=== PATIENT | male | born 1975 | race African-American/Black ===

== ENCOUNTER 2018-05-02 08:57 | Inpatient (IN) | END 2018-05-04 17:30 | disposition home or self-care (01) | DRG 393 ==

== ENCOUNTER 2018-05-08 04:53 | Inpatient (IN) | END 2018-06-05 01:09 | disposition short-term general hospital (02) | DRG 439 ==

== ENCOUNTER 2018-06-18 17:36 | Inpatient (IN) | END 2018-06-26 15:06 | disposition home or self-care (01) | DRG 439 ==

== ENCOUNTER 2018-07-15 17:26 | Inpatient (IN) | payer OTHER ==
[~2018-07-15] VITALS: Ht 185.4 cm; Wt 144.3 kg
[~2018-07-15 17:26] MED LIST: ACET325T45 PO; AMLO5TAB4 PO; CLON-379 PO; DOCU-144 PO; HYDR4TAB51 PO; LISI-471 PO; METO-319 PO; NICO-544 TD; POLY17PO6 PO
[2018-07-15] MEDS ORDERED: SOD CHLORIDE 0.9% 1,000 ML IV STA (22:31)
[2018-07-15] MEDS ORDERED: HYDROmorphONE 0.5 MG/0.5 ML SYG IV STA (22:31)
[2018-07-15] MEDS ORDERED: ONDANSETRON 4 MG INJ IV STA (22:31)
--- NOTE | 2018-07-16 00:43 | ERD ---
ER Documentation Chief Complaint Chief Complaint Complains of abdominal painHx of pancreatitis HPI 43-year-old male complains of abdominal pain in the epigastric region. Pain is mild to moderate intensity has been going on for the past 12 hours with associated nausea but no vomiting. Patient has history of recurrent pancreatitis. He states this feels like previous pancreatic flare. ROS All systems reviewed and are negative except as per history of present illness. Medications Home Meds Active Scripts Hydromorphone Hcl* (Dilaudid*) 4 Mg Tablet, 4 MG PO Q4H PRN for PAIN, #30 TAB Prov:DODIE FRANCES 06/26/18 Reported Medications Polyethylene Glycol* (Miralax*) 17 Gm Powd.pack, 17 GM PO DAILY, #30 PACKET 06/18/18 Nicotine* (Nicotine* Patch) Unknown Strength Patch, 14 MG TD DAILY, PATCH 06/18/18 Acetaminophen* (Acetaminophen*) 325 Mg Tablet, 325 MG PO NEEDED PRN for PAIN AND OR ELEVATED TEMP, #30 TAB 06/18/18 Metoprolol Succinate* (Toprol XL*) 50 Mg Tab.er.24h, 50 MG PO DAILY, #30 TAB 06/18/18 Amlodipine Besylate* (Norvasc*) 5 Mg Tablet, 5 MG PO DAILY, TAB 06/18/18 Docusate Sodium* (Colace*) 100 Mg Capsule, 100 MG PO Q24H PRN for CONSTIPATION, #30 CAP 06/18/18 Lisinopril* (Lisinopril*) 20 Mg Tablet, 20 MG PO DAILY, #30 TAB 06/18/18 Clonidine Hcl* (Clonidine Hcl*) 0.1 Mg Tab, 0.1 MG PO DAILY PRN for ELEVATED BLOOD PRESSURE, TAB 05/02/18 Allergies Allergies: Coded Allergies: acetaminophen (Verified Allergy, Intermediate, vomiting, rash, 07/15/18) aspirin (Verified Allergy, Intermediate, 06/18/18) blurry vision oxycodone (Verified Allergy, Intermediate, vomiting, rash, 07/15/18) morphine (Verified Adverse Reaction, Mild, abd pain,n/v, 06/18/18) PMhx/Soc History of Surgery: No Anesthesia Reaction: No Hx Neurological Disorder: No Hx Respiratory Disorders: No Hx Cardiac Disorders: Yes (HTN) Hx Psychiatric Problems: Yes (DEPRESSION) Hx Miscellaneous Medical Probl: Yes (ANEMIA, OBESITY) Hx Alcohol Use: No Hx Substance Use: No Hx Tobacco Use: Yes Smoking Status: Current every day smoker Physical Exam Vitals Vital Signs Date Temp Pulse Resp B/P (MAP) Pulse Ox O2 O2 Flow FiO2 Time Delivery Rate 07/15/18 97.7 105 20 138/87 97 17:34 (104) Physical Exam Const: No acute distress Head: Atraumatic Eyes: Normal Conjunctiva ENT: Normal External Ears, Nose and Mouth. Neck: Full range of motion. No meningismus. Resp: Clear to auscultation bilaterally Cardio: Regular rate and rhythm, no murmurs Abd: Soft, non tender, non distended. Normal bowel sounds Skin: No petechiae or rashes Back: No midline or flank tenderness Ext: No cyanosis, or edema Neur: Awake and alert Psych: Normal Mood and Affect Result Diagram: 07/15/18223807/15/182238 Results 24 hrs Laboratory Tests Test 07/15/18 22:39 White Blood Count 9.3 10^3/ul Red Blood Count 4.95 10^6/ul Hemoglobin 12.0 g/dl Hematocrit 40.1 % Mean Corpuscular Volume 81.0 fl Mean Corpuscular Hemoglobin 24.2 pg Mean Corpuscular Hemoglobin Concent 29.9 g/dl Red Cell Distribution Width 18.6 % Platelet Count 284 10^3/UL Mean Platelet Volume 9.5 fl Immature Granulocytes % 0.400 % Neutrophils % 70.6 % Lymphocytes % 21.4 % Monocytes % 5.7 % Eosinophils % 1.4 % Basophils % 0.5 % Nucleated Red Blood Cells % 0.0 /100WBC Immature Granulocytes # 0.040 10^3/ul Neutrophils # 6.5 10^3/ul Lymphocytes # 2.0 10^3/ul Monocytes # 0.5 10^3/ul Eosinophils # 0.1 10^3/ul Basophils # 0.1 10^3/ul Nucleated Red Blood Cells # 0.0 10^3/ul Sodium Level 138 mmol/L Potassium Level 3.8 mmol/L Chloride Level 101 mmol/L Carbon Dioxide Level 29 mmol/L Anion Gap 8 Blood Urea Nitrogen 13 mg/dl Creatinine 1.07 mg/dl Est Glomerular Filtrat Rate mL/min > 60 mL/min Glucose Level 138 mg/dl Calcium Level 9.9 mg/dl Total Bilirubin 0.2 mg/dl Direct Bilirubin 0.00 mg/dl Indirect Bilirubin 0.2 mg/dl Aspartate Amino Transf (AST/SGOT) 38 IU/L Alanine Aminotransferase (ALT/SGPT) 42 IU/L Alkaline Phosphatase 134 IU/L Troponin I 0.014 ng/ml Total Protein 8.0 g/dl Albumin 4.1 g/dl Globulin 3.90 g/dl Albumin/Globulin Ratio 1.05 Lipase 964 U/L Current Medications Medications Dose Sig/Jaclyn Start Time Status Last (Trade) Ordered Route PRN Stop Time Admin Dose Reason Admin Sodium 1,000 ml @ Q1H STAT 07/15/18 DC 07/15/18 Chloride 1,000 mls/hr IV 22:31 07/15/18 22:49 23:30 1 mg ONCE STAT 07/15/18 DC 07/15/18 Hydromorphone IV 22:31 07/15/18 22:50 HCl 22:32 (Dilaudid) Ondansetron 4 mg ONCE STAT 07/15/18 DC 07/15/18 HCl (Zofran IV 22:31 07/15/18 22:49 Inj) 22:32 Procedures/MDM Medical decision makin-year-old male with evidence of acute on chronic pancreatitis. Patient has been hydrating and pain medications. He will be admitted further evaluation and management to Dr. Rodriguez who is currently 7 the patient to service. Departure Diagnosis: Primary Impression: Abdominal pain Abdominal location: unspecified location Qualified Codes: R10.9 - Unspecified abdominal pain Additional Impression: Pancreatitis Chronicity: acute Pancreatitis type: unspecified pancreatitis type Acute pancreatitis complication: unspecified Qualified Codes: K85.90 - Acute pancreatitis without necrosis or infection, unspecified Condition: Serious GUILLERMO MONTOYA Jul 16, 2018 00:43
[2018-07-16] MEDS ORDERED: ACETAMINOPHEN 325 MG TAB PO PRN (01:00)
[2018-07-16] MEDS ORDERED: NACL 0.9% 3 ML SYG IV SCH (01:00)
[2018-07-16] MEDS ORDERED: SENN-36 PO (01:01)
[2018-07-16] MEDS ORDERED: SOD CHLORIDE 0.9% 100 ML ONE (01:05)
[2018-07-16] MEDS ORDERED: IOHEXOL 300MG/ML 150 ML BTL ONE (01:05)
[2018-07-16] MEDS: DOCUSATE SODIUM 100 MG CAP PO SCH ×2 (01:42→12:12)
[2018-07-16] MEDS: SOD CHLORIDE 0.9% 1,000 ML IV SCH ×5 (01:42→22:19)
[2018-07-16] MEDS: HYDROmorphONE 0.5 MG/0.5 ML SYG IV PRN ×2 (01:43→06:30)
[2018-07-16 02:38] VITALS: Ht 185.4 cm; Wt 144.3 kg
[2018-07-16] MEDS ORDERED: ONDANSETRON 4 MG INJ ONE (03:08)
[2018-07-16] MEDS: ONDANSETRON 4 MG INJ IV PRN (03:12)
[2018-07-16 03:24] VITALS: BP 157/88; PULSE 78; RESP 18
--- NOTE | 2018-07-16 06:52 | HP ---
Date/Time of Note Date/Time of Note DATE: 07/16/18 TIME: 06:42 Assessment/Plan VTE Prophylaxis Risk score (from Ns)>0 risk: 2 SCD applied (from Ns): Yes Pharmacological prophylaxis: NA/contraindicated Pharm contraindication: low risk/ambulating Lines/Catheters [facility]from [facility]): Peripheral IV Assessment/Plan Hospital Course This is a 43-year-old male being admitted to the [facility] floor for: #1 recurrent pancreatitis with pseudocyst: CT of the abdomen pelvis shows: Rede monstration of peripancreatic inflammatory change compatible with the patient's history of acute pancreatitis. Overall degree of inflammatory change is improved since the prior examination. Interval decrease in size of the largest pancreatic pseudocyst adjacent to the greater curvature of the stomach. Previous identified collection within the pancreatic body and tail is more well defined but slightly decreased in size. Findings are compatible with an additional pancreatic pseudocyst versus area of walled off necrosis. 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 - At the current time we will keep the patient n.p.o., aggressive IV hydration with normal saline. Will consult GI for further recommendations. Patient is currently afebrile and has a normal white blood cell count. Pain control with Dilaudid. Zofran for nausea. #2 paroxysmal atrial fibrillation: Patient currently appears to be in sinus, I will obtain an EKG for confirmation. Continue home medications. Currently not on any anticoagulation. #3 diabetes type II: Last hemoglobin A1c from June 2018 was 6.0. Insulin sliding scale #4 active smoker: Nicotine patch #5 DVT GI prophylaxis: SCDs, no GI prophylaxis indicated Further treatment strategy will be implemented as per the clinical course. Result Diagram: 07/15/18223807/15/182238 Results 24hrs Laboratory Tests Test 07/15/18 22:39 White Blood Count 9.3 # Red Blood Count 4.95 # Hemoglobin 12.0 #L Hematocrit 40.1 #L Mean Corpuscular Volume 81.0 L Mean Corpuscular Hemoglobin 24.2 L Mean Corpuscular Hemoglobin Concent 29.9 L Red Cell Distribution Width 18.6 H Platelet Count 284 Mean Platelet Volume 9.5 Immature Granulocytes % 0.400 Neutrophils % 70.6 Lymphocytes % 21.4 Monocytes % 5.7 Eosinophils % 1.4 Basophils % 0.5 Nucleated Red Blood Cells % 0.0 Immature Granulocytes # 0.040 H Neutrophils # 6.5 Lymphocytes # 2.0 Monocytes # 0.5 Eosinophils # 0.1 Basophils # 0.1 Nucleated Red Blood Cells # 0.0 Sodium Level 138 Potassium Level 3.8 Chloride Level 101 Carbon Dioxide Level 29 Anion Gap 8 Blood Urea Nitrogen 13 Creatinine 1.07 Est Glomerular Filtrat Rate mL/min > 60 Glucose Level 138 Calcium Level 9.9 Total Bilirubin 0.2 Direct Bilirubin 0.00 Indirect Bilirubin 0.2 Aspartate Amino Transf (AST/SGOT) 38 Alanine Aminotransferase (ALT/SGPT) 42 Alkaline Phosphatase 134 H Troponin I 0.014 Total Protein 8.0 Albumin 4.1 Globulin 3.90 H Albumin/Globulin Ratio 1.05 Lipase 964 H HPI/ROS Admit Date/Time Admit Date/Time Jul 16, 2018 at 00:39 Hx of Present Illness Chief complaint: Abdominal pain times 2 days, nausea vomiting This is a 43-year-old male with a past medical history of pancreatitis complicated by necrotizing pancreatitis and pseudocyst who returns to [facility] today complaining of abdominal pain. Patient reports that his abdominal pain started approximately 2 days ago. He states that he ate spicy gumbo and he thinks that this may have triggered it. He denies any fevers. Patient has previous hospitalizations at [facility] for necrotizing pancreatitis with pseudocyst. He was transferred to [facility] for hepatobiliary consultation however at that time aside from an upper endoscopy he did not have any procedures performed for the pseudocyst as he was told they were too small to be drained. Allergies: Acetaminophen, aspirin, morphine, oxycodone Medications: See SEP ROS Const: As per HPI Eyes : No pain discharge or redness or change in visual acuity ENT: No pain, sore throat, congestion, congestion, dysphagia or discharge Respiratory: No shortness of breath, cough, sputum, wheezing, or pleuritic pain Cardiovascular: No chest pain, palpitation, PND, or edema GI : As per HPI Genitourinary: No dysuria, hematuria, flank pain , discharge or CVA tenderness Musculoskeletal: No joint pain, back pain, neck pain, restricted range of motion in neck or joints Skin: No rash, bruising or hives Neuro: No headache, dizziness, syncope, seizure, focal weakness Endocrine: No polyuria, polydipsia, temperature intolerance Psych: No hallucination, depression, anxiety or suicidal ideation PMH/Family/Social Past Medical History Paroxysmal A fib Necrotizing pancreatitis with pseudocyst Medications Current Medications Sodium Chloride 1,000 ml @ 200 mls/hr Q5H IV Last administered on 07/16/18at 06:29; Admin Dose 200 MLS/HR; Start 07/16/18 at 00:40 IV Flush (NS 3 ml) 3 ml PER PROTOCOL IV ; Start 07/16/18 at 01:00 Ondansetron HCl (Zofran Inj) 4 mg Q6H PRN IV NAUSEA AND/OR VOMITING Last administered on 07/16/18at 03:12; Admin Dose 4 MG; Start 07/16/18 at 01:00 Acetaminophen (Tylenol Tab) 650 mg Q6H PRN PO PAIN LEVEL 1-3 OR FEVER; Start 07/16/18 at 01:00 Hydromorphone HCl (Dilaudid) 0.5 mg Q4H PRN IV SEVERE PAIN LEVEL 7-10 Last administered on 07/16/18at 06:30; Admin Dose 0.5 MG; Start 07/16/18 at 01:00 Docusate Sodium (Colace) 100 mg Q12H PO Last administered on 07/16/18at 01:42; Admin Dose 100 MG; Start 07/16/18 at 01:00 Bisacodyl (Dulcolax) 5 mg DAILY PO ; Start 07/16/18 at 09:00 Nicotine (Nicoderm 14 Mg/ 24hr) 1 patch DAILY TRANSDERM ; Start 07/16/18 at 09:00 Coded Allergies: acetaminophen (Unverified Allergy, Intermediate, vomiting, rash, 07/16/18) aspirin (Unverified Allergy, Intermediate, 07/16/18) blurry vision oxycodone (Unverified Allergy, Intermediate, vomiting, rash, 07/16/18) morphine (Unverified Adverse Reaction, Mild, abd pain,n/v, 07/16/18) Past Surgical History Past Surgical Hx: no surgical history Family History Significant Family History: no pertinent family hx Social History Alcohol Use: none Smoking Status: Current every day smoker Drug Use: none Exam/Review of Systems Vital Signs Vitals Vital Signs Date Temp Pulse Resp B/P (MAP) Pulse Ox O2 O2 Flow FiO2 Time Delivery Rate 07/16/18 98.6 78 18 157/88 96 03:24 (111) 07/16/18 Room Air 01:57 Exam Exam General: Patient is a pleasant male currently lying in bed does not appear to be in any acute distress HEENT: Atraumatic, normocephalic. The pupils are equal, round and reactive. Extraocular motor are intact Neck: Supple with full range of motion. No rigidity or meningismus Chest: Nontender Lungs: Clear to auscultation bilaterally no crackles rales or wheezing Heart: Appears to be normal sinus rhythm, Abdomen: Soft, tenderness palpation over the epigastric area and mid abdomen, normal bowel sounds, morbidly obese Extremities: Normal to inspection, no edema no cyanosis Neurologic: Normal mental status, speech normal, cranial nerves II through XII are intact, motor and sensory are intact, Additional Comments PROCEDURE: CT Abdomen and Pelvis with contrast. CLINICAL INDICATION: History of pancreatitis, necrotic pancreas, pseudocyst. TECHNIQUE: CT scan of the abdomen and pelvis with contrast was performed on a multi-detector high-resolution CT scanner. The patient was scanned following the uncomplicated intravenous administration of 100 cc of Omnipaque-300. Coronal and sagittal reformatted images were obtained from the axial source images. The total exam CTDI equals 24 mGy and the total exam DLP equals 1827 mGy-cm. DICOM images are available. One or more of the following dose reduction techniques were utilized: 1.) Automated exposure control 2.) Adjustment of the mA +/- kV according to patient's size 3.) Use of iterative reconstruction technique. COMPARISON: CT 06/18/2018 FINDINGS: Imaged portions of the chest demonstrate bibasilar dependent atelectasis. There is fatty infiltration of the liver. The gallbladder is unremarkable. Spleen is within normal limits. No adrenal gland lesions are seen. The kidneys enhance symmetrically bilaterally and there is no hydronephrosis. There is a right-sided renal cyst. There is peripancreatic inflammatory change compatible with the patient's history of acute pancreatitis. In the interval since the prior examination there has been decrease in size of the pancreatic pseudocyst adjacent to the greater curvature of the stomach. This measures 5.2 x 4.5 x 6.4 cm and previously measured maximally up to 7.5 cm. There is a low attenuation collection within the body and tail of the pancreas measuring 5.3 x 2.5 cm, overall slightly decreased in size and more well defined since the prior examination and compatible with an area of walled off necrosis versus pancreatic pseudocyst. There is also an additional collection within the pancreatic head measuring 1.3 x 1.7 cm which is decreased in size, previously measuring 2.4 x 2.9 cm. There is probable underlying dilatation of the pancreatic duct. The splenic vein is poorly visualized and likely chronically thrombosed. The pelvic organs are unremarkable. There is no evidence for bowel obstruction. The appendix is normal in caliber. There is reactive thickening of the stomach. There is no intra-abdominal free air. There is no mesenteric, retroperitoneal or pelvic sidewall lymphadenopathy. The abdominal aorta is normal in caliber. Visualized osseous structures are intact. IMPRESSION: Redemonstration of peripancreatic inflammatory change compatible with the patient's history of acute pancreatitis. Overall degree of inflammatory change is improved since the prior examination. Interval decrease in size of the largest pancreatic pseudocyst adjacent to the greater curvature of the stomach. Previous identified collection within the pancreatic body and tail is more well defined but slightly decreased in size. Findings are compatible with an additional pancreatic pseudocyst versus area of walled off necrosis. Interval decrease in size of an additional pancreatic pseudocyst versus walled off necrosis within the pancreatic head. 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 RPTAT: HAP Admitnoemi Santos Physician Date Time Electronically viewed and signed by Tonya Santos Physician on 07/16/2018 04:51 AP/ CC: FRANCO FAJARDO [id number] FRANCO FAJARDO Jul 16, 2018 06:52
[2018-07-16 08:05] VITALS: BP 156/95; PULSE 65; RESP 16
[2018-07-16] MEDS ORDERED: BISACODYL (EC) 5 MG TAB PO SCH (09:00)
[2018-07-16] MEDS: NICOTINE (14 MG/24 HR) PATCH TRANSDERM SCH (09:20)
[2018-07-16] MEDS: HYDROmorphONE 1 MG/ML SYG IV PRN ×3 (12:08→20:46)
[2018-07-16] MEDS ORDERED: HYDROmorphONE 1 MG/ML SYG IV PRN (13:00)
[2018-07-16 15:36] VITALS: BP 169/94; PULSE 64; RESP 18
--- NOTE | 2018-07-16 16:19 | PN ---
Date/Time of Note Date/Time of Note DATE: 07/16/18 TIME: 16:12 Assessment/Plan VTE Prophylaxis Risk score (from Ns)>0 risk: 3 SCD applied (from Ns): Yes Pharmacological prophylaxis: NA/contraindicated Pharm contraindication: low risk/ambulating Lines/Catheters IV Catheter Type (from Nrsg): Peripheral IV Assessment/Plan Assessment/Plan This is a 43-year-old male being admitted to the [facility] floor for: # Chronic pancreatitis with acute flare - CT of the abdomen shows overall improvement in inflammation and walling off of pseudocysts. - Continue NPO, advance diet as tolerated - IV fluids, analgesia, and antiemetics. - After discharge, continue dilaudid 4mg PO daily as needed. - Patient needs to see PMD. Has not seen him since last hospital discharge a month ago. - GI consulted. # paroxysmal atrial fibrillation: - Currently not on any anticoagulation. # diabetes type II: Last hemoglobin A1c from June 2018 was 6.0. Insulin sliding scale # active smoker: Nicotine patch # DVT GI prophylaxis: SCDs, no GI prophylaxis indicated Result Diagram: 07/15/18223807/15/182238 Subjective 24 Hr Interval Summary Free Text/Dictation No acute overnight events. The patient attributes this episode of pancreatitis to cayenne pepper in chicken gumbo. Denies any alcohol or fatty food since last hospital discharge. Pain adequately controlled on current regimen. Also, patient ran out of PO dilaudid prior to admission. Exam/Review of Systems Vital Signs Vitals Vital Signs Date Temp Pulse Resp B/P (MAP) Pulse Ox O2 O2 Flow FiO2 Time Delivery Rate 07/16/18 97.6 64 18 169/94 97 15:36 (119) 07/16/18 Room Air 01:57 Intake and Output 07/15/18 07/15/18 07/16/18 1414:59 22:59 06:59 IntakeIntake Total 1000 ml BalanceBalance 1000 ml Exam Gen: Morbidly obese man in no acute distress. HEENT: Clear oropharynx, no ulcers, moist mucous membranes. Card: Regular rate and rhythm no murmurs Pulm: Clear to auscultation bilaterally. Abd: Morbidly obese. Soft. Tenderness to palpation throughout. Ext: No cyanosis/clubbing/edema. Skin: warm dry well perfused. Lots of skin tags on neck and upper chest and ba ck. Medications Medications Current Medications Sodium Chloride 1,000 ml @ 200 mls/hr Q5H IV Last administered on 07/16/18 14:09; Admin Dose 200 MLS/HR; Start 07/16/18 at 00:40 IV Flush (NS 3 ml) 3 ml PER PROTOCOL IV ; Start 07/16/18 at 01:00 Ondansetron HCl (Zofran Inj) 4 mg Q6H PRN IV NAUSEA AND/OR VOMITING Last administered on 07/16/18 03:12; Admin Dose 4 MG; Start 07/16/18 at 01:00 Acetaminophen (Tylenol Tab) 650 mg Q6H PRN PO PAIN LEVEL 1-3 OR FEVER; Start 07/16/18 at 01:00 Docusate Sodium (Colace) 100 mg Q12H PO Last administered on 07/16/18 12:12; Admin Dose 100 MG; Start 07/16/18 at 01:00 Nicotine (Nicoderm 14 Mg/ 24hr) 1 patch DAILY TRANSDERM Last administered on 07/16/18 09:20; Admin Dose 1 PATCH; Start 07/16/18 at 09:00 Hydromorphone HCl (Dilaudid) 1 mg Q4H PRN IV SEVERE PAIN LEVEL 7-10 Last administered on 07/16/18 12:08; Admin Dose 1 MG; Start 07/16/18 at 12:00 Bisacodyl (Dulcolax) 5 mg DAILY PRN PO constipation; Start 07/16/18 at 16:30; Status UNV Lactulose (Enulose) 20 gm DAILY PO ; Start 07/16/18 at 16:30; Status UNV KATIE AVILA MD Jul 16, 2018 16:19
--- NOTE | 2018-07-16 16:21 | CONS ---
Date/Time of Note Date/Time of Note DATE: 07/16/18 TIME: 16:01 Assessment/Plan Assessment/Plan Hospital Course Summary Assessment and Plan: Assessment: Chronic pancreatitis pseudocyst - interval decrease in size of an additional pancreatic pseudocyst versus walled off necrosis within the pancreatic head, on imaging Chronic narcotic use Narcotic induced constipation Paroxysmal atrial fibrillation DM, type 2 Current smoker Obesity Plan: NPO, IVF- if sx improve consider clear liquid diet in am Recommend HBS consult- on pervious admission attempted to obtain HBS but was unable 2/2 to ins Instructed patient on last visit to f/u at [facility] [place], has not done so as of yet. Pt states he has an appt with general practitioner next week. Again instructed patient on importance of f/u at [facility] for evaluation of chronic pancreatitis with pseudocysts Pain management Monitor labs Patient seen in collaboration with Dr. Alanis Result Diagram: 07/15/18223807/15/182238 Results 24hrs Laboratory Tests Test 07/15/18 22:39 White Blood Count 9.3 # Red Blood Count 4.95 # Hemoglobin 12.0 #L Hematocrit 40.1 #L Mean Corpuscular Volume 81.0 L Mean Corpuscular Hemoglobin 24.2 L Mean Corpuscular Hemoglobin Concent 29.9 L Red Cell Distribution Width 18.6 H Platelet Count 284 Mean Platelet Volume 9.5 Immature Granulocytes % 0.400 Neutrophils % 70.6 Lymphocytes % 21.4 Monocytes % 5.7 Eosinophils % 1.4 Basophils % 0.5 Nucleated Red Blood Cells % 0.0 Immature Granulocytes # 0.040 H Neutrophils # 6.5 Lymphocytes # 2.0 Monocytes # 0.5 Eosinophils # 0.1 Basophils # 0.1 Nucleated Red Blood Cells # 0.0 Sodium Level 138 Potassium Level 3.8 Chloride Level 101 Carbon Dioxide Level 29 Anion Gap 8 Blood Urea Nitrogen 13 Creatinine 1.07 Est Glomerular Filtrat Rate mL/min > 60 Glucose Level 138 Calcium Level 9.9 Total Bilirubin 0.2 Direct Bilirubin 0.00 Indirect Bilirubin 0.2 Aspartate Amino Transf (AST/SGOT) 38 Alanine Aminotransferase (ALT/SGPT) 42 Alkaline Phosphatase 134 H Troponin I 0.014 Total Protein 8.0 Albumin 4.1 Globulin 3.90 H Albumin/Globulin Ratio 1.05 Lipase 964 H CC: MEDINA ALANIS ; Consultation Date/Type/Reason Admit Date/Time Jul 16, 2018 at 00:39 Date of Consultation: Jul 16, 2018 Type of Consult GI Reason for Consultation Chronic pancreatitis with pseudocyst Hx of Present Illness This is a 43 year old male with who represented to the hospital with profuse nausea and vomiting with severe upper abdominal pain patient states secondary to pancreatitis. This patient is well know to the GI team has been dx with p ancreatitis with pseudocyst was evaluated at [facility] underwent possible cystostomy unsuccessful as well as possible drainage of pseudocyst again unsuccessful. Patient was discharged and shortly later re-presented to [facility] in the beginning of June he was treated here and discharge 06/26/18 with plans to follow-up at a tertiary center. Since then patient has not done so states he was feeling better on Dilaudid medication. However patient states he fell and dropped the remaining pills of his Dilaudid down the sink and had to use Percocet instead which he feels has caused more pain and worsening of constipation. Of note patient states his last bowel mo vement was 06/26/18A CT of abdomen/pelvis with contrast was completed earlier this morning showing fatty liver, no evidence for bowel obstruction, the appendix is normal caliber there is reactive thickening of the stomach no intra- abdominal free air, there is no mesenteric or or pelvic lymphadenopathy no mention of constipation. Additionally, imaging shows remonstration of peripancreatic inflammatory change compatible with the patient's history of acute pancreatitis. Overall degree of inflammatory change is improved since the prior examination. Interval decrease in size of the largest pancreatic pseudocyst adjacent to the greater curvature of the stomach. Previous identified collection within the pancreatic body and tail is more well defined but slightly decreased in size. Findings are compatible with an additional pancreatic pseudocyst versus area of walled off necrosis. Interval decrease in size of an additional pancreatic pseudocyst versus walled off necrosis within the pancreatic head. A time evaluation patient complains of severe upper abdominal pain. Nausea and vomiting have resolved. Patient denies diarrhea, melena, hematochezia. Again patient complains of constipation. Lipase on admission 900s patient is currently n.p.o. with IV fluids continue pain management. 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 Review of Systems: A 12 system, review was conducted and is negative except as noted in the HPI or here. Past Medical History Medications Current Medications Sodium Chloride 1,000 ml @ 200 mls/hr Q5H IV Last administered on 07/16/18 14:09; Admin Dose 200 MLS/HR; Start 07/16/18 at 00:40 IV Flush (NS 3 ml) 3 ml PER PROTOCOL IV ; Start 07/16/18 at 01:00 Ondansetron HCl (Zofran Inj) 4 mg Q6H PRN IV NAUSEA AND/OR VOMITING Last admi nistered on 07/16/18 03:12; Admin Dose 4 MG; Start 07/16/18 at 01:00 Acetaminophen (Tylenol Tab) 650 mg Q6H PRN PO PAIN LEVEL 1-3 OR FEVER; Start 07/16/18 at 01:00 Docusate Sodium (Colace) 100 mg Q12H PO Last administered on 07/16/18 12:12; Admin Dose 100 MG; Start 07/16/18 at 01:00 Bisacodyl (Dulcolax) 5 mg DAILY PO Last administered on 07/16/18 09:20; Admin Dose 5 MG; Start 07/16/18 at 09:00 Nicotine (Nicoderm 14 Mg/ 24hr) 1 patch DAILY TRANSDERM Last administered on 07/16/18 09:20; Admin Dose 1 PATCH; Start 07/16/18 at 09:00 Hydromorphone HCl (Dilaudid) 1 mg Q4H PRN IV SEVERE PAIN LEVEL 7-10 Last administered on 07/16/18 12:08; Admin Dose 1 MG; Start 07/16/18 at 12:00 Allergies: Coded Allergies: acetaminophen (Unverified Allergy, Intermediate, vomiting, rash, 07/16/18) aspirin (Unverified Allergy, Intermediate, 07/16/18) blurry vision oxycodone (Unverified Allergy, Intermediate, vomiting, rash, 07/16/18) morphine (Unverified Adverse Reaction, Mild, abd pain,n/v, 07/16/18) Past Surgical History Past Surgical Hx: no surgical history Social History Alcohol Use: none Smoking Status: Current every day smoker Drug Use: none Exam/Review of Systems Vital Signs Vitals Vital Signs Date Temp Pulse Resp B/P (MAP) Pulse Ox O2 O2 Flow FiO2 Time Delivery Rate 07/16/18 97.6 64 18 169/94 97 15:36 (119) 07/16/18 Room Air 01:57 Intake and Output 07/15/18 07/15/18 07/16/18 1515:00 23:00 07:00 IntakeIntake Total 1000 ml BalanceBalance 1000 ml Exam PHYSICAL EXAMINATION: GENERAL: Obese, alert & oriented x 3, in no acute distress SKIN: No lesions HEAD: Normocephalic, atraumatic, no tenderness. EYES: Pupils equal reactive to light, no discharge. EARS/NOSE AND THROAT: Ears normal, nose normal NECK: Supple, no masses CHEST: Inspection within normal limits. CARDIOVASCULAR: Heart: Regular rate and rhythm RESPIRATORY: Lungs clear to auscultation GASTROINTESTINAL AND LIVER: Abdomen: Soft, upper abd pain non-distended, no hernias,, normoactive bowel sounds. Rectal: Deferred. GENITOURINARY: Male genitalia within normal limits. EXTREMITIES: No cyanosis, clubbing or edema. Medications Medications Current Medications Sodium Chloride 1,000 ml @ 200 mls/hr Q5H IV Last administered on 07/16/18at 14:09; Admin Dose 200 MLS/HR; Start 07/16/18 at 00:40 IV Flush (NS 3 ml) 3 ml PER PROTOCOL IV ; Start 07/16/18 at 01:00 Ondansetron HCl (Zofran Inj) 4 mg Q6H PRN IV NAUSEA AND/OR VOMITING Last administered on 07/16/18at 03:12; Admin Dose 4 MG; Start 07/16/18 at 01:00 Acetaminophen (Tylenol Tab) 650 mg Q6H PRN PO PAIN LEVEL 1-3 OR FEVER; Start 07/16/18 at 01:00 Docusate Sodium (Colace) 100 mg Q12H PO Last administered on 07/16/18at 12:12; Admin Dose 100 MG; Start 07/16/18 at 01:00 Bisacodyl (Dulcolax) 5 mg DAILY PO Last administered on 07/16/18 09:20; Admin Dose 5 MG; Start 07/16/18 at 09:00 Nicotine (Nicoderm 14 Mg/ 24hr) 1 patch DAILY TRANSDERM Last administered on 07/16/18 09:20; Admin Dose 1 PATCH; Start 07/16/18 at 09:00 Hydromorphone HCl (Dilaudid) 1 mg Q4H PRN IV SEVERE PAIN LEVEL 7-10 Last administered on 07/16/18at 12:08; Admin Dose 1 MG; Start 07/16/18 at 12:00 KATARINA DAY Jul 16, 2018 16:12
[2018-07-16] MEDS ORDERED: BISACODYL (EC) 5 MG TAB PO PRN (16:30)
[2018-07-16] MEDS: LACTULOSE 30ML CUP PO SCH (18:34)
[2018-07-16 20:08] VITALS: BP 159/98; PULSE 64; RESP 18
[2018-07-17] MEDS: DOCUSATE SODIUM 100 MG CAP PO SCH ×2 (00:56→13:46)
[2018-07-17] MEDS: HYDROmorphONE 1 MG/ML SYG IV PRN ×4 (00:56→13:46)
[2018-07-17] MEDS: SOD CHLORIDE 0.9% 1,000 ML IV SCH ×5 (02:40→16:00)
[2018-07-17 03:13] VITALS: BP 164/98; PULSE 65; RESP 18
[2018-07-17] MEDS: ONDANSETRON 4 MG INJ IV PRN (05:38)
[2018-07-17 08:09] VITALS: BP 120/56; PULSE 99; RESP 19
[2018-07-17] MEDS: LACTULOSE 30ML CUP PO SCH ×2 (09:00→09:46)
[2018-07-17] MEDS: NICOTINE (14 MG/24 HR) PATCH TRANSDERM SCH (09:46)
--- NOTE | 2018-07-17 12:02 | RADRPT ---
Vent Rate: 67 bpm RR Interval: 0 msec [place] Interval: 152 msec QRS Duration: 102 msec QT Interval: 430 msec QTC Interval: 454 msec P-R-T [place]: 31 - 40 - 0 degrees Normal sinus rhythm T wave abnormality, consider inferolateral ischemia Abnormal ECG Electronically Signed By: Nelson Cabral [id number]
--- NOTE | 2018-07-17 14:18 | PN ---
Date/Time of Note Date/Time of Note DATE: 07/17/18 TIME: 14:13 Assessment/Plan VTE Prophylaxis Risk score (from Nsg)>0 risk: 3 SCD applied (from Nsg): Yes Pharmacological prophylaxis: other (scds) Lines/Catheters IV Catheter Type (from Nrsg): Peripheral IV Assessment/Plan Hospital Course Summary Assessment and Plan: Assessment: Chronic pancreatitis pseudocyst - interval decrease in size of an additional pancreatic pseudocyst versus walled off necrosis within the pancreatic head, on imaging Chronic narcotic use Narcotic induced constipation Paroxysmal atrial fibrillation DM, type 2 Current smoker Obesity Plan: Clear liquid diet today- advance as tolerated Pt to f/u at tertiary center for follow-up for pancreatitis with pseudocyst Pain management Monitor labs D/c planning her hospitalist Patient seen in collaboration with Dr. Guillory/Willie Subjective: Pt feels slightly better, He states had a large BM today. Will change lactulose to PRN. Pain controlled with current regimen PHYSICAL EXAMINATION: GENERAL: Obese, alert & oriented x 3, in no acute distress SKIN: No lesions HEAD: Normocephalic, atraumatic, no tenderness. EYES: Pupils equal reactive to light, no discharge. EARS/NOSE AND THROAT: Ears normal, nose normal NECK: Supple, no masses CHEST: Inspection within normal limits. CARDIOVASCULAR: Heart: Regular rate and rhythm RESPIRATORY: Lungs clear to auscultation GASTROINTESTINAL AND LIVER: Abdomen: Soft, upper abd pain,non-distended, no hernias,, normoactive bowel sounds. Rectal: Deferred. GENITOURINARY: Male genitalia within normal limits. EXTREMITIES: No cyanosis, clubbing or edema. Result Diagram: 07/17/18 0535 07/17/18 0535 Results 24hrs Laboratory Tests Test 07/16/18 20:00 07/17/18 05:35 Urine Color YELLOW Urine Clarity CLEAR Urine pH 6.0 Urine Specific [place] > 1.060 H Urine Ketones NEGATIVE Urine Nitrite NEGATIVE Urine Bilirubin NEGATIVE Urine Urobilinogen 1+ H Urine Leukocyte Esterase NEGATIVE Urine Microscopic RBC 1 Urine Microscopic WBC 1 Urine Mucus FEW A Urine Hemoglobin NEGATIVE Urine Glucose NEGATIVE Urine Total Protein 1+ H White Blood Count 6.3 # Red Blood Count 4.29 L Hemoglobin 10.4 L Hematocrit 35.6 L Mean Corpuscular Volume 83.0 Mean Corpuscular Hemoglobin 24.2 L Mean Corpuscular Hemoglobin Concent 29.2 L Red Cell Distribution Width 18.3 H Platelet Count 236 Mean Platelet Volume 10.5 H Immature Granulocytes % 0.300 Neutrophils % 59.0 Lymphocytes % 22.9 Monocytes % 6.5 Eosinophils % 10.5 H Basophils % 0.8 Nucleated Red Blood Cells % 0.0 Immature Granulocytes # 0.020 Neutrophils # 3.7 Lymphocytes # 1.4 Monocytes # 0.4 Eosinophils # 0.7 H Basophils # 0.1 Nucleated Red Blood Cells # 0.0 Sodium Level 144 Potassium Level 3.9 Chloride Level 107 Carbon Dioxide Level 28 Anion Gap 9 Blood Urea Nitrogen 9 Creatinine 0.73 Est Glomerular Filtrat Rate mL/min > 60 Glucose Level 88 # Calcium Level 9.1 Magnesium Level 1.9 Total Bilirubin 0.3 Direct Bilirubin 0.00 Indirect Bilirubin 0.3 Aspartate Amino Transf (AST/SGOT) 25 Alanine Aminotransferase (ALT/SGPT) 34 Alkaline Phosphatase 104 Total Protein 6.6 # Albumin 3.3 Globulin 3.30 H Albumin/Globulin Ratio 1.00 Triglycerides Level 142 Cholesterol Level 166 LDL Cholesterol, Calculated 109 HDL Cholesterol 29 Cholesterol/HDL Ratio 5.7 Thyroid Stimulating Hormone (TSH) 2.790 Exam/Review of Systems Vital Signs Vitals Vital Signs Date Temp Pulse Resp B/P (MAP) Pulse Ox O2 O2 Flow FiO2 Time Delivery Rate 07/17/18 97.9 65 18 164/98 97 03:13 (120) 07/16/18 Room Air 01:57 Intake and Output 07/16/18 07/16/18 07/17/18 1515:00 23:00 07:00 IntakeIntake Total 1000 ml 1000 ml 1000 ml OutputOutput Total 300 ml 200 ml BalanceBalance 700 ml 800 ml 1000 ml Medications Medications Current Medications Sodium Chloride 1,000 ml @ 150 mls/hr Q6H40M IV Last administered on 07/17/18at 13:46; Admin Dose 150 MLS/HR; Start 07/16/18 at 00:40 IV Flush (NS 3 ml) 3 ml PER PROTOCOL IV ; Start 07/16/18 at 01:00 Ondansetron HCl (Zofran Inj) 4 mg Q6H PRN IV NAUSEA AND/OR VOMITING Last administered on 07/17/18at 05:38; Admin Dose 4 MG; Start 07/16/18 at 01:00 Acetaminophen (Tylenol Tab) 650 mg Q6H PRN PO PAIN LEVEL 1-3 OR FEVER; Start 07/16/18 at 01:00 Docusate Sodium (Colace) 100 mg Q12H PO Last administered on 07/17/18at 13:46; Admin Dose 100 MG; Start 07/16/18 at 01:00 Nicotine (Nicoderm 14 Mg/ 24hr) 1 patch DAILY TRANSDERM Last administered on 07/17/18 09:46; Admin Dose 1 PATCH; Start 07/16/18 at 09:00 Hydromorphone HCl (Dilaudid) 1 mg Q4H PRN IV SEVERE PAIN LEVEL 7-10 Last administered on 07/17/18at 13:46; Admin Dose 1 MG; Start 07/16/18 at 12:00 Bisacodyl (Dulcolax) 5 mg DAILY PRN PO constipation; Start 07/16/18 at 16:30 Lactulose (Enulose) 20 gm DAILY PO Last administered on 07/16/18at 18:34; Admin Dose 20 GM; Start 07/16/18 at 16:30 Senna (Senokot) 2 tab BID PO ; Start 07/17/18 at 21:00 KATARINA DAY Jul 17, 2018 14:18
[2018-07-17] MEDS ORDERED: LACTULOSE 30ML CUP PO PRN (14:30)
[2018-07-17 15:10] VITALS: BP 173/95; PULSE 73; RESP 19
[2018-07-17 16:28] VITALS: BP 157/61
--- NOTE | 2018-07-17 17:20 | PN ---
Date/Time of Note Date/Time of Note DATE: 07/17/18 TIME: 17:18 Assessment/Plan VTE Prophylaxis Risk score (from Ns)>0 risk: 3 SCD applied (from Ns): Yes Pharmacological prophylaxis: NA/contraindicated Pharm contraindication: low risk/ambulating Lines/Catheters [facility]): Peripheral IV Assessment/Plan Assessment/Plan This is a 43-year-old male being admitted to the [facility] floor for: # Chronic pancreatitis with acute flare - CT of the abdomen shows overall improvement in inflammation and walling off of pseudocysts. - Clear liquids today, advance diet as tolerated - After discharge, continue dilaudid 4mg PO daily as needed. - Patient needs to see PMD. Has not seen him since last hospital discharge a month ago. - Outpatient hepatobiliary consult. - GI consulted. # paroxysmal atrial fibrillation: - Currently not on any anticoagulation. # diabetes type II: Last hemoglobin A1c from June 2018 was 6.0. Insulin sliding scale # active smoker: Nicotine patch # DVT GI prophylaxis: SCDs, no GI prophylaxis indicated Result Diagram: 07/17/18 0535 07/17/18 0535 Subjective 24 Hr Interval Summary Free Text/Dictation Patient overall feeling better. Tolerating clear liquids. Complaining about plastic taste in mouth from IV fluids, requested they be discontinued. Exam/Review of Systems Vital Signs Vitals Vital Signs Date Temp Pulse Resp B/P (MAP) Pulse Ox O2 O2 Flow FiO2 Time Delivery Rate 07/17/18 157/61 16:28 (93) 07/17/18 98.0 73 19 98 15:10 07/16/18 Room Air 01:57 Intake and Output 07/16/18 07/16/18 07/17/18 1515:00 23:00 07:00 IntakeIntake Total 1000 ml 1000 ml 1000 ml OutputOutput Total 300 ml 200 ml BalanceBalance 700 ml 800 ml 1000 ml Exam Gen: Morbidly obese man in no acute distress. HEENT: Clear oropharynx, no ulcers, moist mucous membranes. Card: Regular rate and rhythm no murmurs Pulm: Clear to auscultation bilaterally. Abd: Morbidly obese. Soft. Tenderness to palpation throughout. Ext: No cyanosis/clubbing/edema. Skin: warm dry well perfused. Lots of skin tags on neck and upper chest and back. Medications Medications Current Medications Sodium Chloride 1,000 ml @ 150 mls/hr Q6H40M IV Last administered on 07/17/18 13:46; Admin Dose 150 MLS/HR; Start 07/16/18 at 00:40 IV Flush (NS 3 ml) 3 ml PER PROTOCOL IV ; Start 07/16/18 at 01:00 Ondansetron HCl (Zofran Inj) 4 mg Q6H PRN IV NAUSEA AND/OR VOMITING Last administered on 07/17/18 05:38; Admin Dose 4 MG; Start 07/16/18 at 01:00 Acetaminophen (Tylenol Tab) 650 mg Q6H PRN PO PAIN LEVEL 1-3 OR FEVER; Start 07/16/18 at 01:00 Docusate Sodium (Colace) 100 mg Q12H PO Last administered on 07/17/18 13:46; Admin Dose 100 MG; Start 07/16/18 at 01:00 Nicotine (Nicoderm 14 Mg/ 24hr) 1 patch DAILY TRANSDERM Last administered on 07/17/18 09:46; Admin Dose 1 PATCH; Start 07/16/18 at 09:00 Hydromorphone HCl (Dilaudid) 1 mg Q4H PRN IV SEVERE PAIN LEVEL 7-10 Last administered on 07/17/18 13:46; Admin Dose 1 MG; Start 07/16/18 at 12:00 Bisacodyl (Dulcolax) 5 mg DAILY PRN PO constipation; Start 07/16/18 at 16:30 Senna (Senokot) 2 tab BID PO ; Start 07/17/18 at 21:00 Lactulose (Enulose) 20 gm DAILY PRN PO constipation; Start 07/17/18 at 14:30 KATIE AVILA MD Jul 17, 2018 17:20
[2018-07-17] MEDS: HYDROmorphONE 2 MG TAB PO PRN ×2 (18:02→21:55)
[2018-07-17 19:38] VITALS: BP 174/112; PULSE 80; RESP 18
[2018-07-17] MEDS: SENNA TAB PO SCH (21:55)
[2018-07-18] MEDS: DOCUSATE SODIUM 100 MG CAP PO SCH ×2 (00:09→13:00)
[2018-07-18 01:40] VITALS: BP 195/108; PULSE 62; RESP 18
[2018-07-18] MEDS: HYDROmorphONE 2 MG TAB PO PRN ×2 (01:55→07:09)
[2018-07-18] MEDS: ONDANSETRON 4 MG INJ IV PRN ×2 (01:58→09:50)
[2018-07-18 02:26] VITALS: BP 168/78; PULSE 69; RESP 18
[2018-07-18 07:35] VITALS: BP 189/102; PULSE 67; RESP 20
[2018-07-18] MEDS: SENNA TAB PO SCH ×2 (09:00→19:56)
[2018-07-18] MEDS: NICOTINE (14 MG/24 HR) PATCH TRANSDERM SCH (09:50)
[2018-07-18] MEDS: HYDROmorphONE 1 MG/ML SYG IV PRN ×3 (11:16→19:56)
--- NOTE | 2018-07-18 14:03 | PN ---
Date/Time of Note Date/Time of Note DATE: 07/18/18 TIME: 14:01 Assessment/Plan VTE Prophylaxis Risk score (from Nsg)>0 risk: 3 SCD applied (from Nsg): No SCD contraindicated: low risk/ambulating Pharmacological prophylaxis: LMWH Lines/Catheters IV Catheter Type (from Nrsg): Peripheral IV Assessment/Plan Assessment/Plan This is a 43-year-old male being admitted to the [facility] floor for: # Chronic pancreatitis with acute flare - CT of the abdomen shows overall improvement in inflammation and walling off of pseudocysts. - Clear liquids today, advance diet as tolerated - Still requiring IV dilaudid. - After discharge, continue dilaudid 4mg PO daily as needed. - Patient needs to see PMD. Has not seen him since last hospital discharge a month ago. - Outpatient hepatobiliary consult. # paroxysmal atrial fibrillation: - Currently not on any anticoagulation. # diabetes type II: Last hemoglobin A1c from June 2018 was 6.0. Insulin sliding scale # active smoker: Nicotine patch # DVT GI prophylaxis: SCDs, no GI prophylaxis indicated Result Diagram: 07/17/18 0535 07/17/18 0535 Subjective 24 Hr Interval Summary Free Text/Dictation No acute overnight events. Pain is significantly better. He's able to lie flat now. Had several episodes of vomiting this morning. Exam/Review of Systems Vital Signs Vitals Vital Signs Date Temp Pulse Resp B/P (MAP) Pulse Ox O2 O2 Flow FiO2 Time Delivery Rate 07/18/18 98.3 67 20 189/102 96 Room Air 07:35 (131) Intake and Output 07/17/18 07/17/18 07/18/18 1515:00 23:00 07:00 IntakeIntake Total 1480 ml 1380 ml OutputOutput Total 300 ml BalanceBalance 1180 ml 1380 ml Exam Gen: Morbidly obese man in no acute distress. HEENT: Clear oropharynx, no ulcers, moist mucous membranes. Card: Regular rate and rhythm no murmurs Pulm: Clear to auscultation bilaterally. Abd: Morbidly obese. Soft. Epigastric and LUQ tenderness to palpation, otherwise nontender. Ext: No cyanosis/clubbing/edema. Skin: warm dry well perfused. Lots of skin tags on neck and upper chest and back. Medications Medications Current Medications IV Flush (NS 3 ml) 3 ml PER PROTOCOL IV ; Start 07/16/18 at 01:00 Acetaminophen (Tylenol Tab) 650 mg Q6H PRN PO PAIN LEVEL 1-3 OR FEVER; Start 07/16/18 at 01:00 Docusate Sodium (Colace) 100 mg Q12H PO Last administered on 07/17/18at 13:46; Admin Dose 100 MG; Start 07/16/18 at 01:00 Nicotine (Nicoderm 14 Mg/ 24hr) 1 patch DAILY TRANSDERM Last administered on 07/18/18at 09:50; Admin Dose 1 PATCH; Start 07/16/18 at 09:00 Bisacodyl (Dulcolax) 5 mg DAILY PRN PO constipation; Start 07/16/18 at 16:30 Senna (Senokot) 2 tab BID PO Last administered on 07/17/18at 21:55; Admin Dose 2 TAB; Start 07/17/18 at 21:00 Lactulose (Enulose) 20 gm DAILY PRN PO constipation; Start 07/17/18 at 14:30 Hydromorphone HCl (Dilaudid) 2 mg Q4H PRN PO SEVERE PAIN LEVEL 7-10 Last administered on 07/18/18at 07:09; Admin Dose 2 MG; Start 07/17/18 at 17:30 Ondansetron HCl (Zofran Inj) 4 mg Q4H PRN IV NAUSEA AND/OR VOMITING Last administered on 07/18/18at 09:50; Admin Dose 4 MG; Start 07/18/18 at 09:00 Hydromorphone HCl (Dilaudid) 1 mg Q4H PRN IV SEVERE PAIN LEVEL 7-10 Last administered on 07/18/18at 11:16; Admin Dose 1 MG; Start 07/18/18 at 11:00 KATIE AVILA MD Jul 18, 2018 14:03
[2018-07-18 14:30] VITALS: BP 188/109; PULSE 70; RESP 20
--- NOTE | 2018-07-18 15:29 | PN ---
Date/Time of Note Date/Time of Note DATE: 07/18/18 TIME: 15:20 Assessment/Plan VTE Prophylaxis Risk score (from Nsg)>0 risk: 3 SCD applied (from Ns): No SCD contraindicated: other (scds) Pharmacological prophylaxis: other (scds) Pharm contraindication: other (scds) Lines/Catheters [facility] [place] Urinary Cath still in place: No Assessment/Plan Hospital Course Summary Assessment and Plan: Assessment: Chronic pancreatitis pseudocyst - interval decrease in size of an additional pancreatic pseudocyst versus walled off necrosis within the pancreatic head, on imaging Chronic narcotic use Narcotic induced constipation Paroxysmal atrial fibrillation DM, type 2 Current smoker Obesity Plan: Clear liquid diet- if sx improve consider increasing diet Pt to f/u at tertiary center for follow-up for pancreatitis with pseudocyst Pain management Monitor labs D/c planning her hospitalist Consider pain management consult Patient seen in collaboration with Dr. Guillory/Willie Subjective: Pt c/o increase n/v - Zofran frequency has been increased. Discussed starting PPI- pt feels he does not have enough acid in his stomach. Reviewed previous EGD- gastric erosions Pt currently tamez not want PPI. Overall stable. increae diet with improvement of symptoms. PHYSICAL EXAMINATION: GENERAL: Obese, alert & oriented x 3, in no acute distress SKIN: No lesions HEAD: Normocephalic, atraumatic, no tenderness. EYES: Pupils equal reactive to light, no discharge. EARS/NOSE AND THROAT: Ears normal, nose normal NECK: Supple, no masses CHEST: Inspection within normal limits. CARDIOVASCULAR: Heart: Regular rate and rhythm RESPIRATORY: Lungs clear to auscultation GASTROINTESTINAL AND LIVER: Abdomen: Soft, upper abd pain,non-distended, no hernias,normoactive bowel sounds. Rectal: Deferred. GENITOURINARY: Male genitalia within normal limits. EXTREMITIES: No cyanosis, clubbing or edema. Result Diagram: 07/17/18 0535 07/17/18 0535 Exam/Review of Systems Vital Signs Vitals Vital Signs Date Temp Pulse Resp B/P (MAP) Pulse Ox O2 O2 Flow FiO2 Time Delivery Rate 07/18/18 98.3 67 20 189/102 96 Room Air 07:35 (131) Intake and Output 07/17/18 07/17/18 07/18/18 1414:59 22:59 06:59 IntakeIntake Total 1480 ml 1380 ml OutputOutput Total 300 ml BalanceBalance 1180 ml 1380 ml Medications Medications Current Medications IV Flush (NS 3 ml) 3 ml PER PROTOCOL IV ; Start 07/16/18 at 01:00 Acetaminophen (Tylenol Tab) 650 mg Q6H PRN PO PAIN LEVEL 1-3 OR FEVER; Start 07/16/18 at 01:00 Docusate Sodium (Colace) 100 mg Q12H PO Last administered on 07/17/18at 13:46; Admin Dose 100 MG; Start 07/16/18 at 01:00 Nicotine (Nicoderm 14 Mg/ 24hr) 1 patch DAILY TRANSDERM Last administered on 07/18/18at 09:50; Admin Dose 1 PATCH; Start 07/16/18 at 09:00 Bisacodyl (Dulcolax) 5 mg DAILY PRN PO constipation; Start 07/16/18 at 16:30 Senna (Senokot) 2 tab BID PO Last administered on 07/17/18at 21:55; Admin Dose 2 TAB; Start 07/17/18 at 21:00 Lactulose (Enulose) 20 gm DAILY PRN PO constipation; Start 07/17/18 at 14:30 Hydromorphone HCl (Dilaudid) 2 mg Q4H PRN PO SEVERE PAIN LEVEL 7-10 Last administered on 07/18/18 07:09; Admin Dose 2 MG; Start 07/17/18 at 17:30 Ondansetron HCl (Zofran Inj) 4 mg Q4H PRN IV NAUSEA AND/OR VOMITING Last administered on 07/18/18at 09:50; Admin Dose 4 MG; Start 07/18/18 at 09:00 Hydromorphone HCl (Dilaudid) 1 mg Q4H PRN IV SEVERE PAIN LEVEL 7-10 Last administered on 07/18/18 11:16; Admin Dose 1 MG; Start 07/18/18 at 11:00 Enoxaparin Sodium (Lovenox) 40 mg DAILY SC ; Start 07/19/18 at 09:00 KATARINA DAY Jul 18, 2018 15:29
[2018-07-18 20:07] VITALS: BP 180/105; PULSE 65; RESP 18
[2018-07-18] MEDS: LISINOPRIL 20 MG TAB PO SCH (21:38)
[2018-07-19] MEDS: HYDROmorphONE 1 MG/ML SYG IV PRN ×6 (00:35→21:55)
[2018-07-19] MEDS: DOCUSATE SODIUM 100 MG CAP PO SCH ×2 (01:00→12:01)
[2018-07-19 02:25] VITALS: BP 150/91; PULSE 64; RESP 20
[2018-07-19] MEDS: ONDANSETRON 4 MG INJ IV PRN ×3 (05:18→17:28)
[2018-07-19 07:57] VITALS: BP 160/102; PULSE 58; RESP 20
[2018-07-19] MEDS: POTASSIUM CHLORIDE 20 MEQ POWDER FOR ORAL SOLN PO ONE ×2 (09:00→09:04)
[2018-07-19] MEDS: ENOXAPARIN 40 MG/0.4 ML SYG SC SCH (09:00)
[2018-07-19] MEDS: SENNA TAB PO SCH ×3 (09:00→21:00)
[2018-07-19] MEDS: LISINOPRIL 20 MG TAB PO SCH (09:07)
[2018-07-19] MEDS: NICOTINE (14 MG/24 HR) PATCH TRANSDERM SCH (09:07)
[2018-07-19] MEDS ORDERED: MAGNESIUM SULFATE 2 GM/50 ML 50 ML IVPB ONE (10:00)
--- NOTE | 2018-07-19 14:58 | PN ---
Date/Time of Note Date/Time of Note DATE: 07/19/18 TIME: 14:49 Assessment/Plan VTE Prophylaxis Risk score (from Nsg)>0 risk: 2 SCD applied (from Nsg): No SCD contraindicated: low risk/ambulating Pharmacological prophylaxis: heparin Lines/Catheters IV Catheter Type (from Nrsg): Saline Lock Urinary Cath still in place: No Assessment/Plan Assessment/Plan Assessment: Chronic pancreatitis pseudocyst - interval decrease in size of an additional pancreatic pseudocyst versus walled off necrosis within the pancreatic head, on imaging Chronic narcotic use H/o gastric erosions Narcotic induced constipation Paroxysmal atrial fibrillation DM, type 2 Current smoker Obesity Plan: Clear liquid diet Pt to f/u at tertiary center for follow-up for pancreatitis with pseudocyst Pain management Monitor labs Consider pain management consult Patient seen in collaboration with Dr. Guillory/Willie Subjective: Patient denies any nausea or vomiting. Abdominal pain is 7 out of 10 -relieved with Dilaudid. Patient is on clear liquid diet. Continue present regimen until the abdominal pain has improved. PHYSICAL EXAMINATION: GENERAL: Obese, alert & oriented x 3, in no acute distress SKIN: No lesions HEAD: Normocephalic, atraumatic, no tenderness. EYES: Pupils equal reactive to light, no discharge. EARS/NOSE AND THROAT: Ears normal, nose normal NECK: Supple, no masses CHEST: Inspection within normal limits. CARDIOVASCULAR: Heart: Regular rate and rhythm RESPIRATORY: Lungs clear to auscultation GASTROINTESTINAL AND LIVER: Abdomen: Soft, upper abd pain,non-distended, no hernias,normoactive bowel sounds. Rectal: Deferred. GENITOURINARY: Male genitalia within normal limits. EXTREMITIES: No cyanosis, clubbing or edema. Result Diagram: 07/19/18 0510 07/19/18 0510 Results 24hrs Laboratory Tests Test 07/19/18 05:10 White Blood Count 4.5 #L Red Blood Count 4.27 L Hemoglobin 10.4 L Hematocrit 34.3 L Mean Corpuscular Volume 80.3 L Mean Corpuscular Hemoglobin 24.4 L Mean Corpuscular Hemoglobin Concent 30.3 L Red Cell Distribution Width 18.0 H Platelet Count 232 Mean Platelet Volume 10.4 Immature Granulocytes % 0.200 Neutrophils % 35.2 L Lymphocytes % 47.8 Monocytes % 7.8 Eosinophils % 8.3 H Basophils % 0.7 Nucleated Red Blood Cells % 0.0 Immature Granulocytes # 0.010 Neutrophils # 1.6 Lymphocytes # 2.1 Monocytes # 0.4 Eosinophils # 0.4 Basophils # 0.0 Nucleated Red Blood Cells # 0.0 Sodium Level 140 Potassium Level 3.2 L Chloride Level 104 Carbon Dioxide Level 26 Anion Gap 10 Blood Urea Nitrogen 2 L Creatinine 0.71 Est Glomerular Filtrat Rate mL/min > 60 Glucose Level 84 Calcium Level 8.7 Phosphorus Level 4.7 Magnesium Level 1.8 CC: MARGO HERNANDEZ MD ; Exam/Review of Systems Vital Signs Vitals Vital Signs Date Temp Pulse Resp B/P (MAP) Pulse Ox O2 O2 Flow FiO2 Time Delivery Rate 07/19/18 98.4 58 20 160/102 99 07:57 (121) 07/18/18 Room Air 14:30 Intake and Output 07/18/18 07/18/18 07/19/18 1414:59 22:59 06:59 IntakeIntake Total 720 ml 340 ml OutputOutput Total 450 ml 400 ml BalanceBalance -450 ml 720 ml -60 ml Medications Medications Current Medications IV Flush (NS 3 ml) 3 ml PER PROTOCOL IV ; Start 07/16/18 at 01:00 Acetaminophen (Tylenol Tab) 650 mg Q6H PRN PO PAIN LEVEL 1-3 OR FEVER; Start 07/16/18 at 01:00 Docusate Sodium (Colace) 100 mg Q12H PO Last administered on 07/17/18at 13:46; Admin Dose 100 MG; Start 07/16/18 at 01:00 Nicotine (Nicoderm 14 Mg/ 24hr) 1 patch DAILY TRANSDERM Last administered on 07/19/18at 09:07; Admin Dose 1 PATCH; Start 07/16/18 at 09:00 Bisacodyl (Dulcolax) 5 mg DAILY PRN PO constipation; Start 07/16/18 at 16:30 Senna (Senokot) 2 tab BID PO Last administered on 07/19/18at 09:07; Admin Dose 2 TAB; Start 07/17/18 at 21:00 Lactulose (Enulose) 20 gm DAILY PRN PO constipation; Start 07/17/18 at 14:30 Hydromorphone HCl (Dilaudid) 2 mg Q4H PRN PO SEVERE PAIN LEVEL 7-10 Last administered on 07/18/18 07:09; Admin Dose 2 MG; Start 07/17/18 at 17:30 Ondansetron HCl (Zofran Inj) 4 mg Q4H PRN IV NAUSEA AND/OR VOMITING Last administered on 07/19/18 09:04; Admin Dose 4 MG; Start 07/18/18 at 09:00 Hydromorphone HCl (Dilaudid) 1 mg Q4H PRN IV SEVERE PAIN LEVEL 7-10 Last administered on 07/19/18at 13:34; Admin Dose 1 MG; Start 07/18/18 at 11:00 Enoxaparin Sodium (Lovenox) 40 mg DAILY SC ; Start 07/19/18 at 09:00 Lisinopril (Zestril) 20 mg DAILY PO Last administered on 07/19/18 09:07; Admin Dose 20 MG; Start 07/18/18 at 21:00 Clonidine (Catapres) 0.1 mg DAILY PO Last administered on 07/19/18at 10:07; Admin Dose 0.1 MG; Start 07/19/18 at 09:30 JUAN DIEGO VENTURA NP Jul 19, 2018 14:58
[2018-07-19 15:10] VITALS: BP 148/91; PULSE 62; RESP 17
[2018-07-19] MEDS ORDERED: POTASSIUM CHLORIDE (SR) 20 MEQ TAB PO STA (15:29)
--- NOTE | 2018-07-19 15:30 | PN ---
Date/Time of Note Date/Time of Note DATE: 07/19/18 TIME: 15:29 Assessment/Plan VTE Prophylaxis Risk score (from Ns)>0 risk: 2 SCD applied (from Ns): No SCD contraindicated: other (no) Pharmacological prophylaxis: LMWH Lines/Catheters IV Catheter Type (from [facility] Saline Lock Urinary Cath still in place: No Assessment/Plan Assessment/Plan This is a 43-year-old male being admitted to the [facility] floor for: # Chronic pancreatitis with acute flare - CT of the abdomen shows overall improvement in inflammation and walling off of pseudocysts. - Full liquids today, advancing diet. - Still requiring IV dilaudid. - After discharge, continue dilaudid 4mg PO daily as needed. - Patient needs to see PMD. Has not seen him since last hospital discharge a month ago. - Outpatient hepatobiliary consult. # paroxysmal atrial fibrillation: - Currently not on any anticoagulation. # diabetes type II: Last hemoglobin A1c from June 2018 was 6.0. Insulin sliding scale # active smoker: Nicotine patch # DVT GI prophylaxis: SCDs, no GI prophylaxis indicated Result Diagram: 07/19/18 0510 07/19/18 0510 Results 24hrs Laboratory Tests Test 07/19/18 05:10 White Blood Count 4.5 #L Red Blood Count 4.27 L Hemoglobin 10.4 L Hematocrit 34.3 L Mean Corpuscular Volume 80.3 L Mean Corpuscular Hemoglobin 24.4 L Mean Corpuscular Hemoglobin Concent 30.3 L Red Cell Distribution Width 18.0 H Platelet Count 232 Mean Platelet Volume 10.4 Immature Granulocytes % 0.200 Neutrophils % 35.2 L Lymphocytes % 47.8 Monocytes % 7.8 Eosinophils % 8.3 H Basophils % 0.7 Nucleated Red Blood Cells % 0.0 Immature Granulocytes # 0.010 Neutrophils # 1.6 Lymphocytes # 2.1 Monocytes # 0.4 Eosinophils # 0.4 Basophils # 0.0 Nucleated Red Blood Cells # 0.0 Sodium Level 140 Potassium Level 3.2 L Chloride Level 104 Carbon Dioxide Level 26 Anion Gap 10 Blood Urea Nitrogen 2 L Creatinine 0.71 Est Glomerular Filtrat Rate mL/min > 60 Glucose Level 84 Calcium Level 8.7 Phosphorus Level 4.7 Magnesium Level 1.8 Subjective 24 Hr Interval Summary Free Text/Dictation No acute overnight events. Patient still nauseated but hasn't vomiting since last night. Pain adequately controlled. Exam/Review of Systems Vital Signs Vitals Vital Signs Date Temp Pulse Resp B/P (MAP) Pulse Ox O2 O2 Flow FiO2 Time Delivery Rate 07/19/18 98.6 62 17 148/91 96 Room Air 15:10 (110) Intake and Output 07/18/18 07/18/18 07/19/18 1515:00 23:00 07:00 IntakeIntake Total 720 ml 340 ml OutputOutput Total 450 ml 400 ml BalanceBalance -450 ml 720 ml -60 ml Exam Gen: Morbidly obese man in no acute distress. HEENT: Clear oropharynx, no ulcers, moist mucous membranes. Card: Regular rate and rhythm no murmurs Pulm: Clear to auscultation bilaterally. Abd: Morbidly obese. Soft. Epigastric and LUQ tenderness to palpation, otherwise nontender. Ext: No cyanosis/clubbing/edema. Skin: warm dry well perfused. Lots of skin tags on neck and upper chest and back. Medications Medications Current Medications IV Flush (NS 3 ml) 3 ml PER PROTOCOL IV ; Start 07/16/18 at 01:00 Acetaminophen (Tylenol Tab) 650 mg Q6H PRN PO PAIN LEVEL 1-3 OR FEVER; Start 07/16/18 at 01:00 Docusate Sodium (Colace) 100 mg Q12H PO Last administered on 07/17/18at 13:46; Admin Dose 100 MG; Start 07/16/18 at 01:00 Nicotine (Nicoderm 14 Mg/ 24hr) 1 patch DAILY TRANSDERM Last administered on 07/19/18at 09:07; Admin Dose 1 PATCH; Start 07/16/18 at 09:00 Bisacodyl (Dulcolax) 5 mg DAILY PRN PO constipation; Start 07/16/18 at 16:30 Senna (Senokot) 2 tab BID PO Last administered on 07/19/18at 09:07; Admin Dose 2 TAB; Start 07/17/18 at 21:00 Lactulose (Enulose) 20 gm DAILY PRN PO constipation; Start 07/17/18 at 14:30 Hydromorphone HCl (Dilaudid) 2 mg Q4H PRN PO SEVERE PAIN LEVEL 7-10 Last administered on 07/18/18at 07:09; Admin Dose 2 MG; Start 07/17/18 at 17:30 Ondansetron HCl (Zofran Inj) 4 mg Q4H PRN IV NAUSEA AND/OR VOMITING Last administered on 07/19/18at 09:04; Admin Dose 4 MG; Start 07/18/18 at 09:00 Hydromorphone HCl (Dilaudid) 1 mg Q4H PRN IV SEVERE PAIN LEVEL 7-10 Last administered on 07/19/18at 13:34; Admin Dose 1 MG; Start 07/18/18 at 11:00 Enoxaparin Sodium (Lovenox) 40 mg DAILY SC ; Start 07/19/18 at 09:00 Lisinopril (Zestril) 20 mg DAILY PO Last administered on 07/19/18at 09:07; Admin Dose 20 MG; Start 07/18/18 at 21:00 Clonidine (Catapres) 0.1 mg DAILY PO Last administered on 07/19/18at 10:07; Admin Dose 0.1 MG; Start 07/19/18 at 09:30 KATIE AVLIA MD Jul 19, 2018 15:30
[2018-07-19 19:21] VITALS: BP 157/98; PULSE 65; RESP 18
[2018-07-20] MEDS: DOCUSATE SODIUM 100 MG CAP PO SCH ×2 (01:00→13:00)
[2018-07-20 01:44] VITALS: BP 171/96; PULSE 64; RESP 18
[2018-07-20 02:10] VITALS: BP 158/96; PULSE 62
[2018-07-20] MEDS: HYDROmorphONE 1 MG/ML SYG IV PRN ×3 (02:19→13:33)
[2018-07-20] MEDS: ONDANSETRON 4 MG INJ IV PRN ×2 (02:19→09:15)
[2018-07-20] MEDS: ENOXAPARIN 40 MG/0.4 ML SYG SC SCH (09:00)
[2018-07-20] MEDS: SENNA TAB PO SCH (09:00)
[2018-07-20] MEDS: LISINOPRIL 20 MG TAB PO SCH (10:05)
[2018-07-20] MEDS: NICOTINE (14 MG/24 HR) PATCH TRANSDERM SCH (10:06)
--- NOTE | 2018-07-20 11:12 | PDOCDIS ---
Discharge Instructions DIAGNOSIS Discharge Diagnosis Chronic pancreatitis CONDITION [id number] Patient Condition: Mekfa0s Fair HOME CARE INSTRUCTIONS: [id number] Special Diet: [id number] Full liquid, low residual. Advance slowly as tolerated. ACTIVITY: [id number] Activity Restrictions: [id number] No Restrictions FOLLOW UP/APPOINTMENTS Follow-up Plan 1. Take all medications as prescribed. 2. Don't drive or operate machinery after taking Dilaudid, and don't take it with alcohol or other sedating drugs. 3. See your primary care doctor as scheduled. You may need to see a hepatobiliary specialist. 4. Return to the emergency room for worsening pain not responsive to dilaudid or intractable vomiting not response to zofran and inability to keep liquids down. KATIE AVILA MD Jul 20, 2018 11:12
--- NOTE | 2018-07-20 11:33 | PN ---
Date/Time of Note Date/Time of Note DATE: 07/20/18 TIME: 11:27 Assessment/Plan VTE Prophylaxis Risk score (from Nsg)>0 risk: 2 SCD applied (from Nsg): No SCD contraindicated: low risk/ambulating Pharmacological prophylaxis: heparin Lines/Catheters IV Catheter Type (from Nrsg): Saline Lock Urinary Cath still in place: No Assessment/Plan Assessment/Plan Assessment: Chronic pancreatitis pseudocyst - interval decrease in size of an additional pancreatic pseudocyst versus walled off necrosis within the pancreatic head, on imaging Chronic narcotic use H/o gastric erosions Narcotic induced constipation Paroxysmal atrial fibrillation DM, type 2 Current smoker Obesity Plan: Dc home today Pt to f/u at tertiary center for follow-up for pancreatitis with pseudocyst Pain management Monitor labs Consider pain management consult Patient seen in collaboration with Dr. Guillory/Willie Subjective: Patient states pain is better 3/10 but nausea is worse today. Received one dose of Zofran. Plan to dc home today. will f/u with tertiary center. PHYSICAL EXAMINATION: GENERAL: Obese, alert & oriented x 3, in no acute distress SKIN: No lesions HEAD: Normocephalic, atraumatic, no tenderness. EYES: Pupils equal reactive to light, no discharge. EARS/NOSE AND THROAT: Ears normal, nose normal NECK: Supple, no masses CHEST: Inspection within normal limits. CARDIOVASCULAR: Heart: Regular rate and rhythm RESPIRATORY: Lungs clear to auscultation GASTROINTESTINAL AND LIVER: Abdomen: Soft, upper abd pain,non-distended, no hernias,normoactive bowel sounds. Rectal: Deferred. GENITOURINARY: Male genitalia within normal limits. EXTREMITIES: No cyanosis, clubbing or edema. Result Diagram: 07/20/18 0907/20/18 09 Results 24hrs Laboratory Tests Test 07/20/18 09:06 White Blood Count 4.9 Red Blood Count 4.58 L Hemoglobin 11.0 L Hematocrit 37.0 L Mean Corpuscular Volume 80.8 L Mean Corpuscular Hemoglobin 24.0 L Mean Corpuscular Hemoglobin Concent 29.7 L Red Cell Distribution Width 18.3 H Platelet Count 230 Mean Platelet Volume 10.2 Immature Granulocytes % 0.200 Neutrophils % 43.5 Lymphocytes % 37.5 Monocytes % 7.9 Eosinophils % 10.3 H Basophils % 0.6 Nucleated Red Blood Cells % 0.0 Immature Granulocytes # 0.010 Neutrophils # 2.1 Lymphocytes # 1.9 Monocytes # 0.4 Eosinophils # 0.5 Basophils # 0.0 Nucleated Red Blood Cells # 0.0 Sodium Level 140 Potassium Level 3.7 Chloride Level 106 Carbon Dioxide Level 27 Anion Gap 7 Blood Urea Nitrogen 2 L Creatinine 0.87 Est Glomerular Filtrat Rate mL/min > 60 Glucose Level 88 Calcium Level 9.1 Phosphorus Level 4.5 Magnesium Level 2.1 Total Bilirubin 0.1 L Direct Bilirubin 0.00 Indirect Bilirubin 0.1 Aspartate Amino Transf (AST/SGOT) 31 Alanine Aminotransferase (ALT/SGPT) 26 Alkaline Phosphatase 111 Total Protein 6.1 Albumin 3.2 L Globulin 2.90 Albumin/Globulin Ratio 1.10 CC: MARGO HERNANDEZ MD ; Exam/Review of Systems Vital Signs Vitals Vital Signs Date Temp Pulse Resp B/P (MAP) Pulse Ox O2 O2 Flow FiO2 Time Delivery Rate 07/20/18 62 158/96 02:10 (116) 07/20/18 98.8 18 96 01:44 07/19/18 Room Air 15:10 Intake and Output 07/19/18 07/19/18 07/20/18 1515:00 23:00 07:00 IntakeIntake Total 530 ml 400 ml 50 ml OutputOutput Total 900 ml 300 ml 400 ml BalanceBalance -370 ml 100 ml -350 ml Medications Medications Current Medications IV Flush (NS 3 ml) 3 ml PER PROTOCOL IV ; Start 07/16/18 at 01:00 Acetaminophen (Tylenol Tab) 650 mg Q6H PRN PO PAIN LEVEL 1-3 OR FEVER; Start 07/16/18 at 01:00 Docusate Sodium (Colace) 100 mg Q12H PO Last administered on 07/17/18at 13:46; Ad min Dose 100 MG; Start 07/16/18 at 01:00 Nicotine (Nicoderm 14 Mg/ 24hr) 1 patch DAILY TRANSDERM Last administered on 07/20/18at 10:06; Admin Dose 1 PATCH; Start 07/16/18 at 09:00 Bisacodyl (Dulcolax) 5 mg DAILY PRN PO constipation; Start 07/16/18 at 16:30 Senna (Senokot) 2 tab BID PO Last administered on 07/18/18at 19:56; Admin Dose 1 TAB; Start 07/17/18 at 21:00 Lactulose (Enulose) 20 gm DAILY PRN PO constipation; Start 07/17/18 at 14:30 Hydromorphone HCl (Dilaudid) 2 mg Q4H PRN PO SEVERE PAIN LEVEL 7-10 Last administered on 07/18/18at 07:09; Admin Dose 2 MG; Start 07/17/18 at 17:30 Ondansetron HCl (Zofran Inj) 4 mg Q4H PRN IV NAUSEA AND/OR VOMITING Last administered on 07/20/18at 09:15; Admin Dose 4 MG; Start 07/18/18 at 09:00 Hydromorphone HCl (Dilaudid) 1 mg Q4H PRN IV SEVERE PAIN LEVEL 7-10 Last administered on 07/20/18at 09:15; Admin Dose 1 MG; Start 07/18/18 at 11:00 Enoxaparin Sodium (Lovenox) 40 mg DAILY SC ; Start 07/19/18 at 09:00 Lisinopril (Zestril) 20 mg DAILY PO Last administered on 07/20/18at 10:05; Admin Dose 20 MG; Start 07/18/18 at 21:00 Clonidine (Catapres) 0.1 mg DAILY PO Last administered on 07/20/18at 10:05; Admin Dose 0.1 MG; Start 07/19/18 at 09:30 JUAN DIEGO VENTURA NP Jul 20, 2018 11:33
--- NOTE | 2018-07-20 18:16 | DS ---
Date/Time of Note Date/Time of Note DATE: 07/20/18 TIME: 18:14 Discharge Summary Admission/Discharge Info Admit Date/Time Jul 16, 2018 at 00:39 Discharge Date/Time Jul 20, 2018 at 14:30 Discharge Diagnosis Chronic pancreatitis Patient Condition: Good Consults Gastroenterology Procedures None Hx of Present Illness Chief complaint: Abdominal pain times 2 days, nausea vomiting This is a 43-year-old male with a past medical history of pancreatitis complicated by necrotizing pancreatitis and pseudocyst who returns to [facility] today complaining of abdominal pain. Patient reports that his abdominal pain started approximately 2 days ago. He states that he ate spicy gumbo and he thinks that this may have triggered it. He denies any fevers. Patient has previous hospitalizations at [facility] for necrotizing pancreatitis with pseudocyst. He was transferred to [facility] for hepatobiliary consultation however at that time aside from an upper endoscopy he did not have any procedures performed for the pseudocyst as he was told they were too small to be drained. Of note, the patient was prescribed dilaudid 4mg PO which helps greatly with the pain; but he ran out of this prior to admission. Allergies: Acetaminophen, aspirin, morphine, oxycodone Medications: See MAR Hospital Course The patient was made NPO, started on IV fluids and IV dilaudid. Over the next few days nausea and abdominal pain gradually resolved, he was weaned off IV fluids and restarted on full liquid diet. CT abdomen showed that pancreatic fat stranding was actually significantly improved from before and pseudocysts are more walled off. He will be discharged on PO dilaudid 4mg #30. He has an appointment to see his primary care doctor. Home Meds Active Scripts Hydromorphone Hcl* (Dilaudid*) 4 Mg Tablet, 4 MG PO Q4H PRN for PAIN, #30 TAB Prov:DODIE FRANCES 06/26/18 Reported Medications Sennosides* (Senokot*) 8.6 Mg Tablet, 1 TAB PO DAILY, TAB 07/16/18 Nicotine* (Nicotine* Patch) 7 mg/day Patch, 7 MG TD DAILY, PATCH 06/18/18 Lisinopril* (Lisinopril*) 20 Mg Tablet, 20 MG PO DAILY, #30 TAB 06/18/18 Clonidine Hcl* (Clonidine Hcl*) 0.1 Mg Tab, 0.1 MG PO DAILY PRN for ELEVATED BLOOD PRESSURE, TAB 05/02/18 Discontinued Reported Medications Polyethylene Glycol* (Miralax*) 17 Gm Powd.pack, 17 GM PO DAILY, #30 PACKET 06/18/18 Acetaminophen* (Acetaminophen*) 325 Mg Tablet, 325 MG PO NEEDED PRN for PAIN AND OR ELEVATED TEMP, #30 TAB 06/18/18 Metoprolol Succinate* (Toprol XL*) 50 Mg Tab.er.24h, 50 MG PO DAILY, #30 TAB 06/18/18 Amlodipine Besylate* (Norvasc*) 5 Mg Tablet, 5 MG PO DAILY, TAB 06/18/18 Docusate Sodium* (Colace*) 100 Mg Capsule, 100 MG PO Q24H PRN for CONSTIPATION, #30 CAP 06/18/18 Follow-up Plan 1. Take all medications as prescribed. 2. Don't drive or operate machinery after taking Dilaudid, and don't take it with alcohol or other sedating drugs. 3. See your primary care doctor as scheduled. You may need to see a hepatobiliary specialist. 4. Return to the emergency room for worsening pain not responsive to dilaudid or intractable vomiting not response to zofran and inability to keep liquids down. Primary Care Provider Care Physician No Primary Time spent on discharge: > 30 minutes Pending Labs Laboratory Tests Test 07/20/18 09:06 White Blood Count 4.9 10^3/ul (4.8-10.8) Red Blood Count 4.58 10^6/ul (4.70-6.10) Hemoglobin 11.0 g/dl (14.0-18.0) Hematocrit 37.0 % (42.0-52.0) Mean Corpuscular Volume 80.8 fl (82.0-101.0) Mean Corpuscular Hemoglobin 24.0 pg (29.0-33.0) Mean Corpuscular Hemoglobin Concent 29.7 g/dl (32.0-37.0) Red Cell Distribution Width 18.3 % (11.5-14.5) Platelet Count 230 10^3/UL (140-415) Mean Platelet Volume 10.2 fl (7.4-10.4) Immature Granulocytes % 0.200 % (0.001-0.429) Neutrophils % 43.5 % (39.0-77.0) Lymphocytes % 37.5 % (15.0-51.0) Monocytes % 7.9 % (0.0-11.0) Eosinophils % 10.3 % (0.0-7.0) Basophils % 0.6 % (0.0-2.0) Nucleated Red Blood Cells % 0.0 /100WBC (0.0-0.0) Immature Granulocytes # 0.010 10^3/ul (0.0-0.031) Neutrophils # 2.1 10^3/ul (1.6-7.5) Lymphocytes # 1.9 10^3/ul (0.8-2.9) Monocytes # 0.4 10^3/ul (0.3-0.9) Eosinophils # 0.5 10^3/ul (0.0-0.5) Basophils # 0.0 10^3/ul (0.0-0.1) Nucleated Red Blood Cells # 0.0 10^3/ul (0.0-0.0) Sodium Level 140 mmol/L (135-144) Potassium Level 3.7 mmol/L (3.5-5.1) Chloride Level 106 mmol/L (97-110) Carbon Dioxide Level 27 mmol/L (21-31) Anion Gap 7 (5-13) Blood Urea Nitrogen 2 mg/dl (7-20) Creatinine 0.87 mg/dl (0.61-1.24) Est Glomerular Filtrat Rate mL/min > 60 mL/min (>60) Glucose Level 88 mg/dl (70-220) Calcium Level 9.1 mg/dl (8.4-10.2) Phosphorus Level 4.5 mg/dl (2.5-4.9) Magnesium Level 2.1 mg/dl (1.7-2.5) Total Bilirubin 0.1 mg/dl (0.2-1.3) Direct Bilirubin 0.00 mg/dl (0.00-0.20) Indirect Bilirubin 0.1 mg/dl (0-1.1) Aspartate Amino Transf (AST/SGOT) 31 IU/L (15-46) Alanine Aminotransferase (ALT/SGPT) 26 IU/L (13-69) Alkaline Phosphatase 111 IU/L (42-121) Total Protein 6.1 g/dl (6.1-8.1) Albumin 3.2 g/dl (3.3-4.9) Globulin 2.90 g/dl (1.3-3.2) Albumin/Globulin Ratio 1.10 KATIE AVILA MD Jul 20, 2018 18:16
[2018-08-03] MEDS ORDERED: DOCU-144 PO (15:07)
[2018-08-08] MEDS ORDERED: METO-335 PO (10:10)
[2018-08-08] MEDS ORDERED: LIPA1CAP4 PO (10:10)
[2018-08-19] MEDS ORDERED: ONDA4TAB14 PO (11:27)
[2018-08-19] MEDS ORDERED: TRAM50TA2 PO (11:27)
[2018-08-19] MEDS ORDERED: NALO4SPR NS (11:28)
== END 2018-07-20 14:30 | disposition home or self-care (01) | DRG 439 ==
LOC: E/R 17:26 → 2NE 07-16 00:39
PROVIDERS: ADMIT Family Medicine; ATTEND Internal Medicine
DX: K85.90 Acute pancreatitis without necrosis or infection, unspecified (principal); K86.3 Pseudocyst of pancreas; E66.2 Morbid (severe) obesity with alveolar hypoventilation; Z68.41 Body mass index [BMI] 40.0-44.9, adult; K86.1 Other chronic pancreatitis; I48.0 Paroxysmal atrial fibrillation; E11.9 Type 2 diabetes mellitus without complications; K59.03 Drug induced constipation; T40.2X5A Adverse effect of other opioids, initial encounter; F17.200 Nicotine dependence, unspecified, uncomplicated; Z79.891 Long term (current) use of opiate analgesic
CPT/HCPCS: 74177; 80048; 80053; 80061; 81001; 83690; 83735; 84100; 84443; 84484; 85025; 87081; 93005; 96374; 96375; J1170; J1650; J2405; J3475; J7030; Q9967

== ENCOUNTER 2018-08-01 11:01 | Emergency (ER) | payer OTHER ==
[~2018-08-01] VITALS: Ht 185.4 cm; Wt 136.4 kg
[~2018-08-01 11:01] MED LIST changes: -ACET325T45 PO; -AMLO5TAB4 PO; -DOCU-144 PO; -METO-319 PO; -POLY17PO6 PO; +SENN-36 PO
[2018-08-01 11:05] VITALS: Ht 185.4 cm; Wt 136.4 kg
[2018-08-01] MEDS ORDERED: ONDANSETRON 4 MG INJ IV STA (11:45)
[2018-08-01] MEDS ORDERED: HYDROmorphONE 2 MG/ML SYG IV STA (11:45)
[2018-08-01] MEDS ORDERED: HYDR2TAB36 PO (13:02)
[2018-08-01] MEDS ORDERED: NAR2I NS (13:03)
[2018-08-01] MEDS ORDERED: NALO4SPR NS (13:03)
[2018-08-01] MEDS ORDERED: ONDA4TAB14 PO (13:31)
[2018-08-01 13:46] VITALS: BP 169/104; PULSE 78; RESP 20
--- NOTE | 2018-08-01 14:00 | ERD ---
ER Documentation Chief Complaint Chief Complaint abd pain with nausea/vomiting x 3 days HPI Patient is a 43-year-old male with hypertension and pancreatitis who presents saying "I have pancreatitis". He has upper abdominal pain. He ran out of Dilaudid yesterday. He said that his pain started 2 days ago. He went to his primary doctor yesterday but was not given any prescriptions for Dilaudid. He does not have a pain management doctor. He denies fevers but said that he had chills and vomiting. He has no diarrhea. Upon review of old medical records this is the patient's fifth visit to the ER for similar and he was admitted on the previous 4 visits. He does not remember the name of his primary doctor. ROS All systems reviewed and are negative except as per history of present illness. Medications Home Meds Active Scripts Ondansetron (Ondansetron Odt) 4 Mg Tab.rapdis, 4 MG PO Q6H PRN for NAUSEA AND/OR VOMITING, #30 TAB Prov:RODOLFO CASTLE MD 08/01/18 Naloxone HCl nasal spray (Narcan 4 mg/0.1 mL nasal) 4 Mg [place], 4 MG NS .Q2MIN PRN for OPIOID OVERDOSE, #2 SPRAY [place] entire contents in one nostril, may repeat in alternate nostril in 2-3 minutes if no or minimal response Prov:RODOLFO CASTLE MD 08/01/18 Naloxone Hcl 1mg/1mL 2mL syr (Narcan 1mg/1mL 2mL syr) 1 Mg/Ml Soln, 1 MG NS .Q2MIN for OPIOID OVERDOSE, #2 SYR Inhale 1 mL in each nostril using mucosal atomizer device. May repeat in 2-3 minutes if no or minimal response. Prov:RODOLFO CASTLE MD 08/01/18 Hydromorphone Hcl* (Dilaudid*) 2 Mg Tablet, 1 MG PO Q6H PRN for PAIN, #6 TAB Prov:RODOLFO CASTLE MD 08/01/18 Hydromorphone Hcl* (Dilaudid*) 4 Mg Tablet, 4 MG PO Q4H PRN for PAIN, #30 TAB Prov:DODIE FRANCES 06/26/18 Reported Medications Sennosides* (Senokot*) 8.6 Mg Tablet, 1 TAB PO DAILY, TAB 07/16/18 Nicotine* (Nicotine* Patch) 7 mg/day Patch, 7 MG TD DAILY, PATCH 06/18/18 Lisinopril* (Lisinopril*) 20 Mg Tablet, 20 MG PO DAILY, #30 TAB 06/18/18 Clonidine Hcl* (Clonidine Hcl*) 0.1 Mg Tab, 0.1 MG PO DAILY PRN for ELEVATED BLOOD PRESSURE, TAB 05/02/18 Allergies Allergies: Coded Allergies: acetaminophen (Unverified Allergy, Intermediate, vomiting, rash, 08/01/18) aspirin (Unverified Allergy, Intermediate, 08/01/18) blurry vision oxycodone (Unverified Allergy, Intermediate, vomiting, rash, 08/01/18) morphine (Unverified Adverse Reaction, Mild, abd pain,n/v, 08/01/18) PMhx/Soc History of Surgery: No Anesthesia Reaction: No Hx Neurological Disorder: No Hx Respiratory Disorders: No Hx Cardiac Disorders: Yes (HTN) Hx Psychiatric Problems: Yes (DEPRESSION) Hx Miscellaneous Medical Probl: Yes (pancreatitis) Hx Alcohol Use: No Hx Substance Use: No Hx Tobacco Use: Yes Smoking Status: Current every day smoker FmHx Family History: diabetes Physical Exam Vitals Vital Signs Date Temp Pulse Resp B/P (MAP) Pulse Ox O2 O2 Flow FiO2 Time Delivery Rate 08/01/18 78 20 169/104 98 Room Air 13:46 (125) 08/01/18 97.7 90 18 163/102 99 11:05 (122) Physical Exam Const: No acute distress Head: Atraumatic Eyes: Normal Conjunctiva ENT: Normal External Ears, Nose and Mouth. Neck: Full range of motion. No meningismus. Resp: Clear to auscultation bilaterally Cardio: Regular rate and rhythm, no murmurs Abd: Soft, epigastric tenderness to palpation without rebound or guarding Skin: No petechiae or rashes Back: No midline or flank tenderness Ext: No cyanosis, or edema Neur: Awake and alert Psych: Normal Mood and Affect Result Diagram: 08/01/18 1140 08/01/18 1140 Results 24 hrs Laboratory Tests Test 08/01/18 11:40 White Blood Count 7.7 10^3/ul Red Blood Count 4.82 10^6/ul Hemoglobin 11.6 g/dl Hematocrit 38.7 % Mean Corpuscular Volume 80.3 fl Mean Corpuscular Hemoglobin 24.1 pg Mean Corpuscular Hemoglobin Concent 30.0 g/dl Red Cell Distribution Width 18.2 % Platelet Count 261 10^3/UL Mean Platelet Volume 9.9 fl Immature Granulocytes % 0.400 % Neutrophils % 65.8 % Lymphocytes % 22.0 % Monocytes % 7.4 % Eosinophils % 3.5 % Basophils % 0.9 % Nucleated Red Blood Cells % 0.0 /100WBC Immature Granulocytes # 0.030 10^3/ul Neutrophils # 5.1 10^3/ul Lymphocytes # 1.7 10^3/ul Monocytes # 0.6 10^3/ul Eosinophils # 0.3 10^3/ul Basophils # 0.1 10^3/ul Nucleated Red Blood Cells # 0.0 10^3/ul Sodium Level 142 mmol/L Potassium Level 3.9 mmol/L Chloride Level 106 mmol/L Carbon Dioxide Level 26 mmol/L Anion Gap 10 Blood Urea Nitrogen 10 mg/dl Creatinine 0.78 mg/dl Est Glomerular Filtrat Rate mL/min > 60 mL/min Glucose Level 117 mg/dl Calcium Level 9.5 mg/dl Total Bilirubin 0.2 mg/dl Direct Bilirubin 0.00 mg/dl Indirect Bilirubin 0.2 mg/dl Aspartate Amino Transf (AST/SGOT) 25 IU/L Alanine Aminotransferase (ALT/SGPT) 23 IU/L Alkaline Phosphatase 117 IU/L Total Protein 6.2 g/dl Albumin 3.3 g/dl Globulin 2.90 g/dl Albumin/Globulin Ratio 1.13 Lipase 930 U/L Current Medications Medications Dose Sig/Jaclyn Start Time Status Last (Trade) Ordered Route PRN Stop Time Admin Dose Reason Admin 1 mg ONCE STAT 08/01/18 DC 08/01/18 Hydromorphone IV 11:45 11:52 HCl 08/01/18 11:46 (Dilaudid) Ondansetron 4 mg ONCE STAT 08/01/18 DC 08/01/18 HCl (Zofran IV 11:45 11:51 Inj) 08/01/18 11:46 Procedures/MDM Smoking Cessation Therapy: Pt. was lectured for greater than 3 minutes on the health risks of continued smoking and the benefits of cessation. Patient is a 43-year-old male presents with chronic pancreatitis. I believe this may be his baseline lipase at this time as his lipase is 930 and was almost exactly the same when he was admitted a couple weeks ago. He has a normal white blood cell count. I believe the patient stable for outpatient management at this time. I will give him a short course of Dilaudid but told him that he would likely benefit from a pain management doctor. He will need to follow-up closely within 24-48 hours. He can return for any worsening symptoms. I doubt appendicitis, cholecystitis, or bowel obstruction. Departure Diagnosis: Primary Impression: Abdominal pain Abdominal location: epigastric Qualified Codes: R10.13 - Epigastric pain Condition: Fair Patient Instructions: Abdominal Pain Referrals: LB PABLO MD Additional Instructions: SPECIALIST: YOU HAVE A MEDICAL CONDITION WHICH REQUIRES YOU TO SEE A SPECIALIST WITHIN THE NEXT 1-2 DAYS. PLEASE FOLLOW UP WITH YOUR PRIMARY PHYS ICIAN FOR REFFERAL.IF YOU DO NOT HAVE A PRIMARY CARE PHYSICIAN AND/OR YOU CAN NOT AFFORD TO SEE A PHYSICIAN THE FOLLOWING RESOURCES HAVE BEEN SUPPLIED TO YOU. IT IS YOUR RESPONSIBILITY TO BE SEEN BY THE SPECIALIST RODOLFO CASTLE MD Aug 01, 2018 14:00
[2018-08-03] MEDS ORDERED: DOCU-144 PO (15:07)
[2018-08-08] MEDS ORDERED: LIPA1CAP4 PO (10:10)
[2018-08-08] MEDS ORDERED: METO-335 PO (10:10)
[2018-08-19] MEDS ORDERED: TRAM50TA2 PO (11:27)
[2018-08-19] MEDS ORDERED: ONDA4TAB14 PO (11:27)
[2018-08-19] MEDS ORDERED: NALO4SPR NS (11:28)
== END 2018-08-01 13:47 | disposition home or self-care (01) ==
LOC: E/R 11:01
DX: R10.13 Epigastric pain (principal); I10 Essential (primary) hypertension; F17.210 Nicotine dependence, cigarettes, uncomplicated
CPT/HCPCS: 36415; 80053; 83690; 85025; 96374; 96375; J1170; J2405; Z7502

== ENCOUNTER 2018-08-24 11:29 | Inpatient (IN) | payer OTHER ==
[~2018-08-24] VITALS: Ht 185.4 cm; Wt 126.4 kg
[~2018-08-24 11:29] MED LIST changes: -HYDR4TAB51 PO; +NALO4SPR NS; +ONDA4TAB14 PO; -SENN-36 PO; +TRAM50TA2 PO
[2018-08-24] MEDS ORDERED: SOD CHLORIDE 0.9% 1,000 ML IV STA (16:18)
[2018-08-24] MEDS ORDERED: KETOROLAC 15 MG INJ IV STA (16:18)
[2018-08-24] MEDS ORDERED: METOCLOPRAMIDE 10 MG INJ IV STA (16:18)
--- NOTE | 2018-08-24 16:20 | ERD ---
ER Documentation Chief Complaint Chief Complaint abd pain , vomiting x 5 days h/o pancreatitis HPI 43-year-old male, well-known to this ED with a history of hypertension, chronic abdominal pain secondary to idiopathic pancreatitis and opioid dependence presents to the ED complaining of a 5-day history of increasing, severe, sharp, non-radiating epigastric abdominal pain with nausea and vomiting. No hematemesis or hematochezia. No relieving or exacerbating factors. Denies alcohol use. Denies chest pain, palpitations or shortness of breath. No leg pain or swelling. No skin rash. No fevers or chills. Patient has a pending appointment with pain management. ROS All systems reviewed and are negative except as per history of present illness. Medications Home Meds Active Scripts Naloxone HCl nasal spray (Narcan 4 mg/0.1 mL nasal) 4 Mg [place], 4 MG NS .Q2-3MIN for OPIOID OVERDOSE, #2 SPRAY 0 Refills [place] 0.1 mL into one nostril. Repeat with second device into other nostril after 2-3 minutes if no or minimal response Prov:NERI SANTOS MD 08/19/18 Tramadol HCl (Tramadol HCl) 50 Mg Tablet, 50 MG PO Q6 PRN for PAIN, #10 TAB Prov:NERI SANTOS MD 08/19/18 Ondansetron (Ondansetron Odt) 4 Mg Tab.rapdis, 4 MG PO Q6H PRN for NAUSEA AND/OR VOMITING, #20 TAB Prov:NERI SANTOS MD 08/19/18 Reported Medications Nicotine* (Nicotine* Patch) 7 mg/day Patch, 7 MG TD DAILY, PATCH 06/18/18 Lisinopril* (Lisinopril*) 20 Mg Tablet, 20 MG PO DAILY, #30 TAB 06/18/18 Clonidine Hcl* (Clonidine Hcl*) 0.1 Mg Tab, 0.1 MG PO DAILY PRN for ELEVATED B LOOD PRESSURE, TAB 05/02/18 Discontinued Reported Medications Docusate Sodium* (Colace*) 100 Mg Capsule, 100 MG PO DAILY, #30 CAP 08/03/18 Discontinued Scripts Tvjyaj-Czsrixeo-Zeehjil* (Raya DR* 12,000) 12,000 L-38,000-60,000 Unit Capsule.dr, 1 CAP PO WITH MEALS, #60 TAB Prov:VEGA,AMMY V. MEAT CUTTING TEACHER 08/08/18 Metoprolol Succinate* (Toprol XL*) 25 Mg Tab.sr.24h, 25 MG PO BID, #60 TAB Prov:VEGA,AMMY V. MEAT CUTTING TEACHER 08/08/18 Ondansetron (Ondansetron Odt) 4 Mg Tab.rapdis, 4 MG PO Q6H PRN for NAUSEA AND/OR VOMITING, #30 TAB Prov:RODOLFO CASTLE MD 08/01/18 Allergies Allergies: Coded Allergies: acetaminophen (Unverified Allergy, Intermediate, vomiting, rash, 08/24/18) aspirin (Unverified Allergy, Intermediate, 08/24/18) blurry vision oxycodone (Unverified Allergy, Intermediate, vomiting, rash, 08/24/18) morphine (Unverified Adverse Reaction, Mild, abd pain,n/v, 08/24/18) PMhx/Soc Reviewed in chart. As per HPI. History of Surgery: No Anesthesia Reaction: Yes ([facility] 2018- woke up in the middle of procedure and vomited) Hx Neurological Disorder: No Hx Respiratory Disorders: No Hx Cardiac Disorders: Yes (HTN) Hx Psychiatric Problems: Yes (depression) Hx Miscellaneous Medical Probl: Yes (pancreatitis, pancreatic pseudocyst) Hx Alcohol Use: No Hx Substance Use: No Hx Tobacco Use: Yes (1 pack/3-4 days) Smoking Status: Current every day smoker FmHx No stroke, cancer or family history relevant to presenting complaint. Physical Exam Vitals Vital Signs Date Temp Pulse Resp B/P (MAP) Pulse Ox O2 O2 Flow FiO2 Time Delivery Rate 08/24/18 89 18 196/128 Room Air 20:47 (150) 08/24/18 98.0 79 22 188/114 98 Room Air 19:26 (138) 08/24/18 98.2 97 18 182/104 100 Room Air 15:35 (130) 08/24/18 97.7 108 18 173/107 99 11:37 (129) Physical Exam Const: Moderate distress due to pain Head: Atraumatic Eyes: Normal Conjunctiva ENT: Normal External Ears, Nose and Mouth. Neck: Full range of motion. No meningismus. Resp: Clear to auscultation bilaterally Cardio: Regular rate and rhythm, no murmurs Abd: Soft, obese, moderate, epigastric tenderness. Non distended. Normal bowel sounds. No rebound or guarding. Negative Manuel's or Amaya Art sign Skin: No petechiae or rashes Back: No midline or flank tenderness Ext: No cyanosis, or edema Neur: Awake and alert Psych: Cooperative. Anxious but not depressed. Result Diagram: 08/26/18 0620 08/26/18 0620 Results 24 hrs Laboratory Tests Test 08/24/18 16:19 White Blood Count 9.3 10^3/ul Red Blood Count 5.23 10^6/ul Hemoglobin 12.2 g/dl Hematocrit 41.1 % Mean Corpuscular Volume 78.6 fl Mean Corpuscular Hemoglobin 23.3 pg Mean Corpuscular Hemoglobin Concent 29.7 g/dl Red Cell Distribution Width 18.8 % Platelet Count 268 10^3/UL Mean Platelet Volume 10.2 fl Immature Granulocytes % 0.200 % Neutrophils % 71.2 % Lymphocytes % 21.0 % Monocytes % 6.3 % Eosinophils % 0.9 % Basophils % 0.4 % Nucleated Red Blood Cells % 0.0 /100WBC Immature Granulocytes # 0.020 10^3/ul Neutrophils # 6.6 10^3/ul Lymphocytes # 1.9 10^3/ul Monocytes # 0.6 10^3/ul Eosinophils # 0.1 10^3/ul Basophils # 0.0 10^3/ul Nucleated Red Blood Cells # 0.0 10^3/ul Sodium Level 144 mmol/L Potassium Level 3.2 mmol/L Chloride Level 97 mmol/L Carbon Dioxide Level 30 mmol/L Anion Gap 17 Blood Urea Nitrogen 10 mg/dl Creatinine 1.04 mg/dl Est Glomerular Filtrat Rate mL/min > 60 mL/min Glucose Level 138 mg/dl Calcium Level 9.7 mg/dl Total Bilirubin 0.3 mg/dl Direct Bilirubin 0.00 mg/dl Indirect Bilirubin 0.3 mg/dl Aspartate Amino Transf (AST/SGOT) 26 IU/L Alanine Aminotransferase (ALT/SGPT) 19 IU/L Alkaline Phosphatase 115 IU/L Total Protein 7.9 g/dl Albumin 4.0 g/dl Globulin 3.90 g/dl Albumin/Globulin Ratio 1.02 Lipase 1803 U/L Free Thyroxine 1.60 ng/dl Current Medications Medications Dose Sig/Jaclyn Start Time Status Last (Trade) Ordered Route PRN Stop Time Admin Dose Reason Admin Sodium 1,000 ml @ Q1H STAT 08/24/18 DC 08/24/18 Chloride 1,000 mls/hr IV 16:18 16:27 08/24/18 17:17 10 mg ONCE STAT 08/24/18 DC 08/24/18 Metoclopramid IV 16:18 16:27 e HCl 08/24/18 16:20 (Reglan) Ketorolac 15 mg ONCE STAT 08/24/18 DC 08/24/18 Tromethamine IV 16:18 16:27 (Toradol) 08/24/18 16:20 25 mg ONCE ONCE 08/24/18 DC Diphenhydrami IV 16:30 ne HCl 08/24/18 16:31 (Benadryl) Tramadol 50 mg ONCE ONCE 08/24/18 DC 08/24/18 HCl PO 17:30 19:19 (Ultram) 08/24/18 17:31 Ondansetron 4 mg ONCE STAT 08/24/18 DC 08/24/18 HCl (Zofran IV 18:09 18:32 Inj) 08/24/18 18:15 IV Flush 10 ml STK-MED 08/24/18 DC 08/24/18 (NS 10 ml) ONCE .ROUTE 18:32 18:58 08/24/18 18:33 Sodium 100 ml @ ud STK-MED 08/24/18 DC 08/24/18 Chloride ONCE .ROUTE 18:32 18:58 08/24/18 18:33 Iodixanol 100 ml STK-MED 08/24/18 DC 08/24/18 (Visipaque ONCE .ROUTE 18:32 18:58 Locm) 08/24/18 18:33 IV Flush 3 ml PER 08/24/18 (NS 3 ml) PROTOCOL IV 19:30 Ondansetron 4 mg Q6H PRN 08/24/18 08/26/18 HCl (Zofran IV 19:30 08:19 Inj) NAUSEA/VOMITI NG 650 mg Q6H PRN 08/24/18 DC Acetaminophen PO .PAIN 1-3 19:30 (Tylenol OR TEMP 08/24/18 19:58 Tab) 1 tab Q6H PRN 08/24/18 DC Acetaminophen PO .MOD PAIN 19:30 / 4-6 08/24/18 19:47 Hydrocodone Bitart ([place] (5/325)) Morphine 2 mg Q4H PRN 08/24/18 DC Sulfate IV .SEVERE 19:30 (morphine) PAIN 7-10 08/24/18 19:47 Docusate 100 mg Q12H PRN 08/24/18 Sodium PO 19:30 (Colace) .CONSTIPATION Magnesium 30 ml DAILY PRN 08/24/18 Hydroxide PO 19:30 (Milk Of Mag) .CONSTIPATION Lorazepam 0.5 mg Q6H PRN 08/24/18 (Ativan) IV ANXIETY 19:30 Sodium 1,000 ml @ Q6H40M IV 08/24/18 DC 08/25/18 Chloride 150 mls/hr 19:20 06:24 08/25/18 09:36 Albuterol/ 3 ml Q4H RESP 08/24/18 Ipratropium THERAPY PRN 19:30 (Duoneb) HHN SHORTNESS OF BREATH Hydralazine 10 mg Q6H PRN 08/24/18 DC HCl IV ELEVATED 19:30 (Apresoline) BLOOD 08/24/18 19:49 PRESSURE 1 tab Q5M PRN 08/24/18 Nitroglycerin SL ANGINA 19:30 (Nitroglyceri n (Sl Tab) 0.4 Mg) Tramadol 50 mg Q6 PRN PO 08/24/18 DC HCl PAIN 19:30 (Ultram) 08/24/18 19:47 Ondansetron 4 mg BRIDGE ORDER 08/24/18 DC HCl (Zofran PRN IV 20:00 Inj) NAUSEA/VOMITI 08/25/18 19:59 NG Hydralazine 10 mg Q4H PRN 08/24/18 08/26/18 HCl IV sbp >160 20:00 06:34 (Apresoline) 1 mg Q3H PRN 08/24/18 08/26/18 Hydromorphone IV SEVERE 20:00 08:15 HCl PAIN LEVEL (Dilaudid) 7-10 Potassium 100 ml @ Q2H IVPB 08/24/18 DC 08/25/18 Chloride 50 mls/hr 20:00 05:20 08/25/18 01:59 Piperacillin 100 ml @ Q6 IVPB 08/24/18 08/26/18 Sod/ 200 mls/hr 20:30 05:31 Tazobactam Sod Procedures/MDM DOCUMENTS REVIEWED: ED nurse, prior ED, prior records and imaging studies IMAGING: PROCEDURE: CT Abdomen and pelvis with contrast. CLINICAL INDICATION: 43 year-old male Epigastric Pain/Pancreatitis TECHNIQUE: Routine abdominopelvic CT following the administration of intravenous contrast. Coronal and sagittal reformats were provided. DICOM images are available. Contrast dose: 100 cc of Visipaque 320. Oral contrast was not administered. Radiation dose: CTDI (mGy): 23.17 mGy and DLP(mGy-cm): 1627.35 mGy.cm One or more of the following dose reduction techniques were used: - Automated exposure control. - Adjustment of the mA and/or kV according to patient size. - Use of iterative reconstruction technique. COMPARISON: CT 08/03/2018. FINDINGS: Lower Thorax: There is interval resolution of right pleural effusion and adjacent atelectasis. Liver: Severe diffuse low attenuation of the liver with sparing adjacent to the gallbladder is again identified. No focal mass lesion identified, allowing for absence of multiphase imaging. Biliary/gallbladder: Gallbladder is distended, similar to the prior CT, otherwise unremarkable. No evidence of intra or extrahepatic biliary duct dilatation. Pancreas: There is interval appearance of intrapancreatic collection within the pancreatic head measuring up to 23 mm. The main pancreatic duct remains dilated. The pancreatic tail demonstrates high density collection measuring up to 43 x 18 mm. There is increase in justin pancreatic fluid and stranding compared to 08/03/2018. Stomach/Duodenum: The previous identified pseudocyst adjacent to the greater curvature of the stomach measures approximate 58 x 39 mm in coronal plane, similar to slightly smaller in size compared to 08/03/2018. The smaller pseudocyst along the greater curvature has resolved. There is increased fluid and stranding along the gastrocolic ligament. Mesentery/Peritoneum: There is resolution of ascites along the paracolic gutter. There is decreased fluid in the left subphrenic space with residual higher density, likely representing saponification of the pancreatic fluid. Spleen: Normal in size and morphology without focal lesion. There is mild perisplenic fluid. Adrenals: No adrenal masses identified. Kidneys: Overall symmetric shape, size, and attenuation. There are cortically based rounded renal cyst in the right mid kidney. No evidence of obstructing urolithiasis or hydroureteronephrosis. Retroperitoneum: No evidence of aortic aneurysm. No evidence of retroperitoneal hemorrhage. Hollow viscera:Allowing for variable degrees of distension, the CT appearance of the bowel loops are unremarkable. Normal appendix. There is formed stool within the colonic loops. Pelvis/Reproductive organs: No pelvic masses or sidewall adenopathy identified. No free fluid identified in the pelvis. Musculoskeletal: No osseous destructive lesions identified. IMPRESSION: Interval appearance of intrapancreatic collections involving the pancreatic head and pancreatic tail. Rounded intrapancreatic head collection measures up to 23 mm. Higher density collection in the pancreatic tail adjacent to the dilated main pancreatic duct measuring up to 43 x 18 mm likely represents a combination of hemorrhage, pancreatic tissue debris, and saponification. Mild interval worsening of peripancreatic fluid. Increased fluid and stranding in the gastrocolic ligament. Correlation with serum amylase and lipase is recommended. Mild decrease in pseudocyst along the greater curvature of the stomach. Resolution of smaller pseudocyst in close vicinity. Decreased fluid in the left subphrenic space with residual higher density, consistent with saponification. Resolution of ascites in the right pericolic gutter. Interval resolution of right pleural effusion. Severe hepatosteatosis. RPTAT: EE Physician Kia August Date Time Electronically viewed and signed by Noam Ramirez Physician Grain Origination Specialist on 08/24/2018 19:19 [employer]ICAL DECISION MAKIN-year-old male, well-known to this ED with a history of hypertension, chronic abdominal pain secondary to idiopathic pancreatitis and opioid dependence presents to the ED complaining of a 5-day history of increasing, severe epigastric abdominal pain with nausea and vomiting. CBC reveals borderline anemia but no leukocytosis or thrombocytopenia. Chemistry significant for mild hypokalemia but no other electrolyte abnormalities or renal insufficiency. LFTs are unremarkable for hyperbilirubinemia or transaminitis. Lipase is significantly elevated to 1803 U/L. CT of the abdomen and pelvis with intravenous contrast reveals multiple fluid collections and findings as described above consistent with acute on chronic pancreatitis. No fever, leukocytosis or criteria for systemic inflammatory response syndrome. Admit to Med/Surg for pain management, surgical consultation, bowel rest further evaluation and management. PATIENT CARE TRANSITIONED: Time: 19:10, Dr. Sina Yuen. Counseled patient regarding diagnosis, diagnostic results and plan for admission. Departure Diagnosis: Primary Impression: Abdominal pain, acute, epigastric Additional Impression: Acute on chronic pancreatitis Condition: Serious BHANU ASH MD Aug 24, 2018 16:20
[2018-08-24] MEDS ORDERED: DIPHENHYDRAMINE 50 MG INJ IV ONE (16:30)
[2018-08-24] MEDS ORDERED: traMADol 50 MG TAB PO ONE (17:30)
[2018-08-24] MEDS ORDERED: ONDANSETRON 4 MG INJ IV STA (18:09)
[2018-08-24] MEDS ORDERED: IODIXANOL LOCM 100 ML BTL ONE (18:32)
[2018-08-24] MEDS ORDERED: SOD CHLORIDE 0.9% 100 ML ONE (18:32)
[2018-08-24] MEDS: SOD CHLORIDE 0.9% 1,000 ML IV SCH ×3 (19:20→22:45)
[2018-08-24] MEDS ORDERED: ACETAMINOPHEN 325 MG TAB PO PRN (19:30)
[2018-08-24] MEDS ORDERED: HYDROCODONE/APAP (5/325) TAB PO PRN (19:30)
[2018-08-24] MEDS ORDERED: MAGNESIUM HYDROXIDE 30ML CUP PO PRN (19:30)
[2018-08-24] MEDS ORDERED: DOCUSATE SODIUM 100 MG CAP PO PRN (19:30)
[2018-08-24] MEDS ORDERED: hydrALAzine 20 MG INJ IV PRN (19:30)
[2018-08-24] MEDS ORDERED: NITROGLYCERIN (SL) 0.4 MG TAB SL PRN (19:30)
[2018-08-24] MEDS ORDERED: NACL 0.9% 3 ML SYG IV SCH (19:30)
[2018-08-24] MEDS ORDERED: ALBUTEROL/IPRATROPIUM (NEB) 3 ML AMP HHN PRN (19:30)
[2018-08-24] MEDS ORDERED: morphine 2 MG INJ IV PRN (19:30)
[2018-08-24] MEDS ORDERED: traMADol 50 MG TAB PO PRN (19:30)
[2018-08-24] MEDS ORDERED: LORAZEPAM 2 MG INJ IV PRN (19:30)
[2018-08-24] MEDS ORDERED: ONDANSETRON 4 MG INJ IV PRN (20:00)
[2018-08-24] MEDS: hydrALAzine 20 MG INJ IV PRN (20:01)
[2018-08-24] MEDS: HYDROmorphONE 1 MG/ML SYG IV PRN ×2 (20:03→23:03)
--- NOTE | 2018-08-24 20:20 | HP ---
Date/Time of Note Date/Time of Note DATE: 08/24/18 TIME: 20:20 Assessment/Plan VTE Prophylaxis Pharmacological prophylaxis: other Lines/Catheters IV Catheter Type (from Nrsg): Peripheral IV Assessment/Plan Hospital Course Objective Physical exam General: Patient is laying in bed and answers questions appropriately Mentation: Patient is alert and oriented 4, Head: Normocephalic atraumatic Eyes: EOMI, pupils reactive to light Neck: Supple, nontender, midline Respiratory: Clear to auscultation bilaterally Cardiovascular: regular rate, no obvious murmurs Gastrointestinal: Tender to palpation, bowel sounds heard. Neurological: Moves all extremities spontaneously Skin: No new skin lesions Assessment and plan Acute on chronic pancreatitis -N.p.o. -IV fluid -CT done shows possibly worsening necrosis, Dr. Bell, general surgeon has been consulted depending on how patient does may need to transfer to higher level of care if pancreatitis worsens, currently no white count, will monitor. -Antibiotic for now, reassess in the a.m. need of antibiotic nausea/vomiting -2/2 to above pancreatitis -treat as needed Hypertension -Controlled with as needed medication Opiate seeking behavior -We will need to limit patient's Dilaudid, however since there is CT evidence of worsening pancreatitis will permit current dose of Dilaudid. Anemia -Mild, monitor Electrolyte derangement -Replete as needed Disposition -Treat for acute pancreatitis, n.p.o., IV fluid, general surgeon on board. Result Diagram: 08/24/18 1619 08/24/18 1619 Results 24hrs Laboratory Tests Test 08/24/18 16:19 White Blood Count 9.3 Red Blood Count 5.23 Hemoglobin 12.2 L Hematocrit 41.1 L Mean Corpuscular Volume 78.6 L Mean Corpuscular Hemoglobin 23.3 L Mean Corpuscular Hemoglobin Concent 29.7 L Red Cell Distribution Width 18.8 H Platelet Count 268 Mean Platelet Volume 10.2 Immature Granulocytes % 0.200 Neutrophils % 71.2 Lymphocytes % 21.0 Monocytes % 6.3 Eosinophils % 0.9 Basophils % 0.4 Nucleated Red Blood Cells % 0.0 Immature Granulocytes # 0.020 Neutrophils # 6.6 Lymphocytes # 1.9 Monocytes # 0.6 Eosinophils # 0.1 Basophils # 0.0 Nucleated Red Blood Cells # 0.0 Sodium Level 144 Potassium Level 3.2 L Chloride Level 97 Carbon Dioxide Level 30 Anion Gap 17 H Blood Urea Nitrogen 10 Creatinine 1.04 Est Glomerular Filtrat Rate mL/min > 60 Glucose Level 138 Calcium Level 9.7 Total Bilirubin 0.3 Direct Bilirubin 0.00 Indirect Bilirubin 0.3 Aspartate Amino Transf (AST/SGOT) 26 Alanine Aminotransferase (ALT/SGPT) 19 Alkaline Phosphatase 115 Total Protein 7.9 Albumin 4.0 Globulin 3.90 H Albumin/Globulin Ratio 1.02 Lipase 1803 H Free Thyroxine 1.60 HPI/ROS Admit Date/Time Admit Date/Time Hx of Present Illness Patient is a -[place] male with a past medical history significant for hypertension and chronic pancreatitis who presents to [facility] for abdominal pain. Patient states that he always has abdominal pain however he feels like the pancreatitis is getting worse and for the past 5 days has been getting increased pain as well as a feeling of warmth in the stomach region. Patient states he also has some nausea and nonbloody emesis. Patient denies chest pain, shortness of breath, headache, leg pain, chest pain, fever, chills PMH/Family/Social Past Medical History Medications Current Medications IV Flush (NS 3 ml) 3 ml PER PROTOCOL IV ; Start 08/24/18 at 19:30; Status UNV Ondansetron HCl (Zofran Inj) 4 mg Q6H PRN IV NAUSEA/VOMITING; Start 08/24/18 at 19:30; Status UNV Acetaminophen (Tylenol Tab) 650 mg Q6H PRN PO .PAIN 1-3 OR TEMP; Start 08/24/18 at 19:30; Status UNV Acetaminophen/ Hydrocodone Bitart ([place] (5/325)) 1 tab Q6H PRN PO .MOD PAIN 4- 6; Start 08/24/18 at 19:30; Status UNV Morphine Sulfate (morphine) 2 mg Q4H PRN IV .SEVERE PAIN 7-10; Start 08/24/18 at 19:30; Status UNV Docusate Sodium (Colace) 100 mg Q12H PRN PO .CONSTIPATION; Start 08/24/18 at 19:30; Status UNV Magnesium Hydroxide (Milk Of Mag) 30 ml DAILY PRN PO .CONSTIPATION; Start 08/24/18 at 19:30; Status UNV Pantoprazole (Protonix Iv) 40 mg DAILY@06 IV ; Start 08/25/18 at 06:00; Status UNV Lorazepam (Ativan) 0.5 mg Q6H PRN IV ANXIETY; Start 08/24/18 at 19:30; Status UNV Sodium Chloride 1,000 ml @ 100 mls/hr Q10H IV ; Start 08/24/18 at 19:20; Status UNV Albuterol/ Ipratropium (Duoneb) 3 ml Q4H RESP THERAPY PRN HHN SHORTNESS OF BREATH; Start 08/24/18 at 19:30; Status UNV Hydralazine HCl (Apresoline) 10 mg Q6H PRN IV ELEVATED BLOOD PRESSURE; Start 08/24/18 at 19:30; Status UNV Nitroglycerin (Nitroglycerin (Sl Tab) 0.4 Mg) 1 tab Q5M PRN SL ANGINA; Start 08/24/18 at 19:30; Status UNV Lisinopril (Zestril) 20 mg DAILY PO ; Start 08/25/18 at 09:00; Status UNV Tramadol HCl (Ultram) 50 mg Q6 PRN PO PAIN; Start 08/24/18 at 19:30; Status UNV Ondansetron HCl (Zofran Inj) 4 mg BRIDGE ORDER PRN IV NAUSEA/VOMITING; Start 08/24/18 at 20:00; Stop 08/25/18 at 19:59 Coded Allergies: acetaminophen (Unverified Allergy, Intermediate, vomiting, rash, 08/24/18) aspirin (Unverified Allergy, Intermediate, 08/24/18) blurry vision oxycodone (Unverified Allergy, Intermediate, vomiting, rash, 08/24/18) morphine (Unverified Adverse Reaction, Mild, abd pain,n/v, 08/24/18) Past Surgical History Past Surgical Hx: no surgical history Family History Significant Family History: no pertinent family hx Social History Smoking Status: Current every day smoker Exam/Review of Systems Vital Signs Vitals Vital Signs Date Temp Pulse Resp B/P (MAP) Pulse Ox O2 O2 Flow FiO2 Time Delivery Rate 08/24/18 98.0 79 22 188/114 98 Room Air 19:26 (138) ROBBIN LAM Aug 24, 2018 20:20
[2018-08-24] MEDS: LABETALOL HCL 20MG INJ IV PRN (21:28)
[2018-08-24] MEDS: PIPER-TAZO 3.375 GM IV (PMX) 100 ML IVPB SCH (21:28)
[2018-08-24 21:59] VITALS: BP 175/105; PULSE 79; RESP 18
[2018-08-24 22:03] VITALS: PULSE 73
[2018-08-24] MEDS ORDERED: hydrALAzine 20 MG INJ IV ONE (22:30)
[2018-08-24 22:31] VITALS: Ht 185.4 cm; Wt 126.4 kg
[2018-08-24 23:50] VITALS: BP 158/84; PULSE 81; RESP 18
[2018-08-25] VITALS (16 sets, daily range): BP systolic 134–175; BP diastolic 79–104; PULSE 72–172; RESP 16–18
[2018-08-25] MEDS: PIPER-TAZO 3.375 GM IV (PMX) 100 ML IVPB SCH ×5 (00:08→23:13)
[2018-08-25] MEDS: ONDANSETRON 4 MG INJ IV PRN ×3 (00:44→20:12)
[2018-08-25] MEDS: POTASSIUM CHLORIDE 100 ML IVPB SCH ×3 (00:50→05:20)
[2018-08-25] MEDS: HYDROmorphONE 1 MG/ML SYG IV PRN ×7 (02:22→23:13)
[2018-08-25] MEDS: hydrALAzine 20 MG INJ IV PRN ×3 (02:31→19:37)
[2018-08-25] MEDS: PANTOPRAZOLE 40 MG INJ IV SCH (05:20)
[2018-08-25] MEDS: SOD CHLORIDE 0.9% 1,000 ML IV SCH (06:24)
[2018-08-25] MEDS: LISINOPRIL 20 MG TAB PO SCH (08:17)
--- NOTE | 2018-08-25 11:03 | CONS ---
Assessment/Plan Assessment/Plan Assessment/Plan (Daily) Progressive idiopathic pancreatitis He will ultimately need surgery in terms of either debridement, pancreatic necrectomy, or possibly total pancreatectomy. For this he will need referral to a tertiary center. In the meantime he needs to be kept on strict n.p.o. Recommend PICC line and TPN. Consultation Date/Type/Reason Admit Date/Time Date of Consultation: Aug 25, 2018 Type of Consult General surgery Reason for Consultation Chronic, progressive idiopathic pancreatitis Date/Time of Note DATE: 08/25/18 TIME: 10:55 Hx of Present Illness The patient is a 43-year-old gentleman who was first diagnosed and treated for idiopathic pancreatitis here at [facility] in April. He has had several readmissions for progressive pancreatitis, and has been transferred at least once to a tertiary center. According to the patient, nothing was done. He is readmitted with similar symptoms only this time more severe and associated with fever. The patient states that for the last several months, every morning he vomits. This has not changed. What has changed, is that he feels heat coming from his abdomen and has had fevers. He also has had progression of findings on CT scan. Constitutional: febrile Eyes: no complaints ENT: no complaints Respiratory: no complaints Cardiovascular: no complaints Gastrointestinal: pain, vomiting Genitourinary: no complaints Musculoskeletal: no complaints Skin: no complaints Neurologic: no complaints Past Medical History Medical History: other (Pancreatitis) Home Meds Active Scripts Naloxone HCl nasal spray (Narcan 4 mg/0.1 mL nasal) 4 Mg [place], 4 MG NS .Q2-3MIN for OPIOID OVERDOSE, #2 SPRAY 0 Refills [place] 0.1 mL into one nostril. Repeat with second device into other nostril after 2-3 minutes if no or minimal response Prov:NERI SANTOS MD 08/19/18 Tramadol HCl (Tramadol HCl) 50 Mg Tablet, 50 MG PO Q6 PRN for PAIN, #10 TAB Prov:NERI SANTOS MD 08/19/18 Ondansetron (Ondansetron Odt) 4 Mg Tab.rapdis, 4 MG PO Q6H PRN for NAUSEA AND/OR VOMITING, #20 TAB Prov:NERI SANTOS MD 08/19/18 Reported Medications Nicotine* (Nicotine* Patch) 7 mg/day Patch, 7 MG TD DAILY, PATCH 06/18/18 Lisinopril* (Lisinopril*) 20 Mg Tablet, 20 MG PO DAILY, #30 TAB 06/18/18 Clonidine Hcl* (Clonidine Hcl*) 0.1 Mg Tab, 0.1 MG PO DAILY PRN for ELEVATED BLOOD PRESSURE, TAB 05/02/18 Discontinued Reported Medications Docusate Sodium* (Colace*) 100 Mg Capsule, 100 MG PO DAILY, #30 CAP 08/03/18 Discontinued Scripts Adzejx-Hkectbev-Wtqmwft* (Raya DR* 12,000) 12,000 L-38,000-60,000 Unit Capsule.dr, 1 CAP PO WITH MEALS, #60 TAB Prov:VEGA,AMMY V. PLANT CLERK 08/08/18 Metoprolol Succinate* (Toprol XL*) 25 Mg Tab.sr.24h, 25 MG PO BID, #60 TAB Prov:VEGAAMMY V. PLANT CLERK 08/08/18 Ondansetron (Ondansetron Odt) 4 Mg Tab.rapdis, 4 MG PO Q6H PRN for NAUSEA AND/OR VOMITING, #30 TAB Prov:RODOLFO CASTLE MD 08/01/18 Medications Current Medications IV Flush (NS 3 ml) 3 ml PER PROTOCOL IV ; Start 08/24/18 at 19:30 Ondansetron HCl (Zofran Inj) 4 mg Q6H PRN IV NAUSEA/VOMITING Last administered on 08/25/18at 08:17; Admin Dose 4 MG; Start 08/24/18 at 19:30 Docusate Sodium (Colace) 100 mg Q12H PRN PO .CONSTIPATION; Start 08/24/18 at 19:30 Magnesium Hydroxide (Milk Of Mag) 30 ml DAILY PRN PO .CONSTIPATION; Start 08/24/18 at 19:30 Pantoprazole (Protonix Iv) 40 mg DAILY@06 IV ; Start 08/25/18 at 06:00 Lorazepam (Ativan) 0.5 mg Q6H PRN IV ANXIETY; Start 08/24/18 at 19:30 Albuterol/ Ipratropium (Duoneb) 3 ml Q4H RESP THERAPY PRN HHN SHORTNESS OF BREATH; Start 08/24/18 at 19:30 Nitroglycerin (Nitroglycerin (Sl Tab) 0.4 Mg) 1 tab Q5M PRN SL ANGINA; Start 08/24/18 at 19:30 Lisinopril (Zestril) 20 mg DAILY PO Last administered on 08/25/18at 08:17; Admin Dose 20 MG; Start 08/25/18 at 09:00 Ondansetron HCl (Zofran Inj) 4 mg BRIDGE ORDER PRN IV NAUSEA/VOMITING; Start 08/24/18 at 20:00; Stop 08/25/18 at 19:59 Hydralazine HCl (Apresoline) 10 mg Q4H PRN IV sbp >160 Last administered on 08/25/18at 02:31; Admin Dose 10 MG; Start 08/24/18 at 20:00 Hydromorphone HCl (Dilaudid) 1 mg Q3H PRN IV SEVERE PAIN LEVEL 7-10 Last administered on 08/25/18at 08:17; Admin Dose 1 MG; Start 08/24/18 at 20:00 Piperacillin Sod/ Tazobactam Sod 100 ml @ 200 mls/hr Q6 IVPB Last administered on 08/25/18at 05:20; Admin Dose 200 MLS/HR; Start 08/24/18 at 20:30 Labetalol HCl (Labetalol) 10 mg Q4H PRN IV sbp>160 Last administered on 08/24/18at 21:28; Admin Dose 10 MG; Start 08/24/18 at 21:00 Potassium Chloride 40 meq/ Sodium Chloride 1,000 ml @ 125 mls/hr Q8H IV ; Start 08/25/18 at 11:00 Allergies: Coded Allergies: acetaminophen (Unverified Allergy, Intermediate, vomiting, rash, 08/24/18) aspirin (Unverified Allergy, Intermediate, 08/24/18) blurry vision oxycodone (Unverified Allergy, Intermediate, vomiting, rash, 08/24/18) morphine (Unverified Adverse Reaction, Mild, abd pain,n/v, 08/24/18) Past Surgical History Past Surgical Hx: no surgical history Family History Significant Family History: no pertinent family hx Social History Alcohol Use: none Smoking Status: Current every day smoker Exam/Review of Systems Exam Vitals Vital Signs Date Temp Pulse Resp B/P (MAP) Pulse Ox O2 O2 Flow FiO2 Time Delivery Rate 08/25/18 73 08:00 08/25/18 97.6 16 149/96 97 07:24 (113) 08/25/18 21 03:01 08/24/18 Room Air 21:59 Intake and Output 08/24/18 08/24/18 08/25/18 1414:59 22:59 06:59 IntakeIntake Total 100 ml 1300 ml OutputOutput Total 425 ml BalanceBalance 100 ml 875 ml Constitutional: alert, oriented Psych: no complaints Head: normocephalic Eyes: nl conjunctiva, nl sclera Neck: supple Respiratory: clear to auscultation Cardiovascular: regular rate and rhythm Gastrointestinal: tender (Throughout upper abdomen without guarding or rebound) Musculoskeletal: nl extremities to inspection Extremities: normal pulses Neurological: ELDERLY COMPANION II-XII intact Results Result Diagram: 08/25/1858 08/25/18 0558 Results 24hrs Laboratory Tests Test 08/24/18 16:19 08/25/18 05:58 White Blood Count 9.3 6.7 # Red Blood Count 5.23 4.48 L Hemoglobin 12.2 L 10.3 L Hematocrit 41.1 L 34.8 L Mean Corpuscular Volume 78.6 L 77.7 L Mean Corpuscular Hemoglobin 23.3 L 23.0 L Mean Corpuscular Hemoglobin Concent 29.7 L 29.6 L Red Cell Distribution Width 18.8 H 18.4 H Platelet Count 268 231 Mean Platelet Volume 10.2 11.4 H Immature Granulocytes % 0.200 0.300 Neutrophils % 71.2 64.4 Lymphocytes % 21.0 22.3 Monocytes % 6.3 7.6 Eosinophils % 0.9 4.8 Basophils % 0.4 0.6 Nucleated Red Blood Cells % 0.0 0.0 Immature Granulocytes # 0.020 0.020 Neutrophils # 6.6 4.3 Lymphocytes # 1.9 1.5 Monocytes # 0.6 0.5 Eosinophils # 0.1 0.3 Basophils # 0.0 0.0 Nucleated Red Blood Cells # 0.0 0.0 Sodium Level 144 144 Potassium Level 3.2 L 3.2 L Chloride Level 97 103 Carbon Dioxide Level 30 29 Anion Gap 17 H 12 Blood Urea Nitrogen 10 10 Creatinine 1.04 0.80 Est Glomerular Filtrat Rate mL/min > 60 > 60 Glucose Level 138 91 # Calcium Level 9.7 8.9 Total Bilirubin 0.3 Direct Bilirubin 0.00 Indirect Bilirubin 0.3 Aspartate Amino Transf (AST/SGOT) 26 Alanine Aminotransferase (ALT/SGPT) 19 Alkaline Phosphatase 115 Total Protein 7.9 Albumin 4.0 Globulin 3.90 H Albumin/Globulin Ratio 1.02 Lipase 1803 H 818 H Free Thyroxine 1.60 Prothrombin Time 13.5 Prothrombin Time Ratio 1.1 INR International Normalized Ratio 1.02 Activated Partial Thromboplast Time 25.5 Thrombin Time 17.7 Hemoglobin A1c 5.4 Phosphorus Level 4.4 Magnesium Level 1.8 Triglycerides Level 97 Cholesterol Level 136 LDL Cholesterol, Calculated 95 HDL Cholesterol 22 L Cholesterol/HDL Ratio 6.1 Thyroid Stimulating Hormone (TSH) 0.542 Medications Medication Current Medications IV Flush (NS 3 ml) 3 ml PER PROTOCOL IV ; Start 08/24/18 at 19:30 Ondansetron HCl (Zofran Inj) 4 mg Q6H PRN IV NAUSEA/VOMITING Last administered on 08/25/18at 08:17; Admin Dose 4 MG; Start 08/24/18 at 19:30 Docusate Sodium (Colace) 100 mg Q12H PRN PO .CONSTIPATION; Start 08/24/18 at 19:30 Magnesium Hydroxide (Milk Of Mag) 30 ml DAILY PRN PO .CONSTIPATION; Start 08/24/18 at 19:30 Pantoprazole (Protonix Iv) 40 mg DAILY@06 IV ; Start 08/25/18 at 06:00 Lorazepam (Ativan) 0.5 mg Q6H PRN IV ANXIETY; Start 08/24/18 at 19:30 Albuterol/ Ipratropium (Duoneb) 3 ml Q4H RESP THERAPY PRN HHN SHORTNESS OF BREATH; Start 08/24/18 at 19:30 Nitroglycerin (Nitroglycerin (Sl Tab) 0.4 Mg) 1 tab Q5M PRN SL ANGINA; Start 08/24/18 at 19:30 Lisinopril (Zestril) 20 mg DAILY PO Last administered on 08/25/18at 08:17; Admin Dose 20 MG; Start 08/25/18 at 09:00 Ondansetron HCl (Zofran Inj) 4 mg BRIDGE ORDER PRN IV NAUSEA/VOMITING; Start 08/24/18 at 20:00; Stop 08/25/18 at 19:59 Hydralazine HCl (Apresoline) 10 mg Q4H PRN IV sbp >160 Last administered on 08/25/18at 02:31; Admin Dose 10 MG; Start 08/24/18 at 20:00 Hydromorphone HCl (Dilaudid) 1 mg Q3H PRN IV SEVERE PAIN LEVEL 7-10 Last administered on 08/25/18at 08:17; Admin Dose 1 MG; Start 08/24/18 at 20:00 Piperacillin Sod/ Tazobactam Sod 100 ml @ 200 mls/hr Q6 IVPB Last administered on 08/25/18at 05:20; Admin Dose 200 MLS/HR; Start 08/24/18 at 20:30 Labetalol HCl (Labetalol) 10 mg Q4H PRN IV sbp>160 Last administered on 08/24/18at 21:28; Admin Dose 10 MG; Start 08/24/18 at 21:00 Potassium Chloride 40 meq/ Sodium Chloride 1,000 ml @ 125 mls/hr Q8H IV ; Start 08/25/18 at 11:00 AUDREY CEJA MD Aug 25, 2018 11:03
[2018-08-25] MEDS: POTASSIUM CHLORIDE 40 MEQ in SOD CHLORIDE 0.9% 1,000 ML IV SCH ×2 (11:26→18:29)
--- NOTE | 2018-08-25 16:52 | PN ---
Date/Time of Note Date/Time of Note DATE: 08/25/18 TIME: 16:47 Assessment/Plan VTE Prophylaxis Risk score (from Ns)>0 risk: 0 [place]CD applied (from [facility] [place] Yes Pharmacological prophylaxis: NA/contraindicated Pharm contraindication: surgical contra Lines/Catheters IV Catheter Type (from [facility]): Peripheral IV Urinary Cath still in place: No Assessment/Plan Hospital Course Acute on chronic pancreatitis -N.p.o. -IV fluid -CT done shows possibly worsening necrosis -Consultation with Dr. Bell of general surgery is appreciated, recommendation is for transfer to higher level of care -Patient currently prefers not to be transferred -Continue IV antibiotics nausea/vomiting -2/2 to above pancreatitis -treat as needed Hypertension -Controlled with as needed medication Opiate seeking behavior -We will need to limit patient's Dilaudid, however since there is CT evidence of worsening pancreatitis will permit current dose of Dilaudid. Anemia -Mild, monitor Electrolyte derangement -Replete as needed Prophylaxis: SCDs Result Diagram: 08/25/18 0558 08/25/18 0558 Results 24hrs Laboratory Tests Test 08/25/18 05:58 White Blood Count 6.7 # Red Blood Count 4.48 L Hemoglobin 10.3 L Hematocrit 34.8 L Mean Corpuscular Volume 77.7 L Mean Corpuscular Hemoglobin 23.0 L Mean Corpuscular Hemoglobin Concent 29.6 L Red Cell Distribution Width 18.4 H Platelet Count 231 Mean Platelet Volume 11.4 H Immature Granulocytes % 0.300 Neutrophils % 64.4 Lymphocytes % 22.3 Monocytes % 7.6 Eosinophils % 4.8 Basophils % 0.6 Nucleated Red Blood Cells % 0.0 Immature Granulocytes # 0.020 Neutrophils # 4.3 Lymphocytes # 1.5 Monocytes # 0.5 Eosinophils # 0.3 Basophils # 0.0 Nucleated Red Blood Cells # 0.0 Prothrombin Time 13.5 Prothrombin Time Ratio 1.1 INR International Normalized Ratio 1.02 Activated Partial Thromboplast Time 25.5 Thrombin Time 17.7 Sodium Level 144 Potassium Level 3.2 L Chloride Level 103 Carbon Dioxide Level 29 Anion Gap 12 Blood Urea Nitrogen 10 Creatinine 0.80 Est Glomerular Filtrat Rate mL/min > 60 Glucose Level 91 # Hemoglobin A1c 5.4 Calcium Level 8.9 Phosphorus Level 4.4 Magnesium Level 1.8 Triglycerides Level 97 Cholesterol Level 136 LDL Cholesterol, Calculated 95 HDL Cholesterol 22 L Cholesterol/HDL Ratio 6.1 Lipase 818 H Thyroid Stimulating Hormone (TSH) 0.542 Subjective 24 Hr Interval Summary Gastrointestinal: pain, nausea, vomiting Exam/Review of Systems Exam Vitals Vital Signs Date Temp Pulse Resp B/P (MAP) Pulse Ox O2 O2 Flow FiO2 Time Delivery Rate 08/25/18 72 16:00 08/25/18 98.9 16 170/98 96 15:35 (122) 08/25/18 21 03:01 08/24/18 Room Air 21:59 Intake and Output 08/24/18 08/24/18 08/25/18 1515:00 23:00 07:00 IntakeIntake Total 100 ml 1300 ml OutputOutput Total 425 ml BalanceBalance 100 ml 875 ml Constitutional: alert, oriented Respiratory: clear to auscultation Cardiovascular: regular rate and rhythm Gastrointestinal: soft; No distended Musculoskeletal: nl extremities to inspection Results Results 24hrs Laboratory Tests Test 08/25/18 05:58 White Blood Count 6.7 # Red Blood Count 4.48 L Hemoglobin 10.3 L Hematocrit 34.8 L Mean Corpuscular Volume 77.7 L Mean Corpuscular Hemoglobin 23.0 L Mean Corpuscular Hemoglobin Concent 29.6 L Red Cell Distribution Width 18.4 H Platelet Count 231 Mean Platelet Volume 11.4 H Immature Granulocytes % 0.300 Neutrophils % 64.4 Lymphocytes % 22.3 Monocytes % 7.6 Eosinophils % 4.8 Basophils % 0.6 Nucleated Red Blood Cells % 0.0 Immature Granulocytes # 0.020 Neutrophils # 4.3 Lymphocytes # 1.5 Monocytes # 0.5 Eosinophils # 0.3 Basophils # 0.0 Nucleated Red Blood Cells # 0.0 Prothrombin Time 13.5 Prothrombin Time Ratio 1.1 INR International Normalized Ratio 1.02 Activated Partial Thromboplast Time 25.5 Thrombin Time 17.7 Sodium Level 144 Potassium Level 3.2 L Chloride Level 103 Carbon Dioxide Level 29 Anion Gap 12 Blood Urea Nitrogen 10 Creatinine 0.80 Est Glomerular Filtrat Rate mL/min > 60 Glucose Level 91 # Hemoglobin A1c 5.4 Calcium Level 8.9 Phosphorus Level 4.4 Magnesium Level 1.8 Triglycerides Level 97 Cholesterol Level 136 LDL Cholesterol, Calculated 95 HDL Cholesterol 22 L Cholesterol/HDL Ratio 6.1 Lipase 818 H Thyroid Stimulating Hormone (TSH) 0.542 Medications Medication Current Medications IV Flush (NS 3 ml) 3 ml PER PROTOCOL IV ; Start 08/24/18 at 19:30 Ondansetron HCl (Zofran Inj) 4 mg Q6H PRN IV NAUSEA/VOMITING Last administered on 08/25/18at 08:17; Admin Dose 4 MG; Start 08/24/18 at 19:30 Docusate Sodium (Colace) 100 mg Q12H PRN PO .CONSTIPATION; Start 08/24/18 at 19:30 Magnesium Hydroxide (Milk Of Mag) 30 ml DAILY PRN PO .CONSTIPATION; Start 08/24/18 at 19:30 Pantoprazole (Protonix Iv) 40 mg DAILY@06 IV ; Start 08/25/18 at 06:00 Lorazepam (Ativan) 0.5 mg Q6H PRN IV ANXIETY; Start 08/24/18 at 19:30 Albuterol/ Ipratropium (Duoneb) 3 ml Q4H RESP THERAPY PRN HHN SHORTNESS OF BREATH; Start 08/24/18 at 19:30 Nitroglycerin (Nitroglycerin (Sl Tab) 0.4 Mg) 1 tab Q5M PRN SL ANGINA; Start 08/24/18 at 19:30 Lisinopril (Zestril) 20 mg DAILY PO Last administered on 08/25/18at 08:17; Admin Dose 20 MG; Start 08/25/18 at 09:00 Ondansetron HCl (Zofran Inj) 4 mg BRIDGE ORDER PRN IV NAUSEA/VOMITING; Start 08/24/18 at 20:00; Stop 08/25/18 at 19:59 Hydralazine HCl (Apresoline) 10 mg Q4H PRN IV sbp >160 Last administered on 08/25/18at 11:26; Admin Dose 10 MG; Start 08/24/18 at 20:00 Hydromorphone HCl (Dilaudid) 1 mg Q3H PRN IV SEVERE PAIN LEVEL 7-10 Last administered on 08/25/18 11:26; Admin Dose 1 MG; Start 08/24/18 at 20:00 Piperacillin Sod/ Tazobactam Sod 100 ml @ 200 mls/hr Q6 IVPB Last administered on 08/25/18 11:26; Admin Dose 200 MLS/HR; Start 08/24/18 at 20:30 Labetalol HCl (Labetalol) 10 mg Q4H PRN IV sbp>160 Last administered on 08/24/18at 21:28; Admin Dose 10 MG; Start 08/24/18 at 21:00 Potassium Chloride 40 meq/ Sodium Chloride 1,000 ml @ 125 mls/hr Q8H IV Last administered on 08/25/18at 11:26; Admin Dose 125 MLS/HR; Start 08/25/18 at 11:00 DODIE FRANCES Aug 25, 2018 16:52
[2018-08-25] MEDS: LABETALOL HCL 20MG INJ IV PRN (21:34)
[2018-08-26] VITALS (13 sets, daily range): BP systolic 160–186; BP diastolic 90–110; PULSE 73–162; RESP 16–19
[2018-08-26] MEDS: NICOTINE (7 MG/24 HR) PATCH TRANSDERM SCH ×2 (00:10→09:00)
[2018-08-26] MEDS: POTASSIUM CHLORIDE 40 MEQ in SOD CHLORIDE 0.9% 1,000 ML IV SCH ×3 (00:52→19:00)
[2018-08-26] MEDS: HYDROmorphONE 1 MG/ML SYG IV PRN ×7 (02:14→22:26)
[2018-08-26] MEDS: PANTOPRAZOLE 40 MG INJ IV SCH (05:23)
[2018-08-26] MEDS: PIPER-TAZO 3.375 GM IV (PMX) 100 ML IVPB SCH ×3 (05:31→17:49)
[2018-08-26] MEDS: ONDANSETRON 4 MG INJ IV PRN ×2 (05:32→08:19)
[2018-08-26] MEDS: hydrALAzine 20 MG INJ IV PRN ×3 (06:34→19:30)
[2018-08-26] MEDS: LISINOPRIL 20 MG TAB PO SCH (08:16)
[2018-08-26] MEDS ORDERED: NICOTINE (7 MG/24 HR) PATCH TRANSDERM SCH (09:00)
--- NOTE | 2018-08-26 11:05 | QN ---
Documentation Comment Patient is clinically stable Does not want to be transferred at this point He wants to keep his scheduled appointment with plastic boat patcher this AUDREY CEJA MD Aug 26, 2018 11:05
--- NOTE | 2018-08-26 12:21 | PN ---
Date/Time of Note Date/Time of Note DATE: 08/26/18 TIME: 12:18 Assessment/Plan VTE Prophylaxis Risk score (from Ns)>0 risk: 3 SCD applied (from [facility]): Yes Pharmacological prophylaxis: NA/contraindicated Pharm contraindication: surgical contra Lines/Catheters IV Catheter Type (from [facility]): Peripheral IV Urinary Cath still in place: No Assessment/Plan Hospital Course Acute on chronic pancreatitis-improved -N.p.o. -IV fluid -CT done shows possibly worsening necrosis -Consultation with Dr. Bell of general surgery is appreciated, recommendation is for transfer to higher level of care -Patient currently does not want to be transferred to higher level of care, of note patient was once transferred during previous hospitalization to [facility] and reportedly nothing was done -Continue IV antibiotics -Lipase is trending down, consider initiation of clears tomorrow -Patient does have an outpatient appointment with GI in the coming weeks nausea/vomiting -2/2 to above pancreatitis -treat as needed Hypertension -Controlled with as needed medication Anemia -Mild, monitor Electrolyte derangement -Replete as needed Prophylaxis: SCDs DC planning: Patient does not want to be transferred, consider initiation of clears tomorrow, patient has outpatient follow-up with GI in the coming weeks Result Diagram: 08/26/18 0620 08/26/18 0620 Results 24hrs Laboratory Tests Test 08/26/18 06:20 White Blood Count 6.2 Red Blood Count 4.23 L Hemoglobin 9.9 L Hematocrit 33.2 L Mean Corpuscular Volume 78.5 L Mean Corpuscular Hemoglobin 23.4 L Mean Corpuscular Hemoglobin Concent 29.8 L Red Cell Distribution Width 18.7 H Platelet Count 222 Mean Platelet Volume 10.6 H Immature Granulocytes % 0.200 Neutrophils % 57.7 Lymphocytes % 28.5 Monocytes % 6.8 Eosinophils % 6.0 Basophils % 0.8 Nucleated Red Blood Cells % 0.0 Immature Granulocytes # 0.010 Neutrophils # 3.6 Lymphocytes # 1.8 Monocytes # 0.4 Eosinophils # 0.4 Basophils # 0.1 Nucleated Red Blood Cells # 0.0 Sodium Level 145 H Potassium Level 3.5 Chloride Level 110 Carbon Dioxide Level 29 Anion Gap 6 Blood Urea Nitrogen 9 Creatinine 0.75 Est Glomerular Filtrat Rate mL/min > 60 Glucose Level 83 Calcium Level 9.0 Lipase 339 H Subjective 24 Hr Interval Summary Gastrointestinal: pain, nausea Exam/Review of Systems Exam Vitals Vital Signs Date Temp Pulse Resp B/P (MAP) Pulse Ox O2 O2 Flow FiO2 Time Delivery Rate 08/26/18 98.4 81 19 185/105 97 11:34 (131) 08/25/18 21 03:01 08/24/18 Room Air 21:59 Intake and Output 08/25/18 08/25/18 08/26/18 1515:00 23:00 07:00 IntakeIntake Total 100 ml 120 ml 1200 ml OutputOutput Total 800 ml 100 ml BalanceBalance 100 ml -680 ml 1100 ml Constitutional: alert, oriented Respiratory: clear to auscultation Cardiovascular: regular rate and rhythm Gastrointestinal: soft, tender; No distended Musculoskeletal: nl extremities to inspection Results Results 24hrs Laboratory Tests Test 08/26/18 06:20 White Blood Count 6.2 Red Blood Count 4.23 L Hemoglobin 9.9 L Hematocrit 33.2 L Mean Corpuscular Volume 78.5 L Mean Corpuscular Hemoglobin 23.4 L Mean Corpuscular Hemoglobin Concent 29.8 L Red Cell Distribution Width 18.7 H Platelet Count 222 Mean Platelet Volume 10.6 H Immature Granulocytes % 0.200 Neutrophils % 57.7 Lymphocytes % 28.5 Monocytes % 6.8 Eosinophils % 6.0 Basophils % 0.8 Nucleated Red Blood Cells % 0.0 Immature Granulocytes # 0.010 Neutrophils # 3.6 Lymphocytes # 1.8 Monocytes # 0.4 Eosinophils # 0.4 Basophils # 0.1 Nucleated Red Blood Cells # 0.0 Sodium Level 145 H Potassium Level 3.5 Chloride Level 110 Carbon Dioxide Level 29 Anion Gap 6 Blood Urea Nitrogen 9 Creatinine 0.75 Est Glomerular Filtrat Rate mL/min > 60 Glucose Level 83 Calcium Level 9.0 Lipase 339 H Medications Medication Current Medications IV Flush (NS 3 ml) 3 ml PER PROTOCOL IV ; Start 08/24/18 at 19:30 Ondansetron HCl (Zofran Inj) 4 mg Q6H PRN IV NAUSEA/VOMITING Last administered on 08/26/18at 08:19; Admin Dose 4 MG; Start 08/24/18 at 19:30 Docusate Sodium (Colace) 100 mg Q12H PRN PO .CONSTIPATION; Start 08/24/18 at 19:30 Magnesium Hydroxide (Milk Of Mag) 30 ml DAILY PRN PO .CONSTIPATION; Start 08/24/18 at 19:30 Pantoprazole (Protonix Iv) 40 mg DAILY@06 IV ; Start 08/25/18 at 06:00 Lorazepam (Ativan) 0.5 mg Q6H PRN IV ANXIETY; Start 08/24/18 at 19:30 Albuterol/ Ipratropium (Duoneb) 3 ml Q4H RESP THERAPY PRN HHN SHORTNESS OF BREATH; Start 08/24/18 at 19:30 Nitroglycerin (Nitroglycerin (Sl Tab) 0.4 Mg) 1 tab Q5M PRN SL ANGINA; Start 08/24/18 at 19:30 Lisinopril (Zestril) 20 mg DAILY PO Last administered on 08/26/18 08:16; Admin Dose 20 MG; Start 08/25/18 at 09:00 Hydralazine HCl (Apresoline) 10 mg Q4H PRN IV sbp >160 Last administered on 08/26/18 06:34; Admin Dose 10 MG; Start 08/24/18 at 20:00 Hydromorphone HCl (Dilaudid) 1 mg Q3H PRN IV SEVERE PAIN LEVEL 7-10 Last administered on 08/26/18 11:50; Admin Dose 1 MG; Start 08/24/18 at 20:00 Piperacillin Sod/ Tazobactam Sod 100 ml @ 200 mls/hr Q6 IVPB Last administered on 08/26/18 05:31; Admin Dose 200 MLS/HR; Start 08/24/18 at 20:30 Labetalol HCl (Labetalol) 10 mg Q4H PRN IV sbp>160 Last administered on 08/25/18 21:34; Admin Dose 10 MG; Start 08/24/18 at 21:00 Potassium Chloride 40 meq/ Sodium Chloride 1,000 ml @ 125 mls/hr Q8H IV Last administered on 08/26/18 00:52; Admin Dose 125 MLS/HR; Start 08/25/18 at 11:00 Nicotine (Nicoderm 7 Mg/ 24 Hr) 1 patch DAILY TRANSDERM Last administered on 08/26/18 00:10; Admin Dose 1 PATCH; Start 08/25/18 at 23:21 DODIE FRANCES Aug 26, 2018 12:21
[2018-08-26] MEDS: SENNA TAB GTB SCH (21:00)
[2018-08-26] MEDS: DOCUSATE SODIUM 10 MG/ML (10ML CUP) GTB SCH (21:00)
[2018-08-27] VITALS (15 sets, daily range): BP systolic 164–192; BP diastolic 85–115; PULSE 71–91; RESP 18
[2018-08-27] MEDS: PIPER-TAZO 3.375 GM IV (PMX) 100 ML IVPB SCH ×5 (00:18→23:00)
[2018-08-27] MEDS: hydrALAzine 20 MG INJ IV PRN ×4 (00:23→21:57)
[2018-08-27] MEDS: HYDROmorphONE 1 MG/ML SYG IV PRN ×7 (02:25→21:17)
[2018-08-27] MEDS: POTASSIUM CHLORIDE 40 MEQ in SOD CHLORIDE 0.9% 1,000 ML IV SCH ×3 (03:00→18:16)
[2018-08-27] MEDS: PANTOPRAZOLE 40 MG INJ IV SCH (05:26)
[2018-08-27] MEDS: ONDANSETRON 4 MG INJ IV PRN ×3 (05:43→21:14)
[2018-08-27] MEDS: SENNA TAB GTB SCH ×2 (09:00→20:01)
[2018-08-27] MEDS: DOCUSATE SODIUM 10 MG/ML (10ML CUP) GTB SCH ×2 (09:00→20:01)
--- NOTE | 2018-08-27 10:13 | PN ---
Date/Time of Note Date/Time of Note DATE: 08/27/18 TIME: 10:10 Assessment/Plan VTE Prophylaxis Risk score (from Nsg)>0 risk: 2 SCD applied (from Ns): Yes Pharmacological prophylaxis: other Lines/Catheters IV Catheter Type (from Nrsg): Peripheral IV Urinary Cath still in place: No Assessment/Plan Hospital Course A/P: 43 M p/w: Acute on chronic pancreatitis-improved. Lipase was slightly elevated.-CT done shows possibly worsening necrosis -For now continue n.p.o. -IV fluid -Consultation with Dr. Bell of general surgery is appreciated, recommendation is for transfer to higher level of care -Patient currently does not want to be transferred to higher level of care, of note patient was once transferred during previous hospitalization to [facility] and reportedly nothing was done -Continue IV antibiotics, if lipase improved marker consider initiation of clear liquid diet at that time -Patient does have an outpatient appointment with GI in the coming weeks nausea/vomiting-2/2 to above pancreatitis, resolving -Monitor, treat as needed Hypertension-Controlled with as needed medication -Monitor Anemia -Mild, monitor Electrolyte derangement -Replete as needed Prophylaxis: SCDs DC planning: Patient does not want to be transferred, consider initiation of clears tomorrow, patient has outpatient follow-up with GI in the coming weeks Result Diagram: 08/27/18 0647 08/27/18 0647 Results 24hrs Laboratory Tests Test 08/27/18 06:47 White Blood Count 5.7 Red Blood Count 4.34 L Hemoglobin 10.2 L Hematocrit 34.0 L Mean Corpuscular Volume 78.3 L Mean Corpuscular Hemoglobin 23.5 L Mean Corpuscular Hemoglobin Concent 30.0 L Red Cell Distribution Width 18.6 H Platelet Count 241 Mean Platelet Volume 10.6 H Immature Granulocytes % 0.300 Neutrophils % 70.0 Lymphocytes % 18.2 Monocytes % 5.9 Eosinophils % 4.7 Basophils % 0.9 Nucleated Red Blood Cells % 0.0 Immature Granulocytes # 0.020 Neutrophils # 4.0 Lymphocytes # 1.0 Monocytes # 0.3 Eosinophils # 0.3 Basophils # 0.1 Nucleated Red Blood Cells # 0.0 Sodium Level 142 Potassium Level 3.5 Chloride Level 109 Carbon Dioxide Level 26 Anion Gap 7 Blood Urea Nitrogen 6 L Creatinine 0.67 Est Glomerular Filtrat Rate mL/min > 60 Glucose Level 81 Calcium Level 9.1 Magnesium Level 1.7 Lipase 312 H Subjective 24 Hr Interval Summary Free Text/Dictation Seen by speech therapy team earlier, still n.p.o. Personally playing video games no acute events overnight. Exam/Review of Systems Exam Vitals Vital Signs Date Temp Pulse Resp B/P (MAP) Pulse Ox O2 O2 Flow FiO2 Time Delivery Rate 08/27/18 71 08:55 08/27/18 98.2 18 165/97 96 Room Air 07:19 (119) 08/25/18 21 03:01 Intake and Output 08/26/18 08/26/18 08/27/18 1515:00 23:00 07:00 IntakeIntake Total 100 ml 200 ml OutputOutput Total 200 ml 900 ml BalanceBalance -100 ml -700 ml Exam Constitutional: alert, oriented Respiratory: clear to auscultation Cardiovascular: regular rate and rhythm Gastrointestinal: soft, tender; No distended Musculoskeletal: nl extremities to inspection Results Results 24hrs Laboratory Tests Test 08/27/18 06:47 White Blood Count 5.7 Red Blood Count 4.34 L Hemoglobin 10.2 L Hematocrit 34.0 L Mean Corpuscular Volume 78.3 L Mean Corpuscular Hemoglobin 23.5 L Mean Corpuscular Hemoglobin Concent 30.0 L Red Cell Distribution Width 18.6 H Platelet Count 241 Mean Platelet Volume 10.6 H Immature Granulocytes % 0.300 Neutrophils % 70.0 Lymphocytes % 18.2 Monocytes % 5.9 Eosinophils % 4.7 Basophils % 0.9 Nucleated Red Blood Cells % 0.0 Immature Granulocytes # 0.020 Neutrophils # 4.0 Lymphocytes # 1.0 Monocytes # 0.3 Eosinophils # 0.3 Basophils # 0.1 Nucleated Red Blood Cells # 0.0 Sodium Level 142 Potassium Level 3.5 Chloride Level 109 Carbon Dioxide Level 26 Anion Gap 7 Blood Urea Nitrogen 6 L Creatinine 0.67 Est Glomerular Filtrat Rate mL/min > 60 Glucose Level 81 Calcium Level 9.1 Magnesium Level 1.7 Lipase 312 H Medications Medication Current Medications IV Flush (NS 3 ml) 3 ml PER PROTOCOL IV ; Start 08/24/18 at 19:30 Ondansetron HCl (Zofran Inj) 4 mg Q6H PRN IV NAUSEA/VOMITING Last administered on 08/27/18at 05:43; Admin Dose 4 MG; Start 08/24/18 at 19:30 Docusate Sodium (Colace) 100 mg Q12H PRN PO .CONSTIPATION; Start 08/24/18 at 19:30 Magnesium Hydroxide (Milk Of Mag) 30 ml DAILY PRN PO .CONSTIPATION; Start 08/24/18 at 19:30 Pantoprazole (Protonix Iv) 40 mg DAILY@06 IV ; Start 08/25/18 at 06:00 Lorazepam (Ativan) 0.5 mg Q6H PRN IV ANXIETY; Start 08/24/18 at 19:30 Albuterol/ Ipratropium (Duoneb) 3 ml Q4H RESP THERAPY PRN HHN SHORTNESS OF BREATH; Start 08/24/18 at 19:30 Nitroglycerin (Nitroglycerin (Sl Tab) 0.4 Mg) 1 tab Q5M PRN SL ANGINA; Start 08/24/18 at 19:30 Lisinopril (Zestril) 20 mg DAILY PO Last administered on 08/26/18at 08:16; Admin Dose 20 MG; Start 08/25/18 at 09:00 Hydralazine HCl (Apresoline) 10 mg Q4H PRN IV sbp >160 Last administered on 08/27/18at 00:23; Admin Dose 10 MG; Start 08/24/18 at 20:00 Hydromorphone HCl (Dilaudid) 1 mg Q3H PRN IV SEVERE PAIN LEVEL 7-10 Last administered on 08/27/18at 08:37; Admin Dose 1 MG; Start 08/24/18 at 20:00 Piperacillin Sod/ Tazobactam Sod 100 ml @ 200 mls/hr Q6 IVPB Last administered on 08/27/18at 05:36; Admin Dose 200 MLS/HR; Start 08/24/18 at 20:30 Labetalol HCl (Labetalol) 10 mg Q4H PRN IV sbp>160 Last administered on 08/25/18at 21:34; Admin Dose 10 MG; Start 08/24/18 at 21:00 Potassium Chloride 40 meq/ Sodium Chloride 1,000 ml @ 125 mls/hr Q8H IV Last administered on 08/26/18at 13:01; Admin Dose 125 MLS/HR; Start 08/25/18 at 11:00 Docusate Sodium (Colace Liquid Cup) 100 mg BID GTB ; Start 08/26/18 at 21:00 Senna (Senokot) 1 tab BID GTB ; Start 08/26/18 at 21:00 Nicotine (Nicoderm 21 Mg/ 24hr) 1 patch DAILY TRANSDERM ; Start 08/27/18 at 10:30 YISEL HANNAH Aug 27, 2018 10:13
[2018-08-27] MEDS: LISINOPRIL 20 MG TAB PO SCH (10:14)
[2018-08-27] MEDS: NICOTINE (21 MG/24 HR) PATCH TRANSDERM SCH (11:59)
[2018-08-27] MEDS: LABETALOL HCL 20MG INJ IV PRN ×2 (15:27→20:07)
[2018-08-28] VITALS (13 sets, daily range): BP systolic 152–189; BP diastolic 83–109; PULSE 66–79; RESP 18–20
[2018-08-28] MEDS: HYDROmorphONE 1 MG/ML SYG IV PRN ×8 (00:24→23:13)
[2018-08-28] MEDS: POTASSIUM CHLORIDE 40 MEQ in SOD CHLORIDE 0.9% 1,000 ML IV SCH ×3 (02:17→19:00)
[2018-08-28] MEDS: PANTOPRAZOLE 40 MG INJ IV SCH (05:28)
[2018-08-28] MEDS: LABETALOL HCL 20MG INJ IV PRN ×2 (06:18→17:22)
[2018-08-28] MEDS: ONDANSETRON 4 MG INJ IV PRN ×2 (06:18→20:10)
[2018-08-28] MEDS: PIPER-TAZO 3.375 GM IV (PMX) 100 ML IVPB SCH ×4 (06:18→23:19)
[2018-08-28] MEDS: SENNA TAB GTB SCH ×2 (09:00→20:10)
[2018-08-28] MEDS: DOCUSATE SODIUM 10 MG/ML (10ML CUP) GTB SCH ×2 (09:00→20:10)
[2018-08-28] MEDS: LISINOPRIL 20 MG TAB PO SCH (10:08)
[2018-08-28] MEDS: NICOTINE (21 MG/24 HR) PATCH TRANSDERM SCH (10:08)
--- NOTE | 2018-08-28 16:36 | PN ---
Date/Time of Note Date/Time of Note DATE: 08/28/18 TIME: 16:31 Assessment/Plan VTE Prophylaxis Risk score (from Ns)>0 risk: 3 SCD applied (from Ns): Yes Pharmacological prophylaxis: NA/contraindicated Pharm contraindication: low risk/ambulating Lines/Catheters IV [facility] Type (from [facility]): Peripheral IV Urinary Cath still in place: No Assessment/Plan Assessment/Plan 1. Acute on chronic pancreatitis- improved - Lipase normalizing - CT scan abd showing worsening necrosis. Surgery on board and recommending higher level of care but patient is refusing transfer. Has outpatient follow up with GI on 09/10 - Will plan to continue on liquids and if tolerating without issues, will d/c home. patient afraid to try anything solid until he sees outpatient GI - IVF on board - IV antibiotics on board 2. Nausea/vomiting-2/2 to above pancreatitis, resolving - Monitor 3. Hypertension - stable 4. anemia - Mild, monitor - no need for transfusion at this time 5. Disposition - continue on clears and if tolerating, will d/c in 1-2 days Result Diagram: 08/28/18 0601 08/28/18 0601 Results 24hrs Laboratory Tests Test 08/28/18 06:01 White Blood Count 5.2 Red Blood Count 4.16 L Hemoglobin 9.7 L Hematocrit 32.4 L Mean Corpuscular Volume 77.9 L Mean Corpuscular Hemoglobin 23.3 L Mean Corpuscular Hemoglobin Concent 29.9 L Red Cell Distribution Width 18.7 H Platelet Count 245 Mean Platelet Volume 11.3 H Immature Granulocytes % 0.400 Neutrophils % 50.1 Lymphocytes % 33.1 Monocytes % 8.2 Eosinophils % 7.1 H Basophils % 1.1 Nucleated Red Blood Cells % 0.0 Immature Granulocytes # 0.020 Neutrophils # 2.6 Lymphocytes # 1.7 Monocytes # 0.4 Eosinophils # 0.4 Basophils # 0.1 Nucleated Red Blood Cells # 0.0 Sodium Level 143 Potassium Level 3.4 L Chloride Level 103 Carbon Dioxide Level 27 Anion Gap 13 Blood Urea Nitrogen 7 Creatinine 0.73 Est Glomerular Filtrat Rate mL/min > 60 Glucose Level 74 Calcium Level 8.9 Lipase 297 Subjective 24 Hr Interval Summary Free Text/Dictation Patient states he's doing okay on clears but afraid to try anything more solid. Has outpatient appt scheduled for September 10. Exam/Review of Systems Exam Vitals Vital Signs Date Temp Pulse Resp B/P (MAP) Pulse Ox O2 O2 Flow FiO2 Time Delivery Rate 08/28/18 99.0 79 19 189/109 96 16:19 (135) 08/28/18 Room Air 03:21 08/25/18 21 03:01 Intake and Output 08/27/18 08/27/18 08/28/18 1515:00 23:00 07:00 IntakeIntake Total 100 ml 200 ml BalanceBalance 100 ml 200 ml Exam General: Patient is a pleasant male, currently lying in bed Neck: Supple Chest: Nontender Lungs: Clear to auscultation bilaterally no crackles rales or wheezing Heart: Normal S1-S2, Regular rate and rhythm, no murmurs Abdomen: Soft , Obese, mildly tender LUQ, nondistended , bowel sounds are present. Extremities: Normal to inspection, no edema no cyanosis Results Results 24hrs Laboratory Tests Test 08/28/18 06:01 White Blood Count 5.2 Red Blood Count 4.16 L Hemoglobin 9.7 L Hematocrit 32.4 L Mean Corpuscular Volume 77.9 L Mean Corpuscular Hemoglobin 23.3 L Mean Corpuscular Hemoglobin Concent 29.9 L Red Cell Distribution Width 18.7 H Platelet Count 245 Mean Platelet Volume 11.3 H Immature Granulocytes % 0.400 Neutrophils % 50.1 Lymphocytes % 33.1 Monocytes % 8.2 Eosinophils % 7.1 H Basophils % 1.1 Nucleated Red Blood Cells % 0.0 Immature Granulocytes # 0.020 Neutrophils # 2.6 Lymphocytes # 1.7 Monocytes # 0.4 Eosinophils # 0.4 Basophils # 0.1 Nucleated Red Blood Cells # 0.0 Sodium Level 143 Potassium Level 3.4 L Chloride Level 103 Carbon Dioxide Level 27 Anion Gap 13 Blood Urea Nitrogen 7 Creatinine 0.73 Est Glomerular Filtrat Rate mL/min > 60 Glucose Level 74 Calcium Level 8.9 Lipase 297 Medications Medication Current Medications IV Flush (NS 3 ml) 3 ml PER PROTOCOL IV ; Start 08/24/18 at 19:30 Ondansetron HCl (Zofran Inj) 4 mg Q6H PRN IV NAUSEA/VOMITING Last administered on 08/28/18at 06:18; Admin Dose 4 MG; Start 08/24/18 at 19:30 Docusate Sodium (Colace) 100 mg Q12H PRN PO .CONSTIPATION; Start 08/24/18 at 19:30 Magnesium Hydroxide (Milk Of Mag) 30 ml DAILY PRN PO .CONSTIPATION; Start 08/24/18 at 19:30 Pantoprazole (Protonix Iv) 40 mg DAILY@06 IV ; Start 08/25/18 at 06:00 Lorazepam (Ativan) 0.5 mg Q6H PRN IV ANXIETY; Start 08/24/18 at 19:30 Albuterol/ Ipratropium (Duoneb) 3 ml Q4H RESP THERAPY PRN HHN SHORTNESS OF BREATH; Start 08/24/18 at 19:30 Nitroglycerin (Nitroglycerin (Sl Tab) 0.4 Mg) 1 tab Q5M PRN SL ANGINA; Start 08/24/18 at 19:30 Lisinopril (Zestril) 20 mg DAILY PO Last administered on 08/28/18at 10:08; Admin Dose 20 MG; Start 08/25/18 at 09:00 Hydralazine HCl (Apresoline) 10 mg Q4H PRN IV sbp >160 Last administered on 08/27/18at 21:57; Admin Dose 10 MG; Start 08/24/18 at 20:00 Hydromorphone HCl (Dilaudid) 1 mg Q3H PRN IV SEVERE PAIN LEVEL 7-10 Last administered on 08/28/18at 13:48; Admin Dose 1 MG; Start 08/24/18 at 20:00 Piperacillin Sod/ Tazobactam Sod 100 ml @ 200 mls/hr Q6 IVPB Last administered on 08/28/18at 12:49; Admin Dose 200 MLS/HR; Start 08/24/18 at 20:30 Labetalol HCl (Labetalol) 10 mg Q4H PRN IV sbp>160 Last administered on 08/28/18 06:18; Admin Dose 10 MG; Start 08/24/18 at 21:00 Potassium Chloride 40 meq/ Sodium Chloride 1,000 ml @ 125 mls/hr Q8H IV Last administered on 08/26/18at 13:01; Admin Dose 125 MLS/HR; Start 08/25/18 at 11:00 Docusate Sodium (Colace Liquid Cup) 100 mg BID GTB ; Start 08/26/18 at 21:00 Senna (Senokot) 1 tab BID GTB ; Start 08/26/18 at 21:00 Nicotine (Nicoderm 21 Mg/ 24hr) 1 patch DAILY TRANSDERM Last administered on 08/28/18at 10:08; Admin Dose 1 PATCH; Start 08/27/18 at 10:30 KIMBERLY HARDWICK MD Aug 28, 2018 16:36
[2018-08-28] MEDS: hydrALAzine 20 MG INJ IV PRN (23:13)
[2018-08-29] VITALS (13 sets, daily range): BP systolic 142–189; BP diastolic 86–104; PULSE 63–87; RESP 18–20
[2018-08-29] MEDS: HYDROmorphONE 1 MG/ML SYG IV PRN ×7 (02:27→22:07)
[2018-08-29] MEDS: LABETALOL HCL 20MG INJ IV PRN (02:38)
[2018-08-29] MEDS: POTASSIUM CHLORIDE 40 MEQ in SOD CHLORIDE 0.9% 1,000 ML IV SCH (03:00)
[2018-08-29] MEDS: PANTOPRAZOLE 40 MG INJ IV SCH (05:25)
[2018-08-29] MEDS: ONDANSETRON 4 MG INJ IV PRN ×2 (05:40→12:06)
[2018-08-29] MEDS: PIPER-TAZO 3.375 GM IV (PMX) 100 ML IVPB SCH ×4 (05:40→23:54)
[2018-08-29] MEDS ORDERED: CREON (12k-38k-60k) 1 CAP PO SCH (07:55)
[2018-08-29] MEDS: SENNA TAB GTB SCH ×2 (09:00→21:00)
[2018-08-29] MEDS: DOCUSATE SODIUM 10 MG/ML (10ML CUP) GTB SCH ×2 (09:00→21:00)
[2018-08-29] MEDS: LISINOPRIL 10 MG TAB PO SCH (09:03)
[2018-08-29] MEDS: NICOTINE (21 MG/24 HR) PATCH TRANSDERM SCH (09:04)
[2018-08-29] MEDS ORDERED: NS + KCL 20 MEQ 1,000 ML IV SCH (10:30)
[2018-08-29] MEDS: hydrALAzine 20 MG INJ IV PRN ×3 (13:47→23:54)
--- NOTE | 2018-08-29 16:09 | PN ---
Date/Time of Note Date/Time of Note DATE: 08/29/18 TIME: 16:07 Assessment/Plan VTE Prophylaxis Risk score (from Ns)>0 risk: 4 SCD applied (from Ns): Yes Pharmacological prophylaxis: LMWH Lines/Catheters IV Catheter Type (from Nrs): Peripheral IV Urinary Cath still in place: No Assessment/Plan Assessment/Plan 1. Acute on chronic pancreatitis- improving - Still only tolerating clear liquids and nauseated when sees/smells/thinks about food - CT scan abd showing worsening necrosis. Surgery on board and recommending higher level of care but patient is refusing transfer. Has outpatient follow up with GI on 09/10 - Will plan to continue on liquids and if tolerating without issues, will d/c home - IVF on board - IV antibiotics on board 2. Nausea/vomiting-2/2 to above pancreatitis - Monitor 3. Hypertension - stable 4. anemia - Mild, monitor - no need for transfusion at this time 5. Disposition - Once able to tolerate PO intake without N/V will d/c home Result Diagram: 08/29/18 0622 08/29/18 0948 Results 24hrs Laboratory Tests Test 08/29/18 06:22 08/29/18 09:47 08/29/18 09:48 White Blood Count 4.3 L Red Blood Count 4.33 L Hemoglobin 10.3 L Hematocrit 34.1 L Mean Corpuscular Volume 78.8 L Mean Corpuscular Hemoglobin 23.8 L Mean Corpuscular Hemoglobin Concent 30.2 L Red Cell Distribution Width 19.0 H Platelet Count 277 Mean Platelet Volume 11.8 H Immature Granulocytes % 0.200 Neutrophils % 49.0 Lymphocytes % 36.5 Monocytes % 7.4 Eosinophils % 6.2 Basophils % 0.7 Nucleated Red Blood Cells % 0.0 Immature Granulocytes # 0.010 Neutrophils # 2.1 Lymphocytes # 1.6 Monocytes # 0.3 Eosinophils # 0.3 Basophils # 0.0 Nucleated Red Blood Cells # 0.0 Lipase 250 Sodium Level 139 Potassium Level 3.7 Chloride Level 105 Carbon Dioxide Level 31 Anion Gap 3 #L Blood Urea Nitrogen 6 L Creatinine 0.74 Est Glomerular Filtrat Rate mL/min > 60 Glucose Level 80 Calcium Level 9.0 Subjective 24 Hr Interval Summary Free Text/Dictation Patient still complaining of nausea when smells or thinks about food. Tolerating juices but no other intake. Exam/Review of Systems Exam Vitals Vital Signs Date Temp Pulse Resp B/P (MAP) Pulse Ox O2 O2 Flow FiO2 Time Delivery Rate 08/29/18 98.0 63 20 172/98 96 Nasal 15:27 (122) Cannula Intake and Output 08/28/18 08/28/18 08/29/18 1515:00 23:00 07:00 IntakeIntake Total 100 ml 100 ml 600 ml BalanceBalance 100 ml 100 ml 600 ml Exam General: Patient is a pleasant male, currently lying in bed Neck: Supple Chest: Nontender Lungs: Clear to auscultation bilaterally no crackles rales or wheezing Heart: Normal S1-S2, Regular rate and rhythm, no murmurs Abdomen: Soft , Obese, mildly tender upper quadrants, nondistended , bowel sounds are present. Extremities: Normal to inspection, no edema no cyanosis Results Results 24hrs Laboratory Tests Test 08/29/18 06:22 08/29/18 09:47 08/29/18 09:48 White Blood Count 4.3 L Red Blood Count 4.33 L Hemoglobin 10.3 L Hematocrit 34.1 L Mean Corpuscular Volume 78.8 L Mean Corpuscular Hemoglobin 23.8 L Mean Corpuscular Hemoglobin Concent 30.2 L Red Cell Distribution Width 19.0 H Platelet Count 277 Mean Platelet Volume 11.8 H Immature Granulocytes % 0.200 Neutrophils % 49.0 Lymphocytes % 36.5 Monocytes % 7.4 Eosinophils % 6.2 Basophils % 0.7 Nucleated Red Blood Cells % 0.0 Immature Granulocytes # 0.010 Neutrophils # 2.1 Lymphocytes # 1.6 Monocytes # 0.3 Eosinophils # 0.3 Basophils # 0.0 Nucleated Red Blood Cells # 0.0 Lipase 250 Sodium Level 139 Potassium Level 3.7 Chloride Level 105 Carbon Dioxide Level 31 Anion Gap 3 #L Blood Urea Nitrogen 6 L Creatinine 0.74 Est Glomerular Filtrat Rate mL/min > 60 Glucose Level 80 Calcium Level 9.0 Medications Medication Current Medications IV Flush (NS 3 ml) 3 ml PER PROTOCOL IV ; Start 08/24/18 at 19:30 Ondansetron HCl (Zofran Inj) 4 mg Q6H PRN IV NAUSEA/VOMITING Last administered on 08/29/18at 12:06; Admin Dose 4 MG; Start 08/24/18 at 19:30 Docusate Sodium (Colace) 100 mg Q12H PRN PO .CONSTIPATION; Start 08/24/18 at 19:30 Magnesium Hydroxide (Milk Of Mag) 30 ml DAILY PRN PO .CONSTIPATION; Start 08/24/18 at 19:30 Pantoprazole (Protonix Iv) 40 mg DAILY@06 IV ; Start 08/25/18 at 06:00 Lorazepam (Ativan) 0.5 mg Q6H PRN IV ANXIETY; Start 08/24/18 at 19:30 Albuterol/ Ipratropium (Duoneb) 3 ml Q4H RESP THERAPY PRN HHN SHORTNESS OF BREATH; Start 08/24/18 at 19:30 Nitroglycerin (Nitroglycerin (Sl Tab) 0.4 Mg) 1 tab Q5M PRN SL ANGINA; Start 08/24/18 at 19:30 Hydralazine HCl (Apresoline) 10 mg Q4H PRN IV sbp >160 Last administered on 08/29/18at 13:47; Admin Dose 10 MG; Start 08/24/18 at 20:00 Hydromorphone HCl (Dilaudid) 1 mg Q3H PRN IV SEVERE PAIN LEVEL 7-10 Last a dministered on 08/29/18at 15:05; Admin Dose 1 MG; Start 08/24/18 at 20:00 Piperacillin Sod/ Tazobactam Sod 100 ml @ 200 mls/hr Q6 IVPB Last administered on 08/29/18at 12:07; Admin Dose 200 MLS/HR; Start 08/24/18 at 20:30 Labetalol HCl (Labetalol) 10 mg Q4H PRN IV sbp>160 Last administered on 9at 02:38; Admin Dose 10 MG; Start 08/24/18 at 21:00 Docusate Sodium (Colace Liquid Cup) 100 mg BID GTB ; Start 08/26/18 at 21:00 Senna (Senokot) 1 tab BID GTB ; Start 08/26/18 at 21:00 Nicotine (Nicoderm 21 Mg/ 24hr) 1 patch DAILY TRANSDERM Last administered on 08/29/18at 09:04; Admin Dose 1 PATCH; Start 08/27/18 at 10:30 Lisinopril (Zestril) 30 mg DAILY PO Last administered on 08/29/18at 09:03; Admin Dose 30 MG; Start 08/29/18 at 09:00 Potassium Chloride/Sodium Chloride 1,000 ml @ 75 mls/hr [id number] IV ; Start 08/29/18 at 10:30 KIMBERLY HARDWICK MD Aug 29, 2018 16:09
[2018-08-29] MEDS ORDERED: HYDROmorphONE 0.5 MG/0.5 ML SYG IV PRN (20:30)
[2018-08-30] VITALS (11 sets, daily range): BP systolic 171–188; BP diastolic 97–112; PULSE 69–90; RESP 18–20
[2018-08-30] MEDS: ONDANSETRON 4 MG INJ IV PRN ×2 (01:12→08:10)
[2018-08-30] MEDS: HYDROmorphONE 1 MG/ML SYG IV PRN ×5 (01:12→23:22)
[2018-08-30] MEDS: LABETALOL HCL 20MG INJ IV PRN ×2 (03:00→21:41)
[2018-08-30] MEDS: hydrALAzine 20 MG INJ IV PRN ×2 (05:48→16:20)
[2018-08-30] MEDS: PIPER-TAZO 3.375 GM IV (PMX) 100 ML IVPB SCH ×4 (05:55→23:21)
[2018-08-30] MEDS: PANTOPRAZOLE 40 MG INJ IV SCH (05:56)
[2018-08-30] MEDS: SENNA TAB GTB SCH ×2 (08:01→21:00)
[2018-08-30] MEDS: LISINOPRIL 10 MG TAB PO SCH (08:01)
[2018-08-30] MEDS: NICOTINE (21 MG/24 HR) PATCH TRANSDERM SCH (08:02)
[2018-08-30] MEDS ORDERED: POTASSIUM CHLORIDE 100 ML IVPB SCH (08:30)
[2018-08-30] MEDS ORDERED: LISINOPRIL 10 MG TAB PO ONE (08:30)
[2018-08-30] MEDS: DOCUSATE SODIUM 10 MG/ML (10ML CUP) GTB SCH ×2 (09:00→21:00)
[2018-08-30] MEDS ORDERED: METOCLOPRAMIDE 10 MG INJ IV PRN (10:30)
[2018-08-30] MEDS ORDERED: ONDANSETRON 4 MG INJ IV PRN (11:30)
[2018-08-30] MEDS: SOD CHLORIDE 0.9% 1,000 ML IV SCH ×2 (13:20)
--- NOTE | 2018-08-30 16:12 | PN ---
Date/Time of Note Date/Time of Note DATE: 08/30/18 TIME: 16:06 Assessment/Plan VTE Prophylaxis Risk score (from Ns)>0 risk: 3 SCD applied (from Ns): Yes Pharmacological prophylaxis: LMWH Lines/Catheters IV Catheter Type (from Nrsg): Saline Lock Urinary Cath still in place: No Assessment/Plan Assessment/Plan 1. Acute on chronic pancreatitis- improving - Still only tolerating clear liquids and states he experiences nausea with vomiting and then pain. Still refusing high level of care - CT scan abd showing worsening necrosis. Surgery on board and recommending higher level of care but patient is refusing transfer. Has outpatient follow up with GI on 09/10 - Will plan to continue on liquids and if tolerating without issues, will d/c home - IVF on board - IV antibiotics on board 2. Nausea/vomiting-2/2 to above pancreatitis - Monitor 3. Hypertension - stable 4. anemia - Mild, monitor - no need for transfusion at this time 5. Disposition - Once able to tolerate PO intake without N/V will d/c home Result Diagram: 08/30/18 0632 08/30/18 0633 Results 24hrs Laboratory Tests Test 08/30/18 06:32 08/30/18 06:33 White Blood Count 4.9 Red Blood Count 4.45 L Hemoglobin 10.5 L Hematocrit 34.1 L Mean Corpuscular Volume 76.6 L Mean Corpuscular Hemoglobin 23.6 L Mean Corpuscular Hemoglobin Concent 30.8 L Red Cell Distribution Width 18.8 H Platelet Count 255 Mean Platelet Volume 10.2 Immature Granulocytes % 0.400 Neutrophils % 57.5 Lymphocytes % 28.6 Monocytes % 7.8 Eosinophils % 5.1 Basophils % 0.6 Nucleated Red Blood Cells % 0.0 Immature Granulocytes # 0.020 Neutrophils # 2.8 Lymphocytes # 1.4 Monocytes # 0.4 Eosinophils # 0.3 Basophils # 0.0 Nucleated Red Blood Cells # 0.0 Sodium Level 141 Potassium Level 3.1 L Chloride Level 107 Carbon Dioxide Level 27 Anion Gap 7 Blood Urea Nitrogen 5 L Creatinine 0.69 Est Glomerular Filtrat Rate mL/min > 60 Glucose Level 78 Calcium Level 8.9 Subjective 24 Hr Interval Summary Free Text/Dictation Patient still with nausea and vomiting especially when talking about food. Vomited 3 times in my presence. Refusing Lisinopril since unable to tolerate multiple tablets. Also continues to refuse potassium supplements since states is allergic and develops hives and itching in back of throat with PO and IV. Exam/Review of Systems Exam Vitals Vital Signs Date Temp Pulse Resp B/P (MAP) Pulse Ox O2 O2 Flow FiO2 Time Delivery Rate 08/30/18 99.0 90 20 188/112 97 Room Air 16:03 (137) Intake and Output 08/29/18 08/29/18 08/30/18 1515:00 23:00 07:00 IntakeIntake Total 100 ml 900 ml 900 ml BalanceBalance 100 ml 900 ml 900 ml Exam General: Patient is a pleasant male, currently lying in bed. distress secondary to nausea and vomiting Neck: Supple Chest: Nontender Lungs: Clear to auscultation bilaterally no crackles rales or wheezing Heart: Normal S1-S2, Regular rate and rhythm, no murmurs Abdomen: Soft , Obese, mildly tender upper quadrants, nondistended , bowel sounds are present. Extremities: Normal to inspection, no edema no cyanosis Results Results 24hrs Laboratory Tests Test 08/30/18 06:32 08/30/18 06:33 White Blood Count 4.9 Red Blood Count 4.45 L Hemoglobin 10.5 L Hematocrit 34.1 L Mean Corpuscular Volume 76.6 L Mean Corpuscular Hemoglobin 23.6 L Mean Corpuscular Hemoglobin Concent 30.8 L Red Cell Distribution Width 18.8 H Platelet Count 255 Mean Platelet Volume 10.2 Immature Granulocytes % 0.400 Neutrophils % 57.5 Lymphocytes % 28.6 Monocytes % 7.8 Eosinophils % 5.1 Basophils % 0.6 Nucleated Red Blood Cells % 0.0 Immature Granulocytes # 0.020 Neutrophils # 2.8 Lymphocytes # 1.4 Monocytes # 0.4 Eosinophils # 0.3 Basophils # 0.0 Nucleated Red Blood Cells # 0.0 Sodium Level 141 Potassium Level 3.1 L Chloride Level 107 Carbon Dioxide Level 27 Anion Gap 7 Blood Urea Nitrogen 5 L Creatinine 0.69 Est Glomerular Filtrat Rate mL/min > 60 Glucose Level 78 Calcium Level 8.9 Medications Medication Current Medications IV Flush (NS 3 ml) 3 ml PER PROTOCOL IV ; Start 08/24/18 at 19:30 Docusate Sodium (Colace) 100 mg Q12H PRN PO .CONSTIPATION; Start 08/24/18 at 19:30 Magnesium Hydroxide (Milk Of Mag) 30 ml DAILY PRN PO .CONSTIPATION; Start 08/24/18 at 19:30 Pantoprazole (Protonix Iv) 40 mg DAILY@06 IV ; Start 08/25/18 at 06:00 Lorazepam (Ativan) 0.5 mg Q6H PRN IV ANXIETY; Start 08/24/18 at 19:30 Albuterol/ Ipratropium (Duoneb) 3 ml Q4H RESP THERAPY PRN HHN SHORTNESS OF BREATH; Start 08/24/18 at 19:30 Nitroglycerin (Nitroglycerin (Sl Tab) 0.4 Mg) 1 tab Q5M PRN SL ANGINA; Start 08/24/18 at 19:30 Hydralazine HCl (Apresoline) 10 mg Q4H PRN IV sbp >160 Last administered on 08/30/18at 05:48; Admin Dose 10 MG; Start 08/24/18 at 20:00 Hydromorphone HCl (Dilaudid) 1 mg Q3H PRN IV SEVERE PAIN LEVEL 7-10 Last administered on 08/30/18at 08:10; Admin Dose 1 MG; Start 08/24/18 at 20:00 Piperacillin Sod/ Tazobactam Sod 100 ml @ 200 mls/hr Q6 IVPB Last administered on 08/30/18at 12:13; Admin Dose 200 MLS/HR; Start 08/24/18 at 20:30 Labetalol HCl (Labetalol) 10 mg Q4H PRN IV sbp>160 Last administered on at 03:00; Admin Dose 10 MG; Start 08/24/18 at 21:00 Docusate Sodium (Colace Liquid Cup) 100 mg BID GTB ; Start 08/26/18 at 21:00 Senna (Senokot) 1 tab BID GTB Last administered on 08/30/18at 08:01; Admin Dose 1 TAB; Start 08/26/18 at 21:00 Nicotine (Nicoderm 21 Mg/ 24hr) 1 patch DAILY TRANSDERM Last administered on 08/30/18at 08:02; Admin Dose 1 PATCH; Start 08/27/18 at 10:30 Sodium Chloride 1,000 ml @ 75 mls/hr [id number] IV ; Start 08/30/18 at 00:00 Lisinopril (Zestril) 40 mg DAILY PO ; Start 08/31/18 at 09:00 Metoclopramide HCl (Reglan) 10 mg Q4H PRN IV nausea Last administered on 08/30at 10:48; Admin Dose 10 MG; Start 08/30/18 at 10:30 Ondansetron HCl 8 mg/Sodium Chloride 54 ml @ 216 mls/hr Q4H PRN IV NAUSEA AND/OR VOMITING; Start 08/30/18 at 10:30 KIMBERLY HARDWICK MD Aug 30, 2018 16:12
[2018-08-30] MEDS: ONDANSETRON INJ 8 MG in SOD CHLORIDE 0.9% 50 ML IV PRN (16:26)
[2018-08-31] VITALS (12 sets, daily range): BP systolic 162–189; BP diastolic 100–123; PULSE 65–85; RESP 18–20
[2018-08-31] MEDS: SOD CHLORIDE 0.9% 1,000 ML IV SCH ×2 (01:50→16:00)
[2018-08-31] MEDS: HYDROmorphONE 1 MG/ML SYG IV PRN ×7 (02:16→21:02)
[2018-08-31] MEDS: PANTOPRAZOLE 40 MG INJ IV SCH (06:00)
[2018-08-31] MEDS: hydrALAzine 20 MG INJ IV PRN ×2 (06:10→12:00)
[2018-08-31] MEDS: PIPER-TAZO 3.375 GM IV (PMX) 100 ML IVPB SCH ×3 (06:12→18:08)
[2018-08-31] MEDS: SENNA TAB GTB SCH ×2 (09:00→21:00)
[2018-08-31] MEDS: DOCUSATE SODIUM 10 MG/ML (10ML CUP) GTB SCH ×2 (09:00→21:00)
[2018-08-31] MEDS: LISINOPRIL 20 MG TAB PO SCH (09:03)
--- NOTE | 2018-08-31 09:50 | PN ---
Date/Time of Note Date/Time of Note DATE: 08/31/18 TIME: 09:50 Assessment/Plan VTE Prophylaxis Risk score (from Ns)>0 risk: 3 SCD applied (from Ns): Yes Pharmacological prophylaxis: LMWH Lines/Catheters IV Catheter Type (from Nrsg): Saline Lock Urinary Cath still in place: No Assessment/Plan Assessment/Plan 1. Acute on chronic pancreatitis- improving - Still only tolerating clear liquids and states he experiences nausea with vomiting and then pain. Still refusing high level of care - CT scan abd showing worsening necrosis. Surgery on board and recommending higher level of care but patient is refusing transfer. Has outpatient follow up with GI on 09/10 - IVF on board - IV antibiotics on board for empiric tx 2. Nausea/vomiting-2/2 to above pancreatitis - Monitor 3. Hypertension - stable 4. anemia - Mild, monitor - no need for transfusion at this time 5. Disposition - Patient requesting d/c home Sunday to be able to make his pain management appt. Result Diagram: 08/31/18 0552 08/31/18 0552 Results 24hrs Laboratory Tests Test 08/31/18 05:52 White Blood Count 5.3 Red Blood Count 4.45 L Hemoglobin 10.6 L Hematocrit 33.9 L Mean Corpuscular Volume 76.2 L Mean Corpuscular Hemoglobin 23.8 L Mean Corpuscular Hemoglobin Concent 31.3 L Red Cell Distribution Width 18.8 H Platelet Count 242 Mean Platelet Volume 10.2 Immature Granulocytes % 0.400 Neutrophils % 47.2 Lymphocytes % 40.0 Monocytes % 8.3 Eosinophils % 3.0 Basophils % 1.1 Nucleated Red Blood Cells % 0.0 Immature Granulocytes # 0.020 Neutrophils # 2.5 Lymphocytes # 2.1 Monocytes # 0.4 Eosinophils # 0.2 Basophils # 0.1 Nucleated Red Blood Cells # 0.0 Sodium Level 143 Potassium Level 3.0 L Chloride Level 107 Carbon Dioxide Level 26 Anion Gap 10 Blood Urea Nitrogen 4 L Creatinine 0.70 Est Glomerular Filtrat Rate mL/min > 60 Glucose Level 80 Calcium Level 9.1 Subjective 24 Hr Interval Summary Free Text/Dictation Patient still with abdominal pain and nausea/vomiting. Tolerating some fluid intake. Exam/Review of Systems Exam Vitals Vital Signs Date Temp Pulse Resp B/P (MAP) Pulse Ox O2 O2 Flow FiO2 Time Delivery Rate 08/31/18 67 08:04 08/31/18 98.0 20 162/100 99 Room Air 07:24 (120) Intake and Output 08/30/18 08/30/18 08/31/18 1515:00 23:00 07:00 IntakeIntake Total 250 ml 340 ml BalanceBalance 250 ml 340 ml Exam General: Patient is a pleasant male, currently lying in bed. Neck: Supple Chest: Nontender Lungs: Clear to auscultation bilaterally no crackles rales or wheezing Heart: Normal S1-S2, Regular rate and rhythm, no murmurs Abdomen: Soft , Obese, mildly tender upper quadrants, nondistended , bowel sounds are present. Extremities: Normal to inspection, no edema no cyanosis Results Results 24hrs Laboratory Tests Test 08/31/18 05:52 White Blood Count 5.3 Red Blood Count 4.45 L Hemoglobin 10.6 L Hematocrit 33.9 L Mean Corpuscular Volume 76.2 L Mean Corpuscular Hemoglobin 23.8 L Mean Corpuscular Hemoglobin Concent 31.3 L Red Cell Distribution Width 18.8 H Platelet Count 242 Mean Platelet Volume 10.2 Immature Granulocytes % 0.400 Neutrophils % 47.2 Lymphocytes % 40.0 Monocytes % 8.3 Eosinophils % 3.0 Basophils % 1.1 Nucleated Red Blood Cells % 0.0 Immature Granulocytes # 0.020 Neutrophils # 2.5 Lymphocytes # 2.1 Monocytes # 0.4 Eosinophils # 0.2 Basophils # 0.1 Nucleated Red Blood Cells # 0.0 Sodium Level 143 Potassium Level 3.0 L Chloride Level 107 Carbon Dioxide Level 26 Anion Gap 10 Blood Urea Nitrogen 4 L Creatinine 0.70 Est Glomerular Filtrat Rate mL/min > 60 Glucose Level 80 Calcium Level 9.1 Medications Medication Current Medications IV Flush (NS 3 ml) 3 ml PER PROTOCOL IV ; Start 08/24/18 at 19:30 Docusate Sodium (Colace) 100 mg Q12H PRN PO .CONSTIPATION; Start 08/24/18 at 19:30 Magnesium Hydroxide (Milk Of Mag) 30 ml DAILY PRN PO .CONSTIPATION; Start 08/24/18 at 19:30 Pantoprazole (Protonix Iv) 40 mg DAILY@06 IV ; Start 08/25/18 at 06:00 Lorazepam (Ativan) 0.5 mg Q6H PRN IV ANXIETY; Start 08/24/18 at 19:30 Albuterol/ Ipratropium (Duoneb) 3 ml Q4H RESP THERAPY PRN HHN SHORTNESS OF BREATH; Start 08/24/18 at 19:30 Nitroglycerin (Nitroglycerin (Sl Tab) 0.4 Mg) 1 tab Q5M PRN SL ANGINA; Start 08/24/18 at 19:30 Hydralazine HCl (Apresoline) 10 mg Q4H PRN IV sbp >160 Last administered on 08/31/18at 06:10; Admin Dose 10 MG; Start 08/24/18 at 20:00 Hydromorphone HCl (Dilaudid) 1 mg Q3H PRN IV SEVERE PAIN LEVEL 7-10 Last administered on 08/31/18 09:02; Admin Dose 1 MG; Start 08/24/18 at 20:00 Piperacillin Sod/ Tazobactam Sod 100 ml @ 200 mls/hr Q6 IVPB Last administered on 08/31/18 06:12; Admin Dose 200 MLS/HR; Start 08/24/18 at 20:30 Labetalol HCl (Labetalol) 10 mg Q4H PRN IV sbp>160 Last administered on 08/30/18 21:41; Admin Dose 10 MG; Start 08/24/18 at 21:00 Docusate Sodium (Colace Liquid Cup) 100 mg BID GTB ; Start 08/26/18 at 21:00 Senna (Senokot) 1 tab BID GTB Last administered on 08/30/18 08:01; Admin Dose 1 TAB; Start 08/26/18 at 21:00 Nicotine (Nicoderm 21 Mg/ 24hr) 1 patch DAILY TRANSDERM Last administered on 08/30/18 08:02; Admin Dose 1 PATCH; Start 08/27/18 at 10:30 Sodium Chloride 1,000 ml @ 75 mls/hr [id number] IV ; Start 08/30/18 at 00:00 Lisinopril (Zestril) 40 mg DAILY PO Last administered on 08/31/18 09:03; Admin Dose 40 MG; Start 08/31/18 at 09:00 Metoclopramide HCl (Reglan) 10 mg Q4H PRN IV nausea Last administered on 08/30/18at 10:48; Admin Dose 10 MG; Start 08/30/18 at 10:30 Ondansetron HCl 8 mg/Sodium Chloride 54 ml @ 216 mls/hr Q4H PRN IV NAUSEA AND/OR VOMITING Last administered on 08/30/18at 16:26; Admin Dose 216 MLS/HR; Start 08/30/18 at 10:30 KIMBERLY HARDWICK MD Aug 31, 2018 09:50
[2018-08-31] MEDS: ONDANSETRON INJ 8 MG in SOD CHLORIDE 0.9% 50 ML IV PRN (10:16)
[2018-08-31] MEDS: NICOTINE (21 MG/24 HR) PATCH TRANSDERM SCH (10:16)
[2018-09-01] VITALS (12 sets, daily range): BP systolic 171–185; BP diastolic 98–113; PULSE 67–80; RESP 17–19
[2018-09-01] MEDS: PIPER-TAZO 3.375 GM IV (PMX) 100 ML IVPB SCH ×4 (00:08→17:56)
[2018-09-01] MEDS: HYDROmorphONE 1 MG/ML SYG IV PRN ×8 (00:09→21:09)
[2018-09-01] MEDS: SOD CHLORIDE 0.9% 1,000 ML IV SCH ×2 (04:39→18:40)
[2018-09-01] MEDS: PANTOPRAZOLE 40 MG INJ IV SCH (05:03)
[2018-09-01] MEDS: hydrALAzine 20 MG INJ IV PRN ×2 (05:05→21:09)
[2018-09-01] MEDS: LABETALOL HCL 20MG INJ IV PRN (06:08)
--- NOTE | 2018-09-01 08:52 | PN ---
Date/Time of Note Date/Time of Note DATE: 09/01/18 TIME: 08:52 Assessment/Plan VTE Prophylaxis Risk score (from Ns)>0 risk: 3 SCD applied (from Ns): Yes Pharmacological prophylaxis: LMWH Lines/Catheters IV Catheter Type (from Nrsg): Saline Lock Urinary Cath still in place: No Assessment/Plan Assessment/Plan 1. Acute on chronic pancreatitis - Still only tolerating clear liquids and states he experiences nausea with vomiting and then pain. Still refusing high level of care - CT scan abd showing worsening necrosis. Surgery on board and recommending higher level of care. Has outpatient follow up with GI on 09/10 - continue full liquids as tolerated - IVF on board - IV antibiotics on board for empiric tx 2. Nausea/vomiting-2/2 to above pancreatitis - Monitor 3. Hypertension - stable 4. anemia - Mild, monitor - no need for transfusion at this time 5. hypokalemia - states allergic to all replacement but willing to try orange juice and bananas 6. Disposition - Still with N/V but continues to refuse high level of care. States has a pain management appt on 09/03 he would like to get to if possible Result Diagram: 08/31/18 0552 08/31/18 0552 Subjective 24 Hr Interval Summary Free Text/Dictation Patient still with persistent nausea and vomiting. States his right shoulder is starting to bother him since always leaning on that side. Unable to lay on back due to N/V and states he has N/V when tries to turn to his left. Exam/Review of Systems Exam Vitals Vital Signs Date Temp Pulse Resp B/P (MAP) Pulse Ox O2 O2 Flow FiO2 Time Delivery Rate 09/01/18 73 08:09 09/01/18 97.8 17 177/98 97 07:36 (124) 08/31/18 Room Air 15:47 Intake and Output 08/31/18 08/31/18 09/01/18 1515:00 23:00 07:00 IntakeIntake Total 154 ml 900 ml OutputOutput Total 400 ml BalanceBalance 154 ml 500 ml Exam General: Patient is a pleasant male, currently lying in bed. distress due to nausea Neck: Supple Chest: Nontender Lungs: Clear to auscultation bilaterally no crackles rales or wheezing Heart: Normal S1-S2, Regular rate and rhythm, no murmurs Abdomen: Soft , Obese, tender upper quadrants to light touch, nondistended , bowel sounds are present. Extremities: Normal to inspection, no edema no cyanosis Medications Medication Current Medications IV Flush (NS 3 ml) 3 ml PER PROTOCOL IV ; Start 08/24/18 at 19:30 Docusate Sodium (Colace) 100 mg Q12H PRN PO .CONSTIPATION; Start 08/24/18 at 19:30 Magnesium Hydroxide (Milk Of Mag) 30 ml DAILY PRN PO .CONSTIPATION; Start 08/24/18 at 19:30 Pantoprazole (Protonix Iv) 40 mg DAILY@06 IV Last administered on 09/01/18at 05:03; Admin Dose 40 MG; Start 08/25/18 at 06:00 Lorazepam (Ativan) 0.5 mg Q6H PRN IV ANXIETY; Start 08/24/18 at 19:30 Albuterol/ Ipratropium (Duoneb) 3 ml Q4H RESP THERAPY PRN HHN SHORTNESS OF BREATH; Start 08/24/18 at 19:30 Nitroglycerin (Nitroglycerin (Sl Tab) 0.4 Mg) 1 tab Q5M PRN SL ANGINA; Start 08/24/18 at 19:30 Hydralazine HCl (Apresoline) 10 mg Q4H PRN IV sbp >160 Last administered on 09/01/18at 05:05; Admin Dose 10 MG; Start 08/24/18 at 20:00 Hydromorphone HCl (Dilaudid) 1 mg Q3H PRN IV SEVERE PAIN LEVEL 7-10 Last a dministered on 09/01/18at 06:14; Admin Dose 1 MG; Start 08/24/18 at 20:00 Piperacillin Sod/ Tazobactam Sod 100 ml @ 200 mls/hr Q6 IVPB Last administered on 09/01/18at 05:07; Admin Dose 200 MLS/HR; Start 08/24/18 at 20:30 Labetalol HCl (Labetalol) 10 mg Q4H PRN IV sbp>160 Last administered on 9at 06:08; Admin Dose 10 MG; Start 08/24/18 at 21:00 Docusate Sodium (Colace Liquid Cup) 100 mg BID GTB ; Start 08/26/18 at 21:00 Senna (Senokot) 1 tab BID GTB Last administered on 08/30/18 08:01; Admin Dose 1 TAB; Start 08/26/18 at 21:00 Nicotine (Nicoderm 21 Mg/ 24hr) 1 patch DAILY TRANSDERM Last administered on 08/31/18 10:16; Admin Dose 1 PATCH; Start 08/27/18 at 10:30 Sodium Chloride 1,000 ml @ 75 mls/hr [id number] IV ; Start 08/30/18 at 00:00 Lisinopril (Zestril) 40 mg DAILY PO Last administered on 08/31/18 09:03; Admin Dose 40 MG; Start 08/31/18 at 09:00 Metoclopramide HCl (Reglan) 10 mg Q4H PRN IV nausea Last administered on 08/30/18 10:48; Admin Dose 10 MG; Start 08/30/18 at 10:30 Ondansetron HCl 8 mg/Sodium Chloride 54 ml @ 216 mls/hr Q4H PRN IV NAUSEA AND/OR VOMITING Last administered on 08/31/18 10:16; Admin Dose 216 MLS/HR; Start 08/30/18 at 10:30 KIMBERLY HARDWICK MD Sep 01, 2018 08:52
[2018-09-01] MEDS: NICOTINE (21 MG/24 HR) PATCH TRANSDERM SCH (08:58)
[2018-09-01] MEDS: LISINOPRIL 20 MG TAB PO SCH (08:59)
[2018-09-01] MEDS: DOCUSATE SODIUM 10 MG/ML (10ML CUP) GTB SCH ×2 (09:00→21:00)
[2018-09-01] MEDS: SENNA TAB GTB SCH ×2 (09:00→21:00)
[2018-09-01] MEDS: ONDANSETRON INJ 8 MG in SOD CHLORIDE 0.9% 50 ML IV PRN (11:58)
[2018-09-02] VITALS (12 sets, daily range): BP systolic 179–197; BP diastolic 104–113; PULSE 70–83; RESP 16–18
[2018-09-02] MEDS: HYDROmorphONE 1 MG/ML SYG IV PRN ×9 (00:18→23:38)
[2018-09-02] MEDS: PIPER-TAZO 3.375 GM IV (PMX) 100 ML IVPB SCH ×5 (00:18→23:39)
[2018-09-02] MEDS: PANTOPRAZOLE 40 MG INJ IV SCH (05:01)
[2018-09-02] MEDS: SOD CHLORIDE 0.9% 1,000 ML IV SCH ×2 (08:00→21:20)
[2018-09-02] MEDS: NICOTINE (21 MG/24 HR) PATCH TRANSDERM SCH (08:41)
[2018-09-02] MEDS: DOCUSATE SODIUM 10 MG/ML (10ML CUP) GTB SCH ×2 (08:42→20:53)
[2018-09-02] MEDS: SENNA TAB GTB SCH ×2 (08:42→20:53)
[2018-09-02] MEDS: LISINOPRIL 20 MG TAB PO SCH (08:42)
--- NOTE | 2018-09-02 17:40 | PN ---
Date/Time of Note Date/Time of Note DATE: 09/02/18 TIME: 17:37 Assessment/Plan VTE Prophylaxis Risk score (from Nsg)>0 risk: 4 Pharmacological prophylaxis: NA/contraindicated Pharm contraindication: surgical contra Lines/Catheters IV Catheter Type (from Nrsg): Saline Lock Urinary Cath still in place: No Assessment/Plan Hospital Course 1. 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 Still refusing high level of care - CT scan abd showing worsening necrosis. Surgery on board and recommending higher level of care. Has outpatient follow up with GI on 09/10 - continue full liquids as tolerated - IVF on board - IV antibiotics on board for empiric tx 2. Nausea/vomiting-2 to above - Monitor 3. Hypertension - stable 4. anemia - Mild, monitor - no need for transfusion at this time 5. hypokalemia - states allergic to all replacement but willing to try orange juice and bananas 6. Disposition -Possible DC to home tomorrow Result Diagram: 08/31/18 0552 08/31/18 0552 Subjective 24 Hr Interval Summary Gastrointestinal: nausea Exam/Review of Systems Exam Vitals Vital Signs Date Temp Pulse Resp B/P (MAP) Pulse Ox O2 O2 Flow FiO2 Time Delivery Rate 09/02/18 75 16:01 09/02/18 98.7 16 197/111 94 15:36 (139) 08/31/18 Room Air 15:47 Intake and Output 09/01/18 09/01/18 09/02/18 1515:00 23:00 07:00 IntakeIntake Total 360 ml 840 ml 650 ml BalanceBalance 360 ml 840 ml 650 ml Constitutional: alert, oriented Respiratory: clear to auscultation Cardiovascular: regular rate and rhythm Gastrointestinal: soft; No distended Musculoskeletal: nl extremities to inspection Medications Medication Current Medications IV Flush (NS 3 ml) 3 ml PER PROTOCOL IV ; Start 08/24/18 at 19:30 Docusate Sodium (Colace) 100 mg Q12H PRN PO .CONSTIPATION; Start 08/24/18 at 19:30 Magnesium Hydroxide (Milk Of Mag) 30 ml DAILY PRN PO .CONSTIPATION; Start 08/24/18 at 19:30 Pantoprazole (Protonix Iv) 40 mg DAILY@06 IV Last administered on 09/01/18 05:03; Admin Dose 40 MG; Start 08/25/18 at 06:00 Lorazepam (Ativan) 0.5 mg Q6H PRN IV ANXIETY; Start 08/24/18 at 19:30 Albuterol/ Ipratropium (Duoneb) 3 ml Q4H RESP THERAPY PRN HHN SHORTNESS OF BREATH; Start 08/24/18 at 19:30 Nitroglycerin (Nitroglycerin (Sl Tab) 0.4 Mg) 1 tab Q5M PRN SL ANGINA; Start 08/24/18 at 19:30 Hydralazine HCl (Apresoline) 10 mg Q4H PRN IV sbp >160 Last administered on 09/01/18at 21:09; Admin Dose 10 MG; Start 08/24/18 at 20:00 Hydromorphone HCl (Dilaudid) 1 mg Q3H PRN IV SEVERE PAIN LEVEL 7-10 Last admin istered on 09/02/18at 15:02; Admin Dose 1 MG; Start 08/24/18 at 20:00 Piperacillin Sod/ Tazobactam Sod 100 ml @ 200 mls/hr Q6 IVPB Last administered on 09/02/18 12:17; Admin Dose 200 MLS/HR; Start 08/24/18 at 20:30 Labetalol HCl (Labetalol) 10 mg Q4H PRN IV sbp>160 Last administered on 09/01/18 06:08; Admin Dose 10 MG; Start 08/24/18 at 21:00 Docusate Sodium (Colace Liquid Cup) 100 mg BID GTB ; Start 08/26/18 at 21:00 Senna (Senokot) 1 tab BID GTB Last administered on 08/30/18 08:01; Admin Dose 1 TAB; Start 08/26/18 at 21:00 Nicotine (Nicoderm 21 Mg/ 24hr) 1 patch DAILY TRANSDERM Last administered on 09/02/18 08:41; Admin Dose 1 PATCH; Start 08/27/18 at 10:30 Sodium Chloride 1,000 ml @ 75 mls/hr [id number] IV ; Start 08/30/18 at 00:00 Lisinopril (Zestril) 40 mg DAILY PO Last administered on 09/02/18at 08:42; Admin Dose 40 MG; Start 08/31/18 at 09:00 Ondansetron HCl 8 mg/Sodium Chloride 54 ml @ 216 mls/hr Q4H PRN IV NAUSEA AND/OR VOMITING Last administered on 09/01/18at 11:58; Admin Dose 216 MLS/HR; Start 08/30/18 at 10:30 DODIE FRANCES Sep 02, 2018 17:40
[2018-09-03] VITALS (11 sets, daily range): BP systolic 157–180; BP diastolic 92–104; PULSE 68–95; RESP 16–18
[2018-09-03] MEDS: hydrALAzine 20 MG INJ IV PRN ×2 (01:29→05:54)
[2018-09-03] MEDS: HYDROmorphONE 1 MG/ML SYG IV PRN ×6 (02:58→21:47)
[2018-09-03] MEDS: PIPER-TAZO 3.375 GM IV (PMX) 100 ML IVPB SCH ×3 (05:53→18:42)
[2018-09-03] MEDS: PANTOPRAZOLE 40 MG INJ IV SCH (05:53)
[2018-09-03] MEDS: SENNA TAB GTB SCH ×2 (08:39→20:04)
[2018-09-03] MEDS: DOCUSATE SODIUM 10 MG/ML (10ML CUP) GTB SCH ×2 (08:39→20:04)
[2018-09-03] MEDS: LISINOPRIL 20 MG TAB PO SCH (08:39)
[2018-09-03] MEDS: NICOTINE (21 MG/24 HR) PATCH TRANSDERM SCH (08:39)
[2018-09-03] MEDS: SOD CHLORIDE 0.9% 1,000 ML IV SCH (10:40)
[2018-09-03] MEDS: LABETALOL HCL 20MG INJ IV PRN ×2 (14:09→20:04)
--- NOTE | 2018-09-03 16:09 | PN ---
Date/Time of Note Date/Time of Note DATE: 09/03/18 TIME: 16:08 Assessment/Plan VTE Prophylaxis Risk score (from Nsg)>0 risk: 1 Pharmacological prophylaxis: NA/contraindicated Pharm contraindication: surgical contra Lines/Catheters IV Catheter Type (from Nrsg): Saline Lock Urinary Cath still in place: No Assessment/Plan Hospital Course 1. 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 Surgery on board and recommending higher level of care. Has outpatient follow up with GI on 09/10 - continue full liquids as tolerated - IVF on board - IV antibiotics on board for empiric tx 2. Nausea/vomiting-2/2 to above - Monitor 3. Hypertension - stable 4. anemia - Mild, monitor - no need for transfusion at this time 5. hypokalemia - states allergic to all replacement but willing to try orange juice and bananas DC planning: Patient now open for transfer to higher level of care, porter sample case aware Result Diagram: 08/31/18 0552 08/31/18 0552 Subjective 24 Hr Interval Summary Gastrointestinal: nausea, vomiting Exam/Review of Systems Exam Vitals Vital Signs Date Temp Pulse Resp B/P (MAP) Pulse Ox O2 O2 Flow FiO2 Time Delivery Rate 09/03/18 98.4 71 16 157/92 96 15:29 (113) 08/31/18 Room Air 15:47 Intake and Output 09/02/18 09/02/18 09/03/18 1515:00 23:00 07:00 IntakeIntake Total 360 ml 440 ml 680 ml BalanceBalance 360 ml 440 ml 680 ml Constitutional: alert, oriented Respiratory: clear to auscultation Cardiovascular: regular rate and rhythm Gastrointestinal: soft; No distended Musculoskeletal: nl extremities to inspection Medications Medication Current Medications IV Flush (NS 3 ml) 3 ml PER PROTOCOL IV ; Start 08/24/18 at 19:30 Docusate Sodium (Colace) 100 mg Q12H PRN PO .CONSTIPATION; Start 08/24/18 at 19:30 Magnesium Hydroxide (Milk Of Mag) 30 ml DAILY PRN PO .CONSTIPATION; Start 08/24/18 at 19:30 Pantoprazole (Protonix Iv) 40 mg DAILY@06 IV Last administered on 09/01/18 05:03; Admin Dose 40 MG; Start 08/25/18 at 06:00 Lorazepam (Ativan) 0.5 mg Q6H PRN IV ANXIETY; Start 08/24/18 at 19:30 Albuterol/ Ipratropium (Duoneb) 3 ml Q4H RESP THERAPY PRN HHN SHORTNESS OF BREATH; Start 08/24/18 at 19:30 Nitroglycerin (Nitroglycerin (Sl Tab) 0.4 Mg) 1 tab Q5M PRN SL ANGINA; Start 08/24/18 at 19:30 Hydralazine HCl (Apresoline) 10 mg Q4H PRN IV sbp >160 Last administered on 09/03/18 05:54; Admin Dose 10 MG; Start 08/24/18 at 20:00 Hydromorphone HCl (Dilaudid) 1 mg Q3H PRN IV SEVERE PAIN LEVEL 7-10 Last administered on 09/03/18at 15:51; Admin Dose 1 MG; Start 08/24/18 at 20:00 Piperacillin Sod/ Tazobactam Sod 100 ml @ 200 mls/hr Q6 IVPB Last administered on 09/03/18 12:29; Admin Dose 200 MLS/HR; Start 08/24/18 at 20:30 Labetalol HCl (Labetalol) 10 mg Q4H PRN IV sbp>160 Last administered on 09/03/18 14:09; Admin Dose 10 MG; Start 08/24/18 at 21:00 Docusate Sodium (Colace Liquid Cup) 100 mg BID GTB ; Start 08/26/18 at 21:00 Senna (Senokot) 1 tab BID GTB Last administered on 08/30/18 08:01; Admin Dose 1 TAB; Start 08/26/18 at 21:00 Nicotine (Nicoderm 21 Mg/ 24hr) 1 patch DAILY TRANSDERM Last administered on 09/03/18 08:39; Admin Dose 1 PATCH; Start 08/27/18 at 10:30 Sodium Chloride 1,000 ml @ 75 mls/hr [id number] IV ; Start 08/30/18 at 00:00 Lisinopril (Zestril) 40 mg DAILY PO Last administered on 2/26/19at 08:39; Admin Dose 40 MG; Start 08/31/18 at 09:00 Ondansetron HCl 8 mg/Sodium Chloride 54 ml @ 216 mls/hr Q4H PRN IV NAUSEA AND/OR VOMITING Last administered on 09/01/18at 11:58; Admin Dose 216 MLS/HR; Start 08/30/18 at 10:30 DODIE FRANCES Sep 03, 2018 16:09
[2018-09-03] MEDS: ONDANSETRON INJ 8 MG in SOD CHLORIDE 0.9% 50 ML IV PRN (20:04)
[2018-09-04] VITALS (13 sets, daily range): BP systolic 97–198; BP diastolic 52–110; PULSE 57–90; RESP 16–20
[2018-09-04] MEDS: HYDROmorphONE 1 MG/ML SYG IV PRN ×8 (01:07→23:27)
[2018-09-04] MEDS: PIPER-TAZO 3.375 GM IV (PMX) 100 ML IVPB SCH ×4 (01:11→17:21)
[2018-09-04] MEDS: hydrALAzine 20 MG INJ IV PRN ×3 (04:30→21:24)
[2018-09-04] MEDS: PANTOPRAZOLE 40 MG INJ IV SCH (05:43)
[2018-09-04] MEDS: DOCUSATE SODIUM 10 MG/ML (10ML CUP) GTB SCH ×2 (09:00→20:15)
[2018-09-04] MEDS: SENNA TAB GTB SCH ×2 (09:00→20:15)
[2018-09-04] MEDS: LISINOPRIL 20 MG TAB PO SCH (10:52)
[2018-09-04] MEDS: NICOTINE (21 MG/24 HR) PATCH TRANSDERM SCH (10:53)
[2018-09-04] MEDS: SOD CHLORIDE 0.9% 1,000 ML IV SCH ×2 (13:20)
--- NOTE | 2018-09-04 14:53 | PN ---
Date/Time of Note Date/Time of Note DATE: 09/04/18 TIME: 14:52 Assessment/Plan VTE Prophylaxis Risk score (from Ns)>0 risk: 2 SCD applied (from Ns): Yes Pharmacological prophylaxis: NA/contraindicated Pharm contraindication: surgical contra Lines/Catheters IV [facility]from [facility] Saline [facility] Urinary Cath still in place: No Assessment/Plan Hospital Course 1. 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 Surgery on board and recommending higher level of care. Has outpatient follow up with GI on 09/10 - continue full liquids as tolerated - IVF on board - IV antibiotics on board for empiric tx 2. Nausea/vomiting-2/2 to above - Monitor 3. Hypertension - stable 4. anemia - Mild, monitor - no need for transfusion at this time 5. hypokalemia - states that he has a reaction to products with potassium but willing to try orange juice and bananas DC planning: Anticipate DC home in 1-2 days once outpatient follow-up has been arranged Result Diagram: 08/31/18 0552 09/04/18 0614 Results 24hrs Laboratory Tests Test 09/04/18 06:14 Sodium Level 141 Potassium Level 2.8 *L Chloride Level 103 Carbon Dioxide Level 29 Anion Gap 9 Blood Urea Nitrogen 5 L Creatinine 0.69 Est Glomerular Filtrat Rate mL/min > 60 Glucose Level 83 Calcium Level 9.2 Phosphorus Level 3.9 Magnesium Level 1.9 Subjective 24 Hr Interval Summary Gastrointestinal: nausea Exam/Review of Systems Exam Vitals Vital Signs Date Temp Pulse Resp B/P (MAP) Pulse Ox O2 O2 Flow FiO2 Time Delivery Rate 09/04/18 82 12:07 09/04/18 97.9 16 157/96 97 11:39 (116) 08/31/18 Room Air 15:47 Intake and Output 09/03/18 09/03/18 09/04/18 1515:00 23:00 07:00 IntakeIntake Total 100 ml 700 ml 500 ml OutputOutput Total 1100 ml 900 ml BalanceBalance 100 ml -400 ml -400 ml Constitutional: alert, oriented Respiratory: clear to auscultation Cardiovascular: regular rate and rhythm Gastrointestinal: soft; No distended Musculoskeletal: nl extremities to inspection Results Results 24hrs Laboratory Tests Test 09/04/18 06:14 Sodium Level 141 Potassium Level 2.8 *L Chloride Level 103 Carbon Dioxide Level 29 Anion Gap 9 Blood Urea Nitrogen 5 L Creatinine 0.69 Est Glomerular Filtrat Rate mL/min > 60 Glucose Level 83 Calcium Level 9.2 Phosphorus Level 3.9 Magnesium Level 1.9 Medications Medication Current Medications IV Flush (NS 3 ml) 3 ml PER PROTOCOL IV ; Start 08/24/18 at 19:30 Docusate Sodium (Colace) 100 mg Q12H PRN PO .CONSTIPATION; Start 08/24/18 at 19:30 Magnesium Hydroxide (Milk Of Mag) 30 ml DAILY PRN PO .CONSTIPATION; Start 08/24/18 at 19:30 Pantoprazole (Protonix Iv) 40 mg DAILY@06 IV Last administered on 09/04/18at 05:43; Admin Dose 40 MG; Start 08/25/18 at 06:00 Lorazepam (Ativan) 0.5 mg Q6H PRN IV ANXIETY; Start 08/24/18 at 19:30 Albuterol/ Ipratropium (Duoneb) 3 ml Q4H RESP THERAPY PRN HHN SHORTNESS OF BREATH; Start 08/24/18 at 19:30 Nitroglycerin (Nitroglycerin (Sl Tab) 0.4 Mg) 1 tab Q5M PRN SL ANGINA; Start 08/24/18 at 19:30 Hydralazine HCl (Apresoline) 10 mg Q4H PRN IV sbp >160 Last administered on 09/04/18at 04:30; Admin Dose 10 MG; Start 08/24/18 at 20:00 Hydromorphone HCl (Dilaudid) 1 mg Q3H PRN IV SEVERE PAIN LEVEL 7-10 Last administered on 09/04/18at 13:56; Admin Dose 1 MG; Start 08/24/18 at 20:00 Piperacillin Sod/ Tazobactam Sod 100 ml @ 200 mls/hr Q6 IVPB Last administered on 09/04/18at 11:52; Admin Dose 200 MLS/HR; Start 08/24/18 at 20:30 Labetalol HCl (Labetalol) 10 mg Q4H PRN IV sbp>160 Last administered on 09/03/18 20:04; Admin Dose 10 MG; Start 08/24/18 at 21:00 Docusate Sodium (Colace Liquid Cup) 100 mg BID GTB ; Start 08/26/18 at 21:00 Senna (Senokot) 1 tab BID GTB Last administered on 08/30/18 08:01; Admin Dose 1 TAB; Start 08/26/18 at 21:00 Nicotine (Nicoderm 21 Mg/ 24hr) 1 patch DAILY TRANSDERM Last administered on 09/04/18 10:53; Admin Dose 1 PATCH; Start 08/27/18 at 10:30 Sodium Chloride 1,000 ml @ 75 mls/hr [id number] IV ; Start 08/30/18 at 00:00 Lisinopril (Zestril) 40 mg DAILY PO Last administered on 09/04/18 10:52; Admin Dose 40 MG; Start 08/31/18 at 09:00 Ondansetron HCl 8 mg/Sodium Chloride 54 ml @ 216 mls/hr Q4H PRN IV NAUSEA AND/OR VOMITING Last administered on 09/03/18at 20:04; Admin Dose 216 MLS/HR; Start 08/30/18 at 10:30 DODIE RFANCES Sep 04, 2018 14:53
[2018-09-04] MEDS: LABETALOL HCL 20MG INJ IV PRN (20:12)
[2018-09-05] VITALS (13 sets, daily range): BP systolic 154–191; BP diastolic 85–106; PULSE 68–78; RESP 20
[2018-09-05] MEDS: PIPER-TAZO 3.375 GM IV (PMX) 100 ML IVPB SCH ×4 (00:52→17:31)
[2018-09-05] MEDS: hydrALAzine 20 MG INJ IV PRN ×4 (01:45→21:10)
[2018-09-05] MEDS: SOD CHLORIDE 0.9% 1,000 ML IV SCH ×2 (01:52→15:18)
[2018-09-05] MEDS: HYDROmorphONE 1 MG/ML SYG IV PRN ×7 (02:11→21:02)
[2018-09-05] MEDS: PANTOPRAZOLE 40 MG INJ IV SCH (05:32)
[2018-09-05] MEDS: LISINOPRIL 20 MG TAB PO SCH (08:46)
[2018-09-05] MEDS: DOCUSATE SODIUM 10 MG/ML (10ML CUP) GTB SCH ×2 (08:47→21:00)
[2018-09-05] MEDS: NICOTINE (21 MG/24 HR) PATCH TRANSDERM SCH (08:47)
[2018-09-05] MEDS: SENNA TAB GTB SCH ×2 (08:47→21:00)
--- NOTE | 2018-09-05 16:49 | PN ---
Date/Time of Note Date/Time of Note DATE: 09/05/18 TIME: 16:49 Assessment/Plan VTE Prophylaxis Risk score (from Ns)>0 risk: 2 SCD applied (from Ns): Yes Pharmacological prophylaxis: NA/contraindicated Pharm contraindication: surgical contra Lines/Catheters [facility] Saline Lock Urinary Cath still in place: No Assessment/Plan Hospital Course 1. Acute on chronic pancreatitis -Patient continues to have pain and nausea, etiology likely secondary to gastric compression from the pancreatic pseudocyst, -Patient will need pancreatic resection and is now agreeable for transfer to higher level of care, test case developer has spoken to patient's insurance and they can only arrange for outpatient follow-up with hepatobiliary surgery - CT scan abd showing worsening necrosis. Surgery on board and recommending higher level of care. Has outpatient follow up with GI on 09/10 - continue full liquids as tolerated - IVF on board - IV antibiotics on board for empiric tx 2. Nausea/vomiting-2/2 to above - Monitor 3. Hypertension - stable 4. anemia - Mild, monitor - no need for transfusion at this time 5. hypokalemia - states that he has a reaction to products with potassium but willing to try orange juice and bananas DC planning: Anticipate DC home in 1-2 days once outpatient follow-up has been arranged Result Diagram: 09/05/18 0637 Results 24hrs Laboratory Tests Test 09/05/18 06:37 Sodium Level 140 Potassium Level 2.8 *L Chloride Level 103 Carbon Dioxide Level 27 Anion Gap 10 Blood Urea Nitrogen 4 L Creatinine 0.69 Est Glomerular Filtrat Rate mL/min > 60 Glucose Level 82 Calcium Level 8.9 Lipase 271 Subjective 24 Hr Interval Summary Gastrointestinal: pain, nausea, vomiting Exam/Review of Systems Exam Vitals Vital Signs Date Temp Pulse Resp B/P (MAP) Pulse Ox O2 O2 Flow FiO2 Time Delivery Rate 09/05/18 72 16:03 09/05/18 99.1 20 169/100 96 Room Air 15:29 (123) Intake and Output 09/04/18 09/04/18 09/05/18 1515:00 23:00 07:00 IntakeIntake Total 200 ml 100 ml 600 ml OutputOutput Total 600 ml BalanceBalance 200 ml 100 ml 0 ml Constitutional: alert, oriented Respiratory: clear to auscultation Cardiovascular: regular rate and rhythm Gastrointestinal: soft; No distended Musculoskeletal: nl extremities to inspection Results Results 24hrs Laboratory Tests Test 09/05/18 06:37 Sodium Level 140 Potassium Level 2.8 *L Chloride Level 103 Carbon Dioxide Level 27 Anion Gap 10 Blood Urea Nitrogen 4 L Creatinine 0.69 Est Glomerular Filtrat Rate mL/min > 60 Glucose Level 82 Calcium Level 8.9 Lipase 271 Medications Medication Current Medications IV Flush (NS 3 ml) 3 ml PER PROTOCOL IV ; Start 08/24/18 at 19:30 Docusate Sodium (Colace) 100 mg Q12H PRN PO .CONSTIPATION; Start 08/24/18 at 1 9:30 Magnesium Hydroxide (Milk Of Mag) 30 ml DAILY PRN PO .CONSTIPATION; Start 08/24/18 at 19:30 Lorazepam (Ativan) 0.5 mg Q6H PRN IV ANXIETY; Start 08/24/18 at 19:30 Albuterol/ Ipratropium (Duoneb) 3 ml Q4H RESP THERAPY PRN HHN SHORTNESS OF BREATH; Start 08/24/18 at 19:30 Nitroglycerin (Nitroglycerin (Sl Tab) 0.4 Mg) 1 tab Q5M PRN SL ANGINA; Start 08/24/18 at 19:30 Hydralazine HCl (Apresoline) 10 mg Q4H PRN IV sbp >160 Last administered on 09/05/18at 15:35; Admin Dose 10 MG; Start 08/24/18 at 20:00 Hydromorphone HCl (Dilaudid) 1 mg Q3H PRN IV SEVERE PAIN LEVEL 7-10 Last administered on 09/05/18at 15:18; Admin Dose 1 MG; Start 08/24/18 at 20:00 Piperacillin Sod/ Tazobactam Sod 100 ml @ 200 mls/hr Q6 IVPB Last administered on 09/05/18at 11:42; Admin Dose 200 MLS/HR; Start 08/24/18 at 20:30 Labetalol HCl (Labetalol) 10 mg Q4H PRN IV sbp>160 Last administered on 09/04/18at 20:12; Admin Dose 10 MG; Start 08/24/18 at 21:00 Docusate Sodium (Colace Liquid Cup) 100 mg BID GTB ; Start 08/26/18 at 21:00 Senna (Senokot) 1 tab BID GTB Last administered on 08/30/18 08:01; Admin Dose 1 TAB; Start 08/26/18 at 21:00 Nicotine (Nicoderm 21 Mg/ 24hr) 1 patch DAILY TRANSDERM Last administered on 09/05/18at 08:47; Admin Dose 1 PATCH; Start 08/27/18 at 10:30 Sodium Chloride 1,000 ml @ 75 mls/hr [id number] IV ; Start 08/30/18 at 00:00 Lisinopril (Zestril) 40 mg DAILY PO Last administered on 09/05/18at 08:46; Admin Dose 40 MG; Start 08/31/18 at 09:00 Ondansetron HCl 8 mg/Sodium Chloride 54 ml @ 216 mls/hr Q4H PRN IV NAUSEA AND/OR VOMITING Last administered on 09/03/18at 20:04; Admin Dose 216 MLS/HR; Start 08/30/18 at 10:30 Pantoprazole (Protonix Tab) 40 mg DAILY@06 PO ; Start 09/06/18 at 06:00 DODIE FRANCES Sep 05, 2018 16:49
[2018-09-06] VITALS (12 sets, daily range): BP systolic 169–188; BP diastolic 96–116; PULSE 66–92; RESP 18–20
[2018-09-06] MEDS: HYDROmorphONE 1 MG/ML SYG IV PRN ×8 (00:01→21:46)
[2018-09-06] MEDS: PIPER-TAZO 3.375 GM IV (PMX) 100 ML IVPB SCH ×4 (01:03→20:36)
[2018-09-06] MEDS: SOD CHLORIDE 0.9% 1,000 ML IV SCH ×2 (05:20→17:42)
[2018-09-06] MEDS: PANTOPRAZOLE (EC) 40 MG TAB PO SCH (06:00)
[2018-09-06] MEDS: SENNA TAB GTB SCH ×2 (08:08→20:36)
[2018-09-06] MEDS: DOCUSATE SODIUM 10 MG/ML (10ML CUP) GTB SCH ×2 (08:09→20:36)
[2018-09-06] MEDS: LISINOPRIL 20 MG TAB PO SCH ×2 (08:40→08:46)
[2018-09-06] MEDS: NICOTINE (21 MG/24 HR) PATCH TRANSDERM SCH (08:40)
[2018-09-06] MEDS: LABETALOL HCL 20MG INJ IV PRN (08:41)
[2018-09-06] MEDS: hydrALAzine 20 MG INJ IV PRN ×3 (10:29→20:37)
--- NOTE | 2018-09-06 15:28 | PN ---
Date/Time of Note Date/Time of Note DATE: 09/06/18 TIME: 15:25 Assessment/Plan VTE Prophylaxis Risk score (from Nsg)>0 risk: 1 Pharmacological prophylaxis: NA/contraindicated Pharm contraindication: surgical contra Lines/Catheters IV Catheter Type (from Nrsg): Saline Lock Urinary Cath still in place: No Assessment/Plan Hospital Course 1. Acute on chronic pancreatitis -Patient continues to have pain and nausea, etiology likely secondary to gastric compression from the pancreatic pseudocyst, -Patient will need pancreatic resection and is now agreeable for transfer to higher level of care, home health care case manager has spoken to patient's insurance and they can only arrange for outpatient follow-up with hepatobiliary surgery - CT scan abd showing worsening necrosis. Surgery on board and recommending higher level of care. Has outpatient follow up with GI on 09/10 - continue full liquids as tolerated - IVF on board - IV antibiotics on board for empiric tx 2. Nausea/vomiting-2/2 to above - Monitor 3. Hypertension - stable 4. anemia - Mild, monitor - no need for transfusion at this time 5. hypokalemia - states that he has a reaction to products with potassium but willing to try orange juice and bananas DC planning: Currently working on transfer to [place] Result Diagram: 09/06/18 0555 Results 24hrs Laboratory Tests Test 09/06/18 05:55 Sodium Level 142 Potassium Level 3.8 Chloride Level 106 Carbon Dioxide Level 28 Anion Gap 8 Blood Urea Nitrogen 4 L Creatinine 0.66 Est Glomerular Filtrat Rate mL/min > 60 Glucose Level 79 Calcium Level 9.3 Subjective 24 Hr Interval Summary Gastrointestinal: nausea, vomiting Exam/Review of Systems Exam Vitals Vital Signs Date Temp Pulse Resp B/P (MAP) Pulse Ox O2 O2 Flow FiO2 Time Delivery Rate 09/06/18 68 179/104 14:51 (129) 09/06/18 98.3 20 98 Room Air 11:38 Intake and Output 09/05/18 09/05/18 09/06/18 1515:00 23:00 07:00 IntakeIntake Total 100 ml 1000 ml 500 ml OutputOutput Total 800 ml BalanceBalance 100 ml 200 ml 500 ml Constitutional: alert, oriented Respiratory: clear to auscultation Cardiovascular: regular rate and rhythm Gastrointestinal: soft; No distended Musculoskeletal: nl extremities to inspection Results Results 24hrs Laboratory Tests Test 09/06/18 05:55 Sodium Level 142 Potassium Level 3.8 Chloride Level 106 Carbon Dioxide Level 28 Anion Gap 8 Blood Urea Nitrogen 4 L Creatinine 0.66 Est Glomerular Filtrat Rate mL/min > 60 Glucose Level 79 Calcium Level 9.3 Medications Medication Current Medications IV Flush (NS 3 ml) 3 ml PER PROTOCOL IV ; Start 08/24/18 at 19:30 Docusate Sodium (Colace) 100 mg Q12H PRN PO .CONSTIPATION; Start 08/24/18 at 19:30 Magnesium Hydroxide (Milk Of Mag) 30 ml DAILY PRN PO .CONSTIPATION; Start 08/24/18 at 19:30 Lorazepam (Ativan) 0.5 mg Q6H PRN IV ANXIETY; Start 08/24/18 at 19:30 Albuterol/ Ipratropium (Duoneb) 3 ml Q4H RESP THERAPY PRN HHN SHORTNESS OF BREATH; Start 08/24/18 at 19:30 Nitroglycerin (Nitroglycerin (Sl Tab) 0.4 Mg) 1 tab Q5M PRN SL ANGINA; Start 08/24/18 at 19:30 Hydralazine HCl (Apresoline) 10 mg Q4H PRN IV sbp >160 Last administered on 09/06/18at 14:53; Admin Dose 10 MG; Start 08/24/18 at 20:00 Hydromorphone HCl (Dilaudid) 1 mg Q3H PRN IV SEVERE PAIN LEVEL 7-10 Last administered on 09/06/18at 12:20; Admin Dose 1 MG; Start 08/24/18 at 20:00 Labetalol HCl (Labetalol) 10 mg Q4H PRN IV sbp>160 Last administered on 09/06/18at 08:41; Admin Dose 10 MG; Start 08/24/18 at 21:00 Docusate Sodium (Colace Liquid Cup) 100 mg BID GTB ; Start 08/26/18 at 21:00 Senna (Senokot) 1 tab BID GTB Last administered on 08/30/18at 08:01; Admin Dose 1 TAB; Start 08/26/18 at 21:00 Nicotine (Nicoderm 21 Mg/ 24hr) 1 patch DAILY TRANSDERM Last administered on 09/06/18at 08:40; Admin Dose 1 PATCH; Start 08/27/18 at 10:30 Sodium Chloride 1,000 ml @ 75 mls/hr [id number] IV ; Start 08/30/18 at 00:00 Lisinopril (Zestril) 40 mg DAILY PO Last administered on 09/05/18at 08:46; Admin Dose 40 MG; Start 08/31/18 at 09:00 Ondansetron HCl 8 mg/Sodium Chloride 54 ml @ 216 mls/hr Q4H PRN IV NAUSEA AND/OR VOMITING Last administered on 09/03/18at 20:04; Admin Dose 216 MLS/HR; Start 08/30/18 at 10:30 Pantoprazole (Protonix Tab) 40 mg DAILY@06 PO ; Start 09/06/18 at 06:00 Piperacillin Sod/ Tazobactam Sod 100 ml @ 200 mls/hr Q6H IVPB ; Start 09/06/18 at 20:00 DODIE FRANCES Sep 06, 2018 15:28
[2018-09-06] MEDS: AMLODIPINE 10 MG TAB PO SCH (20:38)
[2018-09-07] VITALS (7 sets, daily range): BP systolic 138–185; BP diastolic 97–111; PULSE 74–91; RESP 18–22
[2018-09-07] MEDS: HYDROmorphONE 1 MG/ML SYG IV PRN ×7 (00:57→22:03)
[2018-09-07] MEDS: PIPER-TAZO 3.375 GM IV (PMX) 100 ML IVPB SCH ×4 (02:15→19:56)
[2018-09-07] MEDS: PANTOPRAZOLE (EC) 40 MG TAB PO SCH (06:00)
[2018-09-07] MEDS: SOD CHLORIDE 0.9% 1,000 ML IV SCH ×3 (08:00→21:20)
[2018-09-07] MEDS: NICOTINE (21 MG/24 HR) PATCH TRANSDERM SCH (08:05)
[2018-09-07] MEDS: SENNA TAB GTB SCH ×2 (08:06→20:55)
[2018-09-07] MEDS: hydrALAzine 20 MG INJ IV PRN ×3 (08:11→19:55)
[2018-09-07] MEDS: AMLODIPINE 10 MG TAB PO SCH (08:32)
[2018-09-07] MEDS: DOCUSATE SODIUM 10 MG/ML (10ML CUP) GTB SCH ×2 (08:32→20:55)
[2018-09-07] MEDS: LISINOPRIL 20 MG TAB PO SCH ×2 (08:32→10:24)
--- NOTE | 2018-09-07 10:56 | PN ---
Date/Time of Note Date/Time of Note DATE: 09/07/18 TIME: 10:56 Assessment/Plan VTE Prophylaxis Risk score (from Nsg)>0 risk: 1 Pharmacological prophylaxis: NA/contraindicated Pharm contraindication: surgical contra Lines/Catheters IV Catheter Type (from Nrsg): Saline Lock Urinary Cath still in place: No Assessment/Plan Hospital Course 1. Acute on chronic pancreatitis -Patient continues to have pain and nausea, etiology likely secondary to gastric compression from the pancreatic pseudocyst, -Patient will need pancreatic resection and is now agreeable for transfer to higher level of care, catalytic case operator has spoken to patient's insurance and they can only arrange for outpatient follow-up with hepatobiliary surgery - CT scan abd showing worsening necrosis. Surgery on board and recommending higher level of care. Has outpatient follow up with GI on 09/10 - continue full liquids as tolerated - IVF on board - IV antibiotics on board for empiric tx 2. Nausea/vomiting-2/2 to above - Monitor 3. Hypertension - stable 4. anemia - Mild, monitor - no need for transfusion at this time 5. hypokalemia - states that he has a reaction to products with potassium but willing to try orange juice and bananas DC planning: Currently working on transfer to [place] Result Diagram: 09/06/18 0555 Subjective 24 Hr Interval Summary Gastrointestinal: pain, nausea Exam/Review of Systems Exam Vitals Vital Signs Date Temp Pulse Resp B/P (MAP) Pulse Ox O2 O2 Flow FiO2 Time Delivery Rate 09/07/18 76 168/97 10:15 (120) 09/07/18 98.8 19 96 08:03 09/06/18 Room Air 15:30 Intake and Output 09/06/18 09/06/18 09/07/18 1515:00 23:00 07:00 IntakeIntake Total 200 ml 800 ml 100 ml BalanceBalance 200 ml 800 ml 100 ml Constitutional: alert, oriented Respiratory: clear to auscultation Cardiovascular: regular rate and rhythm Gastrointestinal: soft; No distended Musculoskeletal: nl extremities to inspection Medications Medication Current Medications IV Flush (NS 3 ml) 3 ml PER PROTOCOL IV ; Start 08/24/18 at 19:30 Docusate Sodium (Colace) 100 mg Q12H PRN PO .CONSTIPATION; Start 08/24/18 at 19:30 Magnesium Hydroxide (Milk Of Mag) 30 ml DAILY PRN PO .CONSTIPATION; Start 08/24/18 at 19:30 Lorazepam (Ativan) 0.5 mg Q6H PRN IV ANXIETY; Start 08/24/18 at 19:30 Albuterol/ Ipratropium (Duoneb) 3 ml Q4H RESP THERAPY PRN HHN SHORTNESS OF BREATH; Start 08/24/18 at 19:30 Nitroglycerin (Nitroglycerin (Sl Tab) 0.4 Mg) 1 tab Q5M PRN SL ANGINA; Start 08/24/18 at 19:30 Hydralazine HCl (Apresoline) 10 mg Q4H PRN IV sbp >160 Last administered on 09/07/18 08:11; Admin Dose 10 MG; Start 08/24/18 at 20:00 Hydromorphone HCl (Dilaudid) 1 mg Q3H PRN IV SEVERE PAIN LEVEL 7-10 Last administered on 09/07/18 07:58; Admin Dose 1 MG; Start 08/24/18 at 20:00 Labetalol HCl (Labetalol) 10 mg Q4H PRN IV sbp>160 Last administered on 09/06/18 08:41; Admin Dose 10 MG; Start 08/24/18 at 21:00 Docusate Sodium (Colace Liquid Cup) 100 mg BID GTB Last administered on 09/06/18 20:36; Admin Dose 100 MG; Start 08/26/18 at 21:00 Senna (Senokot) 1 tab BID GTB Last administered on 09/07/18 08:06; Admin Dose 1 TAB; Start 08/26/18 at 21:00 Nicotine (Nicoderm 21 Mg/ 24hr) 1 patch DAILY TRANSDERM Last administered on 09/07/18 08:05; Admin Dose 1 PATCH; Start 08/27/18 at 10:30 Sodium Chloride 1,000 ml @ 75 mls/hr [id number] IV ; Start 08/30/18 at 00:00 Lisinopril (Zestril) 40 mg DAILY PO Last administered on 09/07/18 10:24; Admin Dose 40 MG; Start 08/31/18 at 09:00 Ondansetron HCl 8 mg/Sodium Chloride 54 ml @ 216 mls/hr Q4H PRN IV NAUSEA AND/OR VOMITING Last administered on 2/26/19at 20:04; Admin Dose 216 MLS/HR; Start 08/30/18 at 10:30 Pantoprazole (Protonix Tab) 40 mg DAILY@06 PO ; Start 09/06/18 at 06:00 Piperacillin Sod/ Tazobactam Sod 100 ml @ 200 mls/hr Q6H IVPB Last administered on 09/07/18at 08:03; Admin Dose 200 MLS/HR; Start 09/06/18 at 20:00 Amlodipine Besylate (Norvasc) 10 mg DAILY PO Last administered on 09/06/18at 20:38; Admin Dose 10 MG; Start 09/06/18 at 20:00 DODIE FRANCES Sep 07, 2018 10:56
[2018-09-08] MEDS: HYDROmorphONE 1 MG/ML SYG IV PRN ×8 (01:03→22:29)
[2018-09-08] MEDS: PIPER-TAZO 3.375 GM IV (PMX) 100 ML IVPB SCH ×3 (01:58→14:00)
[2018-09-08] MEDS: PANTOPRAZOLE (EC) 40 MG TAB PO SCH (06:00)
[2018-09-08 07:56] VITALS: BP 161/93; PULSE 74; RESP 19
[2018-09-08] MEDS: AMLODIPINE 10 MG TAB PO SCH (09:00)
[2018-09-08] MEDS: DOCUSATE SODIUM 10 MG/ML (10ML CUP) GTB SCH ×2 (09:00→21:00)
[2018-09-08] MEDS: SENNA TAB GTB SCH ×2 (09:00→21:00)
[2018-09-08] MEDS: LISINOPRIL 20 MG TAB PO SCH (09:27)
[2018-09-08] MEDS: NICOTINE (21 MG/24 HR) PATCH TRANSDERM SCH (09:27)
[2018-09-08] MEDS: SOD CHLORIDE 0.9% 1,000 ML IV SCH (10:12)
[2018-09-08 15:24] VITALS: BP 174/104; PULSE 73; RESP 18
[2018-09-08] MEDS: hydrALAzine 20 MG INJ IV PRN ×2 (16:45→22:27)
--- NOTE | 2018-09-08 17:05 | PN ---
Date/Time of Note Date/Time of Note DATE: 09/08/18 TIME: 17:00 Assessment/Plan VTE Prophylaxis Risk score (from Ns)>0 risk: 2 SCD applied (from Ns): Yes Pharmacological prophylaxis: NA/contraindicated Pharm contraindication: surgical contra Lines/Catheters IV [facility] Saline Lock Urinary Cath still in place: No Assessment/Plan Hospital Course 1. Acute on chronic pancreatitis -Patient continues to have pain and nausea, etiology likely secondary to gastric compression from the pancreatic pseudocyst, -Patient will likely need pancreatic resection and is now agreeable for transfer to higher level of care, human services case manager is arranging for transfer to [place] to be seen by Dr. Malagon of hepatobiliary surgery, he is expecting the patient at [place], plan is for EUS to be done at [place] for evaluation of need for surgery - CT scan abd showing worsening necrosis. Surgery on board and recommending higher level of care. - continue full liquids as tolerated - IVF on board -Patient has been on antibiotics for 2 weeks now, will now DC 2. Nausea/vomiting-2/2 to above - Monitor -Patient is unable to eat at this time 3. Hypertension -Patient would like to DC Norvasc as he states that he has an adverse reaction to this medication, continue lisinopril and have added hydralazine 4. anemia - Mild, monitor - no need for transfusion at this time 5. hypokalemia-stable - states that he has a reaction to products with potassium but willing to try orange juice and bananas Prophylaxis: SCDs DC planning: Currently working on transfer to [place] Result Diagram: 09/06/18 0555 Subjective 24 Hr Interval Summary Gastrointestinal: nausea, vomiting Exam/Review of Systems Exam Vitals Vital Signs Date Temp Pulse Resp B/P (MAP) Pulse Ox O2 O2 Flow FiO2 Time Delivery Rate 09/08/18 98.6 73 18 174/104 97 15:24 (127) 09/07/18 Room Air 16:09 Intake and Output 09/07/18 09/07/18 09/08/18 1515:00 23:00 07:00 IntakeIntake Total 1060 ml 620 ml 100 ml OutputOutput Total 600 ml 500 ml 200 ml BalanceBalance 460 ml 120 ml -100 ml Constitutional: alert, oriented Respiratory: clear to auscultation Cardiovascular: regular rate and rhythm Gastrointestinal: soft; No distended Musculoskeletal: nl extremities to inspection Medications Medication Current Medications IV Flush (NS 3 ml) 3 ml PER PROTOCOL IV ; Start 08/24/18 at 19:30 Docusate Sodium (Colace) 100 mg Q12H PRN PO .CONSTIPATION; Start 08/24/18 at 19:30 Magnesium Hydroxide (Milk Of Mag) 30 ml DAILY PRN PO .CONSTIPATION; Start 08/24 at 19:30 Lorazepam (Ativan) 0.5 mg Q6H PRN IV ANXIETY; Start 08/24/18 at 19:30 Albuterol/ Ipratropium (Duoneb) 3 ml Q4H RESP THERAPY PRN HHN SHORTNESS OF BREATH; Start 08/24/18 at 19:30 Nitroglycerin (Nitroglycerin (Sl Tab) 0.4 Mg) 1 tab Q5M PRN SL ANGINA; Start 08/24/18 at 19:30 Hydralazine HCl (Apresoline) 10 mg Q4H PRN IV sbp >160 Last administered on 09/08/18 16:45; Admin Dose 10 MG; Start 08/24/18 at 20:00 Hydromorphone HCl (Dilaudid) 1 mg Q3H PRN IV SEVERE PAIN LEVEL 7-10 Last adm inistered on 09/08/18 16:34; Admin Dose 1 MG; Start 08/24/18 at 20:00 Labetalol HCl (Labetalol) 10 mg Q4H PRN IV sbp>160 Last administered on 09/06/18 08:41; Admin Dose 10 MG; Start 08/24/18 at 21:00 Docusate Sodium (Colace Liquid Cup) 100 mg BID GTB Last administered on 09/06/18 20:36; Admin Dose 100 MG; Start 08/26/18 at 21:00 Senna (Senokot) 1 tab BID GTB Last administered on 09/07/18 08:06; Admin Dose 1 TAB; Start 08/26/18 at 21:00 Nicotine (Nicoderm 21 Mg/ 24hr) 1 patch DAILY TRANSDERM Last administered on 09/08/18 09:27; Admin Dose 1 PATCH; Start 08/27/18 at 10:30 Sodium Chloride 1,000 ml @ 75 mls/hr [id number] IV ; Start 08/30/18 at 00:00 Lisinopril (Zestril) 40 mg DAILY PO Last administered on 09/08/18at 09:27; Admin Dose 40 MG; Start 08/31/18 at 09:00 Ondansetron HCl 8 mg/Sodium Chloride 54 ml @ 216 mls/hr Q4H PRN IV NAUSEA AND/OR VOMITING Last administered on 09/03/18at 20:04; Admin Dose 216 MLS/HR; Start 08/30/18 at 10:30 Pantoprazole (Protonix Tab) 40 mg DAILY@06 PO ; Start 09/06/18 at 06:00 Piperacillin Sod/ Tazobactam Sod 100 ml @ 200 mls/hr Q6H IVPB Last administere d on 09/08/18at 09:28; Admin Dose 200 MLS/HR; Start 09/06/18 at 20:00 Amlodipine Besylate (Norvasc) 10 mg DAILY PO Last administered on 09/06/18at 20:38; Admin Dose 10 MG; Start 09/06/18 at 20:00 DODIE FRANCES Sep 08, 2018 17:05
[2018-09-08 17:30] VITALS: BP 158/97; PULSE 84
[2018-09-08 20:00] VITALS: BP 159/107; PULSE 82; RESP 19
[2018-09-09] MEDS: HYDROmorphONE 1 MG/ML SYG IV PRN ×6 (01:28→22:24)
[2018-09-09] MEDS: PANTOPRAZOLE (EC) 40 MG TAB PO SCH (05:33)
[2018-09-09 07:44] VITALS: BP 181/106; PULSE 87; RESP 20
[2018-09-09] MEDS: DOCUSATE SODIUM 10 MG/ML (10ML CUP) GTB SCH ×2 (08:10→21:00)
[2018-09-09] MEDS: SENNA TAB GTB SCH ×2 (08:10→21:00)
[2018-09-09] MEDS: NICOTINE (21 MG/24 HR) PATCH TRANSDERM SCH (08:11)
[2018-09-09] MEDS: hydrALAzine 20 MG INJ IV PRN ×3 (08:12→22:31)
[2018-09-09] MEDS: LISINOPRIL 20 MG TAB PO SCH (09:00)
[2018-09-09] MEDS: POTASSIUM CHLORIDE 100 ML IVPB SCH ×3 (10:00→13:09)
[2018-09-09] MEDS: SOD CHLORIDE 0.9% 1,000 ML IV SCH ×2 (13:20)
--- NOTE | 2018-09-09 13:48 | PN ---
Date/Time of Note Date/Time of Note DATE: 09/09/18 TIME: 13:47 Assessment/Plan VTE Prophylaxis Risk score (from Ns)>0 risk: 2 SCD applied (from [facility]): Yes Pharmacological prophylaxis: heparin Lines/Catheters IV Catheter Type (from [facility]): Saline Lock Urinary Cath still in place: No Assessment/Plan Hospital Course 43 yo male with h/o gall stone pancreatis, complicated by chronic pancreatitis wtih pseudocyst and necrosis. Admitted for nausea, pain, PO intolerance 1. Acute on chronic pancreatitis -Patient continues to have pain and nausea, etiology likely secondary to gastric compression from the pancreatic pseudocyst, -Patient will likely need pancreatic resection and is now agreeable for transfer to higher level of care, medical case worker is arranging for transfer to [place] to be seen by Dr. Malagon of hepatobiliary surgery, he is expecting the patient at [place], plan is for EUS to be done at [place] for evaluation of need for surgery - CT scan abd showing worsening necrosis. Surgery on board and recommending higher level of care. - continue full liquids as tolerated - IVF on board -Patient has been on antibiotics for 2 weeks now, will now DC 2. Nausea/vomiting-2/2 to above - Monitor -Patient is unable to eat at this time 3. Hypertension -Patient would like to DC Norvasc as he states that he has an adverse reaction to this medication, continue lisinopril and have added hydralazine 4. anemia - Mild, monitor - no need for transfusion at this time 5. hypokalemia-stable - states that he has a reaction to products with potassium but willing to try orange juice and bananas Prophylaxis: SCDs DC planning: Currently working on transfer to [place] Result Diagram: 09/09/18 0604 09/09/18 0604 Results 24hrs Laboratory Tests Test 09/09/18 06:04 White Blood Count 6.5 # Red Blood Count 5.01 Hemoglobin 11.7 L Hematocrit 38.6 L Mean Corpuscular Volume 77.0 L Mean Corpuscular Hemoglobin 23.4 L Mean Corpuscular Hemoglobin Concent 30.3 L Red Cell Distribution Width 19.6 H Platelet Count 270 Mean Platelet Volume 10.3 Immature Granulocytes % 0.300 Neutrophils % 56.4 Lymphocytes % 28.4 Monocytes % 9.4 Eosinophils % 4.9 Basophils % 0.6 Nucleated Red Blood Cells % 0.0 Immature Granulocytes # 0.020 Neutrophils # 3.7 Lymphocytes # 1.9 Monocytes # 0.6 Eosinophils # 0.3 Basophils # 0.0 Nucleated Red Blood Cells # 0.0 Sodium Level 141 Potassium Level 2.9 *L Chloride Level 104 Carbon Dioxide Level 24 Anion Gap 13 Blood Urea Nitrogen 5 L Creatinine 0.58 L Est Glomerular Filtrat Rate mL/min > 60 Glucose Level 77 Calcium Level 9.3 Phosphorus Level 3.9 Magnesium Level 1.8 Subjective 24 Hr Interval Summary Free Text/Dictation Still with nausea, poor PO tolerance Exam/Review of Systems Exam Vitals Vital Signs Date Temp Pulse Resp B/P (MAP) Pulse Ox O2 O2 Flow FiO2 Time Delivery Rate 09/09/18 98.5 87 20 181/106 Room Air 07:44 (131) 09/08/18 98 20:00 Intake and Output 09/08/18 09/08/18 09/09/18 1515:00 23:00 07:00 IntakeIntake Total 640 ml 480 ml OutputOutput Total 525 ml BalanceBalance 640 ml -45 ml Constitutional: alert, oriented, well developed Psych: no complaints, nl mood/affect Head: normocephalic, atraumatic Eyes: nl conjunctiva, EOMI, nl lids, nl sclera, PERRL ENMT: nl external ears & nose, nl lips & teeth, nl nasal mucosa & septum Neck: supple, non-tender Respiratory: clear to auscultation, normal air movement Cardiovascular: regular rate and rhythm, nl pulses Gastrointestinal: soft, nl liver, spleen, non-tender Musculoskeletal: nl extremities to inspection, nl gait and stance Extremities: normal pulses Neurological: CUSTOMER ENGAGEMENT ANALYST II-XII intact, nl mental status, nl speech, nl strength Skin: nl turgor; No rash or lesions Lymph: nl lymph nodes Results Results 24hrs Laboratory Tests Test 09/09/18 06:04 White Blood Count 6.5 # Red Blood Count 5.01 Hemoglobin 11.7 L Hematocrit 38.6 L Mean Corpuscular Volume 77.0 L Mean Corpuscular Hemoglobin 23.4 L Mean Corpuscular Hemoglobin Concent 30.3 L Red Cell Distribution Width 19.6 H Platelet Count 270 Mean Platelet Volume 10.3 Immature Granulocytes % 0.300 Neutrophils % 56.4 Lymphocytes % 28.4 Monocytes % 9.4 Eosinophils % 4.9 Basophils % 0.6 Nucleated Red Blood Cells % 0.0 Immature Granulocytes # 0.020 Neutrophils # 3.7 Lymphocytes # 1.9 Monocytes # 0.6 Eosinophils # 0.3 Basophils # 0.0 Nucleated Red Blood Cells # 0.0 Sodium Level 141 Potassium Level 2.9 *L Chloride Level 104 Carbon Dioxide Level 24 Anion Gap 13 Blood Urea Nitrogen 5 L Creatinine 0.58 L Est Glomerular Filtrat Rate mL/min > 60 Glucose Level 77 Calcium Level 9.3 Phosphorus Level 3.9 Magnesium Level 1.8 Medications Medication Current Medications IV Flush (NS 3 ml) 3 ml PER PROTOCOL IV ; Start 08/24/18 at 19:30 Docusate Sodium (Colace) 100 mg Q12H PRN PO .CONSTIPATION; Start 08/24/18 at 19:30 Magnesium Hydroxide (Milk Of Mag) 30 ml DAILY PRN PO .CONSTIPATION; Start 08/24/18 at 19:30 Lorazepam (Ativan) 0.5 mg Q6H PRN IV ANXIETY; Start 08/24/18 at 19:30 Albuterol/ Ipratropium (Duoneb) 3 ml Q4H RESP THERAPY PRN HHN SHORTNESS OF BREATH; Start 08/24/18 at 19:30 Nitroglycerin (Nitroglycerin (Sl Tab) 0.4 Mg) 1 tab Q5M PRN SL ANGINA; Start 08/24/18 at 19:30 Hydralazine HCl (Apresoline) 10 mg Q4H PRN IV sbp >160 Last administered on 09/09/18 08:12; Admin Dose 10 MG; Start 08/24/18 at 20:00 Hydromorphone HCl (Dilaudid) 1 mg Q3H PRN IV SEVERE PAIN LEVEL 7-10 Last administered on 09/09/18 10:42; Admin Dose 1 MG; Start 08/24/18 at 20:00 Labetalol HCl (Labetalol) 10 mg Q4H PRN IV sbp>160 Last administered on 09/06/18at 08:41; Admin Dose 10 MG; Start 08/24/18 at 21:00 Docusate Sodium (Colace Liquid Cup) 100 mg BID GTB Last administered on 09/06/18at 20:36; Admin Dose 100 MG; Start 08/26/18 at 21:00 Senna (Senokot) 1 tab BID GTB Last administered on 09/07/18 08:06; Admin Dose 1 TAB; Start 08/26/18 at 21:00 Nicotine (Nicoderm 21 Mg/ 24hr) 1 patch DAILY TRANSDERM Last administered on 09/09/18at 08:11; Admin Dose 1 PATCH; Start 08/27/18 at 10:30 Sodium Chloride 1,000 ml @ 75 mls/hr [id number] IV ; Start 08/30/18 at 00:00 Lisinopril (Zestril) 40 mg DAILY PO Last administered on 09/08/18 09:27; Admin Dose 40 MG; Start 08/31/18 at 09:00 Ondansetron HCl 8 mg/Sodium Chloride 54 ml @ 216 mls/hr Q4H PRN IV NAUSEA AND/OR VOMITING Last administered on 09/03/18at 20:04; Admin Dose 216 MLS/HR; Start 08/30/18 at 10:30 Pantoprazole (Protonix Tab) 40 mg DAILY@06 PO ; Start 09/06/18 at 06:00 Hydralazine HCl (Apresoline) 25 mg TID PO ; Start 09/08/18 at 21:00 Potassium Chloride 100 ml @ 50 mls/hr Q2H IVPB ; Start 09/09/18 at 10:00; Stop 09/09/18 at 15:59 SUZY ROMANO MD Sep 09, 2018 13:48
[2018-09-09 14:22] VITALS: BP 173/106; PULSE 105; RESP 18
[2018-09-09] MEDS: ONDANSETRON 4 MG INJ IV PRN (17:51)
[2018-09-09] MEDS ORDERED: HYDROmorphONE 1 MG/ML SYG IV ONE (18:00)
[2018-09-09 19:35] VITALS: BP 169/93; PULSE 87; RESP 18
[2018-09-09] MEDS ORDERED: HYDROmorphONE 1 MG/ML SYG IV PRN (20:00)
[2018-09-10 01:17] VITALS: BP 171/97; PULSE 97; RESP 18
[2018-09-10 01:55] VITALS: BP 136/96; PULSE 84
[2018-09-10] MEDS: HYDROmorphONE 1 MG/ML SYG IV PRN ×5 (02:34→22:25)
[2018-09-10] MEDS: SOD CHLORIDE 0.9% 1,000 ML IV SCH ×2 (02:34→14:50)
[2018-09-10] MEDS: PANTOPRAZOLE (EC) 40 MG TAB PO SCH (06:00)
[2018-09-10] MEDS ORDERED: HYDROmorphONE 1 MG/ML SYG IV PRN (06:30)
[2018-09-10 07:29] VITALS: BP 148/86; PULSE 86; RESP 18
[2018-09-10] MEDS: SENNA TAB GTB SCH ×2 (09:00→21:00)
[2018-09-10] MEDS: DOCUSATE SODIUM 10 MG/ML (10ML CUP) GTB SCH ×2 (09:00→21:00)
[2018-09-10] MEDS: LISINOPRIL 20 MG TAB PO SCH (09:00)
[2018-09-10] MEDS: NICOTINE (21 MG/24 HR) PATCH TRANSDERM SCH (09:55)
[2018-09-10] MEDS ORDERED: morphine (ER) 15 MG TAB PO SCH (14:00)
[2018-09-10 14:12] VITALS: BP 163/101; PULSE 79; RESP 16
--- NOTE | 2018-09-10 14:27 | PN ---
Date/Time of Note Date/Time of Note DATE: 09/10/18 TIME: 14:26 Assessment/Plan VTE Prophylaxis Risk score (from Nsg)>0 risk: 2 SCD applied (from Ns): Yes Pharmacological prophylaxis: heparin Lines/Catheters IV Catheter Type (from Nrsg): Saline Lock Urinary Cath still in place: No Assessment/Plan Hospital Course 43 yo male with h/o gall stone pancreatis, complicated by chronic pancreatitis wtih pseudocyst and necrosis. Admitted for nausea, pain, PO intolerance 1. Acute on chronic pancreatitis - Continue pain control -Patient will likely need pancreatic resection and is now agreeable for transfer to higher level of care, casework supervisor is arranging for transfer to [place] to be seen by Dr. Malagon of hepatobiliary surgery, he is expecting the patient at [place], plan is for EUS to be done at [place] for evaluation of need for surgery - CT scan abd showing worsening necrosis. Surgery on board and recommending higher level of care. - continue full liquids as tolerated - IVF on board -Patient has been on antibiotics for 2 weeks now, will now DC 2. Nausea/vomiting-2/2 to above - Monitor -Patient is unable to eat at this time 3. Hypertension -Patient would like to DC Norvasc as he states that he has an adverse reaction to this medication, continue lisinopril and have added hydralazine 4. anemia - Mild, monitor - no need for transfusion at this time 5. hypokalemia-stable - states that he has a reaction to products with potassium but willing to try orange juice and bananas Prophylaxis: SCDs DC planning: Currently working on transfer to [place] Result Diagram: 09/09/18 0604 09/10/18 0922 Results 24hrs Laboratory Tests Test 09/10/18 09:22 Sodium Level 142 Potassium Level 3.1 L Chloride Level 102 Carbon Dioxide Level 30 Anion Gap 10 Blood Urea Nitrogen 7 Creatinine 0.65 Est Glomerular Filtrat Rate mL/min > 60 Glucose Level 102 Calcium Level 9.6 Subjective 24 Hr Interval Summary Free Text/Dictation Very unhappy with his pain control. Wants IV dilaudid only. Fentanyl patch ineffective he says. Claims allergy to Morphine Exam/Review of Systems Exam Vitals Vital Signs Date Temp Pulse Resp B/P (MAP) Pulse Ox O2 O2 Flow FiO2 Time Delivery Rate 09/10/18 98.6 79 16 163/101 97 14:12 (121) 09/09/18 Room Air 07:44 Intake and Output 09/09/18 09/09/18 09/10/18 1515:00 23:00 07:00 IntakeIntake Total 360 ml 320 ml OutputOutput Total 100 ml BalanceBalance 260 ml 320 ml Constitutional: alert, oriented, well developed Psych: no complaints, nl mood/affect Head: normocephalic, atraumatic Eyes: nl conjunctiva, EOMI, nl lids, nl sclera, PERRL ENMT: nl external ears & nose, nl lips & teeth, nl nasal mucosa & septum Neck: supple, non-tender Respiratory: clear to auscultation, normal air movement Cardiovascular: regular rate and rhythm, nl pulses Gastrointestinal: soft, nl liver, spleen, non-tender Musculoskeletal: nl extremities to inspection, nl gait and stance Extremities: normal pulses Neurological: OFFSET LITHOGRAPHIC PRESS OPERATOR II-XII intact, nl mental status, nl speech, nl strength Skin: nl turgor; No rash or lesions Lymph: nl lymph nodes Results Results 24hrs Laboratory Tests Test 09/10/18 09:22 Sodium Level 142 Potassium Level 3.1 L Chloride Level 102 Carbon Dioxide Level 30 Anion Gap 10 Blood Urea Nitrogen 7 Creatinine 0.65 Est Glomerular Filtrat Rate mL/min > 60 Glucose Level 102 Calcium Level 9.6 Medications Medication Current Medications IV Flush (NS 3 ml) 3 ml PER PROTOCOL IV ; Start 08/24/18 at 19:30 Docusate Sodium (Colace) 100 mg Q12H PRN PO .CONSTIPATION; Start 08/24/18 at 19:30 Magnesium Hydroxide (Milk Of Mag) 30 ml DAILY PRN PO .CONSTIPATION; Start 08/24/18 at 19:30 Lorazepam (Ativan) 0.5 mg Q6H PRN IV ANXIETY; Start 08/24/18 at 19:30 Albuterol/ Ipratropium (Duoneb) 3 ml Q4H RESP THERAPY PRN HHN SHORTNESS OF BREATH; Start 08/24/18 at 19:30 Nitroglycerin (Nitroglycerin (Sl Tab) 0.4 Mg) 1 tab Q5M PRN SL ANGINA; Start at 19:30 Hydralazine HCl (Apresoline) 10 mg Q4H PRN IV sbp >160 Last administered on 09/09/18 22:31; Admin Dose 10 MG; Start 08/24/18 at 20:00 Labetalol HCl (Labetalol) 10 mg Q4H PRN IV sbp>160 Last administered on 09/06/18 08:41; Admin Dose 10 MG; Start 08/24/18 at 21:00 Docusate Sodium (Colace Liquid Cup) 100 mg BID GTB Last administered on 09/06/18 20:36; Admin Dose 100 MG; Start 08/26/18 at 21:00 Senna (Senokot) 1 tab BID GTB Last administered on 09/07/18 08:06; Admin Dose 1 TAB; Start 08/26/18 at 21:00 Nicotine (Nicoderm 21 Mg/ 24hr) 1 patch DAILY TRANSDERM Last administered on 09/10/18 09:55; Admin Dose 1 PATCH; Start 08/27/18 at 10:30 Sodium Chloride 1,000 ml @ 75 mls/hr [id number] IV ; Start 08/30/18 at 00:00 Lisinopril (Zestril) 40 mg DAILY PO Last administered on 09/08/18 09:27; Admin Dose 40 MG; Start 08/31/18 at 09:00 Ondansetron HCl 8 mg/Sodium Chloride 54 ml @ 216 mls/hr Q4H PRN IV NAUSEA AND/OR VOMITING Last administered on 09/03/18 20:04; Admin Dose 216 MLS/HR; Start 08/30/18 at 10:30 Pantoprazole (Protonix Tab) 40 mg DAILY@06 PO ; Start 09/06/18 at 06:00 Hydralazine HCl (Apresoline) 25 mg TID PO ; Start 09/08/18 at 21:00 Ondansetron HCl (Zofran Inj) 4 mg Q4H PRN IV NAUSEA AND/OR VOMITING Last administered on 09/09/18 17:51; Admin Dose 4 MG; Start 09/09/18 at 15:30 Hydromorphone HCl (Dilaudid) 1 mg Q4H PRN IV SEVERE PAIN LEVEL 7-10; Start 09/10/18 at 14:30 Oxycodone HCl (Oxycontin) 15 mg BID PO ; Start 09/10/18 at 14:30; Status UNV MILGROM,SUZY K MD Sep 10, 2018 14:27
[2018-09-10] MEDS: oxyCODONE (CR) 15 MG TAB [oxyCONTIN] PO SCH ×2 (14:30→21:00)
[2018-09-10] MEDS: hydrALAzine 20 MG INJ IV PRN (14:38)
[2018-09-10 17:12] VITALS: BP 160/94; PULSE 82
[2018-09-10 19:26] VITALS: BP 146/103; PULSE 86; RESP 18
[2018-09-11 01:42] VITALS: BP 172/110; PULSE 75; RESP 18
[2018-09-11] MEDS: hydrALAzine 20 MG INJ IV PRN ×3 (02:35→20:04)
[2018-09-11] MEDS: HYDROmorphONE 1 MG/ML SYG IV PRN ×6 (02:35→23:58)
[2018-09-11] MEDS: SOD CHLORIDE 0.9% 1,000 ML IV SCH ×2 (05:20→18:32)
[2018-09-11] MEDS: PANTOPRAZOLE (EC) 40 MG TAB PO SCH (05:31)
[2018-09-11 07:26] VITALS: BP 179/115; PULSE 91; RESP 18
[2018-09-11] MEDS: NICOTINE (21 MG/24 HR) PATCH TRANSDERM SCH (07:29)
[2018-09-11] MEDS: LISINOPRIL 20 MG TAB PO SCH (09:00)
[2018-09-11] MEDS: DOCUSATE SODIUM 10 MG/ML (10ML CUP) GTB SCH ×2 (09:00→21:00)
[2018-09-11] MEDS: oxyCODONE (CR) 15 MG TAB [oxyCONTIN] PO SCH ×2 (09:00→21:00)
[2018-09-11] MEDS: SENNA TAB GTB SCH ×2 (09:00→21:00)
[2018-09-11 13:18] VITALS: BP 166/111; PULSE 117; RESP 18
--- NOTE | 2018-09-11 13:21 | PN ---
Date/Time of Note Date/Time of Note DATE: 09/11/18 TIME: 13:20 Assessment/Plan VTE Prophylaxis Risk score (from Nsg)>0 risk: 2 SCD applied (from Nsg): Yes Pharmacological prophylaxis: heparin Lines/Catheters IV Catheter Type (from Nrsg): Peripheral IV Urinary Cath still in place: No Assessment/Plan Hospital Course 43 yo male with h/o gall stone pancreatis, complicated by chronic pancreatitis wtih pseudocyst and necrosis. Admitted for nausea, pain, PO intolerance 1. Acute on chronic pancreatitis - Continue pain control -Patient will likely need pancreatic resection and is now agreeable for transfer to higher level of care, therapeutic case manager is arranging for transfer to [place] to be seen by Dr. Malagon of hepatobiliary surgery, he is expecting the patient at [place], plan is for EUS to be done at [place] for evaluation of need for surgery - CT scan abd showing worsening necrosis. Surgery on board and recommending higher level of care. - continue full liquids as tolerated - IVF on board -Patient has been on antibiotics for 2 weeks now, will now DC 2. Nausea/vomiting-2/2 to above - Monitor -Patient is unable to eat at this time 3. Hypertension -Patient would like to DC Norvasc as he states that he has an adverse reaction to this medication, continue lisinopril and have added hydralazine 4. anemia - Mild, monitor - no need for transfusion at this time 5. hypokalemia-stable - states that he has a reaction to products with potassium but willing to try orange juice and bananas Prophylaxis: SCDs DC planning: Currently working on transfer to [place] Result Diagram: 09/09/18 0604 09/10/18 0922 Subjective 24 Hr Interval Summary Free Text/Dictation Continues to have pain and nausea Very frustrated Exam/Review of Systems Exam Vitals Vital Signs Date Temp Pulse Resp B/P (MAP) Pulse Ox O2 O2 Flow FiO2 Time Delivery Rate 09/11/18 98.2 117 18 166/111 96 13:18 (129) 09/09/18 Room Air 07:44 Intake and Output 09/10/18 09/10/18 09/11/18 1515:00 23:00 07:00 IntakeIntake Total 560 ml 240 ml OutputOutput Total 200 ml BalanceBalance 560 ml 240 ml -200 ml Constitutional: alert, oriented, well developed Psych: no complaints, nl mood/affect Head: normocephalic, atraumatic Eyes: nl conjunctiva, EOMI, nl lids, nl sclera, PERRL ENMT: nl external ears & nose, nl lips & teeth, nl nasal mucosa & septum Neck: supple, non-tender Respiratory: clear to auscultation, normal air movement Cardiovascular: regular rate and rhythm, nl pulses Gastrointestinal: soft, nl liver, spleen, non-tender Musculoskeletal: nl extremities to inspection, nl gait and stance Extremities: normal pulses Neurological: INFANT ROOM TEACHER II-XII intact, nl mental status, nl speech, nl strength Skin: nl turgor; No rash or lesions Lymph: nl lymph nodes Medications Medication Current Medications IV Flush (NS 3 ml) 3 ml PER PROTOCOL IV ; Start 08/24/18 at 19:30 Docusate Sodium (Colace) 100 mg Q12H PRN PO .CONSTIPATION; Start 08/24/18 at 19:30 Magnesium Hydroxide (Milk Of Mag) 30 ml DAILY PRN PO .CONSTIPATION; Start 08/24/18 at 19:30 Lorazepam (Ativan) 0.5 mg Q6H PRN IV ANXIETY; Start 08/24/18 at 19:30 Albuterol/ Ipratropium (Duoneb) 3 ml Q4H RESP THERAPY PRN HHN SHORTNESS OF BREATH; Start 08/24/18 at 19:30 Nitroglycerin (Nitroglycerin (Sl Tab) 0.4 Mg) 1 tab Q5M PRN SL ANGINA; Start 08/24/18 at 19:30 Hydralazine HCl (Apresoline) 10 mg Q4H PRN IV sbp >160 Last administered on 09/11/18at 07:36; Admin Dose 10 MG; Start 08/24/18 at 20:00 Labetalol HCl (Labetalol) 10 mg Q4H PRN IV sbp>160 Last administered on 09/06/18at 08:41; Admin Dose 10 MG; Start 08/24/18 at 21:00 Docusate Sodium (Colace Liquid Cup) 100 mg BID GTB Last administered on 09/06/18at 20:36; Admin Dose 100 MG; Start 08/26/18 at 21:00 Senna (Senokot) 1 tab BID GTB Last administered on 09/07/18 08:06; Admin Dose 1 TAB; Start 08/26/18 at 21:00 Nicotine (Nicoderm 21 Mg/ 24hr) 1 patch DAILY TRANSDERM Last administered on 09/11/18 07:29; Admin Dose 1 PATCH; Start 08/27/18 at 10:30 Sodium Chloride 1,000 ml @ 75 mls/hr [id number] IV ; Start 08/30/18 at 00:00 Lisinopril (Zestril) 40 mg DAILY PO Last administered on 09/08/18 09:27; Admin Dose 40 MG; Start 08/31/18 at 09:00 Ondansetron HCl 8 mg/Sodium Chloride 54 ml @ 216 mls/hr Q4H PRN IV NAUSEA AND/OR VOMITING Last administered on 09/03/18 20:04; Admin Dose 216 MLS/HR; Start 08/30/18 at 10:30 Pantoprazole (Protonix Tab) 40 mg DAILY@06 PO ; Start 09/06/18 at 06:00 Hydralazine HCl (Apresoline) 25 mg TID PO ; Start 09/08/18 at 21:00 Ondansetron HCl (Zofran Inj) 4 mg Q4H PRN IV NAUSEA AND/OR VOMITING Last administered on 09/09/18 17:51; Admin Dose 4 MG; Start 09/09/18 at 15:30 Hydromorphone HCl (Dilaudid) 1 mg Q4H PRN IV SEVERE PAIN LEVEL 7-10 Last administered on 09/11/18 11:50; Admin Dose 1 MG; Start 09/10/18 at 14:30 Oxycodone HCl (Oxycontin) 15 mg BID PO ; Start 09/10/18 at 14:30 SUZY ROMANO MD Sep 11, 2018 13:21
[2018-09-11 13:40] VITALS: PULSE 106
[2018-09-11 14:02] VITALS: PULSE 98
[2018-09-11 19:29] VITALS: BP 183/112; PULSE 87; RESP 18
[2018-09-12] MEDS: hydrALAzine 20 MG INJ IV PRN ×3 (01:52→21:36)
[2018-09-12 01:58] VITALS: BP 176/100; PULSE 83; RESP 20
[2018-09-12] MEDS: HYDROmorphONE 1 MG/ML SYG IV PRN ×6 (03:58→23:53)
[2018-09-12] MEDS: PANTOPRAZOLE (EC) 40 MG TAB PO SCH (06:00)
[2018-09-12] MEDS: SOD CHLORIDE 0.9% 1,000 ML IV SCH (08:00)
[2018-09-12] MEDS: NICOTINE (21 MG/24 HR) PATCH TRANSDERM SCH (08:02)
[2018-09-12 08:10] VITALS: BP 182/112; PULSE 106; RESP 18
[2018-09-12] MEDS: LISINOPRIL 20 MG TAB PO SCH (08:12)
[2018-09-12] MEDS: oxyCODONE (CR) 15 MG TAB [oxyCONTIN] PO SCH (08:12)
[2018-09-12] MEDS: SENNA TAB GTB SCH (08:12)
[2018-09-12] MEDS: DOCUSATE SODIUM 10 MG/ML (10ML CUP) GTB SCH ×2 (08:12→20:31)
[2018-09-12 13:05] VITALS: BP 178/129; PULSE 89; RESP 18
--- NOTE | 2018-09-12 14:46 | PN ---
Date/Time of Note Date/Time of Note DATE: 09/12/18 TIME: 14:45 Assessment/Plan VTE Prophylaxis Risk score (from Nsg)>0 risk: 2 SCD applied (from Ns): Yes Pharmacological prophylaxis: heparin Lines/Catheters IV Catheter Type (from Nrsg): Saline Lock Urinary Cath still in place: No Assessment/Plan Hospital Course 43 yo male with h/o gall stone pancreatis, complicated by chronic pancreatitis wtih pseudocyst and necrosis. Admitted for nausea, pain, PO intolerance Acute on chronic pancreatitis - Continue pain control -Patient will likely need pancreatic resection and is now agreeable for transfer to higher level of care, window caser is arranging for transfer to [place] to be seen by Dr. Malagon of hepatobiliary surgery, he is expecting the patient at [place], plan is for EUS to be done at [place] for evaluation of need for surgery - CT scan abd showing worsening necrosis. Surgery on board and recommending higher level of care. - continue full liquids as tolerated - IVF on board -Patient has been on antibiotics for 2 weeks now, will now DC 2. Nausea/vomiting-2/2 to above - Monitor -Patient is unable to eat at this time 3. Hypertension - Refusing medications 4. anemia - Mild, monitor - no need for transfusion at this time 5. hypokalemia-stable - states that he has a reaction to products with potassium but willing to try orange juice and bananas Prophylaxis: SCDs DC planning: Currently working on transfer to [place] Result Diagram: 09/09/18 0604 09/10/18 0922 Subjective 24 Hr Interval Summary Free Text/Dictation Continues to be very nauseaous and with abdominal pain Refusing all interventions We continue to work on transfer to center capable of EUS Exam/Review of Systems Exam Vitals Vital Signs Date Temp Pulse Resp B/P (MAP) Pulse Ox O2 O2 Flow FiO2 Time Delivery Rate 09/12/18 98.4 89 18 178/129 98 Room Air 13:05 (145) Intake and Output 09/11/18 09/11/18 09/12/18 1515:00 23:00 07:00 IntakeIntake Total 240 ml OutputOutput Total 550 ml BalanceBalance 240 ml -550 ml Constitutional: alert, oriented, well developed Psych: no complaints, nl mood/affect Head: normocephalic, atraumatic Eyes: nl conjunctiva, EOMI, nl lids, nl sclera, PERRL ENMT: nl external ears & nose, nl lips & teeth, nl nasal mucosa & septum Neck: supple, non-tender Respiratory: clear to auscultation, normal air movement Cardiovascular: regular rate and rhythm, nl pulses Gastrointestinal: soft, nl liver, spleen, non-tender Musculoskeletal: nl extremities to inspection, nl gait and stance Extremities: normal pulses Neurological: ASSISTANT PROSECUTING ATTORNEY II-XII intact, nl mental status, nl speech, nl strength Skin: nl turgor; No rash or lesions Lymph: nl lymph nodes Medications Medication Current Medications IV Flush (NS 3 ml) 3 ml PER PROTOCOL IV ; Start 08/24/18 at 19:30 Docusate Sodium (Colace) 100 mg Q12H PRN PO .CONSTIPATION; Start 08/24/18 at 19:30 Magnesium Hydroxide (Milk Of Mag) 30 ml DAILY PRN PO .CONSTIPATION; Start 08/24/18 at 19:30 Lorazepam (Ativan) 0.5 mg Q6H PRN IV ANXIETY; Start 08/24/18 at 19:30 Albuterol/ Ipratropium (Duoneb) 3 ml Q4H RESP THERAPY PRN HHN SHORTNESS OF BREATH; Start 08/24/18 at 19:30 Nitroglycerin (Nitroglycerin (Sl Tab) 0.4 Mg) 1 tab Q5M PRN SL ANGINA; Start 08/24/18 at 19:30 Hydralazine HCl (Apresoline) 10 mg Q4H PRN IV sbp >160 Last administered on 09/12/18 01:52; Admin Dose 10 MG; Start 08/24/18 at 20:00 Labetalol HCl (Labetalol) 10 mg Q4H PRN IV sbp>160 Last administered on 09/06/18 08:41; Admin Dose 10 MG; Start 08/24/18 at 21:00 Docusate Sodium (Colace Liquid Cup) 100 mg BID GTB Last administered on 09/06/18 20:36; Admin Dose 100 MG; Start 08/26/18 at 21:00 Senna (Senokot) 1 tab BID GTB Last administered on 09/07/18 08:06; Admin Dose 1 TAB; Start 08/26/18 at 21:00 Nicotine (Nicoderm 21 Mg/ 24hr) 1 patch DAILY TRANSDERM Last administered on 09/12/18at 08:02; Admin Dose 1 PATCH; Start 08/27/18 at 10:30 Sodium Chloride 1,000 ml @ 75 mls/hr [id number] IV ; Start 08/30/18 at 00:00 Lisinopril (Zestril) 40 mg DAILY PO Last administered on 09/08/18at 09:27; Admin Dose 40 MG; Start 08/31/18 at 09:00 Ondansetron HCl 8 mg/Sodium Chloride 54 ml @ 216 mls/hr Q4H PRN IV NAUSEA AND/OR VOMITING Last administered on 09/03/18at 20:04; Admin Dose 216 MLS/HR; Start 08/30/18 at 10:30 Pantoprazole (Protonix Tab) 40 mg DAILY@06 PO ; Start 09/06/18 at 06:00 Hydralazine HCl (Apresoline) 25 mg TID PO ; Start 09/08/18 at 21:00 Ondansetron HCl (Zofran Inj) 4 mg Q4H PRN IV NAUSEA AND/OR VOMITING Last administered on 09/09/18at 17:51; Admin Dose 4 MG; Start 09/09/18 at 15:30 Hydromorphone HCl (Dilaudid) 1 mg Q4H PRN IV SEVERE PAIN LEVEL 7-10 Last administered on 09/12/18at 12:02; Admin Dose 1 MG; Start 09/10/18 at 14:30 Oxycodone HCl (Oxycontin) 15 mg BID PO ; Start 09/10/18 at 14:30 SUZY ROMANO MD Sep 12, 2018 14:46
[2018-09-12] MEDS: POTASSIUM CHLORIDE 40 MEQ in SOD CHLORIDE 0.45% 1,000 ML IV SCH (17:30)
[2018-09-12] MEDS: PANTOPRAZOLE 40 MG INJ IV SCH (17:49)
[2018-09-12 20:00] VITALS: BP 189/109; PULSE 88; RESP 19
[2018-09-12 20:59] VITALS: BP 179/110; PULSE 90; RESP 19
[2018-09-12] MEDS: METHADONE 10 MG TAB PO SCH (21:35)
[2018-09-13 02:00] VITALS: BP 188/105; PULSE 104; RESP 19
[2018-09-13] MEDS: POTASSIUM CHLORIDE 40 MEQ in SOD CHLORIDE 0.45% 1,000 ML IV SCH ×3 (02:35→23:30)
[2018-09-13] MEDS: HYDROmorphONE 1 MG/ML SYG IV PRN ×4 (03:57→17:05)
[2018-09-13] MEDS: PANTOPRAZOLE 40 MG INJ IV SCH ×2 (05:10→18:00)
[2018-09-13] MEDS: METHADONE 10 MG TAB PO SCH ×2 (05:10→14:00)
[2018-09-13 07:41] VITALS: BP 178/112; PULSE 104; RESP 18
[2018-09-13] MEDS: ONDANSETRON 4 MG INJ IV PRN ×2 (07:57→17:08)
[2018-09-13] MEDS: LISINOPRIL 20 MG TAB PO SCH (09:00)
[2018-09-13] MEDS: DOCUSATE SODIUM 10 MG/ML (10ML CUP) GTB SCH ×2 (09:00→21:00)
[2018-09-13] MEDS: hydrALAzine 20 MG INJ IV PRN (09:11)
[2018-09-13] MEDS: NICOTINE (21 MG/24 HR) PATCH TRANSDERM SCH (09:11)
[2018-09-13] MEDS: DEXTROSE 5%-0.45% NACL 1,000 ML IV SCH ×2 (09:30→19:30)
[2018-09-13 14:21] VITALS: BP 161/92; PULSE 104; RESP 17
--- NOTE | 2018-09-13 15:18 | PN ---
Date/Time of Note Date/Time of Note DATE: 09/13/18 TIME: 15:10 Assessment/Plan VTE Prophylaxis Risk score (from Nsg)>0 risk: 2 SCD applied (from Ns): Yes Pharmacological prophylaxis: heparin Lines/Catheters IV Catheter Type (from Nrsg): Saline Lock Urinary Cath still in place: No Assessment/Plan Hospital Course 43 yo male with h/o gall stone pancreatis, complicated by chronic pancreatitis wtih pseudocyst and necrosis. Admitted for nausea, pain, PO intolerance Acute on chronic pancreatitis - I tried to have patient transferred but 2 hepatobiliary surgeons do not believe her requires any further workup and suggest continued medical management of symptoms - Continue pain control (he is only accepting dilaudid IV which I am very hesitant to continue giving, and would prefer long acting agents but he will not accept them) - Continue IV fluids - I have offered TPN for inability to tolerate PO, but the patient refuses this Hypertension - Refusing medications nemia - Mild, monitor - no need for transfusion at this time hypokalemia-stable - states that he has a reaction to products with potassium but willing to try orange juice and bananas Prophylaxis: SCDs DC planning: Patient no longer a candidate for transfer as no need for further workup per biliary surgeons. Can go home when he is willing. This is limited by his clear opiate dependence Result Diagram: 09/13/18 0532 09/13/18 0532 Results 24hrs Laboratory Tests Test 09/13/18 05:32 White Blood Count 5.9 Red Blood Count 5.30 Hemoglobin 12.3 L Hematocrit 39.7 L Mean Corpuscular Volume 74.9 L Mean Corpuscular Hemoglobin 23.2 L Mean Corpuscular Hemoglobin Concent 31.0 L Red Cell Distribution Width 19.9 H Platelet Count 276 Mean Platelet Volume 10.9 H Immature Granulocytes % 0.200 Neutrophils % 62.4 Lymphocytes % 25.6 Monocytes % 8.5 Eosinophils % 2.4 Basophils % 0.9 Nucleated Red Blood Cells % 0.0 Immature Granulocytes # 0.010 Neutrophils # 3.7 Lymphocytes # 1.5 Monocytes # 0.5 Eosinophils # 0.1 Basophils # 0.1 Nucleated Red Blood Cells # 0.0 Sodium Level 145 H Potassium Level 3.0 L Chloride Level 103 Carbon Dioxide Level 27 Anion Gap 15 H Blood Urea Nitrogen 8 Creatinine 0.52 L Est Glomerular Filtrat Rate mL/min > 60 Glucose Level 91 Calcium Level 9.9 Total Bilirubin 0.2 Direct Bilirubin 0.00 Indirect Bilirubin 0.2 Aspartate Amino Transf (AST/SGOT) 38 Alanine Aminotransferase (ALT/SGPT) 23 Alkaline Phosphatase 77 Total Protein 6.8 Albumin 3.7 Globulin 3.10 Albumin/Globulin Ratio 1.19 Subjective 24 Hr Interval Summary Free Text/Dictation Yesterday I spoke to hepatobiliary surgery at [facility] and [facility] Neither belive patient needs transfer or surgery or EUS. Recommend continued sympaomtic management Patient has continued nausea and vomiting. Continue pain. Refusing all interventions otherwise Exam/Review of Systems Exam Vitals Vital Signs Date Temp Pulse Resp B/P (MAP) Pulse Ox O2 O2 Flow FiO2 Time Delivery Rate 09/13/18 99.1 104 17 161/92 100 Room Air 14:21 (115) Intake and Output 09/12/18 09/12/18 09/13/18 1414:59 22:59 06:59 IntakeIntake Total 240 ml OutputOutput Total 200 ml BalanceBalance 240 ml -200 ml Constitutional: alert, oriented, well developed Psych: no complaints, nl mood/affect Head: normocephalic, atraumatic Eyes: nl conjunctiva, EOMI, nl lids, nl sclera, PERRL ENMT: nl external ears & nose, nl lips & teeth, nl nasal mucosa & septum Neck: supple, non-tender Respiratory: clear to auscultation, normal air movement Cardiovascular: regular rate and rhythm, nl pulses Gastrointestinal: soft, nl liver, spleen, non-tender Musculoskeletal: nl extremities to inspection, nl gait and stance Extremities: normal pulses Neurological: VERIFIER OPERATOR II-XII intact, nl mental status, nl speech, nl strength Skin: nl turgor; No rash or lesions Lymph: nl lymph nodes Results Results 24hrs Laboratory Tests Test 09/13/18 05:32 White Blood Count 5.9 Red Blood Count 5.30 Hemoglobin 12.3 L Hematocrit 39.7 L Mean Corpuscular Volume 74.9 L Mean Corpuscular Hemoglobin 23.2 L Mean Corpuscular Hemoglobin Concent 31.0 L Red Cell Distribution Width 19.9 H Platelet Count 276 Mean Platelet Volume 10.9 H Immature Granulocytes % 0.200 Neutrophils % 62.4 Lymphocytes % 25.6 Monocytes % 8.5 Eosinophils % 2.4 Basophils % 0.9 Nucleated Red Blood Cells % 0.0 Immature Granulocytes # 0.010 Neutrophils # 3.7 Lymphocytes # 1.5 Monocytes # 0.5 Eosinophils # 0.1 Basophils # 0.1 Nucleated Red Blood Cells # 0.0 Sodium Level 145 H Potassium Level 3.0 L Chloride Level 103 Carbon Dioxide Level 27 Anion Gap 15 H Blood Urea Nitrogen 8 Creatinine 0.52 L Est Glomerular Filtrat Rate mL/min > 60 Glucose Level 91 Calcium Level 9.9 Total Bilirubin 0.2 Direct Bilirubin 0.00 Indirect Bilirubin 0.2 Aspartate Amino Transf (AST/SGOT) 38 Alanine Aminotransferase (ALT/SGPT) 23 Alkaline Phosphatase 77 Total Protein 6.8 Albumin 3.7 Globulin 3.10 Albumin/Globulin Ratio 1.19 Medications Medication Current Medications IV Flush (NS 3 ml) 3 ml PER PROTOCOL IV ; Start 08/24/18 at 19:30 Docusate Sodium (Colace) 100 mg Q12H PRN PO .CONSTIPATION; Start 08/24/18 at 19:30 Magnesium Hydroxide (Milk Of Mag) 30 ml DAILY PRN PO .CONSTIPATION; Start 08/24/18 at 19:30 Lorazepam (Ativan) 0.5 mg Q6H PRN IV ANXIETY; Start 08/24/18 at 19:30 Albuterol/ Ipratropium (Duoneb) 3 ml Q4H RESP THERAPY PRN HHN SHORTNESS OF BREATH; Start 08/24/18 at 19:30 Nitroglycerin (Nitroglycerin (Sl Tab) 0.4 Mg) 1 tab Q5M PRN SL ANGINA; Start 08/24/18 at 19:30 Hydralazine HCl (Apresoline) 10 mg Q4H PRN IV sbp >160 Last administered on 09/13/18at 09:11; Admin Dose 10 MG; Start 08/24/18 at 20:00 Labetalol HCl (Labetalol) 10 mg Q4H PRN IV sbp>160 Last administered on 9at 08:41; Admin Dose 10 MG; Start 08/24/18 at 21:00 Docusate Sodium (Colace Liquid Cup) 100 mg BID GTB Last administered on 09/06/18at 20:36; Admin Dose 100 MG; Start 08/26/18 at 21:00 Nicotine (Nicoderm 21 Mg/ 24hr) 1 patch DAILY TRANSDERM Last administered on 09/13/18 09:11; Admin Dose 1 PATCH; Start 08/27/18 at 10:30 Lisinopril (Zestril) 40 mg DAILY PO Last administered on 09/08/18 09:27; Admin Dose 40 MG; Start 08/31/18 at 09:00 Ondansetron HCl 8 mg/Sodium Chloride 54 ml @ 216 mls/hr Q4H PRN IV NAUSEA AND/OR VOMITING Last administered on 09/03/18 20:04; Admin Dose 216 MLS/HR; Start 08/30/18 at 10:30 Hydralazine HCl (Apresoline) 25 mg TID PO ; Start 09/08/18 at 21:00 Ondansetron HCl (Zofran Inj) 4 mg Q4H PRN IV NAUSEA AND/OR VOMITING Last administered on 09/13/18 07:57; Admin Dose 4 MG; Start 09/09/18 at 15:30 Hydromorphone HCl (Dilaudid) 1 mg Q4H PRN IV SEVERE PAIN LEVEL 7-10 Last administered on 09/13/18 12:11; Admin Dose 1 MG; Start 09/10/18 at 14:30 Methadone HCl (Methadone) 10 mg Q8 PO ; Start 09/12/18 at 22:00 Potassium Chloride 40 meq/ Sodium Chloride 1,000 ml @ 100 mls/hr Q10H IV ; Start 09/12/18 at 17:30 Pantoprazole (Protonix Iv) 40 mg BID@06,18 IV ; Start 09/12/18 at 18:00 Dextrose/Sodium Chloride 1,000 ml @ 100 mls/hr Q10H IV ; Start 09/13/18 at 09:30 SUZY ROMANO MD Sep 13, 2018 15:18
[2018-09-13] MEDS ORDERED: METOCLOPRAMIDE 10 MG INJ IV PRN (15:30)
[2018-09-13 19:30] VITALS: BP 144/92; PULSE 92; RESP 18
[2018-09-13] MEDS: traMADol 50 MG TAB PO PRN (21:11)
[2018-09-14 02:09] VITALS: BP 137/89; PULSE 95; RESP 18
[2018-09-14] MEDS: traMADol 50 MG TAB PO PRN ×3 (03:20→17:23)
[2018-09-14] MEDS: DEXTROSE 5%-0.45% NACL 1,000 ML IV SCH ×2 (05:12→15:30)
[2018-09-14] MEDS: PANTOPRAZOLE 40 MG INJ IV SCH ×2 (06:00→17:22)
[2018-09-14 07:38] VITALS: BP 171/114; PULSE 80; RESP 18
--- NOTE | 2018-09-14 07:57 | CONS ---
Assessment/Plan Assessment/Plan Assessment/Plan (Daily) Acute complicated pancreatitis Opioid addiction Negotiating for higher dose of opioids Negotiates for longer hospital stay Long conversation with him concerning the use of opioids and follow up with a local hospital as compared to following up with a tertiary care facility as he has been advised to do in the past. All of his laboratory tests have stabilized and patient appears to be in no acute distress at this time but still asking for IV opioids. I had a conversation with him we will stop the IV opioids and recommend discharge in the morning and referral to a tertiary care unit in the [facility] Consultation Date/Type/Reason Admit Date/Time Date/Time of Note DATE: 09/14/18 TIME: 07:50 Hx of Present Illness Patient is a 43-year-old male who has a complicated past medical history of pancreatitis with multiple hospitalizations for fluids and pain control. Patient has been seen in the past and was told that he need to be referred to a higher level of care as he states he is not a smoker drinker does not use drugs and there is no other major causes for recurrent pancreatitis.. He was admitted this treated aggressively CT scan was done and surgical consultation was called. Surgical consultation felt the patient would ultimately need to have debridement pancreatic nephrectomy and possible total pancreatic septectomy. Please refer to formal MRI study. At this time I seen him patient is still receiving low-dose of IV opioids but was eating solids at the time I walked in the room without any obvious evidence of nausea vomiting. I was asked to see patient to discuss with him his ongoing referral to a tertiary care center and recurrent hospitalizations for IV fluids and pain control in a local hospital instead of following up with tertiary care center appointment. As an outpatient patient that he was using only tramadol, initially said he was seeing a pain management doctor but retracted at its that he had an appointment with did not follow-up on seen a pain management physician or a GI doctor Constitutional: no complaints, improved Eyes: no complaints ENT: no complaints Respiratory: no complaints Cardiovascular: no complaints Gastrointestinal: no complaints Genitourinary: no complaints Musculoskeletal: no complaints Skin: no complaints Neurologic: no complaints Endocrine: no complaints Lymphatic: no complaints Psychological: no complaints, nl mood/affect Immunologic: no complaints Past Medical History Medical History: pancreatitis, other (Pancreatitis) Home Meds Active Scripts Naloxone HCl nasal spray (Narcan 4 mg/0.1 mL nasal) 4 Mg [place], 4 MG NS .Q2-3MIN for OPIOID OVERDOSE, #2 SPRAY 0 Refills [place] 0.1 mL into one nostril. Repeat with second device into other nostril after 2-3 minutes if no or minimal response Prov:NERI SANTOS MD 08/19/18 Tramadol HCl (Tramadol HCl) 50 Mg Tablet, 50 MG PO Q6 PRN for PAIN, #10 TAB Prov:NERI SANTOS MD 08/19/18 Ondansetron (Ondansetron Odt) 4 Mg Tab.rapdis, 4 MG PO Q6H PRN for NAUSEA AND/OR VOMITING, #20 TAB Prov:NERI SANTOS MD 08/19/18 Reported Medications Nicotine* (Nicotine* Patch) 7 mg/day Patch, 7 MG TD DAILY, PATCH 06/18/18 Lisinopril* (Lisinopril*) 20 Mg Tablet, 20 MG PO DAILY, #30 TAB 06/18/18 Clonidine Hcl* (Clonidine Hcl*) 0.1 Mg Tab, 0.1 MG PO DAILY PRN for ELEVATED BLOOD PRESSURE, TAB 05/02/18 Medications Current Medications IV Flush (NS 3 ml) 3 ml PER PROTOCOL IV ; Start 08/24/18 at 19:30 Docusate Sodium (Colace) 100 mg Q12H PRN PO .CONSTIPATION; Start 08/24/18 at 19 :30 Magnesium Hydroxide (Milk Of Mag) 30 ml DAILY PRN PO .CONSTIPATION; Start 08/24/18 at 19:30 Albuterol/ Ipratropium (Duoneb) 3 ml Q4H RESP THERAPY PRN HHN SHORTNESS OF BREATH; Start 08/24/18 at 19:30 Nitroglycerin (Nitroglycerin (Sl Tab) 0.4 Mg) 1 tab Q5M PRN SL ANGINA; Start 08/24/18 at 19:30 Hydralazine HCl (Apresoline) 10 mg Q4H PRN IV sbp >160 Last administered on 09/13/18at 09:11; Admin Dose 10 MG; Start 08/24/18 at 20:00 Labetalol HCl (Labetalol) 10 mg Q4H PRN IV sbp>160 Last administered on 09/06/18at 08:41; Admin Dose 10 MG; Start 08/24/18 at 21:00 Docusate Sodium (Colace Liquid Cup) 100 mg BID GTB Last administered on 09/06/18 20:36; Admin Dose 100 MG; Start 08/26/18 at 21:00 Nicotine (Nicoderm 21 Mg/ 24hr) 1 patch DAILY TRANSDERM Last administered on 09/13/18 09:11; Admin Dose 1 PATCH; Start 08/27/18 at 10:30 Lisinopril (Zestril) 40 mg DAILY PO Last administered on 09/08/18 09:27; Admin Dose 40 MG; Start 08/31/18 at 09:00 Ondansetron HCl 8 mg/Sodium Chloride 54 ml @ 216 mls/hr Q4H PRN IV NAUSEA AND/OR VOMITING Last administered on 09/03/18 20:04; Admin Dose 216 MLS/HR; Start 08/30/18 at 10:30 Hydralazine HCl (Apresoline) 25 mg TID PO Last administered on 09/13/18 21:11; Admin Dose 25 MG; Start 09/08/18 at 21:00 Ondansetron HCl (Zofran Inj) 4 mg Q4H PRN IV NAUSEA AND/OR VOMITING Last administered on 09/13/18 17:08; Admin Dose 4 MG; Start 09/09/18 at 15:30 Potassium Chloride 40 meq/ Sodium Chloride 1,000 ml @ 100 mls/hr Q10H IV ; Start 09/12/18 at 17:30 Pantoprazole (Protonix Iv) 40 mg BID@06,18 IV ; Start 09/12/18 at 18:00 Dextrose/Sodium Chloride 1,000 ml @ 100 mls/hr Q10H IV ; Start 09/13/18 at 09:30 Metoclopramide HCl (Reglan) 5 mg Q6H PRN IV nausea; Start 09/13/18 at 15:30 Tramadol HCl (Ultram) 100 mg Q6H PRN PO PAIN Last administered on 09/14/18 03:20; Admin Dose 100 MG; Start 09/13/18 at 18:00 Allergies: Coded Allergies: acetaminophen (Unverified Allergy, Intermediate, vomiting, rash, 08/24/18) aspirin (Unverified Allergy, Intermediate, 08/24/18) blurry vision oxycodone (Unverified Allergy, Intermediate, vomiting, rash, 08/24/18) potassium (Verified Allergy, Unknown, 08/30/18) morphine (Unverified Adverse Reaction, Mild, abd pain,n/v, 08/24/18) Past Surgical History Past Surgical Hx: no surgical history Social History Alcohol Use: none Smoking Status: Current every day smoker Exam/Review of Systems Exam Vitals Vital Signs Date Temp Pulse Resp B/P (MAP) Pulse Ox O2 O2 Flow FiO2 Time Delivery Rate 09/14/18 98.5 80 18 171/114 97 Room Air 07:38 (133) Intake and Output 09/13/18 09/13/18 09/14/18 1515:00 23:00 07:00 IntakeIntake Total 600 ml 240 ml OutputOutput Total 200 ml BalanceBalance 400 ml 240 ml Constitutional: alert, oriented, well developed, other (No acute distress) Head: normocephalic, atraumatic Eyes: nl conjunctiva, EOMI, nl lids, nl sclera, PERRL ENMT: nl external ears & nose, nl lips & teeth, nl nasal mucosa & septum Neck: supple, non-tender Respiratory: No clear to auscultation, No normal air movement, No congested cough, No crackles/rales, No diminished breath sounds, No intercostal retraction, No labored breathing, No respirations, No tactile fremitus, No wheezing, No other Cardiovascular: regular rate and rhythm, nl pulses Gastrointestinal: No soft, No nl liver, spleen, No non-tender, No ascites, No bowel sounds, No distended, No firm, No hepatomegaly, No mass, No rebound or guarding, No splenomegaly, No surgical scars, No tender, No other Neurological: No FINGERPRINT TECHNICIAN II-XII intact, No nl mental status, No nl speech, No nl strength, No confused, No DTR's symmetric, No focal weakness, No lethargic, No numbness, No reflexes, No unresponsive, No other Results Result Diagram: 09/13/1832 09/13/18 0532 Medications Medication Current Medications IV Flush (NS 3 ml) 3 ml PER PROTOCOL IV ; Start 08/24/18 at 19:30 Docusate Sodium (Colace) 100 mg Q12H PRN PO .CONSTIPATION; Start 08/24/18 at 19:30 Magnesium Hydroxide (Milk Of Mag) 30 ml DAILY PRN PO .CONSTIPATION; Start 08/24/18 at 19:30 Albuterol/ Ipratropium (Duoneb) 3 ml Q4H RESP THERAPY PRN HHN SHORTNESS OF BREATH; Start 08/24/18 at 19:30 Nitroglycerin (Nitroglycerin (Sl Tab) 0.4 Mg) 1 tab Q5M PRN SL ANGINA; Start 08/24/18 at 19:30 Hydralazine HCl (Apresoline) 10 mg Q4H PRN IV sbp >160 Last administered on 09/13/18 09:11; Admin Dose 10 MG; Start 08/24/18 at 20:00 Labetalol HCl (Labetalol) 10 mg Q4H PRN IV sbp>160 Last administered on 09/06/18 08:41; Admin Dose 10 MG; Start 08/24/18 at 21:00 Docusate Sodium (Colace Liquid Cup) 100 mg BID GTB Last administered on 09/06/18 20:36; Admin Dose 100 MG; Start 08/26/18 at 21:00 Nicotine (Nicoderm 21 Mg/ 24hr) 1 patch DAILY TRANSDERM Last administered on 09/13/18 09:11; Admin Dose 1 PATCH; Start 08/27/18 at 10:30 Lisinopril (Zestril) 40 mg DAILY PO Last administered on 09/08/18 09:27; Admin Dose 40 MG; Start 08/31/18 at 09:00 Ondansetron HCl 8 mg/Sodium Chloride 54 ml @ 216 mls/hr Q4H PRN IV NAUSEA AND/OR VOMITING Last administered on 09/03/18 20:04; Admin Dose 216 MLS/HR; S tart 08/30/18 at 10:30 Hydralazine HCl (Apresoline) 25 mg TID PO Last administered on 09/13/18 21:11; Admin Dose 25 MG; Start 09/08/18 at 21:00 Ondansetron HCl (Zofran Inj) 4 mg Q4H PRN IV NAUSEA AND/OR VOMITING Last administered on 09/13/18 17:08; Admin Dose 4 MG; Start 09/09/18 at 15:30 Potassium Chloride 40 meq/ Sodium Chloride 1,000 ml @ 100 mls/hr Q10H IV ; Start 09/12/18 at 17:30 Pantoprazole (Protonix Iv) 40 mg BID@06,18 IV ; Start 09/12/18 at 18:00 Dextrose/Sodium Chloride 1,000 ml @ 100 mls/hr Q10H IV ; Start 09/13/18 at 09:30 Metoclopramide HCl (Reglan) 5 mg Q6H PRN IV nausea; Start 09/13/18 at 15:30 Tramadol HCl (Ultram) 100 mg Q6H PRN PO PAIN Last administered on 09/14/18at 03:20; Admin Dose 100 MG; Start 09/13/18 at 18:00 ARELIS JENKINS Sep 14, 2018 07:57
[2018-09-14] MEDS: DOCUSATE SODIUM 10 MG/ML (10ML CUP) GTB SCH ×2 (09:00→20:50)
[2018-09-14] MEDS: NICOTINE (21 MG/24 HR) PATCH TRANSDERM SCH (09:03)
[2018-09-14] MEDS: LISINOPRIL 20 MG TAB PO SCH (09:03)
[2018-09-14] MEDS: POTASSIUM CHLORIDE 40 MEQ in SOD CHLORIDE 0.45% 1,000 ML IV SCH ×2 (09:12→19:30)
--- NOTE | 2018-09-14 13:37 | PN ---
Date/Time of Note Date/Time of Note DATE: 09/14/18 TIME: 13:36 Assessment/Plan VTE Prophylaxis Risk score (from Nsg)>0 risk: 2 SCD applied (from Nsg): Yes Pharmacological prophylaxis: heparin Lines/Catheters IV Catheter Type (from Nrsg): Saline Lock Urinary Cath still in place: No Assessment/Plan Hospital Course 43 yo male with h/o gall stone pancreatis, complicated by chronic pancreatitis wtih pseudocyst and necrosis. Admitted for nausea, pain, PO intolerance Acute on chronic pancreatitis - I tried to have patient transferred but 2 hepatobiliary surgeons do not believe her requires any further workup and suggest continued medical management of symptoms - NO MORE IV OPIATES, dr peña followign - Tramadol PRN Hypertension - Refusing medications nemia - Mild, monitor - no need for transfusion at this time hypokalemia-stable - states that he has a reaction to products with potassium but willing to try orange juice and bananas Prophylaxis: SCDs DC planning: Home tomorrow. Instructed to follow up at tertiary center Result Diagram: 09/13/18 0532 09/13/18 0532 Subjective 24 Hr Interval Summary Free Text/Dictation Told by Dr Peña yesterday no more IV opaites. Offered discharge. Asks to stay until tomorrow Exam/Review of Systems Exam Vitals Vital Signs Date Temp Pulse Resp B/P (MAP) Pulse Ox O2 O2 Flow FiO2 Time Delivery Rate 09/14/18 98.5 80 18 171/114 97 Room Air 07:38 (133) Intake and Output 09/13/18 09/13/18 09/14/18 1515:00 23:00 07:00 IntakeIntake Total 600 ml 240 ml OutputOutput Total 200 ml BalanceBalance 400 ml 240 ml Constitutional: alert, oriented, well developed Psych: no complaints, nl mood/affect Head: normocephalic, atraumatic Eyes: nl conjunctiva, EOMI, nl lids, nl sclera, PERRL ENMT: nl external ears & nose, nl lips & teeth, nl nasal mucosa & septum Neck: supple, non-tender Respiratory: clear to auscultation, normal air movement Cardiovascular: regular rate and rhythm, nl pulses Gastrointestinal: soft, nl liver, spleen, non-tender Musculoskeletal: nl extremities to inspection, nl gait and stance Extremities: normal pulses Neurological: DIRECTOR INTERNAL AUDIT II-XII intact, nl mental status, nl speech, nl strength Skin: nl turgor; No rash or lesions Lymph: nl lymph nodes Medications Medication Current Medications IV Flush (NS 3 ml) 3 ml PER PROTOCOL IV ; Start 08/24/18 at 19:30 Docusate Sodium (Colace) 100 mg Q12H PRN PO .CONSTIPATION; Start 08/24/18 at 19:30 Magnesium Hydroxide (Milk Of Mag) 30 ml DAILY PRN PO .CONSTIPATION; Start 08/24/18 at 19:30 Albuterol/ Ipratropium (Duoneb) 3 ml Q4H RESP THERAPY PRN HHN SHORTNESS OF BREATH; Start 08/24/18 at 19:30 Nitroglycerin (Nitroglycerin (Sl Tab) 0.4 Mg) 1 tab Q5M PRN SL ANGINA; Start 08/24/18 at 19:30 Hydralazine HCl (Apresoline) 10 mg Q4H PRN IV sbp >160 Last administered on 09/13/18 09:11; Admin Dose 10 MG; Start 08/24/18 at 20:00 Labetalol HCl (Labetalol) 10 mg Q4H PRN IV sbp>160 Last administered on 09/06/18 08:41; Admin Dose 10 MG; Start 08/24/18 at 21:00 Docusate Sodium (Colace Liquid Cup) 100 mg BID GTB Last administered on 09/06/18 20:36; Admin Dose 100 MG; Start 08/26/18 at 21:00 Nicotine (Nicoderm 21 Mg/ 24hr) 1 patch DAILY TRANSDERM Last administered on 09/14/18 09:03; Admin Dose 1 PATCH; Start 08/27/18 at 10:30 Lisinopril (Zestril) 40 mg DAILY PO Last administered on 09/14/18 09:03; Admin Dose 40 MG; Start 08/31/18 at 09:00 Ondansetron HCl 8 mg/Sodium Chloride 54 ml @ 216 mls/hr Q4H PRN IV NAUSEA AND/OR VOMITING Last administered on 09/03/18 20:04; Admin Dose 216 MLS/HR; Start 08/30/18 at 10:30 Hydralazine HCl (Apresoline) 25 mg TID PO Last administered on 3/8/19at 21:11; Admin Dose 25 MG; Start 09/08/18 at 21:00 Ondansetron HCl (Zofran Inj) 4 mg Q4H PRN IV NAUSEA AND/OR VOMITING Last administered on 09/13/18at 17:08; Admin Dose 4 MG; Start 09/09/18 at 15:30 Potassium Chloride 40 meq/ Sodium Chloride 1,000 ml @ 100 mls/hr Q10H IV ; Start 09/12/18 at 17:30 Pantoprazole (Protonix Iv) 40 mg BID@06,18 IV ; Start 09/12/18 at 18:00 Dextrose/Sodium Chloride 1,000 ml @ 100 mls/hr Q10H IV ; Start 09/13/18 at 09:30 Metoclopramide HCl (Reglan) 5 mg Q6H PRN IV nausea; Start 09/13/18 at 15:30 Tramadol HCl (Ultram) 100 mg Q6H PRN PO PAIN Last administered on 09/14/18 09:05; Admin Dose 100 MG; Start 09/13/18 at 18:00 SUZY ROMANO MD Sep 14, 2018 13:37
[2018-09-14 14:21] VITALS: BP 109/64; PULSE 87; RESP 18
[2018-09-14 19:53] VITALS: BP 120/64; PULSE 82; RESP 16
[2018-09-15] MEDS: DEXTROSE 5%-0.45% NACL 1,000 ML IV SCH ×2 (01:30→11:30)
[2018-09-15] MEDS: traMADol 50 MG TAB PO PRN ×2 (01:30→08:10)
[2018-09-15 01:39] VITALS: BP 140/89; PULSE 78; RESP 20
[2018-09-15] MEDS: POTASSIUM CHLORIDE 40 MEQ in SOD CHLORIDE 0.45% 1,000 ML IV SCH (05:22)
[2018-09-15] MEDS: PANTOPRAZOLE 40 MG INJ IV SCH (05:23)
[2018-09-15 07:29] VITALS: BP 158/97; PULSE 74; RESP 18
[2018-09-15] MEDS: NICOTINE (21 MG/24 HR) PATCH TRANSDERM SCH (08:19)
[2018-09-15] MEDS: DOCUSATE SODIUM 10 MG/ML (10ML CUP) GTB SCH (08:19)
[2018-09-15] MEDS: LISINOPRIL 20 MG TAB PO SCH (08:19)
--- NOTE | 2018-09-15 15:21 | DS ---
Date/Time of Note Date/Time of Note DATE: 09/15/18 TIME: 15:19 Discharge Summary Admission/Discharge Info Admit Date/Time Aug 24, 2018 at 20:57 Discharge Date/Time Sep 15, 2018 at 13:01 Discharge Diagnosis Pancreatitis Patient Condition: Stable Hospital Course 43 yo male with h/o gall stone pancreatis, complicated by chronic pancreatitis wtih pseudocyst and necrosis. Admitted for nausea, pain, PO intolerance CT showed continued pancreatitis, resolution of pseudocyst, presence of necrosis. Transfer to a tertiary center was attempted but deemed unnecessary by hepatobiliary surgeons. He was treated with IV dilaudid. He refused all other medications or interventions. Eventually he was deemed to exhibit drug seeking behavior and told he would not receive any more IV opiates. He was encouraged to follow up with his outpatient interior decorator painting and to seek care at a center with hepatobiliary surgeon if his symptoms worsen. Home Meds Active Scripts Naloxone HCl nasal spray (Narcan 4 mg/0.1 mL nasal) 4 Mg [place], 4 MG NS .Q2-3MIN for OPIOID OVERDOSE, #2 SPRAY 0 Refills [place] 0.1 mL into one nostril. Repeat with second device into other nostril after 2-3 minutes if no or minimal response Prov:NERI SANTOS MD 08/19/18 Tramadol HCl (Tramadol HCl) 50 Mg Tablet, 50 MG PO Q6 PRN for PAIN, #10 TAB Prov:NERI SANTOS MD 08/19/18 Ondansetron (Ondansetron Odt) 4 Mg Tab.rapdis, 4 MG PO Q6H PRN for NAUSEA AND/OR VOMITING, #20 TAB Prov:NERI SANTOS MD 08/19/18 Reported Medications Nicotine* (Nicotine* Patch) 7 mg/day Patch, 7 MG TD DAILY, PATCH 06/18/18 Lisinopril* (Lisinopril*) 20 Mg Tablet, 20 MG PO DAILY, #30 TAB 06/18/18 Discontinued Reported Medications Clonidine Hcl* (Clonidine Hcl*) 0.1 Mg Tab, 0.1 MG PO DAILY PRN for ELEVATED BLOOD PRESSURE, TAB 05/02/18 Primary Care Provider Not On Staff Doctor SUZY ROMANO MD Sep 15, 2018 15:20
== END 2018-09-15 13:01 | disposition home or self-care (01) | DRG 440 ==
LOC: E/R 11:29 → TEL 20:57 → EDBEDREQSVC 20:58 → EDBEDREQ 20:58 → TEL 08-25 21:33 → 2NE 09-06 23:00
PROVIDERS: ADMIT Internal Medicine; ATTEND Internal Medicine
DX: K85.90 Acute pancreatitis without necrosis or infection, unspecified (principal); I10 Essential (primary) hypertension; Z76.5 Malingerer [conscious simulation]; D64.9 Anemia, unspecified; F17.200 Nicotine dependence, unspecified, uncomplicated; K86.1 Other chronic pancreatitis; E87.6 Hypokalemia
CPT/HCPCS: 36415; 74177; 80048; 80053; 80061; 83036; 83690; 83735; 84100; 84439; 84443; 85025; 85049; 85610; 85670; 85730; 92610; 96361; 96374; 96375; C9113; J0360; J1170; J1200; J1885; J2405; J2543; J2765; J3480; J7030; J7042; Q9967

== ENCOUNTER 2018-09-17 12:38 | Emergency (ER) | payer OTHER ==
[~2018-09-17] VITALS: Ht 185.4 cm; Wt 118.0 kg
[~2018-09-17 12:38] MED LIST changes: -CLON-379 PO
[2018-09-17 12:42] VITALS: Ht 185.4 cm; Wt 118.0 kg
--- NOTE | 2018-09-17 14:03 | ERD ---
ER Documentation Chief Complaint Chief Complaint ABD PAIN WITH VOMITING , ONSET 0200 AM H/O PANCREATITIS HPI The patient is 43-year-old male, presenting to the ER because of recurrent left upper quadrant abdominal pain around 2 AM this morning, had similar symptoms previously, was discharged from the hospital just 2 days ago for pancreatitis, denies fever, chills, neck pain, chest pain, dyspnea, vomiting, dysuria, diarrhea. He does smoke, denies drinking or using illicit drug Past medical history: History of pancreatitis, hypertension, depression Past surgical history: None ROS All systems reviewed and are negative except as per history of present illness. Medications Home Meds Active Scripts Tramadol HCl (Tramadol HCl) 50 Mg Tablet, 50 MG PO Q6 PRN for PAIN, #10 TAB Prov:KEERTHI FRIEDMAN MD 09/17/18 Reported Medications Lisinopril* (Lisinopril*) 20 Mg Tablet, 20 MG PO DAILY, #30 TAB 06/18/18 Discontinued Reported Medications Nicotine* (Nicotine* Patch) 7 mg/day Patch, 7 MG TD DAILY, PATCH 06/18/18 Clonidine Hcl* (Clonidine Hcl*) 0.1 Mg Tab, 0.1 MG PO DAILY PRN for ELEVATED BLOOD PRESSURE, TAB 05/02/18 Discontinued Scripts Naloxone HCl nasal spray (Narcan 4 mg/0.1 mL nasal) 4 Mg [place], 4 MG NS .Q2-3MIN for OPIOID OVERDOSE, #2 SPRAY 0 Refills [place] 0.1 mL into one nostril. Repeat with second device into other nostril after 2-3 minutes if no or minimal response Prov:NERI SANTOS MD 08/19/18 Tramadol HCl (Tramadol HCl) 50 Mg Tablet, 50 MG PO Q6 PRN for PAIN, #10 TAB Prov:NERI SANTOS MD 08/19/18 Ondansetron (Ondansetron Odt) 4 Mg Tab.rapdis, 4 MG PO Q6H PRN for NAUSEA AND/OR VOMITING, #20 TAB Prov:NERI SANTOS MD 08/19/18 Allergies Allergies: Coded Allergies: acetaminophen (Unverified Allergy, Intermediate, vomiting, rash, 09/17/18) aspirin (Unverified Allergy, Intermediate, 09/17/18) blurry vision oxycodone (Unverified Allergy, Intermediate, vomiting, rash, 09/17/18) potassium (Verified Allergy, Unknown, 09/17/18) morphine (Unverified Adverse Reaction, Mild, abd pain,n/v, 09/17/18) PMhx/Soc History of Surgery: No Anesthesia Reaction: Yes (Woke up during procedure and started vomitting @ [facility]) Hx Neurological Disorder: No Hx Respiratory Disorders: No Hx Cardiac Disorders: Yes (HTN) Hx Psychiatric Problems: Yes (depression) Hx Miscellaneous Medical Probl: Yes (pancreatitis, pancreatic pseudocyst) Hx Alcohol Use: No Hx Substance Use: No Hx Tobacco Use: Yes Smoking Status: Current some day smoker Physical Exam Vitals Vital Signs Date Temp Pulse Resp B/P (MAP) Pulse Ox O2 O2 Flow FiO2 Time Delivery Rate 09/17/18 98.2 84 18 152/95 98 Room Air 16:44 (114) 09/17/18 97.9 99 24 138/106 100 Room Air 14:04 (117) 09/17/18 98.2 118 18 162/94 98 12:42 (116) Physical Exam Const: No acute distress. Head: Atraumatic. Eyes: Normal Conjunctiva. ENT: Normal External Ears, Nose and Mouth. Neck: Full range of motion. No meningismus. Resp: Clear to auscultation bilaterally. Cardio: Regular rate and rhythm. Abd: Soft, non distended, normal bowel sounds, left upper quadrant discomfort, no right lower quadrant, rebound, rigidity, rebound or CVA tender ness. Skin: No petechiae or rashes. Back: No midline or flank tenderness. Ext: No cyanosis, or edema. Neur: Awake and alert. No focal deficit Psych: Normal Mood and Affect. Result Diagram: 09/17/18 1432 09/17/18 1432 Results 24 hrs Laboratory Tests Test 09/17/18 14:32 09/17/18 16:05 09/17/18 16:16 White Blood Count 5.6 10^3/ul Red Blood Count 5.26 10^6/ul Hemoglobin 12.2 g/dl Hematocrit 40.5 % Mean Corpuscular Volume 77.0 fl Mean Corpuscular Hemoglobin 23.2 pg Mean Corpuscular 30.1 g/dl Hemoglobin Concent Red Cell Distribution Width 20.6 % Platelet Count 270 10^3/UL Mean Platelet Volume fl Immature Granulocytes % 0.400 % Neutrophils % 52.5 % Lymphocytes % 35.0 % Monocytes % 9.3 % Eosinophils % 2.1 % Basophils % 0.7 % Nucleated Red Blood Cells % 0.0 /100WBC Immature Granulocytes # 0.020 10^3/ul Neutrophils # 2.9 10^3/ul Lymphocytes # 2.0 10^3/ul Monocytes # 0.5 10^3/ul Eosinophils # 0.1 10^3/ul Basophils # 0.0 10^3/ul Nucleated Red Blood Cells # 0.0 10^3/ul Sodium Level 145 mmol/L Potassium Level 4.6 mmol/L Chloride Level 105 mmol/L Carbon Dioxide Level 29 mmol/L Anion Gap 11 Blood Urea Nitrogen 10 mg/dl Creatinine 0.76 mg/dl Est Glomerular Filtrat Rate mL/min > 60 mL/min Glucose Level 118 mg/dl Calcium Level 9.7 mg/dl Total Bilirubin 0.4 mg/dl Direct Bilirubin 0.00 mg/dl Indirect Bilirubin 0.4 mg/dl Aspartate Amino Transf (AST/SGOT) 61 IU/L Alanine 29 IU/L Aminotransferase (ALT/SGPT) Alkaline Phosphatase 71 IU/L Total Protein 7.3 g/dl Albumin 3.9 g/dl Globulin 3.40 g/dl Albumin/Globulin Ratio 1.14 Lipase 189 U/L Ethyl Alcohol Level < 10.0 mg/dl Urine Opiates Screen Positive Urine Barbiturates Negative Urine Amphetamines Screen Negative Urine Benzodiazepines Screen Negative Urine Cocaine Screen Negative Urine Cannabinoids Positive Bedside Urine pH (LAB) 7.5 Bedside Urine Protein (LAB) 2+ Bedside Urine Glucose (UA) Negative Bedside Urine Ketones (LAB) Trace Bedside Urine Blood Negative Bedside Urine Nitrite (LAB) Negative Bedside Urine Leukocyte Esterase Negative (L Current Medications Medications Dose Sig/Jaclyn Start Time Status Last (Trade) Ordered Route PRN Stop Time Admin Dose Reason Admin Ketorolac 30 mg ONCE STAT 09/17/18 DC 09/17/18 Tromethamine IV 16:30 16:38 (Toradol) 09/17/18 16:31 Procedures/MDM MEDICAL MAKING DECISION: The patient is a 43-year-old male, presenting for acute on chronic abdominal pain of unclear etiology, was treated with Toradol 30 mg IV for pain with good response, stable for outpatient follow-up The differential diagnoses considered include but are not limited to cholel ithiasis, cholecystitis, choledocholithiasis, cholangitis, pancreatitis, hepatitis, gastritis, peptic ulcer disease, gastric ulcer, appendicitis, cystitis, diverticulitis, partial small bowel obstruction. Departure Diagnosis: Primary Impression: Abdominal pain Additional Impression: Anemia Condition: Good Comments I discussed the findings with the patient. I advised the patient to follow-up with the primary physician in about 2-3 days, sooner if needed and return if any concern. Disclaimer: Inadvertent spelling and grammatical errors are likely due to EHR/dictation software use and do not reflect on the overall quality of patient care. Also, please note that the electronic time recorded on this note does not necessarily reflect the actual time of the patient encounter. KEERTHI FRIEDMAN MD Sep 17, 2018 14:03
[2018-09-17] MEDS ORDERED: KETOROLAC 30 MG INJ IV STA (16:30)
[2018-09-17] MEDS ORDERED: TRAM50TA2 PO (16:32)
[2018-09-17 16:44] VITALS: BP 152/95; PULSE 84; RESP 18
== END 2018-09-17 16:46 | disposition home or self-care (01) ==
LOC: E/R 12:38
DX: D64.9 Anemia, unspecified (principal); I10 Essential (primary) hypertension; F17.210 Nicotine dependence, cigarettes, uncomplicated
CPT/HCPCS: 36415; 80053; 80307; 81003; 83690; 85025; 96374; J1885; Z7502

== ENCOUNTER 2018-10-13 15:28 | Inpatient (IN) | payer OTHER ==
[~2018-10-13] VITALS: Ht 185.4 cm; Wt 120.0 kg
[~2018-10-13 15:28] MED LIST changes: -NALO4SPR NS; -NICO-544 TD; -ONDA4TAB14 PO
[2018-10-13] MEDS ORDERED: KETOROLAC 30 MG INJ IV STA (16:24)
[2018-10-13] MEDS ORDERED: ONDANSETRON 4 MG INJ IV STA (16:24)
[2018-10-13] MEDS ORDERED: SOD CHLORIDE 0.9% 1,000 ML IV STA (16:24)
[2018-10-13] MEDS ORDERED: LISI-471 PO (17:07)
[2018-10-13] MEDS ORDERED: NICARDipine HCL 30 MG CAPSULE PO ONE (17:30)
[2018-10-13] MEDS ORDERED: HYDROmorphONE 2 MG/ML SYG IV STA (17:44)
--- NOTE | 2018-10-13 17:58 | ERD ---
ER Documentation Chief Complaint Chief Complaint L quadrant AP 04/17 with N/V X 2 days, Hx HTN HPI 43-year-old male presenting with left upper quadrant and epigastric pain for the past 2 days. He complains of burning, stabbing pain that is radiating to his back. The pain is constant, worse with any eating or drinking. He has been trying to take Motrin for the pain without relief. He had multiple episodes of vomiting today. Vomit is nonbloody and nonbilious. Denies any melena hematochezia, constipation or diarrhea. No fevers or chills. He does state that he has had episodes of pancreatitis in the past for which she was hospitalized. Denies drinking any alcohol or using drugs. ROS All systems reviewed and are negative except as per history of present illness. Medications Home Meds Reported Medications Lisinopril* (Lisinopril*) 20 Mg Tablet, 20 MG PO DAILY, #30 TAB 10/13/18 Discontinued Reported Medications Lisinopril* (Lisinopril*) 20 Mg Tablet, 20 MG PO DAILY, #30 TAB 06/18/18 Discontinued Scripts Tramadol HCl (Tramadol HCl) 50 Mg Tablet, 50 MG PO Q6 PRN for PAIN, #10 TAB Prov:KEERTHI FRIEDMAN MD 09/17/18 Allergies Allergies: Coded Allergies: acetaminophen (Unverified Allergy, Intermediate, vomiting, rash, 10/13/18) aspirin (Unverified Allergy, Intermediate, 10/13/18) blurry vision oxycodone (Unverified Allergy, Intermediate, vomiting, rash, 10/13/18) potassium (Verified Allergy, Unknown, 10/13/18) morphine (Unverified Adverse Reaction, Mild, abd pain,n/v, 10/13/18) PMhx/Soc History of Surgery: No Anesthesia Reaction: Yes (Woke up during procedure and started vomitting @ [facility]) Hx Neurological Disorder: No Hx Respiratory Disorders: No Hx Cardiac Disorders: Yes (HTN) Hx Psychiatric Problems: Yes (depression) Hx Miscellaneous Medical Probl: Yes (pancreatitis, pancreatic pseudocyst) Hx Alcohol Use: No Hx Substance Use: No Hx Tobacco Use: Yes Smoking Status: Current every day smoker FmHx Family History: No diabetes Physical Exam Vitals Vital Signs Date Temp Pulse Resp B/P (MAP) Pulse Ox O2 O2 Flow FiO2 Time Delivery Rate 10/13/18 90 16 207/128 100 Room Air 17:33 (154) 10/13/18 98.0 90 18 207/130 99 15:34 (155) Physical Exam Const: No acute distress, laying comfortably in bed Head: Atraumatic Eyes: Normal Conjunctiva ENT: Normal External Ears, Nose and Mouth. Neck: Full range of motion. No meningismus. Resp: Clear to auscultation bilaterally Cardio: Regular rate and rhythm, no murmurs Abd: Soft, tender to palpation in the left upper quadrant and epigastrium with guarding but no rebound. non distended. Normal bowel sounds Skin: No petechiae or rashes Back: No midline or flank tenderness Ext: No cyanosis, or edema Neur: Awake and alert Psych: Normal Mood and Affect Result Diagram: 10/13/18 1627 10/13/18 1627 Results 24 hrs Laboratory Tests Test 10/13/18 16:27 White Blood Count 9.1 10^3/ul Red Blood Count 4.54 10^6/ul Hemoglobin 10.8 g/dl Hematocrit 35.2 % Mean Corpuscular Volume 77.5 fl Mean Corpuscular Hemoglobin 23.8 pg Mean Corpuscular Hemoglobin Concent 30.7 g/dl Red Cell Distribution Width 20.4 % Platelet Count 358 10^3/UL Mean Platelet Volume 9.6 fl Immature Granulocytes % 0.400 % Neutrophils % 71.6 % Lymphocytes % 20.2 % Monocytes % 5.7 % Eosinophils % 1.5 % Basophils % 0.6 % Nucleated Red Blood Cells % 0.0 /100WBC Immature Granulocytes # 0.040 10^3/ul Neutrophils # 6.5 10^3/ul Lymphocytes # 1.8 10^3/ul Monocytes # 0.5 10^3/ul Eosinophils # 0.1 10^3/ul Basophils # 0.1 10^3/ul Nucleated Red Blood Cells # 0.0 10^3/ul Sodium Level 145 mmol/L Potassium Level 3.3 mmol/L Chloride Level 104 mmol/L Carbon Dioxide Level 28 mmol/L Anion Gap 13 Blood Urea Nitrogen 11 mg/dl Creatinine 0.81 mg/dl Est Glomerular Filtrat Rate mL/min > 60 mL/min Glucose Level 125 mg/dl Calcium Level 9.6 mg/dl Total Bilirubin 0.2 mg/dl Direct Bilirubin 0.00 mg/dl Indirect Bilirubin 0.2 mg/dl Aspartate Amino Transf (AST/SGOT) 35 IU/L Alanine Aminotransferase (ALT/SGPT) 22 IU/L Alkaline Phosphatase 126 IU/L Total Protein 7.3 g/dl Albumin 3.9 g/dl Globulin 3.40 g/dl Albumin/Globulin Ratio 1.14 Lipase 1893 U/L Current Medications Medications Dose Sig/Jaclny Start Time Status Last (Trade) Ordered Route PRN Stop Time Admin Dose Reason Admin Sodium 1,000 ml @ Q1H STAT 10/13/18 DC 10/13/18 Chloride 1,000 mls/hr IV 16:24 10/13/18 16:29 17:23 Ondansetron 4 mg ONCE STAT 10/13/18 DC 10/13/18 HCl (Zofran IV 16:24 10/13/18 16:29 Inj) 16:25 Ketorolac 30 mg ONCE STAT 10/13/18 DC 10/13/18 Tromethamine IV 16:24 10/13/18 16:29 (Toradol) 16:25 Nicardipine 30 mg ONCE ONCE 10/13/18 DC 10/13/18 HCl PO 17:30 10/13/18 17:31 (Cardene) 17:31 Ondansetron 4 mg BRIDGE ORDER 10/13/18 HCl (Zofran PRN IV 18:00 10/14/18 Inj) NAUSEA/VOMITI 17:59 NG 1 mg ONCE STAT 10/13/18 DC Hydromorphone IV 17:44 10/13/18 HCl 17:46 (Dilaudid) Procedures/MDM EMERGENT LABS AND DIAGNOSTIC STUDIES: Lab Results above were reviewed and interpreted by me. CBC: Mild anemia. No evidence of infection CMP: borderline hypernatremia and hypokalemia. No evidence of acidosis, renal failure, hypoglycemia, liver disease, or biliary obstruction Lipase: elevated, consistent with acute pancreatitis Initial Nursing notes reviewed. Previous Medical Records requested via the Electronic Health Record. EMERGENCY DEPARTMENT COURSE / MEDICAL DECISION MAKING: Patient presents with acute exacerbation of his chronic left upper quadrant and epigastric pain. Vitals were notable for hypertension but I doubt AAA or aortic dissection as his pain is very similar to his previous episodes of pancreatitis. He was given IV fluids, antiemetics, and analgesics with some improvement of his symptoms but his blood pressure did remain high.He was given oral Cardene for blood pressure control. Labs are notable for elevated lipase, consistent with acute pancreatitis. Liver enzymes and bili were normal. I doubt gallstone pancreatitis. Patient will require admission for symptom control, hydration, and bowel rest. Accepting Care Team: Current data and ongoing care discussed. Time: Time of admission Primary Provider: Dr. Hammonds Consulting: None Outstanding Data: none Departure Diagnosis: Primary Impression: Acute on chronic pancreatitis Condition: Fair ALDAIR ROSARIO MD Oct 13, 2018 17:58
[2018-10-13] MEDS ORDERED: ONDANSETRON 4 MG INJ IV PRN (18:00)
[2018-10-13] MEDS ORDERED: hydrALAzine 20 MG INJ IV ONE (18:30)
[2018-10-13] MEDS ORDERED: D5W-0.45 NACL + KCL 20 MEQ 1,000 ML IV SCH (18:31)
--- NOTE | 2018-10-13 18:37 | HP ---
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 Perhpas can have planned endoscopy as inpatient Hypertension - Continue lisinopril. Start amlodipine Discharge when pain is controlled Result Diagram: 10/13/18 1627 10/13/18 1627 Results 24hrs Laboratory Tests Test 10/13/18 16:27 10/13/18 18:00 White Blood Count 9.1 # Red Blood Count 4.54 L Hemoglobin 10.8 L Hematocrit 35.2 L Mean Corpuscular Volume 77.5 L Mean Corpuscular Hemoglobin 23.8 L Mean Corpuscular Hemoglobin Concent 30.7 L Red Cell Distribution Width 20.4 H Platelet Count 358 # Mean Platelet Volume 9.6 Immature Granulocytes % 0.400 Neutrophils % 71.6 Lymphocytes % 20.2 Monocytes % 5.7 Eosinophils % 1.5 Basophils % 0.6 Nucleated Red Blood Cells % 0.0 Immature Granulocytes # 0.040 H Neutrophils # 6.5 Lymphocytes # 1.8 Monocytes # 0.5 Eosinophils # 0.1 Basophils # 0.1 Nucleated Red Blood Cells # 0.0 Sodium Level 145 H Potassium Level 3.3 L Chloride Level 104 Carbon Dioxide Level 28 Anion Gap 13 Blood Urea Nitrogen 11 Creatinine 0.81 Est Glomerular Filtrat Rate mL/min > 60 Glucose Level 125 Calcium Level 9.6 Total Bilirubin 0.2 Direct Bilirubin 0.00 Indirect Bilirubin 0.2 Aspartate Amino Transf (AST/SGOT) 35 Alanine Aminotransferase (ALT/SGPT) 22 Alkaline Phosphatase 126 H Total Protein 7.3 Albumin 3.9 Globulin 3.40 H Albumin/Globulin Ratio 1.14 Lipase 1893 H Urine Color YELLOW Urine Clarity CLEAR Urine pH 7.0 Urine Specific [place] 1.013 Urine Ketones NEGATIVE Urine Nitrite NEGATIVE Urine Bilirubin NEGATIVE Urine Urobilinogen NEGATIVE Urine Leukocyte Esterase NEGATIVE Urine Hemoglobin NEGATIVE Urine Glucose 1+ H Urine Total Protein NEGATIVE HPI/ROS Admit Date/Time Admit Date/Time Oct 13, 2018 at 17:31 Hx of Present Illness 43 yo male with chroinc pancreatitsi here wiht abdominal pain Complicated of gall stone pancreatitis. Has been admitted for pain control numerous times. Had a pseudocyst which resolved. Discharged to self care a couple months ago. Has been taking advil only for pain control because he has been uanble to make an appointment with pain management physician. Over past 1- 2 days pain has become more severe. Unable to tolerate PO either he says. States he is pending endoscopy by Dr Tapia as outpatient ROS Constitutional: no complaints, improved Eyes: no complaints ENT: no complaints Respiratory: no complaints Cardiovascular: no complaints Gastrointestinal: no complaints Genitourinary: no complaints Musculoskeletal: no complaints Skin: no complaints Neurologic: no complaints Endocrine: no complaints Lymphatic: no complaints Psychological: no complaints, nl mood/affect Immunologic: no complaints PMH/Family/Social Past Medical History Pancreatitis Medications Current Medications Ondansetron HCl (Zofran Inj) 4 mg BRIDGE ORDER PRN IV NAUSEA/VOMITING; Start 10/13/18 at 18:00; Stop 10/14/18 at 17:59 Hydralazine HCl (Apresoline) 10 mg ONCE ONCE IV ; Start 10/13/18 at 18:30; Stop 10/13/18 at 18:31 Coded Allergies: acetaminophen (Unverified Allergy, Intermediate, vomiting, rash, 10/13/18) aspirin (Unverified Allergy, Intermediate, 10/13/18) blurry vision oxycodone (Unverified Allergy, Intermediate, vomiting, rash, 10/13/18) potassium (Verified Allergy, Unknown, 10/13/18) morphine (Unverified Adverse Reaction, Mild, abd pain,n/v, 10/13/18) Past Surgical History Past Surgical Hx: no surgical history Family History Significant Family History: no pertinent family hx Social History Alcohol Use: none Smoking Status: Current every day smoker Drug Use: none Exam/Review of Systems Vital Signs Vitals Vital Signs Date Temp Pulse Resp B/P (MAP) Pulse Ox O2 O2 Flow FiO2 Time Delivery Rate 10/13/18 90 16 207/128 100 Room Air 17:33 (154) 10/13/18 98.0 15:34 Exam Constitutional: alert, oriented, well developed Psych: no complaints, nl mood/affect Head: normocephalic, atraumatic Eyes: nl conjunctiva, EOMI, nl lids, nl sclera, PERRL ENMT: nl external ears & nose, nl lips & teeth, nl nasal mucosa & septum Neck: supple, non-tender Respiratory: clear to auscultation, normal air movement Cardiovascular: regular rate and rhythm, nl pulses Gastrointestinal: soft, nl liver, spleen, non-tender Musculoskeletal: nl extremities to inspection Extremities: normal pulses Neurological: [employer] II-XII intact, nl mental status, nl speech, nl strength Skin: nl turgor; No rash or lesions Lymph: nl lymph nodes SUZY ROMANO MD Oct 13, 2018 18:37
[2018-10-13] MEDS ORDERED: hydrALAzine 20 MG INJ ONE (18:47)
[2018-10-13] MEDS ORDERED: OXYCODONE/ACETAMINOPHEN (5/325) TAB PO PRN (19:00)
[2018-10-13] MEDS ORDERED: NACL 0.9% 3 ML SYG IV SCH (19:00)
[2018-10-13] MEDS ORDERED: KETOROLAC 15 MG INJ IV PRN (19:00)
[2018-10-13] MEDS ORDERED: HYDROmorphONE 0.5 MG/0.5 ML SYG IV PRN (19:00)
[2018-10-13 19:35] VITALS: BP 171/105; PULSE 111; RESP 18
[2018-10-13 20:00] VITALS: Ht 185.4 cm; Wt 120.0 kg
[2018-10-13] MEDS: DEXTROSE 5%-0.45% NACL 1,000 ML IV SCH (23:17)
[2018-10-13] MEDS ORDERED: KETOROLAC 30 MG INJ IV PRN (23:30)
[2018-10-14] MEDS: HYDROmorphONE 1 MG/ML SYG IV PRN ×6 (01:44→22:09)
[2018-10-14 02:22] VITALS: BP 178/112; PULSE 91; RESP 19
[2018-10-14] MEDS: hydrALAzine 20 MG INJ IV PRN ×2 (02:42→08:57)
[2018-10-14] MEDS ORDERED: hydrALAzine 20 MG INJ IV ONE (03:30)
[2018-10-14 04:02] VITALS: BP 165/90
[2018-10-14 07:52] VITALS: BP 171/101; PULSE 92; RESP 18
[2018-10-14] MEDS: DEXTROSE 5%-0.45% NACL 1,000 ML IV SCH ×2 (08:58→18:09)
[2018-10-14] MEDS: LISINOPRIL 20 MG TAB PO SCH (08:58)
[2018-10-14] MEDS: AMLODIPINE 5 MG TAB PO SCH (08:58)
[2018-10-14] MEDS: ENOXAPARIN 30 MG/0.3 ML SYG SC SCH (08:59)
[2018-10-14 13:46] VITALS: BP 155/102; PULSE 92; RESP 18
--- NOTE | 2018-10-14 14:22 | PN ---
Date/Time of Note Date/Time of Note DATE: 10/14/18 TIME: 14:21 Assessment/Plan VTE Prophylaxis Risk score (from Nsg)>0 risk: 2 Pharmacological prophylaxis: NA/contraindicated Pharm contraindication: low risk/ambulating Lines/Catheters IV Catheter Type (from Nrsg): Peripheral IV Assessment/Plan Hospital Course 43 yo male with chronic pancreatitis - Pain seems adequately controlled currently - Will give gently IV dialudid - IV fluids - PO as tolerated - GI doctor Suchov to consult Hypertension - Continue lisinopril. Start amlodipine Prophylaxis: Ambulation Result Diagram: 10/14/183 10/14/183 Results 24hrs Laboratory Tests Test 10/13/18 16:27 10/13/18 18:00 10/14/18 04:33 White Blood Count 9.1 # 8.9 Red Blood Count 4.54 L 4.32 L Hemoglobin 10.8 L 10.4 L Hematocrit 35.2 L 33.5 L Mean Corpuscular Volume 77.5 L 77.5 L Mean Corpuscular Hemoglobin 23.8 L 24.1 L Mean Corpuscular Hemoglobin Concent 30.7 L 31.0 L Red Cell Distribution Width 20.4 H 20.8 H Platelet Count 358 # 327 Mean Platelet Volume 9.6 9.3 Immature Granulocytes % 0.400 0.300 Neutrophils % 71.6 65.6 Lymphocytes % 20.2 22.4 Monocytes % 5.7 6.2 Eosinophils % 1.5 4.7 Basophils % 0.6 0.8 Nucleated Red Blood Cells % 0.0 0.0 Immature Granulocytes # 0.040 H 0.030 Neutrophils # 6.5 5.8 Lymphocytes # 1.8 2.0 Monocytes # 0.5 0.6 Eosinophils # 0.1 0.4 Basophils # 0.1 0.1 Nucleated Red Blood Cells # 0.0 0.0 Sodium Level 145 H 139 Potassium Level 3.3 L 3.0 L Chloride Level 104 104 Carbon Dioxide Level 28 29 Anion Gap 13 6 Blood Urea Nitrogen 11 7 Creatinine 0.81 0.63 Est Glomerular Filtrat Rate mL/min > 60 > 60 Glucose Level 125 127 Calcium Level 9.6 9.1 Total Bilirubin 0.2 0.4 Direct Bilirubin 0.00 0.00 Indirect Bilirubin 0.2 0.4 Aspartate Amino Transf (AST/SGOT) 35 27 Alanine Aminotransferase (ALT/SGPT) 22 18 Alkaline Phosphatase 126 H 108 Total Protein 7.3 6.1 # Albumin 3.9 3.2 L Globulin 3.40 H 2.90 Albumin/Globulin Ratio 1.14 1.10 Lipase 1893 H 2363 H Urine Color YELLOW Urine Clarity CLEAR Urine pH 7.0 Urine Specific [place] 1.013 Urine Ketones NEGATIVE Urine Nitrite NEGATIVE Urine Bilirubin NEGATIVE Urine Urobilinogen NEGATIVE Urine Leukocyte Esterase NEGATIVE Urine Hemoglobin NEGATIVE Urine Glucose 1+ H Urine Total Protein NEGATIVE Hemoglobin A1c 5.6 Subjective 24 Hr Interval Summary Gastrointestinal: pain Exam/Review of Systems Exam Vitals Vital Signs Date Temp Pulse Resp B/P (MAP) Pulse Ox O2 O2 Flow FiO2 Time Delivery Rate 10/14/18 98.5 92 18 155/102 97 13:46 (119) 10/14/18 Room Air 02:22 Intake and Output 10/13/18 10/13/18 10/14/18 1515:00 23:00 07:00 IntakeIntake Total 860 ml OutputOutput Total 350 ml 300 ml BalanceBalance -350 ml 560 ml Constitutional: alert, oriented Respiratory: clear to auscultation Cardiovascular: regular rate and rhythm Gastrointestinal: soft; No distended Musculoskeletal: nl extremities to inspection Results Results 24hrs Laboratory Tests Test 10/13/18 16:27 10/13/18 18:00 10/14/18 04:33 White Blood Count 9.1 # 8.9 Red Blood Count 4.54 L 4.32 L Hemoglobin 10.8 L 10.4 L Hematocrit 35.2 L 33.5 L Mean Corpuscular Volume 77.5 L 77.5 L Mean Corpuscular Hemoglobin 23.8 L 24.1 L Mean Corpuscular Hemoglobin Concent 30.7 L 31.0 L Red Cell Distribution Width 20.4 H 20.8 H Platelet Count 358 # 327 Mean Platelet Volume 9.6 9.3 Immature Granulocytes % 0.400 0.300 Neutrophils % 71.6 65.6 Lymphocytes % 20.2 22.4 Monocytes % 5.7 6.2 Eosinophils % 1.5 4.7 Basophils % 0.6 0.8 Nucleated Red Blood Cells % 0.0 0.0 Immature Granulocytes # 0.040 H 0.030 Neutrophils # 6.5 5.8 Lymphocytes # 1.8 2.0 Monocytes # 0.5 0.6 Eosinophils # 0.1 0.4 Basophils # 0.1 0.1 Nucleated Red Blood Cells # 0.0 0.0 Sodium Level 145 H 139 Potassium Level 3.3 L 3.0 L Chloride Level 104 104 Carbon Dioxide Level 28 29 Anion Gap 13 6 Blood Urea Nitrogen 11 7 Creatinine 0.81 0.63 Est Glomerular Filtrat Rate mL/min > 60 > 60 Glucose Level 125 127 Calcium Level 9.6 9.1 Total Bilirubin 0.2 0.4 Direct Bilirubin 0.00 0.00 Indirect Bilirubin 0.2 0.4 Aspartate Amino Transf (AST/SGOT) 35 27 Alanine Aminotransferase (ALT/SGPT) 22 18 Alkaline Phosphatase 126 H 108 Total Protein 7.3 6.1 # Albumin 3.9 3.2 L Globulin 3.40 H 2.90 Albumin/Globulin Ratio 1.14 1.10 Lipase 1893 H 2363 H Urine Color YELLOW Urine Clarity CLEAR Urine pH 7.0 Urine Specific [place] 1.013 Urine Ketones NEGATIVE Urine Nitrite NEGATIVE Urine Bilirubin NEGATIVE Urine Urobilinogen NEGATIVE Urine Leukocyte Esterase NEGATIVE Urine Hemoglobin NEGATIVE Urine Glucose 1+ H Urine Total Protein NEGATIVE Hemoglobin A1c 5.6 Medications Medication Current Medications Ondansetron HCl (Zofran Inj) 4 mg BRIDGE ORDER PRN IV NAUSEA/VOMITING Last administered on 10/14/18at 08:56; Admin Dose 4 MG; Start 10/13/18 at 18:00; Stop 10/14/18 at 17:59 Lisinopril (Zestril) 20 mg DAILY PO ; Start 10/14/18 at 09:00 Amlodipine Besylate (Norvasc) 5 mg DAILY PO ; Start 10/14/18 at 09:00 IV Flush (NS 3 ml) 3 ml PER PROTOCOL IV ; Start 10/13/18 at 19:00 Oxycodone/ Acetaminophen (Percocet (5/ 325)) 1 tab Q6H PRN PO .MOD PAIN 4-6; Start 10/13/18 at 19:00; Status Hold Enoxaparin Sodium (Lovenox) 30 mg DAILY SC ; Start 10/14/18 at 09:00 Dextrose/Sodium Chloride 1,000 ml @ 125 mls/hr Q8H IV Last administered on 10/14/18at 08:58; Admin Dose 125 MLS/HR; Start 10/13/18 at 23:00 Hydromorphone HCl (Dilaudid) 1 mg Q4H PRN IV SEVERE PAIN LEVEL 7-10 Last administered on 10/14/18 09:58; Admin Dose 1 MG; Start 10/13/18 at 23:00 Ketorolac Tromethamine (Toradol) 15 mg Q6H PRN IV PAIN Last administered on 10/14/18at 13:00; Admin Dose 15 MG; Start 10/13/18 at 23:30; Stop 10/16/18 at 18:59 Hydralazine HCl (Apresoline) 10 mg Q4H PRN IV ELEVATED SYSTOLIC BP Last administered on 10/14/18at 08:57; Admin Dose 10 MG; Start 10/14/18 at 02:30 DODIE FRANCES Oct 14, 2018 14:22
--- NOTE | 2018-10-14 16:02 | CONS ---
Assessment/Plan Assessment/Plan Hospital Course (Demo Recall) Summary Assessment and Plan: Assessment: Chronic pancreatitis with pseudocyst Hypertension Plan: We will start Creon to be given with meals-however pain persists or becomes worse will change diet to clear liquid MRCP Supportive care Pending EUS as an outpatient Patient seen in collaboration with Dr. Tapia CC: MARGO TAPIA MD ; Consultation Date/Type/Reason Admit Date/Time Oct 13, 2018 at 17:31 Date of Consultation: Oct 14, 2018 Type of Consult GI Reason for Consultation Chronic pancreatitis with pseudocyst Date/Time of Note DATE: 10/14/18 TIME: 15:54 Hx of Present Illness This is a 43-year-old male with past medical history of hypertension and chronic pancreatitis with pseudocyst he was recently evaluated in our clinic 10/02/18 with plans for EUS, However since that time pt began to c/o severe LUQ pain after eating turkey mello. Here labs were noted to be elevated including elevated lipase she has been consulted for further evaluation. Of note patient has a significant weight loss over 100 pounds previously his weight presented him to moving forward with MRCP however with weight loss patient is now appropriate we will plan to order an MRCP and further information and provide supportive care at this time until patient is stabilized to proceed with EUS as an outpatient. Review of Systems: A 12 system, review was conducted and is negative except as noted in the HPI or here. Past Medical History Home Meds Reported Medications Lisinopril* (Lisinopril*) 20 Mg Tablet, 20 MG PO DAILY, #30 TAB 10/13/18 Discontinued Reported Medications Lisinopril* (Lisinopril*) 20 Mg Tablet, 20 MG PO DAILY, #30 TAB 06/18/18 Discontinued Scripts Tramadol HCl (Tramadol HCl) 50 Mg Tablet, 50 MG PO Q6 PRN for PAIN, #10 TAB Prov:KEERTHI FRIEDMAN MD 09/17/18 Medications Current Medications Ondansetron HCl (Zofran Inj) 4 mg BRIDGE ORDER PRN IV NAUSEA/VOMITING Last administered on 10/14/18at 08:56; Admin Dose 4 MG; Start 10/13/18 at 18:00; Stop 10/14/18 at 17:59 Lisinopril (Zestril) 20 mg DAILY PO ; Start 10/14/18 at 09:00 Amlodipine Besylate (Norvasc) 5 mg DAILY PO ; Start 10/14/18 at 09:00 IV Flush (NS 3 ml) 3 ml PER PROTOCOL IV ; Start 10/13/18 at 19:00 Oxycodone/ Acetaminophen (Percocet (5/ 325)) 1 tab Q6H PRN PO .MOD PAIN 4-6; Start 10/13/18 at 19:00; Status Hold Enoxaparin Sodium (Lovenox) 30 mg DAILY SC ; Start 10/14/18 at 09:00 Dextrose/Sodium Chloride 1,000 ml @ 125 mls/hr Q8H IV Last administered on 10/14/18at 08:58; Admin Dose 125 MLS/HR; Start 10/13/18 at 23:00 Ketorolac Tromethamine (Toradol) 15 mg Q6H PRN IV PAIN Last administered on 10/14/18at 13:00; Admin Dose 15 MG; Start 10/13/18 at 23:30; Stop 10/16/18 at 18:59 Hydralazine HCl (Apresoline) 10 mg Q4H PRN IV ELEVATED SYSTOLIC BP Last adm inistered on 10/14/18at 08:57; Admin Dose 10 MG; Start 10/14/18 at 02:30 Hydromorphone HCl (Dilaudid) 1 mg Q3 PRN IV SEVERE PAIN LEVEL 7-10 Last administered on 10/14/18at 15:03; Admin Dose 1 MG; Start 10/14/18 at 14:30 Allergies: Coded Allergies: acetaminophen (Unverified Allergy, Intermediate, vomiting, rash, 10/13/18) aspirin (Unverified Allergy, Intermediate, 10/13/18) blurry vision oxycodone (Unverified Allergy, Intermediate, vomiting, rash, 10/13/18) potassium (Verified Allergy, Unknown, 10/13/18) morphine (Unverified Adverse Reaction, Mild, abd pain,n/v, 10/13/18) Past Surgical History Past Surgical Hx: no surgical history Social History Alcohol Use: none Smoking Status: Former smoker Drug Use: none Exam/Review of Systems Exam Vitals Vital Signs Date Temp Pulse Resp B/P (MAP) Pulse Ox O2 O2 Flow FiO2 Time Delivery Rate 10/14/18 98.5 92 18 155/102 97 13:46 (119) 10/14/18 Room Air 02:22 Intake and Output 10/13/18 10/13/18 10/14/18 1515:00 23:00 07:00 IntakeIntake Total 860 ml OutputOutput Total 350 ml 300 ml BalanceBalance -350 ml 560 ml Exam PHYSICAL EXAMINATION: GENERAL: Alert & oriented x 3, in no acute distress SKIN: No lesions EYES: Pupils equal reactive to light, no discharge. EARS/NOSE AND THROAT: Ears normal, nose normal, oropharynx normal. NECK: Supple, no masses, thyroid normal CHEST: Inspection within normal limits. CARDIOVASCULAR: Heart: Regular rate and rhythm, RESPIRATORY: Lungs clear to auscultation GASTROINTESTINAL AND LIVER: Abdomen: Soft, LUQ pain, non-distended, no hernias, no masses, , no rebound tenderness, normoactive bowel sounds. Rectal: Deferred. Results Result Diagram: 10/14/18 0433 10/14/18 0433 Results 24hrs Laboratory Tests Test 10/13/18 16:27 10/13/18 18:00 10/14/18 04:33 White Blood Count 9.1 # 8.9 Red Blood Count 4.54 L 4.32 L Hemoglobin 10.8 L 10.4 L Hematocrit 35.2 L 33.5 L Mean Corpuscular Volume 77.5 L 77.5 L Mean Corpuscular Hemoglobin 23.8 L 24.1 L Mean Corpuscular Hemoglobin Concent 30.7 L 31.0 L Red Cell Distribution Width 20.4 H 20.8 H Platelet Count 358 # 327 Mean Platelet Volume 9.6 9.3 Immature Granulocytes % 0.400 0.300 Neutrophils % 71.6 65.6 Lymphocytes % 20.2 22.4 Monocytes % 5.7 6.2 Eosinophils % 1.5 4.7 Basophils % 0.6 0.8 Nucleated Red Blood Cells % 0.0 0.0 Immature Granulocytes # 0.040 H 0.030 Neutrophils # 6.5 5.8 Lymphocytes # 1.8 2.0 Monocytes # 0.5 0.6 Eosinophils # 0.1 0.4 Basophils # 0.1 0.1 Nucleated Red Blood Cells # 0.0 0.0 Sodium Level 145 H 139 Potassium Level 3.3 L 3.0 L Chloride Level 104 104 Carbon Dioxide Level 28 29 Anion Gap 13 6 Blood Urea Nitrogen 11 7 Creatinine 0.81 0.63 Est Glomerular Filtrat Rate mL/min > 60 > 60 Glucose Level 125 127 Calcium Level 9.6 9.1 Total Bilirubin 0.2 0.4 Direct Bilirubin 0.00 0.00 Indirect Bilirubin 0.2 0.4 Aspartate Amino Transf (AST/SGOT) 35 27 Alanine Aminotransferase (ALT/SGPT) 22 18 Alkaline Phosphatase 126 H 108 Total Protein 7.3 6.1 # Albumin 3.9 3.2 L Globulin 3.40 H 2.90 Albumin/Globulin Ratio 1.14 1.10 Lipase 1893 H 2363 H Urine Color YELLOW Urine Clarity CLEAR Urine pH 7.0 Urine Specific [place] 1.013 Urine Ketones NEGATIVE Urine Nitrite NEGATIVE Urine Bilirubin NEGATIVE Urine Urobilinogen NEGATIVE Urine Leukocyte Esterase NEGATIVE Urine Hemoglobin NEGATIVE Urine Glucose 1+ H Urine Total Protein NEGATIVE Hemoglobin A1c 5.6 Medications Medication Current Medications Ondansetron HCl (Zofran Inj) 4 mg BRIDGE ORDER PRN IV NAUSEA/VOMITING Last administered on 10/14/18at 08:56; Admin Dose 4 MG; Start 10/13/18 at 18:00; Stop 10/14/18 at 17:59 Lisinopril (Zestril) 20 mg DAILY PO ; Start 10/14/18 at 09:00 Amlodipine Besylate (Norvasc) 5 mg DAILY PO ; Start 10/14/18 at 09:00 IV Flush (NS 3 ml) 3 ml PER PROTOCOL IV ; Start 10/13/18 at 19:00 Oxycodone/ Acetaminophen (Percocet (5/ 325)) 1 tab Q6H PRN PO .MOD PAIN 4-6; Start 10/13/18 at 19:00; Status Hold Enoxaparin Sodium (Lovenox) 30 mg DAILY SC ; Start 10/14/18 at 09:00 Dextrose/Sodium Chloride 1,000 ml @ 125 mls/hr Q8H IV Last administered on 10/14/18at 08:58; Admin Dose 125 MLS/HR; Start 10/13/18 at 23:00 Ketorolac Tromethamine (Toradol) 15 mg Q6H PRN IV PAIN Last administered on 10/14/18at 13:00; Admin Dose 15 MG; Start 10/13/18 at 23:30; Stop 10/16/18 at 18:59 Hydralazine HCl (Apresoline) 10 mg Q4H PRN IV ELEVATED SYSTOLIC BP Last administered on 10/14/18 08:57; Admin Dose 10 MG; Start 10/14/18 at 02:30 Hydromorphone HCl (Dilaudid) 1 mg Q3 PRN IV SEVERE PAIN LEVEL 7-10 Last administered on 10/14/18at 15:03; Admin Dose 1 MG; Start 10/14/18 at 14:30 KATARINA DAY Oct 14, 2018 16:02
[2018-10-14] MEDS: CREON (12k-38k-60k) 1 CAP PO SCH (18:09)
[2018-10-14 19:42] VITALS: BP 163/91; PULSE 81; RESP 18
[2018-10-15] MEDS: HYDROmorphONE 1 MG/ML SYG IV PRN ×8 (01:11→23:10)
[2018-10-15] MEDS: hydrALAzine 20 MG INJ IV PRN (01:11)
[2018-10-15] MEDS: DEXTROSE 5%-0.45% NACL 1,000 ML IV SCH ×4 (01:53→23:11)
[2018-10-15 01:56] VITALS: BP 154/84; PULSE 91; RESP 18
[2018-10-15 01:57] VITALS: RESP 20
[2018-10-15 07:35] VITALS: BP 187/113; PULSE 88
[2018-10-15] MEDS: CREON (12k-38k-60k) 1 CAP PO SCH ×3 (08:00→18:00)
[2018-10-15] MEDS: LISINOPRIL 20 MG TAB PO SCH (08:09)
[2018-10-15] MEDS: AMLODIPINE 5 MG TAB PO SCH (09:00)
[2018-10-15] MEDS: ENOXAPARIN 30 MG/0.3 ML SYG SC SCH (09:00)
[2018-10-15 09:16] VITALS: BP 151/85; PULSE 85
--- NOTE | 2018-10-15 13:55 | PN ---
Date/Time of Note Date/Time of Note DATE: 10/15/18 TIME: 13:50 Assessment/Plan VTE Prophylaxis Risk score (from Nsg)>0 risk: 2 SCD applied (from Ns): No SCD contraindicated: other (scds) Pharmacological prophylaxis: other (scds) Lines/Catheters IV [facility]from [facility]): Peripheral IV Assessment/Plan Hospital Course Summary Assessment and Plan: Assessment: Chronic pancreatitis with pseudocyst Hypertension Plan: Continue current regimen MRCP- pending Supportive care Pending EUS as an outpatient- authorization approved by his ins- awaiting to schedule procedure Patient seen in collaboration with Dr. Tapia Subjective: Course reviewed with nursing staff Patient interviewed and examined All labs, imaging and other results reviewed The patient resting in bed, states he had a BM this morning, seem to be tolerating diet well, however now NPO for pending MRI Decrease in lipase noted. PHYSICAL EXAMINATION: GENERAL: Alert & oriented x 3, in no acute distress SKIN: No lesions EYES: Pupils equal reactive to light, no discharge. EARS/NOSE AND THROAT: Ears normal, nose normal, oropharynx normal. NECK: Supple, no masses, thyroid normal CHEST: Inspection within normal limits. CARDIOVASCULAR: Heart: Regular rate and rhythm, RESPIRATORY: Lungs clear to auscultation GASTROINTESTINAL AND LIVER: Abdomen: Soft, LUQ pain, non-distended, no hernias, no masses, , no rebound tenderness, normoactive bowel sounds. Rectal: Deferred. Result Diagram: 10/14/18 0433 10/14/18 043 Results 24hrs Laboratory Tests Test 10/15/18 04:35 Amylase Level 200 H Lipase 955 H Exam/Review of Systems Exam Vitals Vital Signs Date Temp Pulse Resp B/P (MAP) Pulse Ox O2 O2 Flow FiO2 Time Delivery Rate 10/15/18 85 151/85 09:16 (107) 10/15/18 98.8 97 Room Air 07:35 10/15/18 20 01:57 Intake and Output 10/14/18 10/14/18 10/15/18 1515:00 23:00 07:00 IntakeIntake Total 1020 ml 480 ml 1080 ml OutputOutput Total 800 ml 600 ml BalanceBalance 220 ml 480 ml 480 ml Results Results 24hrs Laboratory Tests Test 10/15/18 04:35 Amylase Level 200 H Lipase 955 H Medications Medication Current Medications Lisinopril (Zestril) 20 mg DAILY PO Last administered on 10/15/18 08:09; Admin Dose 20 MG; Start 10/14/18 at 09:00 Amlodipine Besylate (Norvasc) 5 mg DAILY PO ; Start 10/14/18 at 09:00 IV Flush (NS 3 ml) 3 ml PER PROTOCOL IV ; Start 10/13/18 at 19:00 Oxycodone/ Acetaminophen (Percocet (5/ 325)) 1 tab Q6H PRN PO .MOD PAIN 4-6; Start 10/13/18 at 19:00; Status Hold Enoxaparin Sodium (Lovenox) 30 mg DAILY SC ; Start 10/14/18 at 09:00 Dextrose/Sodium Chloride 1,000 ml @ 125 mls/hr Q8H IV Last administered on 10/15/18 11:15; Admin Dose 125 MLS/HR; Start 10/13/18 at 23:00 Ketorolac Tromethamine (Toradol) 15 mg Q6H PRN IV PAIN Last administered on 10/14/18 13:00; Admin Dose 15 MG; Start 10/13/18 at 23:30; Stop 10/16/18 at 18:59 Hydralazine HCl (Apresoline) 10 mg Q4H PRN IV ELEVATED SYSTOLIC BP Last administered on 10/15/18 01:11; Admin Dose 10 MG; Start 10/14/18 at 02:30 Hydromorphone HCl (Dilaudid) 1 mg Q3 PRN IV SEVERE PAIN LEVEL 7-10 Last administered on 10/15/18 11:15; Admin Dose 1 MG; Start 10/14/18 at 14:30 Amylase/Lipase/ Protease (CREON (12k-38k-60k)) 1 cap WITH MEALS PO Last administered on 10/14/18 18:09; Admin Dose 1 CAP; Start 10/14/18 at 18:00 KATARINA DAY Oct 15, 2018 13:55
[2018-10-15 14:06] VITALS: BP 174/101; PULSE 81; RESP 20
--- NOTE | 2018-10-15 14:08 | PN ---
Date/Time of Note Date/Time of Note DATE: 10/15/18 TIME: 14:06 Assessment/Plan VTE Prophylaxis Risk score (from Nsg)>0 risk: 2 Pharmacological prophylaxis: NA/contraindicated Pharm contraindication: low risk/ambulating Lines/Catheters IV Catheter Type (from Nrsg): Peripheral IV Assessment/Plan Hospital Course 43 yo male with chronic pancreatitis - Pain seems adequately controlled currently - Will give gently IV dialudid - IV fluids - PO as tolerated - GI consultation appreciated, MRCP pending, patient to have outpatient EUS Hypertension - Continue lisinopril. Start amlodipine Prophylaxis: Ambulation Result Diagram: 10/14/18 0433 10/14/18 0433 Results 24hrs Laboratory Tests Test 10/15/18 04:35 Amylase Level 200 H Lipase 955 H Subjective 24 Hr Interval Summary Gastrointestinal: pain Exam/Review of Systems Exam Vitals Vital Signs Date Temp Pulse Resp B/P (MAP) Pulse Ox O2 O2 Flow FiO2 Time Delivery Rate 10/15/18 85 151/85 09:16 (107) 10/15/18 98.8 97 Room Air 07:35 10/15/18 20 01:57 Intake and Output 10/14/18 10/14/18 10/15/18 1515:00 23:00 07:00 IntakeIntake Total 1020 ml 480 ml 1080 ml OutputOutput Total 800 ml 600 ml BalanceBalance 220 ml 480 ml 480 ml Constitutional: alert, oriented Respiratory: clear to auscultation Cardiovascular: regular rate and rhythm Gastrointestinal: soft, tender; No distended Musculoskeletal: nl extremities to inspection Results Results 24hrs Laboratory Tests Test 10/15/18 04:35 Amylase Level 200 H Lipase 955 H Medications Medication Current Medications Lisinopril (Zestril) 20 mg DAILY PO Last administered on 10/15/18at 08:09; Admin Dose 20 MG; Start 10/14/18 at 09:00 Amlodipine Besylate (Norvasc) 5 mg DAILY PO ; Start 10/14/18 at 09:00 IV Flush (NS 3 ml) 3 ml PER PROTOCOL IV ; Start 10/13/18 at 19:00 Oxycodone/ Acetaminophen (Percocet (5/ 325)) 1 tab Q6H PRN PO .MOD PAIN 4-6; Start 10/13/18 at 19:00; Status Hold Enoxaparin Sodium (Lovenox) 30 mg DAILY SC ; Start 10/14/18 at 09:00 Dextrose/Sodium Chloride 1,000 ml @ 125 mls/hr Q8H IV Last administered on 10/15/18 11:15; Admin Dose 125 MLS/HR; Start 10/13/18 at 23:00 Ketorolac Tromethamine (Toradol) 15 mg Q6H PRN IV PAIN Last administered on 10/14/18 13:00; Admin Dose 15 MG; Start 10/13/18 at 23:30; Stop 10/16/18 at 18:59 Hydralazine HCl (Apresoline) 10 mg Q4H PRN IV ELEVATED SYSTOLIC BP Last administered on 10/15/18 01:11; Admin Dose 10 MG; Start 10/14/18 at 02:30 Hydromorphone HCl (Dilaudid) 1 mg Q3 PRN IV SEVERE PAIN LEVEL 7-10 Last administered on 10/15/18 14:03; Admin Dose 1 MG; Start 10/14/18 at 14:30 Amylase/Lipase/ Protease (CREON (12t-94k-60k)) 1 cap WITH MEALS PO Last administered on 10/14/18 18:09; Admin Dose 1 CAP; Start 10/14/18 at 18:00 DODIE FRANCES Oct 15, 2018 14:08
[2018-10-15] MEDS ORDERED: PIPER-TAZO 3.375 GM IV (PMX) 100 ML IVPB ONE (14:30)
[2018-10-15] MEDS: ONDANSETRON 4 MG INJ IV PRN (19:08)
[2018-10-15 20:03] VITALS: BP 172/102; PULSE 78; RESP 18
[2018-10-16 02:00] VITALS: BP 168/100; PULSE 79; RESP 18
[2018-10-16] MEDS: HYDROmorphONE 1 MG/ML SYG IV PRN ×8 (02:03→23:35)
[2018-10-16] MEDS: CREON (12k-38k-60k) 1 CAP PO SCH ×3 (08:00→17:36)
[2018-10-16] MEDS: ENOXAPARIN 30 MG/0.3 ML SYG SC SCH (08:35)
[2018-10-16] MEDS: DEXTROSE 5%-0.45% NACL 1,000 ML IV SCH ×3 (08:37→20:37)
[2018-10-16 08:44] VITALS: BP 193/116; PULSE 72; RESP 18
[2018-10-16] MEDS: AMLODIPINE 5 MG TAB PO SCH (09:00)
[2018-10-16] MEDS: LISINOPRIL 20 MG TAB PO SCH (09:02)
[2018-10-16] MEDS: ONDANSETRON 4 MG INJ IV PRN (09:06)
--- NOTE | 2018-10-16 10:59 | PN ---
Date/Time of Note Date/Time of Note DATE: 10/16/18 TIME: 10:53 Assessment/Plan VTE Prophylaxis Risk score (from Nsg)>0 risk: 2 SCD applied (from Nsg): No SCD contraindicated: low risk/ambulating Pharmacological prophylaxis: NA/contraindicated Pharm contraindication: low risk/ambulating Lines/Catheters IV Catheter Type (from [facility]): Peripheral IV Assessment/Plan Hospital Course Summary Assessment and Plan: Assessment: Chronic pancreatitis with pseudocyst MRCP- Pancreas: The previously described intrapancreatic collection within the pancreatic head is slightly increased in size now measuring 2.9 cm and is likely necrosis as it is hypointense on T2 weighted images. The main pancreatic duct remains dilated. The pancreatic tail demonstrates persistent fluid collections which are overall stable since prior. Decreased size of the fluid collection inferior to the fundus of the stomach now measuring 2.3 x 3.1 cm (5:26). There is peripancreatic fluid and stranding. There is a 6 mm stone seen within the mid portion of the main pancreatic duct (5:31) with upstream ductal dilatation up to 2 cm. Hypertension Plan: Discussed plan in depth with Dr. Tapia- stabilize current episodes of pancreatitis - continue with plan for out-pt EUS, pt will need to have pancreatic stone removed at a tertiary center, and will need to be evaluated for possible distal pancreatectomy. Continue supportive care. Plan discussed with patient. Cm consult to arrange out-pt evaluation for removal of pancreatic stone and possible need for distal pancreatectomy. Pending EUS as an outpatient- authorization approved by his ins- awaiting to schedule procedure Patient seen in collaboration with Dr. Tapia Subjective: Course reviewed with nursing staff Patient interviewed and examined All labs, imaging and other results reviewed Pt states he is feeling better today, able to tolerating diet this am LUQ pain has improved from yesterday. Currently no c/o n/v PHYSICAL EXAMINATION: GENERAL: Alert & oriented x 3, in no acute distress SKIN: No lesions EYES: Pupils equal reactive to light, no discharge. EARS/NOSE AND THROAT: Ears normal, nose normal, oropharynx normal. NECK: Supple, no masses, thyroid normal CHEST: Inspection within normal limits. CARDIOVASCULAR: Heart: Regular rate and rhythm, RESPIRATORY: Lungs clear to auscultation GASTROINTESTINAL AND LIVER: Abdomen: Soft, LUQ pain, non-distended, no hernias, no masses, , no rebound tenderness, normoactive bowel sounds. Rectal: Deferred. Result Diagram: 10/14/18 0433 10/16/18 0441 Results 24hrs Laboratory Tests Test 10/16/18 04:41 Sodium Level 139 Potassium Level 3.4 L Chloride Level 104 Carbon Dioxide Level 31 Anion Gap 4 L Blood Urea Nitrogen 7 Creatinine 0.73 Est Glomerular Filtrat Rate mL/min > 60 Glucose Level 131 Calcium Level 8.8 Exam/Review of Systems Exam Vitals Vital Signs Date Temp Pulse Resp B/P (MAP) Pulse Ox O2 O2 Flow FiO2 Time Delivery Rate 10/16/18 98.4 72 18 193/116 97 Room Air 08:44 (141) Intake and Output 10/15/18 10/15/18 10/16/18 1515:00 23:00 07:00 IntakeIntake Total 620 ml 1000 ml 1190 ml OutputOutput Total 700 ml BalanceBalance 620 ml 300 ml 1190 ml Results Results 24hrs Laboratory Tests Test 10/16/18 04:41 Sodium Level 139 Potassium Level 3.4 L Chloride Level 104 Carbon Dioxide Level 31 Anion Gap 4 L Blood Urea Nitrogen 7 Creatinine 0.73 Est Glomerular Filtrat Rate mL/min > 60 Glucose Level 131 Calcium Level 8.8 Medications Medication Current Medications Lisinopril (Zestril) 20 mg DAILY PO Last administered on 10/16/18at 09:02; Admin Dose 20 MG; Start 10/14/18 at 09:00 Amlodipine Besylate (Norvasc) 5 mg DAILY PO ; Start 10/14/18 at 09:00 IV Flush (NS 3 ml) 3 ml PER PROTOCOL IV ; Start 10/13/18 at 19:00 Oxycodone/ Acetaminophen (Percocet (5/ 325)) 1 tab Q6H PRN PO .MOD PAIN 4-6; Start 10/13/18 at 19:00; Status Hold Enoxaparin Sodium (Lovenox) 30 mg DAILY SC ; Start 10/14/18 at 09:00 Dextrose/Sodium Chloride 1,000 ml @ 125 mls/hr Q8H IV Last administered on 10/16/18at 08:37; Admin Dose 125 MLS/HR; Start 10/13/18 at 23:00 Ketorolac Tromethamine (Toradol) 15 mg Q6H PRN IV PAIN Last administered on 10/14/18 13:00; Admin Dose 15 MG; Start 10/13/18 at 23:30; Stop 10/16/18 at 18:59 Hydralazine HCl (Apresoline) 10 mg Q4H PRN IV ELEVATED SYSTOLIC BP Last administered on 10/15/18 01:11; Admin Dose 10 MG; Start 10/14/18 at 02:30 Hydromorphone HCl (Dilaudid) 1 mg Q3 PRN IV SEVERE PAIN LEVEL 7-10 Last administered on 10/16/18 08:38; Admin Dose 1 MG; Start 10/14/18 at 14:30 Amylase/Lipase/ Protease (CREON (12k-38k-60k)) 1 cap WITH MEALS PO Last administered on 10/14/18 18:09; Admin Dose 1 CAP; Start 10/14/18 at 18:00 Ondansetron HCl (Zofran Inj) 4 mg Q4H PRN IV NAUSEA AND/OR VOMITING Last administered on 10/16/18 09:06; Admin Dose 4 MG; Start 10/15/18 at 19:30 KATARINA DAY Oct 16, 2018 10:59
--- NOTE | 2018-10-16 13:46 | PN ---
Date/Time of Note Date/Time of Note DATE: 10/16/18 TIME: 13:45 Assessment/Plan VTE Prophylaxis Risk score (from Nsg)>0 risk: 2 Pharmacological prophylaxis: NA/contraindicated Pharm contraindication: low risk/ambulating Lines/Catheters IV Catheter Type (from Nrsg): Peripheral IV Assessment/Plan Hospital Course 43 yo male with chronic pancreatitis - Pain seems adequately controlled currently - Will give gently IV dialudid - IV fluids - PO as tolerated - GI consultation appreciated, MRCP shows persistent necrotizing pancreatitis as well as pancreatic duct stone -Patient will need follow-up at a tertiary center for ERCP Hypertension - Continue lisinopril. Start amlodipine Prophylaxis: Ambulation DC planning: Anticipate DC home in 1-2 days Result Diagram: 10/14/18 0433 10/16/18 0441 Results 24hrs Laboratory Tests Test 10/16/18 04:41 Sodium Level 139 Potassium Level 3.4 L Chloride Level 104 Carbon Dioxide Level 31 Anion Gap 4 L Blood Urea Nitrogen 7 Creatinine 0.73 Est Glomerular Filtrat Rate mL/min > 60 Glucose Level 131 Calcium Level 8.8 Subjective 24 Hr Interval Summary Gastrointestinal: pain Exam/Review of Systems Exam Vitals Vital Signs Date Temp Pulse Resp B/P (MAP) Pulse Ox O2 O2 Flow FiO2 Time Delivery Rate 10/16/18 98.4 72 18 193/116 97 Room Air 08:44 (141) Intake and Output 10/15/18 10/15/18 10/16/18 1515:00 23:00 07:00 IntakeIntake Total 620 ml 1000 ml 1190 ml OutputOutput Total 700 ml BalanceBalance 620 ml 300 ml 1190 ml Constitutional: alert Respiratory: clear to auscultation Cardiovascular: regular rate and rhythm Gastrointestinal: soft, tender; No distended Musculoskeletal: nl extremities to inspection Results Results 24hrs Laboratory Tests Test 10/16/18 04:41 Sodium Level 139 Potassium Level 3.4 L Chloride Level 104 Carbon Dioxide Level 31 Anion Gap 4 L Blood Urea Nitrogen 7 Creatinine 0.73 Est Glomerular Filtrat Rate mL/min > 60 Glucose Level 131 Calcium Level 8.8 Medications Medication Current Medications Lisinopril (Zestril) 20 mg DAILY PO Last administered on 10/16/18at 09:02; Admin Dose 20 MG; Start 10/14/18 at 09:00 Amlodipine Besylate (Norvasc) 5 mg DAILY PO ; Start 10/14/18 at 09:00 IV Flush (NS 3 ml) 3 ml PER PROTOCOL IV ; Start 10/13/18 at 19:00 Oxycodone/ Acetaminophen (Percocet (5/ 325)) 1 tab Q6H PRN PO .MOD PAIN 4-6; Start 10/13/18 at 19:00; Status Hold Enoxaparin Sodium (Lovenox) 30 mg DAILY SC ; Start 10/14/18 at 09:00 Dextrose/Sodium Chloride 1,000 ml @ 125 mls/hr Q8H IV Last administered on 10/16/18 08:37; Admin Dose 125 MLS/HR; Start 10/13/18 at 23:00 Ketorolac Tromethamine (Toradol) 15 mg Q6H PRN IV PAIN Last administered on 10/14/18 13:00; Admin Dose 15 MG; Start 10/13/18 at 23:30; Stop 10/16/18 at 18:59 Hydralazine HCl (Apresoline) 10 mg Q4H PRN IV ELEVATED SYSTOLIC BP Last administered on 10/15/18 01:11; Admin Dose 10 MG; Start 10/14/18 at 02:30 Hydromorphone HCl (Dilaudid) 1 mg Q3 PRN IV SEVERE PAIN LEVEL 7-10 Last admini stered on 10/16/18 11:39; Admin Dose 1 MG; Start 10/14/18 at 14:30 Amylase/Lipase/ Protease (CREON (12k-38k-60k)) 1 cap WITH MEALS PO Last administered on 10/16/18 13:18; Admin Dose 1 CAP; Start 10/14/18 at 18:00 Ondansetron HCl (Zofran Inj) 4 mg Q4H PRN IV NAUSEA AND/OR VOMITING Last administered on 10/16/18 09:06; Admin Dose 4 MG; Start 10/15/18 at 19:30 DODIE FRANCES Oct 16, 2018 13:46
[2018-10-16 16:25] VITALS: BP 162/106; PULSE 70; RESP 18
[2018-10-16 20:00] VITALS: BP 163/95; PULSE 71; RESP 18
[2018-10-17 02:00] VITALS: BP 162/77; PULSE 76; RESP 18
[2018-10-17] MEDS: HYDROmorphONE 1 MG/ML SYG IV PRN ×8 (02:39→23:27)
[2018-10-17] MEDS: DEXTROSE 5%-0.45% NACL 1,000 ML IV SCH ×3 (06:56→22:55)
[2018-10-17] MEDS: CREON (12k-38k-60k) 1 CAP PO SCH ×3 (08:00→17:10)
[2018-10-17 08:10] VITALS: BP 196/116; PULSE 80; RESP 18
[2018-10-17] MEDS: AMLODIPINE 5 MG TAB PO SCH (08:19)
[2018-10-17] MEDS: ENOXAPARIN 30 MG/0.3 ML SYG SC SCH (08:19)
[2018-10-17] MEDS: LISINOPRIL 20 MG TAB PO SCH (08:20)
[2018-10-17] MEDS: hydrALAzine 20 MG INJ IV PRN ×2 (08:21→17:30)
[2018-10-17 09:50] VITALS: BP 161/86; PULSE 98
--- NOTE | 2018-10-17 13:03 | PN ---
Date/Time of Note Date/Time of Note DATE: 10/17/18 TIME: 12:54 Assessment/Plan VTE Prophylaxis Risk score (from Nsg)>0 risk: 2 SCD applied (from Ns): No SCD contraindicated: low risk/ambulating, other Pharmacological prophylaxis: NA/contraindicated Pharm contraindication: low risk/ambulating Lines/Catheters [facility] Peripheral IV Assessment/Plan Hospital Course Summary Assessment and Plan: Assessment: Chronic pancreatitis with pseudocyst MRCP- Pancreas: The previously described intrapancreatic collection within the pancreatic head is slightly increased in size now measuring 2.9 cm and is likely necrosis as it is hypointense on T2 weighted images. The main pancreatic duct remains dilated. The pancreatic tail demonstrates persistent fluid collections which are overall stable since prior. Decreased size of the fluid collection inferior to the fundus of the stomach now measuring 2.3 x 3.1 cm (5:26). There is peripancreatic fluid and stranding. There is a 6 mm stone seen within the mid portion of the main pancreatic duct (5:31) with upstream ductal dilatation up to 2 cm. Hypertension Plan: Continue supportive care. Plan discussed with patient. Cm consult to arrange out-pt evaluation at a tertiary center for ERCP with removal of pancreatic stone and possible need for distal pancreatectomy. Pending EUS as an outpatient- authorization approved by his ins- awaiting to schedule procedure Patient seen in collaboration with Dr. Tapia Subjective: Course reviewed with nursing staff Patient interviewed and examined All labs, imaging and other results reviewed Pt states he is feeling better, able to tolerate soft diet well without n/v. Encourage ambulation, and current regimen. PHYSICAL EXAMINATION: GENERAL: Alert & oriented x 3, in no acute distress SKIN: No lesions EYES: Pupils equal reactive to light, no discharge. EARS/NOSE AND THROAT: Ears normal, nose normal, oropharynx normal. NECK: Supple, no masses, thyroid normal CHEST: Inspection within normal limits. CARDIOVASCULAR: Heart: Regular rate and rhythm, RESPIRATORY: Lungs clear to auscultation GASTROINTESTINAL AND LIVER: Abdomen: Soft, LUQ pain, non-distended, no hernias, no masses, , no rebound tenderness, normoactive bowel sounds. Rectal: Deferred. Result Diagram: 10/14/18 0433 10/16/18 0441 Exam/Review of Systems Exam Vitals Vital Signs Date Temp Pulse Resp B/P (MAP) Pulse Ox O2 O2 Flow FiO2 Time Delivery Rate 10/17/18 98 161/86 09:50 (111) 10/17/18 98.4 18 97 Room Air 08:10 Intake and Output 10/16/18 10/16/18 10/17/18 1515:00 23:00 07:00 IntakeIntake Total 930 ml 1240 ml 800 ml OutputOutput Total 1200 ml BalanceBalance -270 ml 1240 ml 800 ml Medications Medication Current Medications Lisinopril (Zestril) 20 mg DAILY PO Last administered on 10/17/18 08:20; Admin Dose 20 MG; Start 10/14/18 at 09:00 Amlodipine Besylate (Norvasc) 5 mg DAILY PO ; Start 10/14/18 at 09:00 IV Flush (NS 3 ml) 3 ml PER PROTOCOL IV ; Start 10/13/18 at 19:00 Oxycodone/ Acetaminophen (Percocet (5/ 325)) 1 tab Q6H PRN PO .MOD PAIN 4-6; Start 10/13/18 at 19:00; Status Hold Enoxaparin Sodium (Lovenox) 30 mg DAILY SC ; Start 10/14/18 at 09:00 Dextrose/Sodium Chloride 1,000 ml @ 125 mls/hr Q8H IV Last administered on 10/17/18 08:24; Admin Dose 125 MLS/HR; Start 10/13/18 at 23:00 Hydralazine HCl (Apresoline) 10 mg Q4H PRN IV ELEVATED SYSTOLIC BP Last administered on 10/17/18 08:21; Admin Dose 10 MG; Start 10/14/18 at 02:30 Hydromorphone HCl (Dilaudid) 1 mg Q3 PRN IV SEVERE PAIN LEVEL 7-10 Last administered on 10/17/18 11:20; Admin Dose 1 MG; Start 10/14/18 at 14:30 Amylase/Lipase/ Protease (CREON ([id number])) 1 cap WITH MEALS PO Last administered on 10/16/18 13:18; Admin Dose 1 CAP; Start 10/14/18 at 18:00 Ondansetron HCl (Zofran Inj) 4 mg Q4H PRN IV NAUSEA AND/OR VOMITING Last administered on 4/10/19at 09:06; Admin Dose 4 MG; Start 10/15/18 at 19:30 KATARINA DAY Oct 17, 2018 13:03
[2018-10-17 14:15] VITALS: BP 176/98; PULSE 90; RESP 18
--- NOTE | 2018-10-17 14:33 | PN ---
Date/Time of Note Date/Time of Note DATE: 10/17/18 TIME: 14:32 Assessment/Plan VTE Prophylaxis Risk score (from Nsg)>0 risk: 2 Pharmacological prophylaxis: NA/contraindicated Pharm contraindication: low risk/ambulating Lines/Catheters IV Catheter Type (from Nrsg): Peripheral IV Assessment/Plan Hospital Course 43 yo male with chronic pancreatitis - Pain seems adequately controlled currently - Will give gently IV dialudid - IV fluids - PO as tolerated - GI consultation appreciated, MRCP shows persistent necrotizing pancreatitis as well as pancreatic duct stone -Patient will need follow-up at a tertiary center for ERCP Hypertension - Continue lisinopril. Start amlodipine Prophylaxis: Ambulation DC planning: Anticipate DC home in 1-2 days Result Diagram: 10/14/18 0433 10/16/18 0441 Subjective 24 Hr Interval Summary Gastrointestinal: pain Exam/Review of Systems Exam Vitals Vital Signs Date Temp Pulse Resp B/P (MAP) Pulse Ox O2 O2 Flow FiO2 Time Delivery Rate 10/17/18 98.0 90 18 176/98 97 Room Air 14:15 (124) Intake and Output 10/16/18 10/16/18 10/17/18 1515:00 23:00 07:00 IntakeIntake Total 930 ml 1240 ml 800 ml OutputOutput Total 1200 ml BalanceBalance -270 ml 1240 ml 800 ml Constitutional: alert, oriented Respiratory: clear to auscultation Cardiovascular: regular rate and rhythm Gastrointestinal: soft; No distended Musculoskeletal: nl extremities to inspection Medications Medication Current Medications Lisinopril (Zestril) 20 mg DAILY PO Last administered on 10/17/18at 08:20; Admin Dose 20 MG; Start 10/14/18 at 09:00 Amlodipine Besylate (Norvasc) 5 mg DAILY PO ; Start 10/14/18 at 09:00 IV Flush (NS 3 ml) 3 ml PER PROTOCOL IV ; Start 10/13/18 at 19:00 Oxycodone/ Acetaminophen (Percocet (5/ 325)) 1 tab Q6H PRN PO .MOD PAIN 4-6; Start 10/13/18 at 19:00; Status Hold Enoxaparin Sodium (Lovenox) 30 mg DAILY SC ; Start 10/14/18 at 09:00 Dextrose/Sodium Chloride 1,000 ml @ 125 mls/hr Q8H IV Last administered on 10/17/18 08:24; Admin Dose 125 MLS/HR; Start 10/13/18 at 23:00 Hydralazine HCl (Apresoline) 10 mg Q4H PRN IV ELEVATED SYSTOLIC BP Last administered on 10/17/18 08:21; Admin Dose 10 MG; Start 10/14/18 at 02:30 Hydromorphone HCl (Dilaudid) 1 mg Q3 PRN IV SEVERE PAIN LEVEL 7-10 Last administered on 10/17/18 14:24; Admin Dose 1 MG; Start 10/14/18 at 14:30 Amylase/Lipase/ Protease (CREON ([id number])) 1 cap WITH MEALS PO Last administered on 10/16/18 13:18; Admin Dose 1 CAP; Start 10/14/18 at 18:00 Ondansetron HCl (Zofran Inj) 4 mg Q4H PRN IV NAUSEA AND/OR VOMITING Last administered on 10/16/18 09:06; Admin Dose 4 MG; Start 10/15/18 at 19:30 DODIE FRANCES Oct 17, 2018 14:33
[2018-10-17 20:00] VITALS: BP 166/97; PULSE 94; RESP 16
[2018-10-17 21:07] VITALS: BP 152/89; PULSE 77; RESP 18
[2018-10-18] VITALS (7 sets, daily range): BP systolic 141–183; BP diastolic 80–107; PULSE 79–102; RESP 18
[2018-10-18] MEDS: HYDROmorphONE 1 MG/ML SYG IV PRN ×8 (02:29→23:46)
[2018-10-18] MEDS: hydrALAzine 20 MG INJ IV PRN ×2 (02:33→08:31)
[2018-10-18] MEDS: CREON (12k-38k-60k) 1 CAP PO SCH ×3 (08:00→18:00)
[2018-10-18] MEDS: DEXTROSE 5%-0.45% NACL 1,000 ML IV SCH ×3 (08:29→22:52)
[2018-10-18] MEDS: LISINOPRIL 20 MG TAB PO SCH (08:30)
[2018-10-18] MEDS: AMLODIPINE 5 MG TAB PO SCH (08:30)
[2018-10-18] MEDS: ENOXAPARIN 30 MG/0.3 ML SYG SC SCH (08:30)
[2018-10-18] MEDS: ONDANSETRON 4 MG INJ IV PRN (08:31)
--- NOTE | 2018-10-18 11:29 | PN ---
Date/Time of Note Date/Time of Note DATE: 10/18/18 TIME: 11:29 Assessment/Plan VTE Prophylaxis Risk score (from Nsg)>0 risk: 2 Pharmacological prophylaxis: NA/contraindicated Pharm contraindication: low risk/ambulating Lines/Catheters IV Catheter Type (from Nrsg): Saline Lock Urinary Cath still in place: No Assessment/Plan Hospital Course 43 yo male with chronic pancreatitis - Pain seems adequately controlled currently - Will give gently IV dialudid - IV fluids - PO as tolerated - GI consultation appreciated, MRCP shows persistent necrotizing pancreatitis as well as pancreatic duct stone -Patient will need follow-up at a tertiary center for ERCP Hypertension - Continue lisinopril. Start amlodipine Prophylaxis: Ambulation DC planning: Anticipate DC home in 1-2 days Result Diagram: 10/14/18 0433 10/18/18 0458 Results 24hrs Laboratory Tests Test 10/18/18 04:58 Sodium Level 140 Potassium Level 3.3 L Chloride Level 105 Carbon Dioxide Level 26 Anion Gap 9 Blood Urea Nitrogen 7 Creatinine 0.64 Est Glomerular Filtrat Rate mL/min > 60 Glucose Level 105 Calcium Level 9.1 Lipase 442 H Subjective 24 Hr Interval Summary Gastrointestinal: pain Exam/Review of Systems Exam Vitals Vital Signs Date Temp Pulse Resp B/P (MAP) Pulse Ox O2 O2 Flow FiO2 Time Delivery Rate 10/18/18 141/87 09:45 (105) 10/18/18 98.5 79 18 98 Room Air 08:16 Intake and Output 10/17/18 10/17/18 10/18/18 1414:59 22:59 06:59 IntakeIntake Total 1160 ml 1000 ml OutputOutput Total 900 ml BalanceBalance 260 ml 1000 ml Constitutional: alert Respiratory: clear to auscultation Cardiovascular: regular rate and rhythm Gastrointestinal: soft, tender; No distended Musculoskeletal: nl extremities to inspection Results Results 24hrs Laboratory Tests Test 10/18/18 04:58 Sodium Level 140 Potassium Level 3.3 L Chloride Level 105 Carbon Dioxide Level 26 Anion Gap 9 Blood Urea Nitrogen 7 Creatinine 0.64 Est Glomerular Filtrat Rate mL/min > 60 Glucose Level 105 Calcium Level 9.1 Lipase 442 H Medications Medication Current Medications Lisinopril (Zestril) 20 mg DAILY PO Last administered on 10/17/18at 08:20; Admin Dose 20 MG; Start 10/14/18 at 09:00 Amlodipine Besylate (Norvasc) 5 mg DAILY PO ; Start 10/14/18 at 09:00 IV Flush (NS 3 ml) 3 ml PER PROTOCOL IV ; Start 10/13/18 at 19:00 Oxycodone/ Acetaminophen (Percocet (5/ 325)) 1 tab Q6H PRN PO .MOD PAIN 4-6; Start 10/13/18 at 19:00; Status Hold Enoxaparin Sodium (Lovenox) 30 mg DAILY SC ; Start 10/14/18 at 09:00 Dextrose/Sodium Chloride 1,000 ml @ 125 mls/hr Q8H IV Last administered on 10/17/18 08:24; Admin Dose 125 MLS/HR; Start 10/13/18 at 23:00 Hydralazine HCl (Apresoline) 10 mg Q4H PRN IV ELEVATED SYSTOLIC BP Last administered on 10/18/18 08:31; Admin Dose 10 MG; Start 10/14/18 at 02:30 Hydromorphone HCl (Dilaudid) 1 mg Q3 PRN IV SEVERE PAIN LEVEL 7-10 Last administered on 10/18/18 08:31; Admin Dose 1 MG; Start 10/14/18 at 14:30 Amylase/Lipase/ Protease (CREON ([id number])) 1 cap WITH MEALS PO Last administered on 10/16/18 13:18; Admin Dose 1 CAP; Start 10/14/18 at 18:00 Ondansetron HCl (Zofran Inj) 4 mg Q4H PRN IV NAUSEA AND/OR VOMITING Last administered on 10/18/18 08:31; Admin Dose 4 MG; Start 10/15/18 at 19:30 DODIE FRANCES Oct 18, 2018 11:29
--- NOTE | 2018-10-18 17:08 | PN ---
Date/Time of Note Date/Time of Note DATE: 10/18/18 TIME: 17:00 Assessment/Plan VTE Prophylaxis Risk score (from Nsg)>0 risk: 2 Pharmacological prophylaxis: heparin Lines/Catheters IV Catheter Type (from Nrsg): Saline Lock Urinary Cath still in place: No Assessment/Plan Assessment/Plan Assessment: Chronic pancreatitis with pseudocyst MRCP- Pancreas: The previously described intrapancreatic collection within the pancreatic head is slightly increased in size now measuring 2.9 cm and is likely necrosis as it is hypointense on T2 weighted images. The main pancreatic duct remains dilated. The pancreatic tail demonstrates persistent fluid collections which are overall stable since prior. Decreased size of the fluid collection inferior to the fundus of the stomach now measuring 2.3 x 3.1 cm (5:26). There is peripancreatic fluid and stranding. There is a 6 mm stone seen within the mid portion of the main pancreatic duct (5:31) with upstream ductal dilatation up to 2 cm. Hypertension Plan: Continue supportive care. Plan discussed with patient. Cm consult to arrange out-pt evaluation at a tertiary center for ERCP with removal of pancreatic stone and possible need for distal pancreatectomy. Pending EUS as an outpatient- authorization approved by his ins- awaiting to schedule procedure Patient seen in collaboration with Dr. Alanis Subjective: Course reviewed with nursing staff Patient interviewed and examined All labs, imaging and other results reviewed Patient is tolerating soft diet well. He is complaining of upper abdominal pain relieved with narcotics. Discussed the plan for further evaluation and treatment. Patient will follow up with EUS and plans to go to [facility] for ERCP. Encourage ambulation, and current regimen. PHYSICAL EXAMINATION: GENERAL: Alert & oriented x 3, in no acute distress SKIN: No lesions EYES: Pupils equal reactive to light, no discharge. EARS/NOSE AND THROAT: Ears normal, nose normal, oropharynx normal. NECK: Supple, no masses, thyroid normal CHEST: Inspection within normal limits. CARDIOVASCULAR: Heart: Regular rate and rhythm, RESPIRATORY: Lungs clear to auscultation GASTROINTESTINAL AND LIVER: Abdomen: Soft, LUQ pain, non-distended, no hernias, no masses, , no rebound tenderness, normoactive bowel sounds. Rectal: Deferred. Result Diagram: 10/14/18 0433 10/18/18 0458 Results 24hrs Laboratory Tests Test 10/18/18 04:58 Sodium Level 140 Potassium Level 3.3 L Chloride Level 105 Carbon Dioxide Level 26 Anion Gap 9 Blood Urea Nitrogen 7 Creatinine 0.64 Est Glomerular Filtrat Rate mL/min > 60 Glucose Level 105 Calcium Level 9.1 Lipase 442 H CC: MEDINA ALANIS ; Exam/Review of Systems Exam Vitals Vital Signs Date Temp Pulse Resp B/P (MAP) Pulse Ox O2 O2 Flow FiO2 Time Delivery Rate 10/18/18 99.2 99 18 175/97 97 Room Air 14:33 (123) Intake and Output 10/17/18 10/17/18 10/18/18 1515:00 23:00 07:00 IntakeIntake Total 1160 ml 1000 ml OutputOutput Total 900 ml BalanceBalance 260 ml 1000 ml Results Results 24hrs Laboratory Tests Test 10/18/18 04:58 Sodium Level 140 Potassium Level 3.3 L Chloride Level 105 Carbon Dioxide Level 26 Anion Gap 9 Blood Urea Nitrogen 7 Creatinine 0.64 Est Glomerular Filtrat Rate mL/min > 60 Glucose Level 105 Calcium Level 9.1 Lipase 442 H Medications Medication Current Medications Lisinopril (Zestril) 20 mg DAILY PO Last administered on 10/17/18at 08:20; Admin Dose 20 MG; Start 10/14/18 at 09:00 Amlodipine Besylate (Norvasc) 5 mg DAILY PO ; Start 10/14/18 at 09:00 IV Flush (NS 3 ml) 3 ml PER PROTOCOL IV ; Start 10/13/18 at 19:00 Oxycodone/ Acetaminophen (Percocet (5/ 325)) 1 tab Q6H PRN PO .MOD PAIN 4-6; Start 10/13/18 at 19:00; Status Hold Enoxaparin Sodium (Lovenox) 30 mg DAILY SC ; Start 10/14/18 at 09:00 Dextrose/Sodium Chloride 1,000 ml @ 125 mls/hr Q8H IV Last administered on 10/17/18at 08:24; Admin Dose 125 MLS/HR; Start 10/13/18 at 23:00 Hydralazine HCl (Apresoline) 10 mg Q4H PRN IV ELEVATED SYSTOLIC BP Last administered on 10/18/18at 08:31; Admin Dose 10 MG; Start 10/14/18 at 02:30 Hydromorphone HCl (Dilaudid) 1 mg Q3 PRN IV SEVERE PAIN LEVEL 7-10 Last administered on 10/18/18 14:32; Admin Dose 1 MG; Start 10/14/18 at 14:30 Amylase/Lipase/ Protease (CREON ([id number])) 1 cap WITH MEALS PO Last administered on 10/16/18 13:18; Admin Dose 1 CAP; Start 10/14/18 at 18:00 Ondansetron HCl (Zofran Inj) 4 mg Q4H PRN IV NAUSEA AND/OR VOMITING Last administered on 10/18/18 08:31; Admin Dose 4 MG; Start 10/15/18 at 19:30 JUAN DIEGO VENTURA NP Oct 18, 2018 17:08
[2018-10-19 01:35] VITALS: BP 185/95; PULSE 91; RESP 16
[2018-10-19] MEDS: HYDROmorphONE 1 MG/ML SYG IV PRN ×7 (02:47→21:20)
[2018-10-19] MEDS: DEXTROSE 5%-0.45% NACL 1,000 ML IV SCH ×3 (06:00→23:00)
[2018-10-19 07:42] VITALS: BP 174/115; PULSE 81; RESP 18
[2018-10-19] MEDS: CREON (12k-38k-60k) 1 CAP PO SCH ×3 (08:00→17:52)
[2018-10-19] MEDS: ENOXAPARIN 30 MG/0.3 ML SYG SC SCH (09:00)
[2018-10-19] MEDS: LISINOPRIL 20 MG TAB PO SCH (09:00)
[2018-10-19] MEDS: AMLODIPINE 5 MG TAB PO SCH (09:00)
[2018-10-19] MEDS: ONDANSETRON 4 MG INJ IV PRN ×2 (09:29→21:18)
--- NOTE | 2018-10-19 10:38 | PN ---
Date/Time of Note Date/Time of Note DATE: 10/19/18 TIME: 10:38 Assessment/Plan VTE Prophylaxis Risk score (from Nsg)>0 risk: 2 Pharmacological prophylaxis: NA/contraindicated Pharm contraindication: low risk/ambulating Lines/Catheters IV Catheter Type (from Nrsg): Saline Lock Urinary Cath still in place: No Assessment/Plan Hospital Course 43 yo male with chronic pancreatitis - Pain seems adequately controlled currently - Will give gently IV dialudid - IV fluids - PO as tolerated - GI consultation appreciated, MRCP shows persistent necrotizing pancreatitis as well as pancreatic duct stone -Patient will need follow-up at a tertiary center for ERCP Hypertension - Continue lisinopril. Start amlodipine Prophylaxis: Ambulation DC planning: Anticipate DC home tomorrow Result Diagram: 10/18/18 0458 Subjective 24 Hr Interval Summary Gastrointestinal: pain Exam/Review of Systems Exam Vitals Vital Signs Date Temp Pulse Resp B/P (MAP) Pulse Ox O2 O2 Flow FiO2 Time Delivery Rate 10/19/18 98.7 81 18 174/115 97 07:42 (134) 10/18/18 Room Air 14:33 Intake and Output 10/18/18 10/18/18 10/19/18 1515:00 23:00 07:00 IntakeIntake Total 240 ml OutputOutput Total 250 ml BalanceBalance -10 ml Constitutional: alert Respiratory: clear to auscultation Cardiovascular: regular rate and rhythm Gastrointestinal: soft; No distended Musculoskeletal: nl extremities to inspection Medications Medication Current Medications Lisinopril (Zestril) 20 mg DAILY PO Last administered on 10/17/18at 08:20; Admin Dose 20 MG; Start 10/14/18 at 09:00 Amlodipine Besylate (Norvasc) 5 mg DAILY PO ; Start 10/14/18 at 09:00 IV Flush (NS 3 ml) 3 ml PER PROTOCOL IV ; Start 10/13/18 at 19:00 Oxycodone/ Acetaminophen (Percocet (5/ 325)) 1 tab Q6H PRN PO .MOD PAIN 4-6; Start 10/13/18 at 19:00; Status Hold Enoxaparin Sodium (Lovenox) 30 mg DAILY SC ; Start 10/14/18 at 09:00 Dextrose/Sodium Chloride 1,000 ml @ 125 mls/hr Q8H IV Last administered on 10/17/18 08:24; Admin Dose 125 MLS/HR; Start 10/13/18 at 23:00 Hydralazine HCl (Apresoline) 10 mg Q4H PRN IV ELEVATED SYSTOLIC BP Last administered on 10/18/18 08:31; Admin Dose 10 MG; Start 10/14/18 at 02:30 Hydromorphone HCl (Dilaudid) 1 mg Q3 PRN IV SEVERE PAIN LEVEL 7-10 Last administered on 10/19/18 09:29; Admin Dose 1 MG; Start 10/14/18 at 14:30 Amylase/Lipase/ Protease (CREON ([id number])) 1 cap WITH MEALS PO Last administered on 10/16/18 13:18; Admin Dose 1 CAP; Start 10/14/18 at 18:00 Ondansetron HCl (Zofran Inj) 4 mg Q4H PRN IV NAUSEA AND/OR VOMITING Last administered on 10/19/18 09:29; Admin Dose 4 MG; Start 10/15/18 at 19:30 DODIE FRANCES Oct 19, 2018 10:38
[2018-10-19 15:13] VITALS: BP 180/102; PULSE 83; RESP 18
[2018-10-19] MEDS: hydrALAzine 20 MG INJ IV PRN ×2 (15:19→21:16)
--- NOTE | 2018-10-19 17:17 | PN ---
Date/Time of Note Date/Time of Note DATE: 10/19/18 TIME: 17:15 Assessment/Plan VTE Prophylaxis Risk score (from Nsg)>0 risk: 2 Pharmacological prophylaxis: heparin Lines/Catheters IV Catheter Type (from Nrsg): Saline Lock Urinary Cath still in place: No Assessment/Plan Assessment/Plan Assessment: Chronic pancreatitis with pseudocyst MRCP- Pancreas: The previously described intrapancreatic collection within the pancreatic head is slightly increased in size now measuring 2.9 cm and is likely necrosis as it is hypointense on T2 weighted images. The main pancreatic duct remains dilated. The pancreatic tail demonstrates persistent fluid collections which are overall stable since prior. Decreased size of the fluid collection inferior to the fundus of the stomach now measuring 2.3 x 3.1 cm (5:26). There is peripancreatic fluid and stranding. There is a 6 mm stone seen within the mid portion of the main pancreatic duct (5:31) with upstream ductal dilatation up to 2 cm. Hypertension Plan: Continue supportive care. Plan discussed with patient. Cm consult to arrange out-pt evaluation at a tertiary center for ERCP with removal of pancreatic stone and possible need for distal pancreatectomy. Pending EUS as an outpatient- authorization approved by his ins- awaiting to schedule procedure Patient seen in collaboration with Dr. Alanis Subjective: Course reviewed with nursing staff Patient interviewed and examined All labs, imaging and other results reviewed Patient is tolerating soft diet though in small amounts. He reports ongoing left upper quadrant abdominal pain though somewhat improved. Discussed the plan for further evaluation and treatment. Patient will follow up with EUS and plans to go to [facility] for ERCP. Encourage ambulation, and current regimen. PHYSICAL EXAMINATION: GENERAL: Alert & oriented x 3, in no acute distress SKIN: No lesions EYES: Pupils equal reactive to light, no discharge. EARS/NOSE AND THROAT: Ears normal, nose normal, oropharynx normal. NECK: Supple, no masses, thyroid normal CHEST: Inspection within normal limits. CARDIOVASCULAR: Heart: Regular rate and rhythm, RESPIRATORY: Lungs clear to auscultation GASTROINTESTINAL AND LIVER: Abdomen: Soft, LUQ pain, non-distended, no hernias, no masses, , no rebound tenderness, normoactive bowel sounds. Rectal: Deferred. Result Diagram: 10/18/18 0458 CC: MEDINA ALANIS ; Exam/Review of Systems Exam Vitals Vital Signs Date Temp Pulse Resp B/P (MAP) Pulse Ox O2 O2 Flow FiO2 Time Delivery Rate 10/19/18 98.7 83 18 180/102 97 15:13 (128) 10/18/18 Room Air 14:33 Intake and Output 10/18/18 10/18/18 10/19/18 1515:00 23:00 07:00 IntakeIntake Total 240 ml OutputOutput Total 250 ml BalanceBalance -10 ml Medications Medication Current Medications Lisinopril (Zestril) 20 mg DAILY PO Last administered on 10/17/18 08:20; Admin Dose 20 MG; Start 10/14/18 at 09:00 Amlodipine Besylate (Norvasc) 5 mg DAILY PO ; Start 10/14/18 at 09:00 IV Flush (NS 3 ml) 3 ml PER PROTOCOL IV ; Start 10/13/18 at 19:00 Oxycodone/ Acetaminophen (Percocet (5/ 325)) 1 tab Q6H PRN PO .MOD PAIN 4-6; Start 10/13/18 at 19:00; Status Hold Enoxaparin Sodium (Lovenox) 30 mg DAILY SC ; Start 10/14/18 at 09:00 Dextrose/Sodium Chloride 1,000 ml @ 125 mls/hr Q8H IV Last administered on 10/17/18 08:24; Admin Dose 125 MLS/HR; Start 10/13/18 at 23:00 Hydralazine HCl (Apresoline) 10 mg Q4H PRN IV ELEVATED SYSTOLIC BP Last administered on 10/19/18 15:19; Admin Dose 10 MG; Start 10/14/18 at 02:30 Hydromorphone HCl (Dilaudid) 1 mg Q3 PRN IV SEVERE PAIN LEVEL 7-10 Last administered on 10/19/18 15:18; Admin Dose 1 MG; Start 10/14/18 at 14:30 Amylase/Lipase/ Protease (CREON ([id number])) 1 cap WITH MEALS PO Last administered on 10/16/18at 13:18; Admin Dose 1 CAP; Start 10/14/18 at 18:00 Ondansetron HCl (Zofran Inj) 4 mg Q4H PRN IV NAUSEA AND/OR VOMITING Last administered on 10/19/18at 09:29; Admin Dose 4 MG; Start 10/15/18 at 19:30 MIRTA NOLASCO CHIEF NURSE Oct 19, 2018 17:17
[2018-10-19 20:00] VITALS: BP 176/107; PULSE 73; RESP 18
[2018-10-20] MEDS: HYDROmorphONE 1 MG/ML SYG IV PRN ×7 (00:15→18:12)
[2018-10-20 02:00] VITALS: BP 198/111; PULSE 91; RESP 18
[2018-10-20] MEDS: hydrALAzine 20 MG INJ IV PRN ×2 (02:32→07:57)
[2018-10-20 03:19] VITALS: BP 179/99; PULSE 95
[2018-10-20] MEDS: DEXTROSE 5%-0.45% NACL 1,000 ML IV SCH ×3 (06:13→13:23)
[2018-10-20 07:45] VITALS: BP 187/107; PULSE 81; RESP 18
[2018-10-20] MEDS: ONDANSETRON 4 MG INJ IV PRN (07:57)
[2018-10-20] MEDS: CREON (12k-38k-60k) 1 CAP PO SCH ×3 (08:00→17:26)
[2018-10-20] MEDS: LISINOPRIL 20 MG TAB PO SCH (09:00)
[2018-10-20] MEDS: ENOXAPARIN 30 MG/0.3 ML SYG SC SCH (09:00)
[2018-10-20] MEDS: AMLODIPINE 5 MG TAB PO SCH (09:00)
[2018-10-20 09:19] VITALS: BP 156/82; PULSE 91
--- NOTE | 2018-10-20 13:38 | PDOCDIS ---
Discharge Instructions CONDITION [id number] Patient Condition: [id number] Good HOME CARE INSTRUCTIONS: [id number] Diet Instructions: [id number] Reduced Calorie ACTIVITY: [id number] Activity Restrictions: [id number] No Restrictions FOLLOW UP/APPOINTMENTS Follow-up Plan FOLLOW UP WITH YOUR PCP IN 1-2 WEEKS, FOLLOW UP WITH YOUR GI SCHEDULED DODIE FRANCES Oct 20, 2018 13:38
--- NOTE | 2018-10-20 14:30 | PN ---
Date/Time of Note Date/Time of Note DATE: 10/20/18 TIME: 14:26 Assessment/Plan VTE Prophylaxis Risk score (from Nsg)>0 risk: 1 SCD applied (from Nsg): No SCD contraindicated: low risk/ambulating Pharmacological prophylaxis: heparin Lines/Catheters IV Catheter Type (from Nrsg): Saline Lock Urinary Cath still in place: No Assessment/Plan Hospital Course Assessment: Chronic pancreatitis with pseudocyst MRCP- Pancreas: The previously described intrapancreatic collection within the pancreatic head is slightly increased in size now measuring 2.9 cm and is likely necrosis as it is hypointense on T2 weighted images. The main pancreatic duct remains dilated. The pancreatic tail demonstrates persistent fluid collections which are overall stable since prior. Decreased size of the fluid collection inferior to the fundus of the stomach now measuring 2.3 x 3.1 cm (5:26). There is peripancreatic fluid and stranding. There is a 6 mm stone seen within the mid portion of the main pancreatic duct (5:31) with upstream ductal dilatation up to 2 cm. Hypertension Plan: Continue supportive care. Plan discussed with patient. Cm consult to arrange out-pt evaluation at a tertiary center for ERCP with removal of pancreatic stone and possible need for distal pancreatectomy. Pending EUS as an outpatient- authorization approved by his ins- awaiting to schedule procedure Possible discharge planning per hospitalist today. Discussed recommendations with patient once again. Patient seen in collaboration with Dr. Alanis Subjective: Course reviewed with nursing staff Patient interviewed and examined All labs, imaging and other results reviewed Patient is tolerating soft diet though in small amounts. He reports occasional nausea managed with zofran. He reports ongoing left upper quadrant abdominal pain somewhat worse today, managed with pain medications. Discussed the plan for further evaluation and treatment. Patient will follow up with EUS and plans to go to [facility] for ER[facility]. Possible discharge planning for today. PHYSICAL EXAMINATION: GENERAL: Alert & oriented x 3, in no acute distress SKIN: No lesions EYES: Pupils equal reactive to light, no discharge. EARS/NOSE AND THROAT: Ears normal, nose normal, oropharynx normal. NECK: Supple, no masses, thyroid normal CHEST: Inspection within normal limits. CARDIOVASCULAR: Heart: Regular rate and rhythm, RESPIRATORY: Lungs clear to auscultation GASTROINTESTINAL AND LIVER: Abdomen: Non distended. Declined further exam today due to abdominal pain. Rectal: Deferred. Result Diagram: 10/18/18 0458 CC: MEDINA ALANIS Vanda ; Exam/Review of Systems Exam Vitals Vital Signs Date Temp Pulse Resp B/P (MAP) Pulse Ox O2 O2 Flow FiO2 Time Delivery Rate 10/20/18 91 156/82 09:19 (106) 10/20/18 98.9 18 94 Room Air 07:45 Intake and Output 10/19/18 10/19/18 10/20/18 1515:00 23:00 07:00 IntakeIntake Total 480 ml 720 ml OutputOutput Total 300 ml 150 ml BalanceBalance 180 ml 570 ml Medications Medication Current Medications Lisinopril (Zestril) 20 mg DAILY PO Last administered on 10/17/18at 08:20; Admin Dose 20 MG; Start 10/14/18 at 09:00 Amlodipine Besylate (Norvasc) 5 mg DAILY PO ; Start 10/14/18 at 09:00 IV Flush (NS 3 ml) 3 ml PER PROTOCOL IV ; Start 10/13/18 at 19:00 Oxycodone/ Acetaminophen (Percocet (5/ 325)) 1 tab Q6H PRN PO .MOD PAIN 4-6; Start 10/13/18 at 19:00; Status Hold Enoxaparin Sodium (Lovenox) 30 mg DAILY SC ; Start 10/14/18 at 09:00 Dextrose/Sodium Chloride 1,000 ml @ 125 mls/hr Q8H IV Last administered on 10/20/18at 12:30; Admin Dose 125 MLS/HR; Start 10/13/18 at 23:00 Hydralazine HCl (Apresoline) 10 mg Q4H PRN IV ELEVATED SYSTOLIC BP Last administered on 10/20/18at 07:57; Admin Dose 10 MG; Start 10/14/18 at 02:30 Hydromorphone HCl (Dilaudid) 1 mg Q3 PRN IV SEVERE PAIN LEVEL 7-10 Last administered on 10/20/18at 12:13; Admin Dose 1 MG; Start 10/14/18 at 14:30 Amylase/Lipase/ Protease (CREON (12k-89k-60k)) 1 cap WITH MEALS PO Last administered on 10/16/18at 13:18; Admin Dose 1 CAP; Start 10/14/18 at 18:00 Ondansetron HCl (Zofran Inj) 4 mg Q4H PRN IV NAUSEA AND/OR VOMITING Last administered on 10/20/18at 07:57; Admin Dose 4 MG; Start 10/15/18 at 19:30 MIRTA NOLASCO [employer]IST Oct 20, 2018 14:30
[2018-10-20 16:01] VITALS: BP 136/84; PULSE 82; RESP 18
--- NOTE | 2018-10-20 16:48 | DS ---
Date/Time of Note Date/Time of Note DATE: 10/20/18 TIME: 16:44 Discharge Summary Admission/Discharge Info Admit Date/Time Oct 13, 2018 at 17:31 Discharge Date/Time October 20, 2018 Discharge Diagnosis 43 yo male with chronic pancreatitis - Pain improved and tolerating p.o. diet -DC with tramadol -Status post IV fluids - GI consultation appreciated, MRCP shows persistent necrotizing pancreatitis as well as pancreatic duct stone -Patient will need follow-up at a tertiary center for ERCP and will need evaluation with hepatobiliary surgery, patient is also pending an outpatient EUS with GI Hypertension - Continue lisinopril Patient Condition: Good Hospital Course Patient is a 43 yo male with chronic pancreatitis presents with acute episode. Patient was seen by GI as outpatient and is pending an EUS. Patient did have an MRCP here that showed persistent necrotizing pancreatitis as well as a pancreatic duct stone, patient will need follow-up with a tertiary center for ERCP and will need hepatobiliary surgeon to be involved. Patient's acute flareup did resolve patient was tolerating p.o. diet. On day of discharge patient's vitals, labs and physical exam are stable Home Meds Reported Medications Lisinopril* (Lisinopril*) 20 Mg Tablet, 20 MG PO DAILY, #30 TAB 10/13/18 Discontinued Reported Medications Lisinopril* (Lisinopril*) 20 Mg Tablet, 20 MG PO DAILY, #30 TAB 06/18/18 Discontinued Scripts Tramadol HCl (Tramadol HCl) 50 Mg Tablet, 50 MG PO Q6 PRN for PAIN, #10 TAB Prov:KEERTHI FRIEDMAN MD 09/17/18 Follow-up Plan FOLLOW UP WITH YOUR PCP IN 1-2 WEEKS, FOLLOW UP WITH YOUR GI SCHEDULED Primary Care Provider Not On Staff Doctor Time spent on discharge: > 30 minutes DODIE FRANCES Oct 20, 2018 16:48
== END 2018-10-20 19:15 | disposition home or self-care (01) | DRG 439 ==
LOC: E/R 15:28 → 2NE 17:31
PROVIDERS: ADMIT Internal Medicine; ATTEND Internal Medicine
DX: K85.91 Acute pancreatitis with uninfected necrosis, unspecified (principal); K86.3 Pseudocyst of pancreas; I10 Essential (primary) hypertension; F32.9 Major depressive disorder, single episode, unspecified; F17.200 Nicotine dependence, unspecified, uncomplicated; K86.89 Other specified diseases of pancreas; K86.1 Other chronic pancreatitis
CPT/HCPCS: 36415; 74181; 80048; 80053; 81003; 82150; 83036; 83690; 85025; 96374; 96375; J0360; J1170; J1650; J1885; J2405; J2543; J3480; J7030; J7042

== ENCOUNTER 2018-12-18 06:44 | Inpatient (IN) | payer OTHER ==
[~2018-12-18] VITALS: Ht 185.4 cm; Wt 118.4 kg
[~2018-12-18 06:44] MED LIST changes: -TRAM50TA2 PO
[2018-12-18] MEDS ORDERED: SOD CHLORIDE 0.9% 150 ML IV STA (07:10)
[2018-12-18] MEDS ORDERED: ONDANSETRON 4 MG INJ IV STA (07:10)
[2018-12-18] MEDS ORDERED: HYDROmorphONE 1 MG/ML SYG IV STA (07:10)
--- NOTE | 2018-12-18 08:50 | ERD ---
ER Documentation Chief Complaint Chief Complaint AP,nausea X2 days,hx necrotizing pancreatitis & gallstones HPI 43-year-old male presents the emergency department complaining of abdominal pain. Patient has an extensive history of necrotizing pancreatitis that is resulted in blood loss as well as pseudocyst formation. He has had multiple hospitalizations and evaluations including operative and interventional radiology management. He presents the emergency department today complaining of acute onset nonspecific abdominal pain. This is associate with nausea but no vomiting or diarrhea. He reports no fevers or chills. He reports the pain is moderate to severe and similar to what is had in the past with his necrotizing pancreatitis. ROS All systems reviewed and are negative except as per history of present illness. Medications Home Meds Reported Medications Lisinopril* (Lisinopril*) 20 Mg Tablet, 20 MG PO DAILY, #30 TAB 10/13/18 Allergies Allergies: Coded Allergies: acetaminophen (Unverified Allergy, Intermediate, vomiting, rash, 10/13/18) aspirin (Unverified Allergy, Intermediate, 10/13/18) blurry vision oxycodone (Unverified Allergy, Intermediate, vomiting, rash, 10/13/18) potassium (Verified Allergy, Unknown, 10/13/18) morphine (Unverified Adverse Reaction, Mild, abd pain,n/v, 10/13/18) PMhx/Soc History of Surgery: No Anesthesia Reaction: Yes (START VOMITING AFTER WAKING UP IN MIDDLE OF THE PROCEDURE) Hx Neurological Disorder: No Hx Respiratory Disorders: No Hx Cardiac Disorders: Yes (HTN) Hx Psychiatric Problems: Yes (DEPRESSION ) Hx Miscellaneous Medical Probl: Yes (PANCREATITIS, PANCREATIC PSEUDOCYST ) Hx Alcohol Use: No Hx Substance Use: No Hx Tobacco Use: Yes (USE NICOTINE PATCH NOW. ) Smoking Status: Current every day smoker FmHx Noncontributory for chief complaint Physical Exam Vitals Vital Signs Date Temp Pulse Resp B/P (MAP) Pulse Ox O2 O2 Flow FiO2 Time Delivery Rate 12/18/18 98.3 79 18 193/135 96 06:57 (154) Physical Exam GENERAL: The patient is well developed and appropriate for usual state of health in no apparent distress HEENT: Pupils equal, round, and reactive to light. EOMI. There is no scleral icterus. NECK: C-spine is soft and supple, there is no meningismus. There is no cervical lymphadenopathy. LUNGS: Clear to auscultation bilaterally. There are no rales, wheezes or rhonchi. HEART: Regular rate and rhythm, no murmurs, clicks, rubs or gallops. ABDOMEN: Soft, nondistended. Mild tenderness to palpation. No rebound or guarding. EXTREMITIES: There is no peripheral cyanosis or edema. No focal swelling or erythema. NEURO: The patient moves all four extremities with 5/5 strength. Cranial nerves II - XII are intact. Normal gait. Alert and oriented SKIN: There is no apparent rash or petechiae. HEME/LYMPHATIC: There is no evidence of excessive bruising or lymphedema. PSYCHIATRIC: The patient does not appear anxious or depressed. Result Diagram: 12/18/18 0756 12/18/18 0756 Results 24 hrs Laboratory Tests Test 12/18/18 07:30 12/18/18 07:56 Urine Color YELLOW Urine Clarity CLEAR Urine pH 7.0 Urine Specific [place] 1.011 Urine Ketones NEGATIVE mg/dL Urine Nitrite NEGATIVE mg/dL Urine Bilirubin NEGATIVE mg/dL Urine Urobilinogen NEGATIVE mg/dL Urine Leukocyte Esterase NEGATIVE Annemarie/ul Urine Hemoglobin NEGATIVE mg/dL Urine Glucose NEGATIVE mg/dL Urine Total Protein NEGATIVE mg/dl White Blood Count 6.5 10^3/ul Red Blood Count 4.68 10^6/ul Hemoglobin 11.0 g/dl Hematocrit 36.4 % Mean Corpuscular Volume 77.8 fl Mean Corpuscular Hemoglobin 23.5 pg Mean Corpuscular Hemoglobin Concent 30.2 g/dl Red Cell Distribution Width 15.9 % Platelet Count 245 10^3/UL Mean Platelet Volume 9.4 fl Immature Granulocytes % 0.200 % Neutrophils % 65.6 % Lymphocytes % 24.2 % Monocytes % 7.0 % Eosinophils % 2.5 % Basophils % 0.5 % Nucleated Red Blood Cells % 0.0 /100WBC Immature Granulocytes # 0.010 10^3/ul Neutrophils # 4.2 10^3/ul Lymphocytes # 1.6 10^3/ul Monocytes # 0.5 10^3/ul Eosinophils # 0.2 10^3/ul Basophils # 0.0 10^3/ul Nucleated Red Blood Cells # 0.0 10^3/ul Sodium Level 141 mmol/L Potassium Level 3.6 mmol/L Chloride Level 108 mmol/L Carbon Dioxide Level 27 mmol/L Anion Gap 6 Blood Urea Nitrogen 6 mg/dl Creatinine 0.88 mg/dl Est Glomerular Filtrat Rate mL/min > 60 mL/min Glucose Level 97 mg/dl Calcium Level 9.2 mg/dl Total Bilirubin 0.5 mg/dl Direct Bilirubin 0.00 mg/dl Indirect Bilirubin 0.5 mg/dl Aspartate Amino Transf (AST/SGOT) 25 IU/L Alanine Aminotransferase (ALT/SGPT) 22 IU/L Alkaline Phosphatase 119 IU/L Total Protein 6.6 g/dl Albumin 3.5 g/dl Globulin 3.10 g/dl Albumin/Globulin Ratio 1.12 Lipase 331 U/L Current Medications Medications Dose Sig/Jaclyn Start Time Status Last (Trade) Ordered Route PRN Stop Time Admin Dose Reason Admin Sodium 150 ml @ Q1H STAT 12/18/18 DC 12/18/18 Chloride 150 mls/hr IV 07:10 08:04 12/18/18 08:09 1 mg ONCE STAT 12/18/18 DC 12/18/18 Hydromorphone IV 07:10 08:00 HCl 12/18/18 07:12 (Dilaudid) Ondansetron 4 mg ONCE STAT 12/18/18 DC 12/18/18 HCl (Zofran IV 07:10 08:00 Inj) 12/18/18 07:12 Procedures/MDM Patient was taken to a room, seen and evaluated. Comfort measures were initiated. Diagnostic tests were ordered and reviewed. 3 LEAD RHYTHM STRIP: Normal sinus rhythm without ectopy RADIOLOGY: Reviewed with the radiologist CONSULTATION: Hospitalist was notified for admission REEVALUATION: Diagnostic tests were appreciated discussed with the patient. Arrangements were made for admission. MEDICAL DECISION MAKIN-year-old male with a history of necrotizing pancreatitis presents the emergency department with similar type symptoms. At this time, patient has no significant Richfield's criteria, but concerning findings on his CT scan. Given his significant extensive history including multiple complications, I will be admitting the patient to the hospital for further o bservation to recheck his hemoglobin as well as his other Richfield's criteria as well as his abdominal pain. Departure Diagnosis: Primary Impression: Chronic pancreatitis Condition: SANDRA Uribe Dec 18, 2018 08:50
[2018-12-18] MEDS ORDERED: ONDANSETRON 4 MG INJ IV PRN (09:00)
[2018-12-18] MEDS ORDERED: AMLO-147 PO (09:51)
[2018-12-18] MEDS ORDERED: TRAM50TA PO (09:52)
--- NOTE | 2018-12-18 11:19 | HP ---
Date/Time of Note Date/Time of Note DATE: 12/18/18 TIME: 11:19 Assessment/Plan VTE Prophylaxis Pharmacological prophylaxis: LMWH Lines/Catheters IV Catheter Type (from [facility]): Saline Lock Assessment/Plan Hospital Course 43-year-old male with comorbidities including chronic pancreatitis on chronic opioids, hypertension, morbid obesity, and anemia who presented to the emergency department with abdominal pain, who will be admitted to inpatient setting for further treatment and evaluation. 1. Acute on chronic pancreatitis. Long-standing history of pancreatitis. Make the patient n.p.o. Continue IV fluids. Continue pain control. Gastroenterology evaluation. 2. Hypertension. Resume antihypertensives. 3. Microcytic, hypochromic anemia. Etiology unclear. Obtain iron panel. Monitor H&H closely. 4. Nicotine use. Verbalized that the he has not been using nicotine recently. 5. Opioid dependency. Judicious use of opioids. Pain management consult. Plan: The patient will be admitted to inpatient medical surgical floor. The patient will be kept n.p.o. except for medications.. The patient will be started on DVT prophylaxis. The patient will remain a full code. Activities will be as tolerated. The rest of the patient's management will be based on the clinical course, inputs from consultants, and the results of diagnostic studies. Based on the patient's clinical presentation, he most probably requires at least 2 midnights' stay for further management and evaluation of his clinical presentation. The patient was seen in collaboration with Dr. Mac. Result Diagram: 12/18/18 0756 12/18/18 0756 Results 24hrs Laboratory Tests Test 12/18/18 07:30 12/18/18 07:56 Urine Color YELLOW Urine Clarity CLEAR Urine pH 7.0 Urine Specific [place] 1.011 Urine Ketones NEGATIVE Urine Nitrite NEGATIVE Urine Bilirubin NEGATIVE Urine Urobilinogen NEGATIVE Urine Leukocyte Esterase NEGATIVE Urine Hemoglobin NEGATIVE Urine Glucose NEGATIVE Urine Total Protein NEGATIVE White Blood Count 6.5 # Red Blood Count 4.68 L Hemoglobin 11.0 L Hematocrit 36.4 L Mean Corpuscular Volume 77.8 L Mean Corpuscular Hemoglobin 23.5 L Mean Corpuscular Hemoglobin Concent 30.2 L Red Cell Distribution Width 15.9 #H Platelet Count 245 # Mean Platelet Volume 9.4 Immature Granulocytes % 0.200 Neutrophils % 65.6 Lymphocytes % 24.2 Monocytes % 7.0 Eosinophils % 2.5 Basophils % 0.5 Nucleated Red Blood Cells % 0.0 Immature Granulocytes # 0.010 Neutrophils # 4.2 Lymphocytes # 1.6 Monocytes # 0.5 Eosinophils # 0.2 Basophils # 0.0 Nucleated Red Blood Cells # 0.0 Sodium Level 141 Potassium Level 3.6 Chloride Level 108 Carbon Dioxide Level 27 Anion Gap 6 Blood Urea Nitrogen 6 L Creatinine 0.88 Est Glomerular Filtrat Rate mL/min > 60 Glucose Level 97 Calcium Level 9.2 Total Bilirubin 0.5 Direct Bilirubin 0.00 Indirect Bilirubin 0.5 Aspartate Amino Transf (AST/SGOT) 25 Alanine Aminotransferase (ALT/SGPT) 22 Alkaline Phosphatase 119 Total Protein 6.6 Albumin 3.5 Globulin 3.10 Albumin/Globulin Ratio 1.12 Lipase 331 H HPI/ROS Hx of Present Illness Reason for admission: Abdominal pain. Consultants 1. Gastroenterology. This is a 43-year-old male well-known to our service because of multiple hospitalizations for recurrent pancreatitis. The patient has underlying chronic pancreatitis with pseudocyst formation, hypertension, morbid obesity, and opioid dependent behavior. The patient came to the emergency room at this time because of abdominal pain that has not been responding to oral opioids at home. The patient was also complaining of nausea. He denied any vomiting. He denied any diarrhea. He was complaining of constipation. The patient denied any fevers or chills. He denied any chest pain or dyspnea. The patient underwent a CT scan of the abdomen and pelvis in the emergency room that was showing multiple calcifications involving the proximal pancreatic body/head region with the largest measuring up to 1 cm consistent with pancreatic duct stones and chronic calcific pancreatitis. The CT also revealed an ill-defined elongated 3 x 1 cm low density that may represent focal pancre atic duct dilatation possibly a cystic lesion such as pseudocyst. The patient had minimally elevated lipase levels. The patient did not have any leukocytosis. The patient was treated with IV fluids along with IV antiemetics and IV opioids in the emergency room. ROS Constitutional: nausea Eyes: no complaints ENT: no complaints Respiratory: no complaints Cardiovascular: no complaints Gastrointestinal: pain, constipation, nausea Genitourinary: no complaints Musculoskeletal: no complaints Skin: no complaints Neurologic: no complaints Endocrine: no complaints Lymphatic: no complaints Psychological: no complaints Immunologic: no complaints PMH/Family/Social Past Medical History 1. HTN. 2. Obesity. 3. Chronic pancreatitis with pseudocyst. 4. Opioid dependency. 5. Anemia. Medications Current Medications Ondansetron HCl (Zofran Inj) 4 mg BRIDGE ORDER PRN IV NAUSEA/VOMITING; Start 12/18/18 at 09:00; Stop 12/19/18 at 08:59 Coded Allergies: acetaminophen (Unverified Allergy, Intermediate, vomiting, rash, 12/18/18) aspirin (Unverified Allergy, Intermediate, 12/18/18) blurry vision oxycodone (Unverified Allergy, Intermediate, vomiting, rash, 12/18/18) potassium (Verified Allergy, Unknown, 12/18/18) morphine (Unverified Adverse Reaction, Mild, abd pain,n/v, 12/18/18) Past Surgical History Past Surgical Hx: no surgical history Social History The patient lives at home with family. Alcohol Use: none Smoking Status: Current every day smoker Drug Use: none Exam/Review of Systems Vital Signs Vitals Vital Signs Date Temp Pulse Resp B/P (MAP) Pulse Ox O2 O2 Flow FiO2 Time Delivery Rate 12/18/18 74 19 163/109 100 Room Air 09:00 (127) 12/18/18 98.3 06:57 Exam Exam General: Morbidly obese, 43 year-old male lying in bed in no apparent distress. HEENT: Normocephalic, atraumatic. Eyes: Anicteric sclerae, conjunctivae clear. ENT: Nasal septum midline, oral mucosa moist. Neck: Short and obese. Respiratory: Bilaterally clear breath sounds. No use of accessory muscles of respiration. No adventitious breath sounds. Cardiovascular: S1, S2 heard. Regular rate and rhythm. Abdomen: Soft and nondistended. Minimal epigastric tenderness. Bowel sounds positive in all 4 quadrants. Genitourinary: Deferred. Extremities: No cyanosis, no clubbing, no edema. Peripheral pulses palpable. Neurologic: Cranial nerves II through XII grossly intact. The patient is awake, alert, and oriented. Skin: Normal skin turgor. No skin rashes. Additional Comments CT Abdomen & Pelvis IMPRESSION: 1. There are now all multiple coarse calcifications involving the proximal pancreatic body/head region the largest measuring 1 cm consistent with pancreatic duct stones and chronic calcific pancreatitis. Additional small calcifications extend anterior to the pancreatic body and junction of uncertain etiology likely fatty necrosis. In addition findings as described above consistent with acute pancreatitis. Also in the anterior mid pancreatic body is an ill-defined elongated 3 x 1 cm low density that may represent focal pancreatic duct dilation or possibly a cystic lesion such as a pseudocyst. Recommend follow-up MRCP and/or CT triple phase scan of the pancreas for further evaluation. 2. Diffuse hepatic fatty infiltration. No focal hepatic lesions. 3. No calcified urinary calculi or obstructive uropathy. No change right renal cyst. 4. No gastrointestinal disease. JUAN KEATING NP Dec 18, 2018 11:19
[2018-12-18] MEDS ORDERED: NACL 0.9% 3 ML SYG IV SCH (12:00)
[2018-12-18] MEDS ORDERED: HYDROmorphONE 0.5 MG/0.5 ML SYG IV PRN ×2 (12:00→20:00)
[2018-12-18] MEDS ORDERED: traMADol 50 MG TAB PO PRN (12:30)
[2018-12-18] MEDS: SOD CHLORIDE 0.9% 1,000 ML IV SCH ×2 (16:09→20:08)
[2018-12-18] MEDS: hydrALAzine 20 MG INJ IV PRN ×2 (16:38→23:02)
[2018-12-18 17:40] VITALS: BP 169/94; PULSE 85; RESP 18; Ht 185.4 cm; Wt 118.4 kg
[2018-12-18] MEDS: HYDROmorphONE 1 MG/ML SYG IV PRN ×2 (18:06→22:01)
[2018-12-18 20:00] VITALS: BP 194/104; PULSE 75; RESP 20
[2018-12-18 22:55] VITALS: BP 170/95; PULSE 73
[2018-12-19] MEDS: ONDANSETRON 4 MG INJ IV PRN (00:57)
[2018-12-19] MEDS: SOD CHLORIDE 0.9% 1,000 ML IV SCH ×2 (01:00→12:30)
[2018-12-19 01:40] VITALS: BP 176/96; PULSE 82; RESP 20
[2018-12-19] MEDS: HYDROmorphONE 1 MG/ML SYG IV PRN ×6 (01:55→21:54)
[2018-12-19 08:00] VITALS: BP 169/105; PULSE 71; RESP 18
[2018-12-19] MEDS: AMLODIPINE 10 MG TAB PO SCH (08:23)
[2018-12-19] MEDS: ENOXAPARIN 40 MG/0.4 ML SYG SC SCH (09:00)
--- NOTE | 2018-12-19 10:22 | CONS ---
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 Microcytic, hypochromic anemia. Chronic opioid use Plan: No plan for intervention Medical management at this time- NPO/Hyperhydration Pain management consulted Recommend HBS evaluation-transfer to tertiary center versus evaluation as an out-pt Patient seen in collaboration with Dr. Tapia CC: MARGO TAPIA MD ; Consultation Date/Type/Reason Date of Consultation: Dec 19, 2018 Type of Consult GI Reason for Consultation Pancreatitis Date/Time of Note DATE: 12/19/18 TIME: 10:09 Hx of Present Illness This is a 43-year-old male well-known to GI services who presents to the hospital with complaints of abdominal pain associated with nausea/vomiting x1. Patient has a long history of acute on chronic pancreatitis with known pancreatic ductal stone, and long-term opioid use. Last admission patient underwent MRCP with notation of a 6 mm stone within the mid portion of the main pancreatic duct with persistent upstream dilatation, at that time it was recommended patient follow-up at a tertiary center for possible removal of stone. This visit work-up in the ED included a CT abdomen pelvis without contrast showing multiple coarse calcifications involving the proximal pancreatic bed/head region the largest measuring 1 cm consistent with pancreatic duct stones chronic calcific pancreatitis. Additional small calcifications extend anterior to the pancreatic body and junction of uncertain etiology likely fatty necrosis. In addition findings as described above consistent with acute pancreatitis. Also in the anterior mid pancreatic body is an ill-defined elongated 3X 1 cm low density that may represent focal pancreatic duct dilation or possibly a cystic lesion such as a pseudocyst. She has been admitted for further evaluation currently is n.p.o. with pain medication given history of long-term opioid use pain management has been consulted. Patient currently denies nausea vomiting continues to have abdominal pain however now able to lay on left side. This is something he has not been able to do for some time. Review of Systems: A 12 system, review was conducted and is negative except as noted in the HPI or here. Past Medical History Home Meds Reported Medications Tramadol Hcl* (Ultram*) 50 Mg Tablet, 50 MG PO Q6H PRN for PAIN, TAB 12/18/18 Amlodipine Besylate* (Amlodipine Besylate*) 10 Mg Tablet, 10 MG PO DAILY, #30 TAB 12/18/18 Discontinued Reported Medications Lisinopril* (Lisinopril*) 20 Mg Tablet, 20 MG PO DAILY, #30 TAB 10/13/18 Medications Current Medications IV Flush (NS 3 ml) 3 ml PER PROTOCOL IV ; Start 12/18/18 at 12:00 Enoxaparin Sodium (Lovenox) 40 mg DAILY SC ; Start 12/19/18 at 09:00 Sodium Chloride 1,000 ml @ 125 mls/hr Q8H IV Last administered on 12/19/18at 01:00; Admin Dose 125 MLS/HR; Start 12/18/18 at 12:30 Hydralazine HCl (Apresoline) 10 mg Q6H PRN IV SBP>160 Last administered on 12/18/18at 23:02; Admin Dose 10 MG; Start 12/18/18 at 12:30 Amlodipine Besylate (Norvasc) 10 mg DAILY PO Last administered on 12/19/18at 08:23; Admin Dose 10 MG; Start 12/19/18 at 09:00 Tramadol HCl (Ultram) 50 mg Q6H PRN PO PAIN SCALE 1-3 Last administered on 12/18/18at 16:10; Admin Dose 50 MG; Start 12/18/18 at 12:30 Hydromorphone HCl (Dilaudid) 1 mg Q4H PRN IV .SEVERE PAIN 7-10 Last administered on 12/19/18at 09:46; Admin Dose 1 MG; Start 12/18/18 at 17:56 Ondansetron HCl (Zofran Inj) 4 mg Q4H PRN IV NAUSEA AND/OR VOMITING Last administered on 12/19/18at 00:57; Admin Dose 4 MG; Start 12/19/18 at 01:00 Allergies: Coded Allergies: acetaminophen (Unverified Allergy, Intermediate, vomiting, rash, 12/18/18) aspirin (Unverified Allergy, Intermediate, 12/18/18) blurry vision oxycodone (Unverified Allergy, Intermediate, vomiting, rash, 12/18/18) potassium (Verified Allergy, Unknown, 12/18/18) morphine (Unverified Adverse Reaction, Mild, abd pain,n/v, 12/18/18) Past Surgical History Past Surgical Hx: no surgical history Social History Alcohol Use: none Smoking Status: Current some day smoker Drug Use: none Exam/Review of Systems Exam Vitals Vital Signs Date Temp Pulse Resp B/P (MAP) Pulse Ox O2 O2 Flow FiO2 Time Delivery Rate 12/19/18 97.5 71 18 169/105 97 Room Air 08:00 (126) Intake and Output 12/18/18 12/18/18 12/19/18 1515:00 23:00 07:00 IntakeIntake Total 400 ml 750 ml OutputOutput Total 500 ml 1550 ml BalanceBalance -100 ml -800 ml Exam PHYSICAL EXAMINATION: GENERAL: Alert & oriented x 3, in no acute distress SKIN: No lesions HEAD: Normocephalic, atraumatic, no tenderness. EYES: Pupils equal reactive to light and accommodation, no discharge. EARS/NOSE AND THROAT: Ears normal, nose normal. NECK: Supple, no masses CHEST: Inspection within normal limits. CARDIOVASCULAR: Heart: Regular rate and rhythm, no murmurs RESPIRATORY: Lungs clear to auscultation and percussion, no wheezing, no rubs GASTROINTESTINAL AND LIVER: Abdomen: Soft, upper abdominal pain, non-distended, no hernias, no masses, no organomegaly, normoactive bowel sounds. Rectal: Deferred. EXTREMITIES: No cyanosis, clubbing or edema. Results Result Diagram: 12/19/185 12/19/18 0455 Results 24hrs Laboratory Tests Test 12/19/18 04:55 White Blood Count 6.3 Red Blood Count 5.08 Hemoglobin 11.7 L Hematocrit 39.1 L Mean Corpuscular Volume 77.0 L Mean Corpuscular Hemoglobin 23.0 L Mean Corpuscular Hemoglobin Concent 29.9 L Red Cell Distribution Width 16.1 H Platelet Count 248 Mean Platelet Volume 10.0 Immature Granulocytes % 0.200 Neutrophils % 70.6 Lymphocytes % 20.3 Monocytes % 6.7 Eosinophils % 1.4 Basophils % 0.8 Nucleated Red Blood Cells % 0.0 Immature Granulocytes # 0.010 Neutrophils # 4.4 Lymphocytes # 1.3 Monocytes # 0.4 Eosinophils # 0.1 Basophils # 0.1 Nucleated Red Blood Cells # 0.0 Sodium Level 141 Potassium Level 3.8 Chloride Level 106 Carbon Dioxide Level 29 Anion Gap 6 Blood Urea Nitrogen 4 L Creatinine 0.77 Est Glomerular Filtrat Rate mL/min > 60 Glucose Level 106 Calcium Level 9.2 Phosphorus Level 4.4 Magnesium Level 2.1 Total Bilirubin 0.5 Direct Bilirubin 0.00 Indirect Bilirubin 0.5 Aspartate Amino Transf (AST/SGOT) 25 Alanine Aminotransferase (ALT/SGPT) 24 Alkaline Phosphatase 126 H Total Protein 6.7 Albumin 3.4 Globulin 3.30 H Albumin/Globulin Ratio 1.03 Triglycerides Level 89 Cholesterol Level 187 LDL Cholesterol, Calculated 115 HDL Cholesterol 54 Cholesterol/HDL Ratio 3.4 Amylase Level 167 H Lipase 141 Medications Medication Current Medications IV Flush (NS 3 ml) 3 ml PER PROTOCOL IV ; Start 12/18/18 at 12:00 Enoxaparin Sodium (Lovenox) 40 mg DAILY SC ; Start 12/19/18 at 09:00 Sodium Chloride 1,000 ml @ 125 mls/hr Q8H IV Last administered on 12/19/18at 0 1:00; Admin Dose 125 MLS/HR; Start 12/18/18 at 12:30 Hydralazine HCl (Apresoline) 10 mg Q6H PRN IV SBP>160 Last administered on 12/18/18at 23:02; Admin Dose 10 MG; Start 12/18/18 at 12:30 Amlodipine Besylate (Norvasc) 10 mg DAILY PO Last administered on 12/19/18at 08:23; Admin Dose 10 MG; Start 12/19/18 at 09:00 Tramadol HCl (Ultram) 50 mg Q6H PRN PO PAIN SCALE 1-3 Last administered on 12/18/18 16:10; Admin Dose 50 MG; Start 12/18/18 at 12:30 Hydromorphone HCl (Dilaudid) 1 mg Q4H PRN IV .SEVERE PAIN 7-10 Last administered on 12/19/18 09:46; Admin Dose 1 MG; Start 12/18/18 at 17:56 Ondansetron HCl (Zofran Inj) 4 mg Q4H PRN IV NAUSEA AND/OR VOMITING Last administered on 12/19/18 00:57; Admin Dose 4 MG; Start 12/19/18 at 01:00 KATARINA DAY Dec 19, 2018 10:19
--- NOTE | 2018-12-19 12:20 | PN ---
Date/Time of Note Date/Time of Note DATE: 12/19/18 TIME: 12:14 Assessment/Plan VTE Prophylaxis Risk score (from Ns)>0 risk: 2 SCD applied (from Ns): No SCD contraindicated: patient refusal Pharmacological prophylaxis: LMWH Pharm contraindication: patient refusal Lines/Catheters IV Catheter Type (from [facility]): Peripheral IV Assessment/Plan Hospital Course SUBJECTIVE: The patient refusing antihypertensives, stating that antihypertensives are in turn causing elevated blood pressure. The patient refusing IV fluids, stating that IV fluids are making him vomit. OBJECTIVE: Physical Exam General: Morbidly obese, 43 year-old male lying in bed in no apparent distress. HEENT: Normocephalic, atraumatic. Eyes: Anicteric sclerae, conjunctivae clear. ENT: Nasal septum midline, oral mucosa moist. Neck: Short and obese. Respiratory: Bilaterally clear breath sounds. No use of accessory muscles of respiration. No adventitious breath sounds. Cardiovascular: S1, S2 heard. Regular rate and rhythm. Abdomen: Soft and nondistended. Minimal epigastric tenderness. Bowel sounds positive in all 4 quadrants. Genitourinary: Deferred. Extremities: No cyanosis, no clubbing, no edema. Peripheral pulses palpable. Neurologic: Cranial nerves II through XII grossly intact. The patient is awake, alert, and oriented. Skin: Normal skin turgor. No skin rashes. Labs & Vitals per chart ASSESSMENT & PLAN 43-year-old male with comorbidities including chronic pancreatitis on chronic opioids, hypertension, morbid obesity, and anemia who presented to the emergency department with abdominal pain, who was admitted to inpatient setting for further treatment and evaluation. 1. Acute on chronic pancreatitis with pseudocyst. Long-standing history of pancreatitis. Continue IV fluids. Continue pain control. Gastroenterology following. 2. Hypertension. Continue antihypertensives. The patient has been refusing antihypertensives consistently. 3. Microcytic, hypochromic anemia. Iron panel showing low ferritin levels. Monitor H&H closely. 4. Nicotine use. Verbalized that the he has not been using nicotine recently. 5. Opioid dependency. Judicious use of opioids. Pain management consult. 6. Noncompliance. Patient noncompliant with taking medications. Reinforced the importance of being compliant with medications and instructions health care cholesterol. 7. Fluids, electrolytes, and nutrition. Initiate clear liquids. DC IV fluids. 8. DVT prophylaxis. Subcutaneous Lovenox (patient refusing). 9. Plan. Continue pain control. Advancement of diet as per gastroenterology. The patient is asking for pain medication [id number]. Patient is refusing to take any antihypertensives or to be continued on IV fluids despite explanations. The patient was seen in collaboration with Dr. Mac. Result Diagram: 12/19/18 0455 12/19/18 0455 Results 24hrs Laboratory Tests Test 12/19/18 04:55 White Blood Count 6.3 Red Blood Count 5.08 Hemoglobin 11.7 L Hematocrit 39.1 L Mean Corpuscular Volume 77.0 L Mean Corpuscular Hemoglobin 23.0 L Mean Corpuscular Hemoglobin Concent 29.9 L Red Cell Distribution Width 16.1 H Platelet Count 248 Mean Platelet Volume 10.0 Immature Granulocytes % 0.200 Neutrophils % 70.6 Lymphocytes % 20.3 Monocytes % 6.7 Eosinophils % 1.4 Basophils % 0.8 Nucleated Red Blood Cells % 0.0 Immature Granulocytes # 0.010 Neutrophils # 4.4 Lymphocytes # 1.3 Monocytes # 0.4 Eosinophils # 0.1 Basophils # 0.1 Nucleated Red Blood Cells # 0.0 Sodium Level 141 Potassium Level 3.8 Chloride Level 106 Carbon Dioxide Level 29 Anion Gap 6 Blood Urea Nitrogen 4 L Creatinine 0.77 Est Glomerular Filtrat Rate mL/min > 60 Glucose Level 106 Calcium Level 9.2 Phosphorus Level 4.4 Magnesium Level 2.1 Total Bilirubin 0.5 Direct Bilirubin 0.00 Indirect Bilirubin 0.5 Aspartate Amino Transf (AST/SGOT) 25 Alanine Aminotransferase (ALT/SGPT) 24 Alkaline Phosphatase 126 H Total Protein 6.7 Albumin 3.4 Globulin 3.30 H Albumin/Globulin Ratio 1.03 Triglycerides Level 89 Cholesterol Level 187 LDL Cholesterol, Calculated 115 HDL Cholesterol 54 Cholesterol/HDL Ratio 3.4 Amylase Level 167 H Lipase 141 Exam/Review of Systems Exam Vitals Vital Signs Date Temp Pulse Resp B/P (MAP) Pulse Ox O2 O2 Flow FiO2 Time Delivery Rate 12/19/18 97.5 71 18 169/105 97 Room Air 08:00 (126) Intake and Output 12/18/18 12/18/18 12/19/18 1515:00 23:00 07:00 IntakeIntake Total 400 ml 750 ml OutputOutput Total 500 ml 1550 ml BalanceBalance -100 ml -800 ml Results Results 24hrs Laboratory Tests Test 12/19/18 04:55 White Blood Count 6.3 Red Blood Count 5.08 Hemoglobin 11.7 L Hematocrit 39.1 L Mean Corpuscular Volume 77.0 L Mean Corpuscular Hemoglobin 23.0 L Mean Corpuscular Hemoglobin Concent 29.9 L Red Cell Distribution Width 16.1 H Platelet Count 248 Mean Platelet Volume 10.0 Immature Granulocytes % 0.200 Neutrophils % 70.6 Lymphocytes % 20.3 Monocytes % 6.7 Eosinophils % 1.4 Basophils % 0.8 Nucleated Red Blood Cells % 0.0 Immature Granulocytes # 0.010 Neutrophils # 4.4 Lymphocytes # 1.3 Monocytes # 0.4 Eosinophils # 0.1 Basophils # 0.1 Nucleated Red Blood Cells # 0.0 Sodium Level 141 Potassium Level 3.8 Chloride Level 106 Carbon Dioxide Level 29 Anion Gap 6 Blood Urea Nitrogen 4 L Creatinine 0.77 Est Glomerular Filtrat Rate mL/min > 60 Glucose Level 106 Calcium Level 9.2 Phosphorus Level 4.4 Magnesium Level 2.1 Total Bilirubin 0.5 Direct Bilirubin 0.00 Indirect Bilirubin 0.5 Aspartate Amino Transf (AST/SGOT) 25 Alanine Aminotransferase (ALT/SGPT) 24 Alkaline Phosphatase 126 H Total Protein 6.7 Albumin 3.4 Globulin 3.30 H Albumin/Globulin Ratio 1.03 Triglycerides Level 89 Cholesterol Level 187 LDL Cholesterol, Calculated 115 HDL Cholesterol 54 Cholesterol/HDL Ratio 3.4 Amylase Level 167 H Lipase 141 Medications Medication Current Medications IV Flush (NS 3 ml) 3 ml PER PROTOCOL IV ; Start 12/18/18 at 12:00 Enoxaparin Sodium (Lovenox) 40 mg DAILY SC ; Start 12/19/18 at 09:00 Sodium Chloride 1,000 ml @ 125 mls/hr Q8H IV Last administered on 12/19/18at 01:00; Admin Dose 125 MLS/HR; Start 12/18/18 at 12:30 Hydralazine HCl (Apresoline) 10 mg Q6H PRN IV SBP>160 Last administered on 12/18/18at 23:02; Admin Dose 10 MG; Start 12/18/18 at 12:30 Amlodipine Besylate (Norvasc) 10 mg DAILY PO Last administered on 12/19/18at 08:23; Admin Dose 10 MG; Start 12/19/18 at 09:00 Tramadol HCl (Ultram) 50 mg Q6H PRN PO PAIN SCALE 1-3 Last administered on 12/18/18 16:10; Admin Dose 50 MG; Start 12/18/18 at 12:30 Hydromorphone HCl (Dilaudid) 1 mg Q4H PRN IV .SEVERE PAIN 7-10 Last administered on 12/19/18at 09:46; Admin Dose 1 MG; Start 12/18/18 at 17:56 Ondansetron HCl (Zofran Inj) 4 mg Q4H PRN IV NAUSEA AND/OR VOMITING Last administered on 12/19/18 00:57; Admin Dose 4 MG; Start 12/19/18 at 01:00 JUAN KEATING NP Dec 19, 2018 12:20
[2018-12-19 13:30] VITALS: BP_SYST 200; BP_SYST 203; BP_DIAS 103; BP_DIAS 120; PULSE 73; PULSE 88; RESP 18; RESP 20
[2018-12-19 14:47] VITALS: BP 188/108; PULSE 77; RESP 18
[2018-12-19] MEDS: SOD FERRIC GLUC COMPLX 125 MG in SOD CHLORIDE 0.9% 100 ML IVPB SCH (16:30)
[2018-12-19 21:40] VITALS: BP 182/109; PULSE 70; RESP 18
[2018-12-19] MEDS: hydrALAzine 20 MG INJ IV PRN (21:56)
[2018-12-20] MEDS: HYDROmorphONE 1 MG/ML SYG IV PRN ×6 (02:00→22:17)
[2018-12-20 02:30] VITALS: BP 152/95; PULSE 83; RESP 19
[2018-12-20 07:34] VITALS: BP 163/96; PULSE 76; RESP 18
[2018-12-20] MEDS: ENOXAPARIN 40 MG/0.4 ML SYG SC SCH (09:00)
[2018-12-20] MEDS: AMLODIPINE 10 MG TAB PO SCH (09:00)
[2018-12-20] MEDS: SOD FERRIC GLUC COMPLX 125 MG in SOD CHLORIDE 0.9% 100 ML IVPB SCH (13:44)
[2018-12-20] MEDS ORDERED: POTASSIUM CHLORIDE (SR) 20 MEQ TAB PO STA (13:46)
--- NOTE | 2018-12-20 13:46 | PN ---
Date/Time of Note Date/Time of Note DATE: 12/20/18 TIME: 13:45 Assessment/Plan VTE Prophylaxis Risk score (from Ns)>0 risk: 1 SCD applied (from Ns): No SCD contraindicated: patient refusal Pharmacological prophylaxis: NA/contraindicated Pharm contraindication: patient refusal Lines/Catheters IV Catheter Type (from [facility]): Peripheral IV Assessment/Plan Hospital Course SUBJECTIVE: The patient refusing antihypertensives, stating that antihypertensives are in turn causing elevated blood pressure. The patient refusing IV fluids, stating that IV fluids are making him vomit. Refused potassium supplements. OBJECTIVE: Physical Exam General: Morbidly obese, 43 year-old male lying in bed in no apparent distress. HEENT: Normocephalic, atraumatic. Eyes: Anicteric sclerae, conjunctivae clear. ENT: Nasal septum midline, oral mucosa moist. Neck: Short and obese. Respiratory: Bilaterally clear breath sounds. No use of accessory muscles of respiration. No adventitious breath sounds. Cardiovascular: S1, S2 heard. Regular rate and rhythm. Abdomen: Soft and nondistended. Minimal epigastric tenderness. Bowel sounds positive in all 4 quadrants. Genitourinary: Deferred. Extremities: No cyanosis, no clubbing, no edema. Peripheral pulses palpable. Neurologic: Cranial nerves II through XII grossly intact. The patient is awake, alert, and oriented. Skin: Normal skin turgor. No skin rashes. Labs & Vitals per chart ASSESSMENT & PLAN 43-year-old male with comorbidities including chronic pancreatitis on chronic opioids, hypertension, morbid obesity, and anemia who presented to the emergency department with abdominal pain, who was admitted to inpatient setting for further treatment and evaluation. 1. Acute on chronic pancreatitis with pseudocyst. Long-standing history of pancreatitis. Continue pain control. Gastroenterology following. 2. Hypertension. Continue antihypertensives. The patient has been refusing antihypertensives consistently. 3. Microcytic, hypochromic anemia. Iron panel showing low ferritin levels. On iron supplements. Monitor H&H closely. 4. Nicotine use. Verbalized that the he has not been using nicotine recently. 5. Opioid dependency. Judicious use of opioids. Pain management consult. 6. Noncompliance. Patient noncompliant with taking medications. Reinforced the importance of being compliant with medications and instructions health care cholesterol. 7. Fluids, electrolytes, and nutrition. Clear liquids. 8. DVT prophylaxis. Subcutaneous Lovenox (patient refusing). 9. Plan. Continue pain control. Advancement of diet as per gastroenterology. The patient is asking for pain medication [id number]. Patient is refusing to take any antihypertensives or to be continued on IV fluids despite explanations. The patient was seen in collaboration with Dr. Mac. Result Diagram: 12/20/18 0534 12/20/18 0534 Results 24hrs Laboratory Tests Test 12/20/18 05:34 White Blood Count 5.2 Red Blood Count 5.08 Hemoglobin 11.9 L Hematocrit 39.0 L Mean Corpuscular Volume 76.8 L Mean Corpuscular Hemoglobin 23.4 L Mean Corpuscular Hemoglobin Concent 30.5 L Red Cell Distribution Width 15.9 H Platelet Count 230 Mean Platelet Volume 9.3 Immature Granulocytes % 0.200 Neutrophils % 58.2 Lymphocytes % 26.5 Monocytes % 8.7 Eosinophils % 5.6 Basophils % 0.8 Nucleated Red Blood Cells % 0.0 Immature Granulocytes # 0.010 Neutrophils # 3.0 Lymphocytes # 1.4 Monocytes # 0.5 Eosinophils # 0.3 Basophils # 0.0 Nucleated Red Blood Cells # 0.0 Sodium Level 139 Potassium Level 3.3 L Chloride Level 106 Carbon Dioxide Level 26 Anion Gap 7 Blood Urea Nitrogen 4 L Creatinine 0.70 Est Glomerular Filtrat Rate mL/min > 60 Glucose Level 100 Calcium Level 9.6 Phosphorus Level 4.2 Magnesium Level 2.1 Total Bilirubin 0.6 Direct Bilirubin 0.00 Indirect Bilirubin 0.6 Aspartate Amino Transf (AST/SGOT) 37 Alanine Aminotransferase (ALT/SGPT) 18 Alkaline Phosphatase 117 Total Protein 6.9 Albumin 3.7 Globulin 3.20 Albumin/Globulin Ratio 1.15 Amylase Level 111 Lipase 52 Exam/Review of Systems Exam Vitals Vital Signs Date Temp Pulse Resp B/P (MAP) Pulse Ox O2 O2 Flow FiO2 Time Delivery Rate 12/20/18 98.2 76 18 163/96 94 Room Air 07:34 (118) Intake and Output 12/19/18 12/19/18 12/20/18 1515:00 23:00 07:00 IntakeIntake Total 0 ml 700 ml 440 ml OutputOutput Total 600 ml 1200 ml BalanceBalance 0 ml 100 ml -760 ml Results Results 24hrs Laboratory Tests Test 12/20/18 05:34 White Blood Count 5.2 Red Blood Count 5.08 Hemoglobin 11.9 L Hematocrit 39.0 L Mean Corpuscular Volume 76.8 L Mean Corpuscular Hemoglobin 23.4 L Mean Corpuscular Hemoglobin Concent 30.5 L Red Cell Distribution Width 15.9 H Platelet Count 230 Mean Platelet Volume 9.3 Immature Granulocytes % 0.200 Neutrophils % 58.2 Lymphocytes % 26.5 Monocytes % 8.7 Eosinophils % 5.6 Basophils % 0.8 Nucleated Red Blood Cells % 0.0 Immature Granulocytes # 0.010 Neutrophils # 3.0 Lymphocytes # 1.4 Monocytes # 0.5 Eosinophils # 0.3 Basophils # 0.0 Nucleated Red Blood Cells # 0.0 Sodium Level 139 Potassium Level 3.3 L Chloride Level 106 Carbon Dioxide Level 26 Anion Gap 7 Blood Urea Nitrogen 4 L Creatinine 0.70 Est Glomerular Filtrat Rate mL/min > 60 Glucose Level 100 Calcium Level 9.6 Phosphorus Level 4.2 Magnesium Level 2.1 Total Bilirubin 0.6 Direct Bilirubin 0.00 Indirect Bilirubin 0.6 Aspartate Amino Transf (AST/SGOT) 37 Alanine Aminotransferase (ALT/SGPT) 18 Alkaline Phosphatase 117 Total Protein 6.9 Albumin 3.7 Globulin 3.20 Albumin/Globulin Ratio 1.15 Amylase Level 111 Lipase 52 Medications Medication Current Medications IV Flush (NS 3 ml) 3 ml PER PROTOCOL IV ; Start 12/18/18 at 12:00 Enoxaparin Sodium (Lovenox) 40 mg DAILY SC ; Start 12/19/18 at 09:00 Hydralazine HCl (Apresoline) 10 mg Q6H PRN IV SBP>160 Last administered on 12/19/18at 21:56; Admin Dose 10 MG; Start 12/18/18 at 12:30 Amlodipine Besylate (Norvasc) 10 mg DAILY PO Last administered on 12/19/18 08:23; Admin Dose 10 MG; Start 12/19/18 at 09:00 Tramadol HCl (Ultram) 50 mg Q6H PRN PO PAIN SCALE 1-3 Last administered on 12/18/18at 16:10; Admin Dose 50 MG; Start 12/18/18 at 12:30 Hydromorphone HCl (Dilaudid) 1 mg Q4H PRN IV .SEVERE PAIN 7-10 Last administered on 12/20/18at 10:13; Admin Dose 1 MG; Start 12/18/18 at 17:56 Ondansetron HCl (Zofran Inj) 4 mg Q4H PRN IV NAUSEA AND/OR VOMITING Last administered on 12/19/18at 00:57; Admin Dose 4 MG; Start 12/19/18 at 01:00 Ferric Sodium Gluconate Complex 125 mg/Sodium Chloride 100 ml @ 100 mls/hr DAILY@1300 IVPB Last administered on 12/19/18at 16:30; Admin Dose 100 MLS/HR; Start 12/19/18 at 15:00; Stop 12/21/18 at 13:59 JUAN KEATING NP Dec 20, 2018 13:46
[2018-12-20 14:18] VITALS: BP 180/124; PULSE 86; RESP 19
[2018-12-20 20:07] VITALS: BP 180/107; PULSE 73; RESP 18
[2018-12-21 01:58] VITALS: BP 172/113; PULSE 73; RESP 18
[2018-12-21] MEDS: HYDROmorphONE 1 MG/ML SYG IV PRN ×6 (02:14→22:11)
[2018-12-21 07:35] VITALS: BP 165/108; PULSE 69; RESP 16
[2018-12-21] MEDS: ENOXAPARIN 40 MG/0.4 ML SYG SC SCH (08:44)
[2018-12-21] MEDS: AMLODIPINE 10 MG TAB PO SCH (08:44)
[2018-12-21] MEDS: ONDANSETRON 4 MG INJ IV PRN (10:09)
--- NOTE | 2018-12-21 12:34 | PN ---
Date/Time of Note Date/Time of Note DATE: 12/21/18 TIME: 12:30 Assessment/Plan VTE Prophylaxis Risk score (from Nsg)>0 risk: 2 SCD applied (from Nsg): Yes Pharmacological prophylaxis: heparin Lines/Catheters IV Catheter Type (from Nrsg): Saline Lock Urinary Cath still in place: No Assessment/Plan Assessment/Plan Assessment: Acute on chronic pancreatitis with pseudocyst -multiple coarse calcifications involving the proximal pancreatic body/head region the largest measuring 1 cm consistent with pancreatic duct stones and chronic calcific pancreatitis Hypertension. Microcytic, hypochromic anemia. Chronic opioid use Plan: No new recommendations Continue clear liquid diet Pain management consulted Recommend HBS evaluation-transfer to tertiary center versus evaluation as an out-pt Patient seen in collaboration with Dr. Tapia Subjective: Patient is still complaining of epigastric left upper quadrant pain 6 out of 10 after getting morphine. Prior to pain medication administration pain level is 8 out of 10. Patient is tolerating clear liquid diet well. Discussed dietary recommendations and pain medication regimen. Continue observation. Exam PHYSICAL EXAMINATION: GENERAL: Alert & oriented x 3, obese, in no acute distress SKIN: No lesions HEAD: Normocephalic, atraumatic, no tenderness. EYES: Pupils equal reactive to light and accommodation, no discharge. EARS/NOSE AND THROAT: Ears normal, nose normal. NECK: Supple, no masses CHEST: Inspection within normal limits. CARDIOVASCULAR: Heart: Regular rate and rhythm, no murmurs RESPIRATORY: Lungs clear to auscultation and percussion, no wheezing, no rubs GASTROINTESTINAL AND LIVER: Abdomen: Soft, epigastric and left upper quadrant abdominal pain, non-distended, no hernias, no masses, no organomegaly, normoactive bowel sounds. Rectal: Deferred. EXTREMITIES: No cyanosis, clubbing or edema. Result Diagram: 12/20/18 0534 12/20/18533 CC: ; Exam/Review of Systems Exam Vitals Vital Signs Date Temp Pulse Resp B/P (MAP) Pulse Ox O2 O2 Flow FiO2 Time Delivery Rate 12/21/18 98.3 69 16 165/108 96 07:35 (127) 12/20/18 Room Air 14:18 Intake and Output 12/20/18 12/20/18 12/21/18 1515:00 23:00 07:00 IntakeIntake Total 220 ml 440 ml OutputOutput Total 225 ml BalanceBalance -5 ml 440 ml Medications Medication Current Medications IV Flush (NS 3 ml) 3 ml PER PROTOCOL IV ; Start 12/18/18 at 12:00 Enoxaparin Sodium (Lovenox) 40 mg DAILY SC ; Start 12/19/18 at 09:00 Amlodipine Besylate (Norvasc) 10 mg DAILY PO Last administered on 12/21/18 08:44; Admin Dose 10 MG; Start 12/19/18 at 09:00 Tramadol HCl (Ultram) 50 mg Q6H PRN PO PAIN SCALE 1-3 Last administered on 12/18/18 16:10; Admin Dose 50 MG; Start 12/18/18 at 12:30 Hydromorphone HCl (Dilaudid) 1 mg Q4H PRN IV .SEVERE PAIN 7-10 Last administered on 12/21/18 10:09; Admin Dose 1 MG; Start 12/18/18 at 17:56 Ondansetron HCl (Zofran Inj) 4 mg Q4H PRN IV NAUSEA AND/OR VOMITING Last administered on 12/21/18 10:09; Admin Dose 4 MG; Start 12/19/18 at 01:00 Ferric Sodium Gluconate Complex 125 mg/Sodium Chloride 100 ml @ 100 mls/hr DAILY@1300 IVPB Last administered on 12/20/18 13:44; Admin Dose 100 MLS/HR; Start 12/19/18 at 15:00; Stop 12/21/18 at 13:59 JUAN DIEGO VENTURA NP Dec 21, 2018 12:34
[2018-12-21] MEDS: SOD FERRIC GLUC COMPLX 125 MG in SOD CHLORIDE 0.9% 100 ML IVPB SCH (14:03)
[2018-12-21 14:24] VITALS: BP 173/98; PULSE 75; RESP 19
--- NOTE | 2018-12-21 16:33 | PN ---
Date/Time of Note Date/Time of Note DATE: 12/21/18 TIME: 16:33 Assessment/Plan VTE Prophylaxis Risk score (from Ns)>0 risk: 2 SCD applied (from Ns): No SCD contraindicated: patient refusal Pharmacological prophylaxis: LMWH Pharm contraindication: patient refusal Lines/Catheters [facility] Saline Lock Urinary Cath still in place: No Assessment/Plan Hospital Course SUBJECTIVE: The patient selectively refusing certain medications. OBJECTIVE: Physical Exam General: Morbidly obese, 43 year-old male lying in bed in no apparent distress. HEENT: Normocephalic, atraumatic. Eyes: Anicteric sclerae, conjunctivae clear. ENT: Nasal septum midline, oral mucosa moist. Neck: Short and obese. Respiratory: Bilaterally clear breath sounds. No use of accessory muscles of respiration. No adventitious breath sounds. Cardiovascular: S1, S2 heard. Regular rate and rhythm. Abdomen: Soft and nondistended. Minimal epigastric tenderness. Bowel sounds positive in all 4 quadrants. Genitourinary: Deferred. Extremities: No cyanosis, no clubbing, no edema. Peripheral pulses palpable. Neurologic: Cranial nerves II through XII grossly intact. The patient is awake, alert, and oriented. Skin: Normal skin turgor. No skin rashes. Labs & Vitals per chart ASSESSMENT & PLAN 43-year-old male with comorbidities including chronic pancreatitis on chronic opioids, hypertension, morbid obesity, and anemia who presented to the emergency department with abdominal pain, who was admitted to inpatient setting for further treatment and evaluation. 1. Acute on chronic pancreatitis with pseudocyst. Long-standing history of pancreatitis. Continue pain control. Gastroenterology following. 2. Hypertension. Continue antihypertensives. The patient has been refusing antihypertensives consistently. 3. Microcytic, hypochromic anemia. Iron panel showing low ferritin levels. On iron supplements. Monitor H&H closely. 4. Nicotine use. Verbalized that the he has not been using nicotine recently. 5. Opioid dependency. Judicious use of opioids. Pain management consult. 6. Noncompliance. Patient noncompliant with taking medications. Reinforced the importance of being compliant with medications and instructions health care cholesterol. 7. Fluids, electrolytes, and nutrition. Clear liquids. 8. DVT prophylaxis. Subcutaneous Lovenox (patient refusing). 9. Plan. Continue pain control. Advancement of diet as per gastroenterology. The patient is asking for pain medication [id number]. Patient is refusing to take any antihypertensives or to be continued on IV fluids despite explanations. The patient was seen in collaboration with Dr. Mac. Result Diagram: 12/20/18 0534 12/20/1834 Exam/Review of Systems Exam Vitals Vital Signs Date Temp Pulse Resp B/P (MAP) Pulse Ox O2 O2 Flow FiO2 Time Delivery Rate 12/21/18 98.3 75 19 173/98 97 Room Air 14:24 (123) Intake and Output 12/20/18 12/20/18 12/21/18 1515:00 23:00 07:00 IntakeIntake Total 220 ml 440 ml OutputOutput Total 225 ml BalanceBalance -5 ml 440 ml Medications Medication Current Medications IV Flush (NS 3 ml) 3 ml PER PROTOCOL IV ; Start 12/18/18 at 12:00 Enoxaparin Sodium (Lovenox) 40 mg DAILY SC ; Start 12/19/18 at 09:00 Amlodipine Besylate (Norvasc) 10 mg DAILY PO Last administered on 12/21/18at 08:44; Admin Dose 10 MG; Start 12/19/18 at 09:00 Tramadol HCl (Ultram) 50 mg Q6H PRN PO PAIN SCALE 1-3 Last administered on 12/18/18 16:10; Admin Dose 50 MG; Start 12/18/18 at 12:30 Hydromorphone HCl (Dilaudid) 1 mg Q4H PRN IV .SEVERE PAIN 7-10 Last administered on 12/21/18 14:03; Admin Dose 1 MG; Start 12/18/18 at 17:56 Ondansetron HCl (Zofran Inj) 4 mg Q4H PRN IV NAUSEA AND/OR VOMITING Last administered on 12/21/18 10:09; Admin Dose 4 MG; Start 12/19/18 at 01:00 JUAN KEATING NP Dec 21, 2018 16:33
[2018-12-21 20:28] VITALS: BP 165/102; PULSE 71; RESP 18
[2018-12-22 01:40] VITALS: BP 170/106; PULSE 79; RESP 18
[2018-12-22] MEDS: HYDROmorphONE 1 MG/ML SYG IV PRN ×4 (02:12→15:25)
[2018-12-22 07:33] VITALS: BP 141/93; PULSE 68; RESP 18
[2018-12-22] MEDS: AMLODIPINE 10 MG TAB PO SCH (09:00)
[2018-12-22] MEDS: ENOXAPARIN 40 MG/0.4 ML SYG SC SCH (09:00)
--- NOTE | 2018-12-22 10:48 | PN ---
Date/Time of Note Date/Time of Note DATE: 12/22/18 TIME: 10:45 Assessment/Plan VTE Prophylaxis Risk score (from Ns)>0 risk: 2 SCD applied (from Ns): No SCD contraindicated: patient refusal Pharmacological prophylaxis: LMWH Pharm contraindication: patient refusal Lines/Catheters IV [facility] Type [facility]from [facility] Saline Lock Urinary Cath still in place: No Assessment/Plan Hospital Course SUBJECTIVE: The patient selectively refusing certain medications. OBJECTIVE: Physical Exam General: Morbidly obese, 43 year-old male lying in bed in no apparent distress. HEENT: Normocephalic, atraumatic. Eyes: Anicteric sclerae, conjunctivae clear. ENT: Nasal septum midline, oral mucosa moist. Neck: Short and obese. Respiratory: Bilaterally clear breath sounds. No use of accessory muscles of respiration. No adventitious breath sounds. Cardiovascular: S1, S2 heard. Regular rate and rhythm. Abdomen: Soft and nondistended. Minimal epigastric tenderness. Bowel sounds positive in all 4 quadrants. Genitourinary: Deferred. Extremities: No cyanosis, no clubbing, no edema. Peripheral pulses palpable. Neurologic: Cranial nerves II through XII grossly intact. The patient is awake, alert, and oriented. Skin: Normal skin turgor. No skin rashes. Labs & Vitals per chart ASSESSMENT & PLAN 43-year-old male with comorbidities including chronic pancreatitis on chronic opioids, hypertension, morbid obesity, and anemia who presented to the emergency department with abdominal pain, who was admitted to inpatient setting for further treatment and evaluation. 1. Acute on chronic pancreatitis with pseudocyst. Long-standing history of pancreatitis. Continue pain control. Gastroenterology following. 2. Hypertension. Continue antihypertensives. The patient has been refusing antihypertensives consistently. 3. Microcytic, hypochromic anemia. Iron panel showing low ferritin levels. S/P IV iron supplements. Monitor H&H closely. 4. Nicotine use. Verbalized that the he has not been using nicotine recently. 5. Opioid dependency. Judicious use of opioids. Pain management consult (physician out of town). 6. Noncompliance. Patient noncompliant with taking medications. Reinforced the importance of being compliant with medications and instructions health care cholesterol. 7. Fluids, electrolytes, and nutrition. Full liquids. 8. DVT prophylaxis. Subcutaneous Lovenox (patient refusing). 9. Plan. Continue pain control. Advancement of diet as per gastroenterology. The patient is asking for pain medication [id number]. The patient was seen in collaboration with Dr. Mac. Result Diagram: 12/20/1834 12/20/18533 Exam/Review of Systems Exam Vitals Vital Signs Date Temp Pulse Resp B/P (MAP) Pulse Ox O2 O2 Flow FiO2 Time Delivery Rate 12/22/18 98.5 68 18 141/93 96 Room Air 07:33 (109) Intake and Output 12/21/18 12/21/18 12/22/18 1515:00 23:00 07:00 IntakeIntake Total 1240 ml 340 ml BalanceBalance 1240 ml 340 ml Medications Medication Current Medications IV Flush (NS 3 ml) 3 ml PER PROTOCOL IV Last administered on 12/22/18 09:40; Admin Dose 3 ML; Start 12/18/18 at 12:00 Enoxaparin Sodium (Lovenox) 40 mg DAILY SC ; Start 12/19/18 at 09:00 Amlodipine Besylate (Norvasc) 10 mg DAILY PO Last administered on 12/21/18at 08:44; Admin Dose 10 MG; Start 12/19/18 at 09:00 Tramadol HCl (Ultram) 50 mg Q6H PRN PO PAIN SCALE 1-3 Last administered on 12/18/18 16:10; Admin Dose 50 MG; Start 12/18/18 at 12:30 Hydromorphone HCl (Dilaudid) 1 mg Q4H PRN IV .SEVERE PAIN 7-10 Last administered on 12/22/18 06:12; Admin Dose 1 MG; Start 12/18/18 at 17:56 Ondansetron HCl (Zofran Inj) 4 mg Q4H PRN IV NAUSEA AND/OR VOMITING Last administered on 12/21/18 10:09; Admin Dose 4 MG; Start 12/19/18 at 01:00 JUAN KEATING NP Dec 22, 2018 10:48
--- NOTE | 2018-12-22 13:53 | PN ---
Date/Time of Note Date/Time of Note DATE: 12/22/18 TIME: 13:49 Assessment/Plan VTE Prophylaxis Risk score (from Nsg)>0 risk: 2 SCD applied (from Nsg): No SCD contraindicated: low risk/ambulating Pharmacological prophylaxis: heparin Lines/Catheters IV Catheter Type (from Nrsg): Peripheral IV Urinary Cath still in place: No Assessment/Plan Assessment/Plan Assessment: Acute on chronic pancreatitis with pseudocyst -multiple coarse calcifications involving the proximal pancreatic body/head region the largest measuring 1 cm consistent with pancreatic duct stones and chronic calcific pancreatitis Hypertension. Microcytic, hypochromic anemia. Chronic opioid use Plan: Advance to low-fat diet Pain management consulted Recommend HBS evaluation-transfer to tertiary center versus evaluation as an out-pt Patient seen in collaboration with Dr. Tapia Subjective: Patient states abdominal pain is improving. Location of pain is epigastric and left upper quadrant. Lipase is normal.. Patient is tolerating clear liquid diet well. Will advance to low-fat diet. Discussed dietary recommendations and pain medication regimen. Continue observation. Exam PHYSICAL EXAMINATION: GENERAL: Alert & oriented x 3, obese, in no acute distress SKIN: No lesions HEAD: Normocephalic, atraumatic, no tenderness. EYES: Pupils equal reactive to light and accommodation, no discharge. EARS/NOSE AND THROAT: Ears normal, nose normal. NECK: Supple, no masses CHEST: Inspection within normal limits. CARDIOVASCULAR: Heart: Regular rate and rhythm, no murmurs RESPIRATORY: Lungs clear to auscultation and percussion, no wheezing, no rubs GASTROINTESTINAL AND LIVER: Abdomen: Soft, mild epigastric and left upper quadrant abdominal pain, non-distended, no hernias, no masses, no organomegaly, normoactive bowel sounds. Rectal: Deferred. EXTREMITIES: No cyanosis, clubbing or edema. Result Diagram: 12/20/1853312/20/18533 CC: MARGO TAPIA MD ; Exam/Review of Systems Exam Vitals Vital Signs Date Temp Pulse Resp B/P (MAP) Pulse Ox O2 O2 Flow FiO2 Time Delivery Rate 12/22/18 98.5 68 18 141/93 96 Room Air 07:33 (109) Intake and Output 12/21/18 12/21/18 12/22/18 1515:00 23:00 07:00 IntakeIntake Total 1240 ml 340 ml BalanceBalance 1240 ml 340 ml Medications Medication Current Medications IV Flush (NS 3 ml) 3 ml PER PROTOCOL IV Last administered on 12/22/18 09:40; Admin Dose 3 ML; Start 12/18/18 at 12:00 Enoxaparin Sodium (Lovenox) 40 mg DAILY SC ; Start 12/19/18 at 09:00 Amlodipine Besylate (Norvasc) 10 mg DAILY PO Last administered on 12/21/18at 08:44; Admin Dose 10 MG; Start 12/19/18 at 09:00 Tramadol HCl (Ultram) 50 mg Q6H PRN PO PAIN SCALE 1-3 Last administered on 12/18/18 16:10; Admin Dose 50 MG; Start 12/18/18 at 12:30 Hydromorphone HCl (Dilaudid) 1 mg Q4H PRN IV .SEVERE PAIN 7-10 Last administered on 12/22/18 10:56; Admin Dose 1 MG; Start 12/18/18 at 17:56 Ondansetron HCl (Zofran Inj) 4 mg Q4H PRN IV NAUSEA AND/OR VOMITING Last administered on 12/21/18 10:09; Admin Dose 4 MG; Start 12/19/18 at 01:00 JUAN DIEGO VENTURA NP Dec 22, 2018 13:53
[2018-12-22 14:23] VITALS: BP 158/99; PULSE 73; RESP 18
[2018-12-22 20:02] VITALS: BP 150/94; PULSE 70; RESP 18
[2018-12-23] MEDS: HYDROmorphONE 1 MG/ML SYG IV PRN ×6 (01:26→22:10)
[2018-12-23 01:32] VITALS: BP 155/100; PULSE 76; RESP 18
[2018-12-23 07:34] VITALS: BP 167/108; PULSE 76; RESP 20
--- NOTE | 2018-12-23 08:33 | PN ---
Date/Time of Note Date/Time of Note DATE: 12/23/18 TIME: 08:29 Assessment/Plan VTE Prophylaxis Risk score (from Nsg)>0 risk: 2 SCD applied (from Nsg): Yes Pharmacological prophylaxis: LMWH Lines/Catheters IV Catheter Type (from Nrsg): Peripheral IV Urinary Cath still in place: No Assessment/Plan Hospital Course Assessment: Acute on chronic pancreatitis with pseudocyst -multiple coarse calcifications involving the proximal pancreatic body/head region the largest measuring 1 cm consistent with pancreatic duct stones and chronic calcific pancreatitis Hypertension. Microcytic, hypochromic anemia. Chronic opioid use Plan: Low-fat diet Recommend decreasing pain medication Recommend HBS evaluation-transfer to tertiary center versus evaluation as an out-pt Patient seen in collaboration with Dr. Tapia Subjective: No over night events Patient currently resting in bed will allow to sleep. Labs reviewed. Exam PHYSICAL EXAMINATION: GENERAL: Alert & oriented x 3, obese, in no acute distress SKIN: No lesions HEAD: Normocephalic, atraumatic, no tenderness. EYES: Pupils equal reactive to light and accommodation, no discharge. EARS/NOSE AND THROAT: Ears normal, nose normal. NECK: Supple, no masses CHEST: Inspection within normal limits. CARDIOVASCULAR: Heart: Regular rate and rhythm, no murmurs RESPIRATORY: Lungs clear to auscultation and percussion, no wheezing, no rubs GASTROINTESTINAL AND LIVER: Abdomen: Soft, mild epigastric and left upper quadrant abdominal pain, non-distended, no hernias, no masses, no organomegaly, normoactive bowel sounds. Rectal: Deferred. EXTREMITIES: No cyanosis, clubbing or edema. Result Diagram: 12/23/18 0442 12/23/18 0442 Results 24hrs Laboratory Tests Test 12/23/18 04:42 White Blood Count 5.6 Red Blood Count 5.05 Hemoglobin 11.8 L Hematocrit 38.8 L Mean Corpuscular Volume 76.8 L Mean Corpuscular Hemoglobin 23.4 L Mean Corpuscular Hemoglobin Concent 30.4 L Red Cell Distribution Width 15.9 H Platelet Count 238 Mean Platelet Volume 10.1 Immature Granulocytes % 0.200 Neutrophils % 57.4 Lymphocytes % 26.9 Monocytes % 10.0 Eosinophils % 4.6 Basophils % 0.9 Nucleated Red Blood Cells % 0.0 Immature Granulocytes # 0.010 Neutrophils # 3.2 Lymphocytes # 1.5 Monocytes # 0.6 Eosinophils # 0.3 Basophils # 0.1 Nucleated Red Blood Cells # 0.0 Sodium Level 140 Potassium Level 3.3 L Chloride Level 107 Carbon Dioxide Level 27 Anion Gap 6 Blood Urea Nitrogen 7 Creatinine 0.83 Est Glomerular Filtrat Rate mL/min > 60 Glucose Level 141 Calcium Level 9.2 Phosphorus Level 3.7 Magnesium Level 2.1 Total Bilirubin 0.4 Direct Bilirubin 0.00 Indirect Bilirubin 0.4 Aspartate Amino Transf (AST/SGOT) 32 Alanine Aminotransferase (ALT/SGPT) 25 Alkaline Phosphatase 94 Total Protein 6.8 Albumin 3.5 Globulin 3.30 H Albumin/Globulin Ratio 1.06 Exam/Review of Systems Exam Vitals Vital Signs Date Temp Pulse Resp B/P (MAP) Pulse Ox O2 O2 Flow FiO2 Time Delivery Rate 12/23/18 98.4 76 20 167/108 97 07:34 (127) 12/22/18 Room Air 14:23 Intake and Output 12/22/18 12/22/18 12/23/18 1515:00 23:00 07:00 IntakeIntake Total 600 ml 220 ml 240 ml OutputOutput Total 500 ml BalanceBalance 600 ml 220 ml -260 ml Results Results 24hrs Laboratory Tests Test 12/23/18 04:42 White Blood Count 5.6 Red Blood Count 5.05 Hemoglobin 11.8 L Hematocrit 38.8 L Mean Corpuscular Volume 76.8 L Mean Corpuscular Hemoglobin 23.4 L Mean Corpuscular Hemoglobin Concent 30.4 L Red Cell Distribution Width 15.9 H Platelet Count 238 Mean Platelet Volume 10.1 Immature Granulocytes % 0.200 Neutrophils % 57.4 Lymphocytes % 26.9 Monocytes % 10.0 Eosinophils % 4.6 Basophils % 0.9 Nucleated Red Blood Cells % 0.0 Immature Granulocytes # 0.010 Neutrophils # 3.2 Lymphocytes # 1.5 Monocytes # 0.6 Eosinophils # 0.3 Basophils # 0.1 Nucleated Red Blood Cells # 0.0 Sodium Level 140 Potassium Level 3.3 L Chloride Level 107 Carbon Dioxide Level 27 Anion Gap 6 Blood Urea Nitrogen 7 Creatinine 0.83 Est Glomerular Filtrat Rate mL/min > 60 Glucose Level 141 Calcium Level 9.2 Phosphorus Level 3.7 Magnesium Level 2.1 Total Bilirubin 0.4 Direct Bilirubin 0.00 Indirect Bilirubin 0.4 Aspartate Amino Transf (AST/SGOT) 32 Alanine Aminotransferase (ALT/SGPT) 25 Alkaline Phosphatase 94 Total Protein 6.8 Albumin 3.5 Globulin 3.30 H Albumin/Globulin Ratio 1.06 Medications Medication Current Medications IV Flush (NS 3 ml) 3 ml PER PROTOCOL IV Last administered on 12/22/18 09:40; Admin Dose 3 ML; Start 12/18/18 at 12:00 Enoxaparin Sodium (Lovenox) 40 mg DAILY SC ; Start 12/19/18 at 09:00 Amlodipine Besylate (Norvasc) 10 mg DAILY PO Last administered on 12/21/18 08:44; Admin Dose 10 MG; Start 12/19/18 at 09:00 Tramadol HCl (Ultram) 50 mg Q6H PRN PO PAIN SCALE 1-3 Last administered on 12/18/18 16:10; Admin Dose 50 MG; Start 12/18/18 at 12:30 Hydromorphone HCl (Dilaudid) 1 mg Q4H PRN IV .SEVERE PAIN 7-10 Last a dministered on 12/23/18 05:25; Admin Dose 1 MG; Start 12/18/18 at 17:56 Ondansetron HCl (Zofran Inj) 4 mg Q4H PRN IV NAUSEA AND/OR VOMITING Last administered on 12/21/18 10:09; Admin Dose 4 MG; Start 12/19/18 at 01:00 KATARINA DAY Dec 23, 2018 08:33
[2018-12-23] MEDS: ENOXAPARIN 40 MG/0.4 ML SYG SC SCH (09:00)
[2018-12-23] MEDS: AMLODIPINE 10 MG TAB PO SCH (09:00)
[2018-12-23] MEDS ORDERED: POTASSIUM CHLORIDE (SR) 20 MEQ TAB PO STA (09:37)
[2018-12-23 09:43] VITALS: BP 153/108
--- NOTE | 2018-12-23 11:14 | PN ---
Date/Time of Note Date/Time of Note DATE: 12/23/18 TIME: 11:10 Assessment/Plan VTE Prophylaxis Risk score (from Nsg)>0 risk: 2 SCD applied (from Nsg): No Lines/Catheters IV Catheter Type (from Nrsg): Peripheral IV Urinary Cath still in place: No Assessment/Plan Hospital Course Assessment and plan 1. Acute on chronic pancreatitis with pseudocyst -Continue with analgesics. Taper down. -Gastroenterology is following. -Advance diet per GI recommendations. 2. Hypertension. -Continue anti-hypertensives. Adjust as needed. 3. Anemia. -Continue on iron supplement. Monitor H&H. 4. Opiate dependency. -Pain management consult was notified. 5. History of medical noncompliance. - Patient was advised for medical compliance DISPO/PLAN: Continue advancing diet as tolerated. Taper down analgesics as tolerated. Anticipate DC within the next [address] Discuss[address] POC [address] Dr. Quiroga Result Diagram: 12/23/18 0442 12/23/18 0442 Results 24hrs Laboratory Tests Test 12/23/18 04:42 White Blood Count 5.6 Red Blood Count 5.05 Hemoglobin 11.8 L Hematocrit 38.8 L Mean Corpuscular Volume 76.8 L Mean Corpuscular Hemoglobin 23.4 L Mean Corpuscular Hemoglobin Concent 30.4 L Red Cell Distribution Width 15.9 H Platelet Count 238 Mean Platelet Volume 10.1 Immature Granulocytes % 0.200 Neutrophils % 57.4 Lymphocytes % 26.9 Monocytes % 10.0 Eosinophils % 4.6 Basophils % 0.9 Nucleated Red Blood Cells % 0.0 Immature Granulocytes # 0.010 Neutrophils # 3.2 Lymphocytes # 1.5 Monocytes # 0.6 Eosinophils # 0.3 Basophils # 0.1 Nucleated Red Blood Cells # 0.0 Sodium Level 140 Potassium Level 3.3 L Chloride Level 107 Carbon Dioxide Level 27 Anion Gap 6 Blood Urea Nitrogen 7 Creatinine 0.83 Est Glomerular Filtrat Rate mL/min > 60 Glucose Level 141 Calcium Level 9.2 Phosphorus Level 3.7 Magnesium Level 2.1 Total Bilirubin 0.4 Direct Bilirubin 0.00 Indirect Bilirubin 0.4 Aspartate Amino Transf (AST/SGOT) 32 Alanine Aminotransferase (ALT/SGPT) 25 Alkaline Phosphatase 94 Total Protein 6.8 Albumin 3.5 Globulin 3.30 H Albumin/Globulin Ratio 1.06 Subjective 24 Hr Interval Summary Free Text/Dictation Tolerating soft diet well. reports being able to have bowel movement today Exam/Review of Systems Exam Vitals Vital Signs Date Temp Pulse Resp B/P (MAP) Pulse Ox O2 O2 Flow FiO2 Time Delivery Rate 12/23/18 153/108 09:43 (123) 12/23/18 98.4 76 20 97 07:34 12/22/18 Room Air 14:23 Intake and Output 12/22/18 12/22/18 12/23/18 1515:00 23:00 07:00 IntakeIntake Total 600 ml 220 ml 240 ml OutputOutput Total 500 ml BalanceBalance 600 ml 220 ml -260 ml Constitutional: alert, oriented, obese Head: normocephalic Neck: supple, non-tender Respiratory: clear to auscultation Cardiovascular: regular rate and rhythm Gastrointestinal: soft Neurological: [employer] PLAY[employer] II-XII intact, nl mental status, nl speech Skin: nl turgor Results Results 24hrs Laboratory Tests Test 12/23/18 04:42 White Blood Count 5.6 Red Blood Count 5.05 Hemoglobin 11.8 L Hematocrit 38.8 L Mean Corpuscular Volume 76.8 L Mean Corpuscular Hemoglobin 23.4 L Mean Corpuscular Hemoglobin Concent 30.4 L Red Cell Distribution Width 15.9 H Platelet Count 238 Mean Platelet Volume 10.1 Immature Granulocytes % 0.200 Neutrophils % 57.4 Lymphocytes % 26.9 Monocytes % 10.0 Eosinophils % 4.6 Basophils % 0.9 Nucleated Red Blood Cells % 0.0 Immature Granulocytes # 0.010 Neutrophils # 3.2 Lymphocytes # 1.5 Monocytes # 0.6 Eosinophils # 0.3 Basophils # 0.1 Nucleated Red Blood Cells # 0.0 Sodium Level 140 Potassium Level 3.3 L Chloride Level 107 Carbon Dioxide Level 27 Anion Gap 6 Blood Urea Nitrogen 7 Creatinine 0.83 Est Glomerular Filtrat Rate mL/min > 60 Glucose Level 141 Calcium Level 9.2 Phosphorus Level 3.7 Magnesium Level 2.1 Total Bilirubin 0.4 Direct Bilirubin 0.00 Indirect Bilirubin 0.4 Aspartate Amino Transf (AST/SGOT) 32 Alanine Aminotransferase (ALT/SGPT) 25 Alkaline Phosphatase 94 Total Protein 6.8 Albumin 3.5 Globulin 3.30 H Albumin/Globulin Ratio 1.06 Medications Medication Current Medications IV Flush (NS 3 ml) 3 ml PER PROTOCOL IV Last administered on 12/22/18at 09:40; Admin Dose 3 ML; Start 12/18/18 at 12:00 Enoxaparin Sodium (Lovenox) 40 mg DAILY SC ; Start 12/19/18 at 09:00 Amlodipine Besylate (Norvasc) 10 mg DAILY PO Last administered on 12/21/18 08:44; Admin Dose 10 MG; Start 12/19/18 at 09:00 Tramadol HCl (Ultram) 50 mg Q6H PRN PO PAIN SCALE 1-3 Last administered on 12/18/18 16:10; Admin Dose 50 MG; Start 12/18/18 at 12:30 Hydromorphone HCl (Dilaudid) 1 mg Q4H PRN IV .SEVERE PAIN 7-10 Last administered on 12/23/18 10:06; Admin Dose 1 MG; Start 12/18/18 at 17:56 Ondansetron HCl (Zofran Inj) 4 mg Q4H PRN IV NAUSEA AND/OR VOMITING Last administered on 12/21/18 10:09; Admin Dose 4 MG; Start 12/19/18 at 01:00 IDA CORDON NP Dec 23, 2018 11:14
[2018-12-23 16:12] VITALS: BP 150/99; RESP 19
[2018-12-23 19:26] VITALS: BP 172/103; PULSE 74; RESP 20
[2018-12-24 01:48] VITALS: BP 172/96; PULSE 72; RESP 20
[2018-12-24] MEDS: HYDROmorphONE 1 MG/ML SYG IV PRN ×3 (02:10→10:01)
[2018-12-24 08:09] VITALS: BP 160/106; PULSE 65; RESP 20
[2018-12-24] MEDS: ENOXAPARIN 40 MG/0.4 ML SYG SC SCH (09:00)
[2018-12-24] MEDS: AMLODIPINE 10 MG TAB PO SCH (09:00)
--- NOTE | 2018-12-24 10:45 | PDOCDIS ---
Discharge Instructions DIAGNOSIS Discharge Diagnosis 1. Acute on chronic pancreatitis with pseudocyst 2. Hypertension. 3. Anemia. 4. Opiate dependency. 5. History of medical noncompliance. CONDITION [id number] Patient Condition: [id number] Stable HOME CARE INSTRUCTIONS: [id number] Diet Instructions: [id number] Low Fat /Cholesterol FOLLOW UP/APPOINTMENTS Follow-up Plan 1. Follow up with Dr. Jolanta Tapia in one week Office Address [address] [place] [id number] Office 2. Follow up with your insurance provider to follow up with a hepatobiliary surgeon for further management and care IDA CORDON NP Dec 24, 2018 10:45
[2018-12-24] MEDS ORDERED: TRAM50TA2 PO (10:51)
--- NOTE | 2018-12-24 10:57 | DS ---
Date/Time of Note Date/Time of Note DATE: 12/24/18 TIME: 10:54 Discharge Summary Admission/Discharge Info Admit Date/Time Dec 18, 2018 at 23:03 Discharge Date/Time Discharge Diagnosis 1. Acute on chronic pancreatitis with pseudocyst 2. Hypertension. 3. Anemia. 4. Opiate dependency. 5. History of medical noncompliance. Patient Condition: Stable Hospital Course This is a 43-year-old male with multiple hospitalizations for recurrent pancreatitis who came back to [facility] due to reported epigastric pain again. Patient does have chronic pancreatitis with pseudocyst formation as well as a history of hypertension and morbid obesity and reportedly also has some opioid dependent behavior. Reports that he was taking opioid medication at home with minimal response. As such she went to the hospital. He did have CT scan of abdomen and pelvis showing multiple calcifications in the proximal pancreatic body/head region with the largest measuring up to 110 m c onsistent with pancreatic duct stones and chronic calcific pancreatitis. CT imaging also showed ill-defined elongated 3 x 1 cm low-density suspect personal financial representative of focal pancreatic duct dilation possibly a cystic lesion such as a pseudocyst. Patient was again seen by cleaner and trimmer while in-house. Was placed on IV fluids and analgesics which we did taper down. He was initi ally placed on n.p.o. and will gradually advance his diet as his pain subsided. During his course of stay he did improve. He did report able to tolerate oral intake. He was otherwise optimized medically with antihypertensives for his high blood pressure. He was noncompliant at times during his hospitalization refusing his blood pressure medicine. He was advised about medical compliance. Was advised outpatient follow-up with his cleaner and trimmer as well as follow- up with hepatobiliary surgeon for further management and care. The plan of care was discussed with the patient and patient verbalized his understanding. On the day of discharge patient was in stable condition [facility] Tramadol HCl (Tramadol HCl) 50 Mg Tablet, 50 MG PO Q6H PRN for PAIN SCALE 1-3, #20 TAB Prov:IDA CORDON NP 12/24/18 Reported Medications Amlodipine Besylate* (Amlodipine Besylate*) 10 Mg Tablet, 10 MG PO DAILY, #30 TAB 12/18/18 Discontinued Reported Medications Tramadol Hcl* (Ultram*) 50 Mg Tablet, 50 MG PO Q6H PRN for PAIN, TAB 12/18/18 Lisinopril* (Lisinopril*) 20 Mg Tablet, 20 MG PO DAILY, #30 TAB 10/13/18 Follow-up Plan 1. Follow up with Dr. Jolanta Tapia in one week Office Address [address] [facility] [place] [address] Office 2. Follow up with your insurance provider to follow up with a hepatobiliary surgeon for further management and care Primary Care Provider Not On Staff Doctor Time spent on discharge: > 30 minutes IDA CORDON NP Dec 24, 2018 10:57
== END 2018-12-24 12:40 | disposition home or self-care (01) | DRG 439 ==
LOC: E/R 06:44 → 2NE 08:50 → OBSVTOIN 23:03
PROVIDERS: ADMIT Family Medicine; ATTEND Family Medicine
DX: K85.90 Acute pancreatitis without necrosis or infection, unspecified (principal); K86.3 Pseudocyst of pancreas; F11.20 Opioid dependence, uncomplicated; K86.1 Other chronic pancreatitis; I10 Essential (primary) hypertension; F17.210 Nicotine dependence, cigarettes, uncomplicated; D50.9 Iron deficiency anemia, unspecified; K86.89 Other specified diseases of pancreas; Z91.14 Patient's other noncompliance with medication regimen; E66.01 Morbid (severe) obesity due to excess calories; Z91.19 Patient's noncompliance with other medical treatment and regimen
CPT/HCPCS: 36415; 74176; 80053; 80061; 80307; 81003; 82150; 82728; 83036; 83540; 83690; 83735; 84100; 85025; 96374; 96375; G0378; J0360; J1170; J1650; J2405; J2916; J7030; J7040